=== PATIENT | female | born 1940 | race Caucasian/White ===

== ENCOUNTER → 2017-11-22 08:24 | Outpatient (CLI) | payer MEDICARE, OTHER, SELFPAY ==
--- NOTE | 2017-11-22 08:27 | HPBI_ITS ---
MAMMOGRAPHY - BILATERAL SCREENING REASON FOR EXAM: Female, 76 years old. Routine annual screening examination. PERTINENT HISTORY: Non-contributory. TECHNIQUE: Digital bilateral breast silvia (3D mammographic acquisition) in the CC and MLO projections. 2-D mediolateral oblique (MLO) and craniocaudad (CC) views of both breasts were obtained. CAD: Full Field Digital Mammography with Computer Added Detection was performed. COMPARISON: Comparison is made with prior study dated November 19, 2014 and November 13, 2013. FINDINGS: Breast Composition: There are scattered areas of fibroglandular density. There are no dominant masses or suspicious calcifications. Stable secretory calcifications. No other significant abnormalities are identified. There has been no significant change since the prior study. HPBI/SCREENING MAMM (CAD), BILAT IMPRESSION: Stable bilateral screening mammogram. Yearly follow-up mammogram recommended. (A) ASSESSMENT CATEGORY: BIRADS Category 2: Benign. A letter regarding these results will be sent to the patient by the facility within 30 days. Approximately 10% of breast cancers are not detected by mammography. A normal mammogram should not delay biopsy of a clinically suspicious abnormality. [id number] Electronically Signed: Meño Peter MD at 11:27 EST Tel [phone], Service support ,
== END ==
PROVIDERS: Family Provider Family Medicine; PCP Family Medicine; Visit Provider Family Medicine
DX: Z12.31 Encounter for screening mammogram for malignant neoplasm of breast (principal)
CPT/HCPCS: 77063; 77067

== ENCOUNTER → 2017-12-11 09:13 | Outpatient (CLI) | payer MEDICARE, OTHER, SELFPAY ==
[2017-12-11 10:15] LABS: Absolute Lymphocyte Count 1.46 X10^3/ul (0.83-4.51); Absolute Neutrophil Count 3.6 X10^3/uL (2.0-7.7); Basophil# 0.06 X10^3/uL; Eosinophil# 0.28 X10^3/uL; Eosinophils% 4.7 % (0-5); Hematocrit 43.4 % (37-47); Hemoglobin 13.7 g/dl (12.0-15.0); Lymphocyte # 1.46 X10^3/ul (4.0); Lymphocyte % 24.3 % (19-41); Mean Corp Hgb Conc 31.6 g/gl (32-36); Mean Corpuscular Hgb 28.8 pg (27.0-32.0); Mean Corpuscular Volume 91.4 fL (81-99); Mean Platelet Vol. 12.9 fl (6.2-12.0); Monocyte# 0.63 X10^3/uL; Monocyte% 10.5 % (0-10); Neutrophil # 3.57 X10^3/uL (2.7-7.7); Neutrophil % 59.2 % (47-70); Platelet Count 156 K/mm3 (150-450); RBC Distribution Width CV 14.3 % (11.6-14.6); RBC Distribution Width SD 46.4 fl (35.1-43.9); Red Blood Count 4.75 M/mm3 (4.2-5.4)
[2017-12-11 10:51] LABS: POSITIVE COUNT NO; POSITIVE DIFFERENTIAL NO; POSITIVE MORPHOLOGY NO
== END ==
PROVIDERS: Family Provider Family Medicine; PCP Family Medicine; Visit Provider Family Medicine
DX: Z00.00 Encounter for general adult medical examination without abnormal findings (principal)
CPT/HCPCS: 36415; 85025

== ENCOUNTER → 2018-11-09 08:39 | Outpatient (CLI) | payer MEDICARE, OTHER, SELFPAY ==
[2018-11-09 11:12] LABS: Thyroid Stim Hormone (TSH) 0.32 uIU/mL (0.358-3.74)
--- OUTSIDE RECORDS SUMMARY | 2019-01-13 15:45 | XMS RPT_ITS ---
:1940 Author Organization OHIP Care Team Providers Name Role Phone MAREK MAHMOOD Admitting Unavailable MAREK MAHMOOD Attending Unavailable Seals, Otf Attending Unavailable Seals, Otf Primary Care Unavailable Seals, Otf Attending Unavailable Seals, Otf Primary Care Unavailable Otf Seals Referring Unavailable MoodispawOtf Attending Unavailable Seals, Otf Referring Unavailable Seals, Otf Attending Unavailable Seals, Otf Primary Care Unavailable Nakul Elder Attending Unavailable Seals, Otf Referring Unavailable Seals, Otf Primary Care Unavailable PROBLEMS PROBLEMS DATE TYPE CONDITION / CODE ATTENDING STATUS SOURCE 12/22/2017 Active Unspecified ptosis LOCASTRO, Active [facility] of bilateral MAREK BALLARD Other [place] eyelids / Repository H02.403(ICD-10) PROCEDURES PROCEDURES No Procedure Records FoundRESULTS RESULTS THYROID STIM HORMONE Collected: 11/09/2018 Status: F Source: KIM (TSH) 8:47 AM [facility] REPOSITORY TYPE CODE TESTS RESULT OUT OF RANGE REFERENCE UNITS LAB L501.9520 0.358-3.74 uIU/mL Low TSH 0.32 Performed By: #### L501.9520 #### [facility] [address] [place], [address] CARDIOLOGY VISIT Observed: 01/09/2018 Status: F Source: KIM REPORT 12:04 PM [facility] REPOSITORY [facility] [address] [place] [address] OFFICE VISIT Date of Service: 01/08/18 MR#: [id number] Acct: [id number] Name: QIANA NUNEZ Rep #: [id number] : 1940 Provider: SURY Elder Age/Sex: 77/F Location: [facility] Status: Signed HPI HPI Details: QIANA NUNEZ, is a 77 F who presents to the office today for a cardiovascular followup. She has a history of palpitations, PACs, SVT with ectopic atrial tachycardia, PVCs. She also has a history of hypertension and hyperlipidemia. Pt denies chest, arm, jaw, or neck discomfort. Her exercise tolerance is stable. Pt denies symptoms of CHF, palpitations, lightheadedness, dizziness, near syncopal or syncopal episodes. Pt denies worsening edema or claudication issues. Pt. denies orthopnea, PND, fever, chills, blood in urine, blood in stool, myalgia, or unexplainable fatigue. Intake Vital Signs01/08/18 Height 5 ft 4 in 01/08/18 Weight: 201 lb 01/08/18 Body Mass Index (BMI) 34.4 01/08/18 Blood Pressure 112/60 Intake Visit Reasons: 6 M FU Allergies Sulfa (Sulfonamide Antibiotics) Adverse Reaction (Intermediate, Verified 01/04/18 10:01) Rash Medications diltiazem CD 120 mg capsule,extended release 24 hr 120 mg PO QAM #90 cap 10/18/17 [Rx Confirmed 01/04/18] pravastatin 20 mg tablet 20 mg PO QHS #90 tab 11/20/17 [Rx Confirmed 01/04/18] calcium carbonate 600 mg calcium (1,500 mg) tablet 600 mg PO BID tab 01/04/18 [History Confirmed 01/04/18] levothyroxine 112 mcg tablet 112 mcg PO QDAY tab 01/04/18 [History Confirmed 01/04/18] losartan 50 mg tablet 50 mg PO QDAY 01/04/18 [History Confirmed 01/04/18] nabumetone 750 mg tablet 750 mg PO BID 01/04/18 [History Confirmed 01/04/18] sertraline 50 mg tablet 50 mg PO QDAY 01/04/18 [History Confirmed 01/04/18] PFSH Medical History Palpitations (Chronic) Hypertension (Chronic) Hyperlipidemia (Chronic) Atrial premature complexes (Chronic) History of PSVT (paroxysmal supraventricular tachycardia) (Chronic) Premature ventricular contractions (Chronic) Nonrheumatic aortic (valve) stenosis (Chronic) Cardiac murmur (Chronic) Surgical History History of partial hysterectomy (Acute 1964) Family History Father Cancer Brother CAD (coronary artery disease) Social History Smoking Status: Never smoker ROS Const Const: Negative for fatigue, weakness, body ache, fever(s) or chills ENT ENT: Negative for dizziness Cardio Chest Pain: No Palpitations: No Edema: None Muscle aches with walking: None Resp Respiratory: Negative for SOB with activity, SOB at rest, SOB orthopnea\SOB lying down or paroxysmal nocturnal dyspnea GI GI: Negative nausea, black,tarry stools, bright, red blood in stools or vomiting blood/hematemesis : Negative for hematuria or frequent nighttime urination/ nocturia Musc Musc: Negative for muscle aches/ myalgia Neuro Neuro: Negative for weakness, dizziness, lightheadedness, near syncope, syncope or orthostatic symptoms Endo Endo: Negative for fatigue Cardiology Exam Const Appearance: cooperative, healthy appearing, comfortable and no acute distress Orientation: alert, awake and oriented x3 Head Head: normal to inspection Mouth: oral mucosae normal Neck Neck: no JVD and normal visual inspection Carotids: normal carotid upstroke Chest Chest inspection: normal inspection of the chest and normal respiratory effort Auscultation: Bilateral: Clear to Auscultation Cardio Rate: regular rate Rhythm: regular rhythm Heart sounds: S2 normal and murmur; negative rub or gallop Murmur: Grade 2/6, LLSB and RLSB GI GI: normal to inspection Neuro General: alert, awake, oriented x3 and CN's II-XI intact bilaterally Skin Skin: no rashes or lesions noted Extremities Pulses: Normal: Right Posterior Tibial Pulse, Left Posterior Tibial Pulse, Right Radial Pulse, Left Radial Pulse Lower Extremity Edema: None: Bilateral Psych Psychological: normal affect Supplemental Info Echocardiogram in 2017 demonstrates left ventricular systolic function is normal. The estimated ejection fraction is 65 %. The left atrium is mildly enlarged. Mild (1+) mitral valve insufficiency. Mild tricuspid valve insufficiency. Mild aortic stenosis. Trivial aortic valve insufficiency. Trivial pulmonic valve insufficiency. Right ventricular systolic pressure estimated to be 36 mmHg. Assessment AND Plan 1. Palpitations R00.2 Plan - FATUMA Perera Patient denies any symptomatic recurrence of this. Patient will continue current medications which includes calcium channel lilly. We will continue to monitor this. 2. Essential hypertension I10 Plan - FATUMA Perera Patient's blood pressure is well-controlled today in the office. We will continue to monitor this. We will not make any medication regimen changes. 3. Mixed hyperlipidemia E78.2 Francoise - FATUMA Perera Patient states is managed by primary care physician. We will continue to monitor this. She will continue current cholesterol-lowering medication. 4. Non-rheumatic aortic stenosis I35.0 Plan - FATUMA Perera Patient's most recent echocardiogram from November 2016 showed an estimated ejection fraction of 65% and mild aortic valve stenosis and trivial aortic valve insufficiency. We will not make a medication regimen changes. We will continue to monitor this through history, exam, and repeat echocardiogram as needed. Plan Detail Additional Comments - FATUMA Perera Discussed the above patient with Dr. Robertson in Dr. Buenrostro's absence, he agrees with the plan of care. Thank you for allowing us to participate in the patients plan of care, if you have any questions please do not hesitate to call. This note was generated using a voice recognition system and there may be incorrect words, spelling or punctuation that were not noted when reviewing the office note prior to saving. Follow Up 11 Months (PFM) Coding Level of Care Code Off vis,est,level 3 Diagnoses Palpitations R00.2 Essential hypertension I10 Hypertension type: essential hypertension Mixed hyperlipidemia E78.2 Hyperlipidemia type: mixed hyperlipidemia Non-rheumatic aortic stenosis I35.0 Coding Level of Care Code Off vis,est,level 3 Diagnoses Palpitations R00.2 Essential hypertension I10 Hypertension type: essential hypertension Mixed hyperlipidemia E78.2 Hyperlipidemia type: mixed hyperlipidemia Non-rheumatic aortic stenosis I35.0 01/08/18 1640 <Electronically signed by Nakul BURRIS> Date Nakul Elder [employer] PROGRAM COORDINATOR-C 01/09/18 1204<Electronically signed by Sonido Robertson MD> Cosigner Signature: Date (if applicable) Sonido Robertson MD CC: Otf Seals MD ANES POST Observed: 12/22/2017 Status: COMPLETED Source: [place] 12:40 PM [facility] OTHER CAMPUS REPOSITORY O ID: [id number] Author: Ricky Gray MD Service: Anesthesiology Author Type: Anesthesiologist Type: Anesthesia PostOp Filed: 12/22/2017 12:40 PM Note Text: POST ANESTHESIA EVALUATION NOTE SERVICE DATE: 12/22/2017 SERVICE TIME: 1240 : 1940 Vitals: 12/22/17 1109 12/22/17 1213 Temp: 36.6 ?C (97.9 ?F) 36.3 ?C (97.3 ?F) 12/22/17 1109 12/22/17 1213 12/22/17 1223 BP: 160/66 147/65 146/75 12/22/17 1109 12/22/17 1213 12/22/17 1223 Pulse: 63 71 69 12/22/17 1109 12/22/17 1213 12/22/17 1223 Resp: 20 18 16 12/22/17 1109 12/22/17 1213 12/22/17 1223 SpO2: 96% 97% 96% Validated Vital Signs: Yes POST ANES STATUS: No apparent anesthetic complications. The patient is appropriately hydrated with stable respiratory and cardiovascular status. Patient has safe and adequate airway control. The patient has appropriate pain relief and no significant post operative nausea or vomiting. The patient has achieved baseline mental status. Further assessment by Anesthesia Service: None Other Remarks: SIGNATURE: Ricky Gray MD PATIENT NAME: Qiana Nunez DATE: December 22, 2017 TIME: 12:40 PM PAGER/CONTACT #: OPERATIVE NO Observed: 12/22/2017 Status: COMPLETED Source: [place] 12:10 PM [facility] OTHER CAMPUS REPOSITORY HNO ID: [id number] Author: Marek Mahmood Service: Ophthalmology Author Type: Physician Type: Operative Report Filed: 12/22/2017 12:10 PM Note Text: OPERATIVE/PROCEDURE REPORT OPHTHAMOLOGY LOG ID: [id number] Surgery/Procedure Date: 12/22/2017 Incision/Procedure Start Time: 12:00 PM Incision Close/Procedure End Time: 12:08 PM Surgeon(s)/Proceduralist(s) and Core Java Engineer(s): Surgeon(s) and Role: * Marek Mahmood - Primary Procedure(s): Procedure(s) (LRB): REPAIR BLEPHAROPTOSIS CONJUNCTIVO-TARSO LEVATOR RESECTION (Bilateral) 3.5 mm. 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 The patient has a history of blurred vision, making it difficult to read and drive. The ptosis is worse on down gaze, resulting in their symptoms. The patient has a scotoma greater than 20- 30 degrees which improves on eyelid taping. Anesthesia: Monitored Anesthesia Care Procedure Details: The patient was brought into the operating room, and placed under adequate local anesthesia. The face was prepped and draped in the usual sterile fashion for upper lid surgery. The caliper was set at a pre operatively determined amount and thus used to measure the amount of Julien muscle and conjunctiva to be resected. This tissue was grasped temporally and nasally using locking forceps and the tissue was then brought inferiorly. A Putterman clamp was then placed imbricating the tissue within the jaws of the clamp. A single-arm 6-0 Prolene suture was then passed full thickness from the lid, from a nasal approach, running it through the tissue posterior to the clamp engaging tarsus with each bite. Once the suture was run through the length of the clamp, the other arm was then brought full thickness through the lid temporally. The intervening tissue was resected with Amaya scissors and discarded. The suture was then tied on the lid surface making a knot in the center of the eyelid. Antibiotic ointment and ice compresses were placed over the eye postoperatively. The patient was returned to the recovery room in satisfactory condition. Estimated Blood Loss: Minimal unless noted here. Specimens: * No specimens in log * Implantable Devices: * No implants in log * Drains: None unless noted here. Complications: None I performed the entire procedure. SIGNATURE: Marek Mahmood MD PATIENT NAME: Qiana Nunez DATE: December 22, 2017 TIME: 12:10 PM PAGER/CONTACT #: HISTORY PHYSICAL Observed: 12/22/2017 Status: COMPLETED Source: [place] 11:32 AM [facility] REPOSITORY HNO ID: [id number] Author: Marek Mahmood Service: Ophthalmology Author Type: Physician Type: HANDP Filed: 12/22/2017 11:32 AM Note Text: UPDATED HISTORY AND PHYSICAL EXAMINATION SERVICE DATE: 12/22/2017 SERVICE TIME: 11:32 AM PHYSICAL EXAM MUST BE COMPLETED ON ADMISSION The History and Physical (completed in the past 30 days) has been reviewed and the patient has been examined. The contents accurately reflect the patient's condition with the following additions or revisions since the HANDP was completed. Examination indicates no changes. This HANDP can be found in the scanned documents dated 12/11/17. SIGNATURE: Marek Mahmood MD PATIENT NAME: Qiana Nunez DATE: December 22, 2017 TIME: 11:32 AM PAGER: ANES PREOP Observed: 12/22/2017 Status: COMPLETED Source: [place] 11:18 AM [facility] REPOSITORY HNO ID: [id number] Author: Ricky Gray MD Service: Anesthesiology Author Type: Anesthesiologist Type: Anesthesia PreOp Filed: 12/22/2017 11:19 AM Note Text: ANESTHESIOLOGY DAY OF SURGERY NOTE SERVICE DATE: 12/22/2017 SERVICE TIME: 1115 : 1940 Procedure(s) (LRB): REPAIR BLEPHAROPTOSIS CONJUNCTIVO-TARSO LEVATOR RESECTION (Bilateral) Surgeon(s): Marek Mahmood Estimated body mass index is 34.14 kg/(m2) as calculated from the following: Height as of this encounter: 163.8 cm (5' 4.5). Weight as of this encounter: 91.6 kg (202 lb). Most recent hematocrit and potassium results: No results found for this basename: HCT,HEMATOCRIT,K,POTASSIUM ANES DOS/PREOP NOTE: Vitals: 12/22/17 1109 BP: 160/66 Pulse: 63 Resp: 20 Temp: 36.6 ?C (97.9 ?F) TempSrc: Oral SpO2: 96% Weight: 91.6 kg (202 lb) Height: 163.8 cm (5' 4.5) Active Problem List: Not available in Epic; refer to paper chart Past Medical/Surgical History: Not availble in Epic; refer to paper chart Family History: Not availble in Epic; refer to paper chart Social History: Not availble in Epic; refer to paper chart H AND P/Review of Systems: Not available in Epic; refer to paper chart No current facility-administered medications on file prior to encounter. No current outpatient prescriptions on file prior to encounter. Current Facility-Administered Medications: lactated ringers infusion 30 mL/hr INTRAVENOUS CONTINUOUS Marek Mahmood Allergies: ALLERGIES Allergen Reactions - Sulfa (Sulfonamide * Rash DOS EXAM: Adequate NPO status: Yes Anesthetic risks, benefits, alternatives, personnel and consent discussed: Yes Patient agrees to proceed: Yes Previous Anesthesia: No history of adverse event. Airway Assessment: MP 2; Neck ROM: Full ROM without neurologic symptoms; Airway Evaluation: No significant abnormalities Symptoms of Sleep Apnea: Snoring, Hypertension and Age over 50 (77 year old) Dentition: Teeth intact Additional Physical Exam: Lungs: Patient health status unchanged since recent history and physical. See history and physical for exam findings. Cardiac: Patient health status unchanged since recent history and physical. See history and physical for exam findings. Blood Products: Not anticipated for this procedure. Anesthetic Plan: MAC with Sedation and Standard ASA Monitors Pain Management Plan: Parenteral or Oral ASA Class: 3 Chronic Beta Lilly medication administered within 24 hours: N/A I have interviewed and examined the patient. I have reviewed the medical record and/or the pre-anesthesia evaluation, pertinent labs, and test results. Significant changes in the patient's condition since the History and Physical, not otherwise documented in primary service progress notes: No This contains updated information obtained within 48 hours of Surgery/Procedure. SIGNATURE: Ricky Gray MD PATIENT NAME: Qiana Nunez DATE: December 22, 2017 TIME: 11:18 AM CSN: [id number] CBC W/DIFF, AUTOMATED Collected: 12/11/2017 Status: F Source: KIM 9:16 AM [facility] REPOSITORY TYPE CODE TESTS RESULT OUT OF RANGE REFERENCE UNITS LAB L100.1000 4.4-11.0 K/mm3 Normal WBC 6.0 LAB L100.1200 4.2-5.4 M/mm3 Normal RBC 4.75 LAB L100.1300 12.0-15.0 g/dl Normal HGB 13.7 LAB L100.1400 37-47 % Normal HCT 43.4 LAB L100.1500 81-99 fL Normal MCV 91.4 LAB L100.1600 27.0-32.0 pg Normal MCH 28.8 LAB L100.1700 32-36 g/gl Low MCHC 31.6 LAB L100.1810 11.6-14.6 % Normal RDW CV 14.3 LAB L100.1820 35.1-43.9 fl High RDW SD 46.4 LAB L100.1900 150-450 K/mm3 Normal PLT 156 LAB L100.2000 6.2-12.0 fl High MPV 12.9 LAB L100.2100 47-70 % Normal NEUT% 59.2 LAB L100.2200 19-41 % Normal LY% 24.3 LAB L100.2300 0-10 % High MONO% 10.5 LAB L100.2400 0-5 % Normal EO% 4.7 LAB L100.2500 0-1 % Normal BASO% 1.0 LAB L100.2550 0.0-0.9 % Normal IM GRAN % 0.300 Result Comment: IG% - Immature Granulocytes (promyelocytes, myelocytes and metamyelocytes) > 1% indicates that a LEFT SHIFT is Present. LAB L100.2620 2.0-7.7 X10 3/uL Normal Absolute Neut 3.6 LAB L100.2720 0.83-4.51 X10 3/ul Normal Absolute Lymph 1.46 Performed By: #### L100.0100 #### [facility] [address] [place], [address] HOSP Observed: 11/23/2017 Status: COMPLETED Source: [facility] 12:00 AM [facility] OTHER CAMPUS REPOSITORY Patient:Qiana Nunez MRN: <[id number]> Height:5' 4.5(1.638 m) Weight:202 lb (91.627 kg) Outpatient Medications as of 12/22/17: sertraline (ZOLOFT) 50 mg tablet nabumetone (RELAFEN) 750 mg tablet losartan (COZAAR) 50 mg tablet diltiazem (CARDIZEM) 120 mg tablet pravastatin (PRAVACHOL) 20 mg tablet CALCIUM CARBONATE (CALCIUM 600 ORAL) levothyroxine (SYNTHROID) 112 mcg tablet triamcinolone acetonide (KENALOG) 0.1 % ointment multivitamin tablet Admission/Clinic Administered Medications as of 12/22/17: lactated ringers infusion Problem List: 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] Allergies: Sulfa (Sulfonamide Antibiotics) Date Verified: 12/22/17 Lab Values No results within the last 30 days for the following basenames: K,HCT No progress notes entered within the past 30 days SCREENING MAMM (CAD), Observed: 11/22/2017 Status: F Source: [facility] 8:27 AM [facility] REPOSITORY [facility] Imaging Services [address] [place] [id number] SCREENING MAMM (CAD), BILAT MR#: [id number] Acct: [id number] Name: QIANA NUNEZ Rep #: [id number] : 1940 F 76 From: Meño Peter MD PCP: Otf Seals MD Status: REG CL Study: SCREENING MAMM (CAD), BILAT Date of Exam: 11/22/17 Exam# [id number] Ordering Dr: Otf Seals MD MAMMOGRAPHY - BILATERAL SCREENING REASON FOR EXAM: Female, 76 years old. Routine annual screening examination. PERTINENT HISTORY: Non-contributory. TECHNIQUE: Digital bilateral breast silvia (3D mammographic acquisition) in the CC and MLO projections. 2-D mediolateral oblique (MLO) and craniocaudad (CC) views of both breasts were obtained. CAD: Full Field Digital Mammography with Computer Added Detection was performed. COMPARISON: Comparison is made with prior study dated November 19, 2014 and November 13, 2013. FINDINGS: Breast Composition: There are scattered areas of fibroglandular density. There are no dominant masses or suspicious calcifications. Stable secretory calcifications. No other significant abnormalities are identified. There has been no significant change since the prior study. HPBI/SCREENING MAMM (CAD), BILAT IMPRESSION: Stable bilateral screening mammogram. Yearly follow-up mammogram recommended. (A) ASSESSMENT CATEGORY: BIRADS Category 2: Benign. A letter regarding these results will be sent to the patient by the facility within 30 days. Approximately 10% of breast cancers are not detected by mammography. A normal mammogram should not delay biopsy of a clinically suspicious abnormality. [id number] Electronically Signed: Meño Peter MD at 11:27 EST Tel [phone], Service support , CC: Otf Seals MD Legal Assistant: Signed ALLERGIES ALLERGIES DATE TYPE / CODE NAME / CODE REACTION SEVERITY SOURCE 01/04/2018 Drug Sulfa Rash [facility] Allergy/4160 (Sulfonamide Hospital 17917(SNOMED Antibiotics)/ Repository CT) [id number](RX NORM) 12/12/2017 Drug SULFA RASH [facility] Class/027876 (SULFONAMIDE Other [place] 003(SNOMED ANTIBIOTICS) Repository CT) ENCOUNTERS ENCOUNTERS ADMIT/DISCHARGE ACCOUNT ADMITTING ENCOUNTER LOCATION SOURCE NUMBER CLASS 11/09/2018 [id number] [facility] ing:MFPLAB Repository 01/08/2018 [id number] Ambulatory BMSBuilding:[place] Repository 01/08/2018/01/09/20 [id number] Ambulatory BMSBuilding:[place] [address] [facility] Repository 12/22/2017/12/23/19 [id number] LOCASTRO, Ambulatory [address] Repository 12/11/2017 [id number] Ambulatory [facility] ing:MFPLAB Repository 11/22/2017 [id number] Ambulatory [place] [facility] ing:BI Repository PAYERS PAYERS ENCOUNTER GUARANTOR PAYER SUBSCRIBER SOURCE 11/09/2018 BERNARDO Simon Primary QIANA [place] [id number] [place] Insurance:MEDICARE SWEENEYDOB: [facility] [place], [place] [facility] [id number] Hospital [place] [address]Ydz: Number: Repository [id number] (HP) Date:2018-11-09 11/09/2018 Secondary QIANA Nick [place] Insurance:MUTUAL OF SWEENEYDOB: Critical access hospital Number: [id number] [id number] Repository Date:9475-45-96KYOXVI [place] [address]VE: 11/09/2018 Tertiary NOT GIVENUNK [place] Insurance:SELF PAY [facility] Number: Effective Repository Date:2018-11-09 01/08/2018 Bernardo Simon Primary QIANA Nick [place] [id number] [place] Insurance:MEDICARE SWEENEYDOB: [facility], PART A [facility] [id number] [facility] [place] [address]Fld: Number: Repository [id number] (HP) Date:2017-10-04 01/08/2018 Secondary QIANA H [place] Insurance:MUTUAL OF SWEENEYDOB: Critical access hospital Number: [id number] [id number] Repository Date:5174-69-35FWGRCO [place], [place] [address]VB: 01/08/2018 Tertiary NOT GIVENUNK [place] Insurance:SELF PAY [facility] Number: Effective Repository Date:2017-10-04 01/08/2018 BERNARDO Simon Primary QIANA Nick [place] [id number] [place] Insurance:MEDICARE SWEENEYDOB: [facility] [place], PART A [facility] [id number] Hospital [place] [address]Cxh: Number: Repository [id number] (HP) Date:2017-11-25 01/08/2018 Secondary QIANA H [place] Insurance:MUTUAL OF SWEENEYDOB: Critical access hospital Number: [id number] [id number] Repository Date:4540-83-85[place] [address]HP: 01/08/2018 Tertiary NOT GIVENUNK [place] Insurance:SELF PAY [facility] Number: Effective Repository Date:2017-11-25 12/11/2017 Bernardo Simon Primary QIANA H [place] [id number] [place] Insurance:MEDICARE SWEENEYDOB: [facility], PART A [facility] [id number] [address]Vpl: Number: Repository [id number] (HP) Date:2017-12-11 12/11/2017 Secondary QIANA H [place] Insurance:MUTUAL OF SWEENEYDOB: Critical access hospital Number: [id number] Hospital [id number] Repository Date:7936-49-07XMMTAJ [place], [place] [address]VN: 12/11/2017 Tertiary NOT GIVENUNK [place] Insurance:SELF PAY [facility] Number: Effective Repository Date:2017-12-11 11/22/2017 Bernardo Simon Primary QIANA H [place] [id number] [place] Insurance:MEDICARE SWEENEYDOB: [facility], PART A [facility] [id number] [address]Lsi: Number: Repository [id number] (HP) Date:2017-10-24 11/22/2017 Secondary QIANA H [place] Insurance:MUTUAL OF SWEENEYDOB: Critical access hospital Number: [id number] Hospital [id number] Repository Date:3257-96-20AQKIYV OF [facility], [place] [address]IX: 11/22/2017 Tertiary NOT GIVENUNK [place] Insurance:SELF PAY [facility] Number: Effective Repository Date:2017-10-24
== END ==
PROVIDERS: Family Provider Family Medicine; PCP Family Medicine; Visit Provider Family Medicine
DX: E03.9 Hypothyroidism, unspecified (principal)
CPT/HCPCS: 36415; 84443

== ENCOUNTER → 2019-01-18 09:39 | Outpatient (CLI) | payer MEDICARE, OTHER, SELFPAY ==
[2018-12-17 10:21] VITALS: BMI 34.1
--- NOTE | 2019-01-18 09:41 | ECHOD_ITS ---
Reason For Study: Murmur Procedure This was a 2D Doppler, Color Flow transthoracic echocardiogram. The exam was of adequate technical quality. Exam performed in department. Left Ventricle Normal LV size. Moderate concentric left ventricular hypertrophy. Mid cavitary false tendon noted. Left ventricular systolic function is normal. The estimated ejection fraction is 65 %. There is evidence of diastolic dysfunction. No regional wall motion abnormalities noted. Right Ventricle Normal RV size. Normal systolic function. Atria The left atrium is mildly enlarged. The right atrium is mildly enlarged. No doppler evidence for ASD. Mitral Valve There is no mitral annular calcification. Normal mitral valve. Mild (1+) mitral valve insufficiency. Tricuspid Valve Normal tricuspid valve. Mild tricuspid valve insufficiency. Right ventricular systolic pressure estimated to be 24 mmHg. Aortic Valve Trisinus/trileaflet aortic valve. Mild focal aortic valve calcification. Mild aortic stenosis. Trivial aortic valve insufficiency. Pulmonic Valve The pulmonic valve is not well visualized. Trivial pulmonic valve insufficiency. Great Vessels Normal sized aortic root. Pericardium/Pleural No pericardial effusion. MMode/2D Measurements & Calculations LVIDd: 3.7 cm IVSd: 1.6 cm LVOT diam: 2.1 cm LVIDs: 2.0 cm LVPWd: 1.5 cm LVOT area: 3.6 cm2 RVDd: 3.8 cm FS: 46.2 % Ao root diam: 3.6 cm LAV(MOD-sp4): 47.9 ml LA A4 area: 18.9 cm2 ACS: 1.3 cm RA A4 area: 18.1 cm2 Time Measurements MV dec time: 0.32 sec Doppler Measurements & Calculations MV E max jeffery: 93.3 cm/sec Lat Peak E' Jeffery: 5.0 cm/sec Med Peak E' Jeffery: 4.1 cm/sec MV A max jeffery: 118.1 cm/sec E/E' lat: 18.5 E/E' med: 22.6 MV E/A: 0.79 MV V2 max: 140.6 cm/sec MV P1/2t max jeffery: 98.2 cm/sec Ao V2 max: 252.0 cm/sec MV max P.9 mmHg MV P1/2t: 79.1 msec Ao max P.4 mmHg MV V2 mean: 74.7 cm/sec Ao V2 mean: 154.2 cm/sec MV mean P.7 mmHg MV dec slope: 363.8 cm/sec2 Ao mean P.5 mmHg MV V2 VTI: 38.9 cm MVA(P1/2t): 2.8 cm2 Ao V2 VTI: 54.8 cm MVA(VTI): 1.9 cm2 RADHAMES(I,D): 1.3 cm2 RADHAMES(V,D): 1.3 cm2 LV V1 max: 93.8 cm/sec SV(LVOT): 72.1 ml PA V2 max: 103.0 cm/sec LV V1 max P.5 mmHg LV V1 mean P.0 mmHg LV V1 mean: 65.9 cm/sec LV V1 VTI: 20.1 cm TR max jeffery: 227.7 cm/sec TR max P.7 mmHg Interpretation Summary Left ventricular systolic function is normal. The estimated ejection fraction is 65 %. Moderate concentric left ventricular hypertrophy. Mid cavitary false tendon noted. The left atrium is mildly enlarged. The right atrium is mildly enlarged. Mild (1+) mitral valve insufficiency. Mild tricuspid valve insufficiency. Mild aortic stenosis. Trivial aortic valve insufficiency. Trivial pulmonic valve insufficiency. Right ventricular systolic pressure estimated to be 24 mmHg. There is evidence of diastolic dysfunction. Ordering Physician: Otf Buenrostro Referring Physician: Otf Buenrostro Performed By: Rex Dinh RCS
== END ==
PROVIDERS: Family Provider Family Medicine; PCP Family Medicine; Referring Provider Internal Medicine Cardiovascular Disease; Visit Provider Internal Medicine Cardiovascular Disease
DX: I35.0 Nonrheumatic aortic (valve) stenosis (principal); R00.2 Palpitations
CPT/HCPCS: 93306

== ENCOUNTER → 2019-05-09 | Outpatient (CLI) | payer MEDICARE, OTHER, SELFPAY ==
[2018-12-17 10:21] VITALS: BMI 34.1
[2019-05-09 10:37] LABS: Thyroid Stim Hormone (TSH) 0.65 uIU/mL (0.358-3.74)
== END | disposition home or self-care (01) ==
LOC: MFPLAB 08:41
PROVIDERS: Family Provider Family Medicine; PCP Family Medicine; Referring Provider Family Medicine; Visit Provider Family Medicine
DX: E03.9 Hypothyroidism, unspecified (principal)
CPT/HCPCS: 36415; 84443

== ENCOUNTER → 2019-11-07 10:26 | Outpatient (CLI) | payer MEDICARE, OTHER, SELFPAY ==
[2018-12-17 10:21] VITALS: BMI 34.1
[2019-11-07 12:39] LABS: Anion Gap 4 (5-15); BUN 12 mg/dL (7-18); BUN/Creat Ratio 14.7 RATIO (10-20); Calcium,Total 9.2 mg/dL (8.5-10.1); Chloride 108 mmol/L (98-107); Cholesterol 207 mg/dL (200); Creatinine, Serum 0.81 mg/dL (0.55-1.02); EST Glomerular Filtration Rate 72 mL/min (>60); Est Glom Filt Rate - Afr Amer 87 mL/min (>60); Glucose 100 mg/dL (74-106); High Density Lipoprotein 62 mg/dL; Potassium 4.1 mmol/L (3.5-5.1); Sodium Level 142 mmol/L (136-145); Thyroid Stim Hormone (TSH) 0.94 uIU/mL (0.358-3.74); Triglycerides 206 mg/dL; Very Low Density Lipoprotein 41 mg/dL (5-40)
== END ==
PROVIDERS: PCP Family Medicine; Referring Provider Family Medicine; Visit Provider Family Medicine
DX: E03.9 Hypothyroidism, unspecified (principal); E78.2 Mixed hyperlipidemia
CPT/HCPCS: 36415; 80048; 80061; 84436; 84443; 84481

== ENCOUNTER → 2020-05-06 09:29 | Outpatient (CLI) | payer MEDICARE, OTHER, SELFPAY ==
[2019-12-23 09:30] VITALS: BMI 33.6
[2020-05-06 11:28] LABS: Cholesterol 200 mg/dL (200); High Density Lipoprotein 61 mg/dL; T4 Total, Thyroxin 11.6 ug/dL (4.8-13.9); Thyroid Stim Hormone (TSH) 0.36 uIU/mL (0.358-3.74); Triglycerides 164 mg/dL; Very Low Density Lipoprotein 33 mg/dL (5-40)
== END ==
PROVIDERS: PCP Family Medicine; Visit Provider Family Medicine
DX: E03.9 Hypothyroidism, unspecified (principal); E78.2 Mixed hyperlipidemia
CPT/HCPCS: 36415; 80061; 84436; 84443; 84481

== ENCOUNTER → 2020-12-15 13:36 | Outpatient (CLI) | payer MEDICARE, OTHER, SELFPAY ==
[2020-12-04 09:03] VITALS: BMI 32.8
--- NOTE | 2020-12-15 13:41 | ECHOD_ITS ---
Reason For Study: Murmur Procedure This was a 2D Doppler, Color Flow transthoracic echocardiogram. The exam was of adequate technical quality. Exam performed in department. Left Ventricle Normal LV size. Severe concentric left ventricular hypertrophy. Left ventricular systolic function is normal. The estimated ejection fraction is 70 %. Diastolic function is indeterminate. No regional wall motion abnormalities noted. Right Ventricle Normal RV size. Normal systolic function. Atria The left atrium is mildly enlarged. The right atrium is mildly enlarged. No doppler evidence for ASD. Mitral Valve There is mild mitral annular calcification. Extension the mitral annular calcification on the base of the posterior mitral valve leaflet. Mild (1+) mitral valve insufficiency. Tricuspid Valve Normal tricuspid valve. Mild tricuspid valve insufficiency. Right ventricular systolic pressure estimated to be 32 mmHg. Aortic Valve Trisinus/trileaflet aortic valve. Mild focal aortic valve calcification. Mild to moderate aortic stenosis. Trivial aortic valve insufficiency. Pulmonic Valve The pulmonic valve is not well visualized. Trivial pulmonic valve insufficiency. Great Vessels Normal sized aortic root. Pericardium/Pleural No pericardial effusion. MMode/2D Measurements & Calculations LVIDd: 4.2 cm IVSd: 1.7 cm LVOT diam: 2.0 cm LVIDs: 2.1 cm LVPWd: 1.6 cm LVOT area: 3.2 cm2 RVDd: 3.6 cm FS: 49.3 % Ao root diam: 3.6 cm LAV(MOD-bp): 43.1 ml LA A4 area: 16.6 cm2 LA dimension: 3.3 cm LAV(MOD-bp) Indexed: 22.5 ml/m2 LAV(MOD-sp2): 46.2 ml LAV(MOD-sp4): 36.1 ml RA A4 area: 14.9 cm2 Time Measurements MV dec time: 0.28 sec Doppler Measurements & Calculations MV E max jeffery: 100.8 cm/sec Lat Peak E' Jeffery: 5.6 cm/sec Med Peak E' Jeffery: 5.9 cm/sec MV A max jeffery: 132.1 cm/sec E/E' lat: 18.0 E/E' med: 17.0 MV E/A: 0.76 MV V2 max: 167.6 cm/sec MV P1/2t max jeffery: 133.9 cm/sec Ao V2 max: 312.6 cm/sec MV max P.2 mmHg MV P1/2t: 89.5 msec Ao max P.2 mmHg MV V2 mean: 90.5 cm/sec MV dec slope: 438.1 cm/sec2 Ao V2 mean: 211.7 cm/sec MV mean P.0 mmHg Ao mean P.6 mmHg MV V2 VTI: 41.8 cm MVA(P1/2t): 2.5 cm2 Ao V2 VTI: 67.6 cm MVA(VTI): 2.3 cm2 RADHAMES(I,D): 1.4 cm2 RADHAMES(V,D): 1.3 cm2 AI max jeffery: 408.5 cm/sec LV V1 max: 132.3 cm/sec SV(LVOT): 94.7 ml AI max P.1 mmHg LV V1 max P.0 mmHg LV V1 mean P.3 mmHg AI dec slope: 241.0 cm/sec2 LV V1 mean: 96.4 cm/sec AI P1/2t: 496.5 msec LV V1 VTI: 29.8 cm PA V2 max: 104.0 cm/sec TR max jeffery: 269.2 cm/sec TR max P.0 mmHg Interpretation Summary Left ventricular systolic function is normal. The estimated ejection fraction is 70 %. Severe concentric left ventricular hypertrophy. The left atrium is mildly enlarged. The right atrium is mildly enlarged. There is mild mitral annular calcification. Extension the mitral annular calcification on the base of the posterior mitral valve leaflet. Mild (1+) mitral valve insufficiency. Mild tricuspid valve insufficiency. Mild to moderate aortic stenosis. Trivial pulmonic valve insufficiency. Right ventricular systolic pressure estimated to be 32 mmHg. Diastolic function is indeterminate. Ordering Physician: Otf Buenrostro Referring Physician: Otf Seals Performed By: Rex Dinh RCS
== END ==
PROVIDERS: PCP Family Medicine; Referring Provider Internal Medicine Cardiovascular Disease; Visit Provider Internal Medicine Cardiovascular Disease
DX: I35.0 Nonrheumatic aortic (valve) stenosis (principal); R00.2 Palpitations
CPT/HCPCS: 93306

== ENCOUNTER → 2020-12-23 07:45 | Outpatient (CLI) | payer MEDICARE, OTHER, SELFPAY ==
[2020-12-04 09:03] VITALS: BMI 32.8
[2020-12-23 08:46] LABS: AST(SGOT) 14 U/L (15-37); Alanine Aminotransfer ALT/SGPT 20 U/L (13-56); Albumin, Serum 3.8 g/dL (3.2-5.0); Alkaline Phosphatase 79 U/L (45-117); Bilirubin, Direct 0.22 mg/dL (0.00-0.30); Cholesterol 205 mg/dL (200); High Density Lipoprotein 62 mg/dL; Protein, Total 6.8 g/dL (6.4-8.2); Triglycerides 208 mg/dL; Very Low Density Lipoprotein 42 mg/dL (5-40)
== END ==
PROVIDERS: PCP Family Medicine; Referring Provider Internal Medicine Cardiovascular Disease; Visit Provider Internal Medicine Cardiovascular Disease
DX: I35.0 Nonrheumatic aortic (valve) stenosis (principal); E78.00 Pure hypercholesterolemia, unspecified
CPT/HCPCS: 36415; 80061; 80076

== ENCOUNTER → 2021-01-22 11:24 | Outpatient (CLI) | payer MEDICARE, OTHER, SELFPAY ==
[2020-12-04 09:03] VITALS: BMI 32.8
[2021-01-22 16:28] LABS: Anion Gap 6 (5-15); BUN 8 mg/dL (7-18); BUN/Creat Ratio 11.2 RATIO (10-20); Calcium,Total 9.2 mg/dL (8.5-10.1); Chloride 106 mmol/L (98-107); Creatinine, Serum 0.72 mg/dL (0.55-1.02); EST Glomerular Filtration Rate 83 mL/min (>60); Est Glom Filt Rate - Afr Amer 101 mL/min (>60); Free T3 1.7 pg/mL (2.18-3.98); Glucose 96 mg/dL (74-106); Potassium 4.1 mmol/L (3.5-5.1); Sodium Level 140 mmol/L (136-145); T4 Free Direct 1.26 ng/dL (0.76-1.46); Thyroid Stim Hormone (TSH) 0.82 uIU/mL (0.358-3.74)
== END ==
PROVIDERS: PCP Family Medicine; Referring Provider Family Medicine; Visit Provider Family Medicine
DX: E78.2 Mixed hyperlipidemia (principal); E03.9 Hypothyroidism, unspecified
CPT/HCPCS: 36415; 80048; 84439; 84443; 84481

== ENCOUNTER → 2021-07-26 10:09 | Outpatient (CLI) | payer MEDICARE, OTHER, SELFPAY ==
[2021-07-26 12:43] LABS: ALB/GLOB Ratio 1.1 RATIO (0.9-2.4); AST(SGOT) 13 U/L (15-37); Alanine Aminotransfer ALT/SGPT 17 U/L (13-56); Albumin, Serum 3.5 g/dL (3.2-5.0); Alkaline Phosphatase 79 U/L (45-117); Anion Gap 5 (5-15); BUN 10 mg/dL (7-18); BUN/Creat Ratio 12.5 RATIO (10-20); Calcium,Total 9.1 mg/dL (8.5-10.1); Chloride 108 mmol/L (98-107); Cholesterol 190 mg/dL (200); EST Glomerular Filtration Rate 73 mL/min (>60); Est Glom Filt Rate - Afr Amer 89 mL/min (>60); Free T3 1.9 pg/mL (2.18-3.98); Globulin 3.3 g/dL (2.2-4.2); Glucose 113 mg/dL (74-106); High Density Lipoprotein 65 mg/dL; Potassium 4.3 mmol/L (3.5-5.1); Protein, Total 6.8 g/dL (6.4-8.2); Sodium Level 143 mmol/L (136-145); T4 Free Direct 1.23 ng/dL (0.76-1.46); Thyroid Stim Hormone (TSH) 0.83 uIU/mL (0.358-3.74); Triglycerides 140 mg/dL; Very Low Density Lipoprotein 28 mg/dL (5-40)
== END ==
PROVIDERS: PCP Family Medicine; Referring Provider Family Medicine; Visit Provider Family Medicine
DX: E03.9 Hypothyroidism, unspecified (principal); E78.2 Mixed hyperlipidemia
CPT/HCPCS: 36415; 80053; 80061; 84439; 84443; 84481

== ENCOUNTER 2022-01-05 08:36 | Outpatient (CLI) | payer MEDICARE, OTHER, SELFPAY ==
--- NOTE | 2022-01-05 08:41 | ECHOD_ITS ---
Reason For Study: MURMUR Procedure This was a 2D Doppler, Color Flow transthoracic echocardiogram. The study was technically difficult. Exam performed in department. Left Ventricle Normal LV size. Mid cavitary false tendon noted. Left ventricular systolic function is normal. The estimated ejection fraction is 65 %. Diastolic function is indeterminate. No regional wall motion abnormalities noted. Right Ventricle Normal RV size. Normal systolic function. Atria The left atrium is mildly enlarged. The right atrium is mildly enlarged. No doppler evidence for ASD. Mitral Valve There is mild mitral annular calcification. Extension of the mitral annular calcification onto the base of the posterior mitral valve leaflet. Mild (1+) mitral valve insufficiency. Tricuspid Valve Normal tricuspid valve. Trivial tricuspid valve insufficiency. Right ventricular systolic pressure estimated to be 26 mmHg. Aortic Valve Trisinus/trileaflet aortic valve. Mild diffuse aortic valve calcification. Moderate aortic stenosis. Mild (1+) aortic valve insufficiency. Pulmonic Valve The pulmonic valve is not well visualized. Great Vessels Normal sized aortic root. Calcified aortic root. Pericardium/Pleural No pericardial effusion. MMode/2D Measurements & Calculations LVIDd: 4.5 cm IVSd: 1.3 cm LVOT diam: 2.0 cm LVIDs: 2.9 cm LVPWd: 1.2 cm LVOT area: 3.1 cm2 RVDd: 3.6 cm FS: 35.7 % Ao root diam: 3.8 cm LAV(MOD-bp): 37.5 ml LA A4 area: 15.1 cm2 LAV(MOD-bp) Indexed: 19.6 ml/m2 LAV(MOD-sp2): 43.3 ml LAV(MOD-sp4): 35.0 ml LA dimension(2D): 4.1 cm RA A4 area: 19.0 cm2 Time Measurements MV dec time: 0.19 sec Doppler Measurements & Calculations MV E max jeffery: 105.1 cm/sec Lat Peak E' Jeffery: 6.6 cm/sec Med Peak E' Jeffery: 6.4 cm/sec MV A max jeffery: 154.1 cm/sec E/E' lat: 16.0 E/E' med: 16.4 MV E/A: 0.68 Ao V2 max: 338.2 cm/sec AI max jeffery: 469.5 cm/sec LV V1 max: 111.5 cm/sec Ao max P.8 mmHg AI max P.3 mmHg LV V1 max P.0 mmHg Ao V2 mean: 254.6 cm/sec AI dec slope: 266.3 cm/sec2 LV V1 mean P.1 mmHg Ao mean P.1 mmHg AI P1/2t: 516.4 msec LV V1 mean: 85.8 cm/sec Ao V2 VTI: 81.2 cm LV V1 VTI: 26.5 cm RADHAMES(I,D): 1.00 cm2 RADHAMES(V,D): 1.0 cm2 SV(LVOT): 80.9 ml PA V2 max: 137.9 cm/sec TR max jeffery: 240.8 cm/sec TR max P.3 mmHg ECHO/Echo Complete Interpretation Summary The study was technically difficult. Left ventricular systolic function is normal. The estimated ejection fraction is 65 %. Mid cavitary false tendon noted. The left atrium is mildly enlarged. The right atrium is mildly enlarged. There is mild mitral annular calcification. Extension of the mitral annular calcification onto the base of the posterior mi tral valve leaflet. Mild (1+) mitral valve insufficiency. Trivial tricuspid valve insufficiency. Mild diffuse aortic valve calcification. Moderate aortic stenosis. Mild (1+) aortic valve insufficiency. Calcified aortic root. Right ventricular systolic pressure estimated to be 26 mmHg. Diastolic function is indeterminate. Ordering Physician: Otf Buenrostro Referring Physician: Otf Seals Performed By: Mignon Austin, NITHYACS, RVT
== END 2022-01-05 23:59 | disposition home or self-care (01) ==
LOC: CVS 08:40
PROVIDERS: PCP Family Medicine; Referring Provider Internal Medicine Cardiovascular Disease; Visit Provider Internal Medicine Cardiovascular Disease
DX: I35.0 Nonrheumatic aortic (valve) stenosis (principal); R01.1 Cardiac murmur, unspecified
CPT/HCPCS: 93306

== ENCOUNTER 2022-01-24 09:47 | Outpatient (CLI) | payer MEDICARE, OTHER, SELFPAY ==
[2022-01-24 12:23] LABS: ALB/GLOB Ratio 1.1 RATIO (0.9-2.4); AST(SGOT) 11 U/L (15-37); Alanine Aminotransfer ALT/SGPT 18 U/L (13-56); Albumin, Serum 3.7 g/dL (3.2-5.0); Alkaline Phosphatase 71 U/L (45-117); Anion Gap 6 (5-15); BUN 9 mg/dL (7-18); BUN/Creat Ratio 11.3 RATIO (10-20); Chloride 106 mmol/L (98-107); Cholesterol 186 mg/dL (200); Creatinine, Serum 0.79 mg/dL (0.55-1.02); EST Glomerular Filtration Rate 73 mL/min (>60); Est Glom Filt Rate - Afr Amer 89 mL/min (>60); Globulin 3.3 g/dL (2.2-4.2); Glucose 109 mg/dL (74-106); High Density Lipoprotein 59 mg/dL; Sodium Level 142 mmol/L (136-145); T4 Free Direct 1.52 ng/dL (0.76-1.46); Triglycerides 179 mg/dL; Very Low Density Lipoprotein 36 mg/dL (5-40)
== END 2022-01-24 23:59 | disposition home or self-care (01) ==
LOC: MTLAB 09:49
PROVIDERS: PCP Family Medicine; Referring Provider Family Medicine; Visit Provider Family Medicine
DX: E03.9 Hypothyroidism, unspecified (principal); E78.2 Mixed hyperlipidemia
CPT/HCPCS: 36415; 80053; 80061; 84439; 84443; 84481

== ENCOUNTER → 2022-07-25 | Outpatient (CLI) | payer MEDICARE, OTHER, SELFPAY ==
[2022-07-25 13:07] LABS: Anion Gap 9 (5-15); BUN 10 mg/dL (7-18); BUN/Creat Ratio 14.4 RATIO (10-20); Chloride 107 mmol/L (98-107); Cholesterol 170 mg/dL (200); EST Glomerular Filtration Rate 85 mL/min (>60); Est Glom Filt Rate - Afr Amer 103 mL/min (>60); Free T3 2.1 pg/mL (2.18-3.98); Glucose 112 mg/dL (74-106); High Density Lipoprotein 61 mg/dL; Potassium 3.9 mmol/L (3.5-5.1); Sodium Level 142 mmol/L (136-145); Thyroid Stim Hormone (TSH) 0.66 uIU/mL (0.358-3.74); Triglycerides 182 mg/dL; Very Low Density Lipoprotein 36 mg/dL (5-40)
== END | disposition home or self-care (01) ==
LOC: MFPLAB 10:31
PROVIDERS: PCP Family Medicine; Visit Provider Family Medicine
DX: I10 Essential (primary) hypertension (principal); E03.9 Hypothyroidism, unspecified
CPT/HCPCS: 36415; 80048; 80061; 84439; 84443; 84481

== ENCOUNTER 2022-08-30 09:14 | Emergency (ER) | payer MEDICARE, OTHER, SELFPAY ==
[2022-08-30 09:16] VITALS: BP 132/68; PULSE 87; RESP 16; TEMP 37.1; O2SAT 96; BMI 30.9
--- NOTE | 2022-08-30 09:57 | EDS_ITS ---
HPI History of Present Illness Chief Complaint: Lower Extremity Injury Detail of Chief Complaint: Pain from her right buttock down her right leg. Informant: patient Onset/Context/Timing Onset: Days Context: Gradual Onset Timing: Continuous Quality: Aching Location: Buttock and Right Leg Current Severity: Mild Maximum Severity: Moderate Worsened by: improves with Movement Relieved by: Remaining Still Associated Symptoms Associated Symptoms: Radiation to Right Leg; Negative for Numbness, Tingling, Radiation to Left Leg, Fever, Abdominal Pain, Dysuria, Unable to Ambulate, Unable to Transfer, Urinary Retention, Urinary Incontinence, Constipation or Fecal Incontinence Narrative Narrative: 81-year-old female history of hypertension. Last several days has had pain going from her right buttock down the back of her right leg. Denies any fall injury or trauma. No significant back pain. No fever or chills. No prior back surgery. She is never had sciatica before. Its worse with movement. She has been taking Tylenol with some relief. Denies any weakness or numbness. No bowel or bladder incontinence or retention. Prior similar symptoms: No Recent Illness/Hospitalization: No [facility] Medical History (Updated 08/30/22 @ 10:[address] Cash Salgado MD) Atrial premature complexes Cardiac murmur Essential hypertension History of PSVT (paroxysmal supraventricular tachycardia) Mixed hyperlipidemia Nonrheumatic aortic (valve) stenosis Palpitations Premature ventricular contractions Medical History no medical history no medical history Home Medications levothyroxine 112 mcg tablet 112 mcg PO QDAY 01/04/18 [History Last Taken Unknown] losartan 50 mg tablet 50 mg PO QDAY 01/04/18 [History Last Taken Unknown] sertraline 50 mg tablet 50 mg PO QDAY 01/04/18 [History Last Taken Unknown] multivitamin 1 tab PO DAILY 12/17/18 [History Last Taken Unknown] nabumetone 750 mg tablet 750 mg PO DAILY 12/17/18 [History Last Taken Unknown] turmeric 400 mg capsule 400 mg PO DAILY 12/04/20 [History Last Taken Unknown] calcium carbonate 500 mg-vitamin D3 10 mcg (400 unit) tablet 1 tab PO DAILY 12/03/21 [History Last Taken Unknown] diltiazem HCl 120 mg capsule,extended release 24 hr (Cartia XT) 120 mg PO QAM #90 caps 12/27/21 [Rx Last Taken Unknown] pravastatin 40 mg tablet 40 mg PO QHS #90 tabs 01/10/22 [Rx Last Taken Unknown] prednisone 20 mg tablet 40 mg PO DAILY 7 days #14 tabs 08/30/22 [Rx Last Taken Unknown] Allergy/AdvReac Type Severity Reaction Status Date / Time Sulfa (Sulfonamide AdvReac Intermediate Rash Verified 08/30/22 09:15 Antibiotics) Family History Father Cancer Brother CAD (coronary artery disease) Surgical History History of partial hysterectomy (~1965) Social History Smoking Status: Never smoker ROS ROS ED ROS Narrative No recent illness. Review of Systems ROS Unobtainable: Denies due to encephalopathy Constitutional Constitutional ED: Denies fever(s) Eyes Eyes: Denies blurry vision ENT ENT ED: Denies ear pain Cardiovascular Cardiovascular: Denies chest pain Respiratory/Chest Respiratory/Chest: Denies dyspnea Gastrointestinal Gastrointestinal: Denies abdominal pain Genitourinary Genitourinary ED: Denies dysuria Musculoskeletal Musculoskeletal: Reports back pain; Denies arthralgias, myalgias or neck pain Integumentary Denies abscess Neurologic Neurologic: Denies headache(s) Psychiatric Psychiatric: Denies anxiety Endocrine Endocrinology: Denies cold intolerance Hematologic/Lymphatic Hematologic/Lymphatic: Denies easy bleeding Allergic/Immunologic Allergic/Immunologic ED: Denies mouth swelling or tongue swelling EXAM Physical Exam Narrative Exam Narrative: 81-year-old female no acute distress. Vital signs stable afebrile. H EENT exam unremarkable. Neck nontender no lymphadenopathy. Lungs clear to auscultation bilaterally. Heart regular rhythm no murmur. Abdomen soft nontender. Moving all 4 extremities. Calves are nontender without edema or cords. Back spine nontender. Tenderness right SI joint. Positive straight leg raise test on the right. No cauda equina. No saddle anesthesia. Exam and history are consistent with acute right sciatica. Const Vital Signs: 08/30/22 09:16 Temperature 98.7 F Temperature Source Temporal Pulse Rate 87 Respiratory Rate 16 Blood Pressure 132/68 H Blood Pressure Mean 89 Pulse Ox 96 Oxygen Delivery Method Room Air Positive well nourished and well developed; Negative for obese, cachectic, contractures or unkempt General Appearance ED: well developed and NAD; Negative for unkempt, cachectic, contractures or pallor Nutritional Appearance: Negative for cachectic or obese HEENT Reports moist mucous membranes; Denies dry mucous membranes Negative for trauma or tenderness Mouth ED: No dry mucous membranes Mouth: No dry mucous membranes Eyes PERRL and EOMs intact bilaterally General Eye ED: Negative for pale conjunctiva Neck no lymphadenopathy, supple and no JVD General: Negative for tenderness Thyroid: Negative for other Chest Wall Chest: Negative for other Resp normal respiratory effort and clear to auscultation bilaterally Effort and Inspection: Negative for pain with movement Auscultation: Negative for rales, rhonchi or wheezes Cardio regular rate, regular rhythm, S1 normal heart sound, S2 normal heart sound and no murmurs Palpation: Negative for palpable S3 Rate: Negative for bradycardia Rhythm: Negative for abnormal rhythm GI normal to inspection, nondistended, normoactive bowel sounds and no masses Inspection: Negative for abdominal distention Auscultation: Negative for hyperactive bowel sounds Palpation: Negative for tender, guarding, mass or pulsatile mass Back/Spine normal to inspection and no thoracic nor lumbar tenderness Back/Spine Narrative: Right sciatic tenderness. Cervical Spine: Negative for cervical spine tenderness Thoracic Spine / Upper Back: Negative for paraspinal muscle tenderness Lumbar Spine / Lower Back: straight leg raise positive right; Negative for ROM limited or straight leg raise negative bilaterally Extremity normal to inspection and no clubbing, cyanosis or edema General Extremety ED: Negative for edema or tenderness General Extremity: Negative for edema Neuro oriented x3 Sensorium / Orientation: alert; Negative for confused, lethargic or stuporous Motor Exam: strength 5/5 throughout; Negative for strength abnormal Psych mental status grossly normal Appearance: Negative for unkempt Attitude: No agitated Mood & Affect: Negative for depressed, sad or tearful Skin no rashes or lesions noted and no wounds General Skin Exam: Negative for jaundice or pallor Lesions: No lesion noted Rashes: No rashes noted Trauma: Negative for abrasion Wounds: Negative for wounds noted MDM MDM MDM Narrative Medical decision making narrative: 81-year-old that has pain, history and exam consistent with acute right sciatica. She will be placed on prednisone 40 mg a day for 7 days. Given first dose here in emergency department. Limited Motrin to twice a day for pain. May also use Tylenol. Follow-up with your doctor if not improving. Discharge Plan Triage Chief Complaint: Lower Extremity Injury ED Provider: Cash Salgado Dx/Rx/DC Orders Clinical Impression: Acute sciatica Instructions: ED Sciatica Prescriptions: New prednisone 20 mg tablet 40 mg PO DAILY 7 Days Qty: 14 0RF No Action levothyroxine 112 mcg tablet 112 mcg PO QDAY sertraline 50 mg tablet 50 mg PO QDAY losartan 50 mg tablet 50 mg PO QDAY nabumetone 750 mg tablet 750 mg PO DAILY multivitamin tablet 1 tab PO DAILY turmeric 400 mg capsule 400 mg PO DAILY calcium carbonate-vitamin D3 500 mg-10 mcg (400 unit) tablet 1 tab PO DAILY diltiazem HCl [Cartia XT] 120 mg capsule,extended release 24hr 120 mg PO QAM Qty: 90 3RF pravastatin 40 mg tablet 40 mg PO QHS Qty: 90 4RF Primary Care Provider: Otf Seals Referrals: Otf Seals MD [Primary Care Provider] - 1 Week if not improving Activity Restrictions/Additional Instructions: Ice to your right lower back over the sciatic notch. Prednisone 40 mg a day for the next 7 days start tomorrow. Motrin 2 pills twice a day after breakfast and dinner to help with pain and inflammation. You have right-sided sciatica this should progressively improve if not follow-up with your doctor. Disposition Disposition: Home, Self Care
[2022-08-30] MEDS: predniSONE 20 MG Tablet 40 MG PO (10:00)
== END 2022-08-30 10:11 | disposition home or self-care (01) ==
LOC: ED 10:09
PROVIDERS: Emergency Provider Emergency Medicine; PCP Family Medicine; Visit Provider Emergency Medicine
DX: M54.30 Sciatica, unspecified side (principal); I10 Essential (primary) hypertension; E78.2 Mixed hyperlipidemia; Z79.899 Other long term (current) drug therapy
CPT/HCPCS: 99283

== ENCOUNTER → 2023-01-23 | Outpatient (CLI) | payer MEDICARE, OTHER, SELFPAY ==
[2023-01-23 12:31] LABS: Anion Gap 7 (5-15); BUN 9 mg/dL (7-18); BUN/Creat Ratio 12.6 RATIO (10-20); Calcium,Total 9.2 mg/dL (8.5-10.1); Chloride 107 mmol/L (98-107); Cholesterol 188 mg/dL (200); Creatinine, Serum 0.71 mg/dL (0.55-1.02); EST Glomerular Filtration Rate 83 mL/min (>60); Est Glom Filt Rate - Afr Amer 100 mL/min (>60); Free T3 1.7 pg/mL (2.18-3.98); Glucose 103 mg/dL (74-106); High Density Lipoprotein 63 mg/dL; Potassium 4.2 mmol/L (3.5-5.1); Sodium Level 141 mmol/L (136-145); T4 Free Direct 1.16 ng/dL (0.76-1.46); Thyroid Stim Hormone (TSH) 2.61 uIU/mL (0.358-3.74); Triglycerides 153 mg/dL; Very Low Density Lipoprotein 31 mg/dL (5-40)
== END | disposition home or self-care (01) ==
LOC: MFPLAB 10:11
PROVIDERS: PCP Family Medicine; Visit Provider Family Medicine
DX: E03.9 Hypothyroidism, unspecified (principal); I10 Essential (primary) hypertension
CPT/HCPCS: 36415; 80048; 80061; 84439; 84443; 84481

== ENCOUNTER → 2023-03-03 | Outpatient (CLI) | payer MEDICARE, OTHER, SELFPAY ==
[2023-03-03 11:32] LABS: Absolute Lymphocyte Count 1.64 X10^3/uL (0.83-4.51); Absolute Neutrophil Count 6.4 X10^3/uL (2.0-7.7); Basophil% 1.1 % (0-1); Eosinophil# 0.29 X10^3/uL; Eosinophils% 3.1 % (0-5); Hemoglobin 14.7 g/dL (12.0-15.0); Lymphocyte # 1.64 X10^3/ul (0.83-4.51); Lymphocyte % 17.4 % (19-41); Mean Corp Hgb Conc 31.3 g/dL (32-36); Mean Corpuscular Hgb 29.2 pg (27.0-32.0); Mean Corpuscular Volume 93.4 fL (81-99); Monocyte# 0.95 X10^3/uL; Monocyte% 10.1 % (0-10); NRBC Flagged by Analyzer 0 % (0-5); Neutrophil # 6.38 X10^3/uL (2.7-7.7); Neutrophil % 67.8 % (47-70); Platelet Count 176 K/mm3 (150-450); RBC Distribution Width SD 47.8 fl (35.1-43.9); Red Blood Count 5.03 M/mm3 (4.2-5.4); White Blood Count 9.4 K/mm3 (4.4-11.0)
== END | disposition home or self-care (01) ==
LOC: LAB 11:06
PROVIDERS: PCP Family Medicine; Referring Provider Physician Assistant Medical; Visit Provider Physician Assistant Medical
DX: R01.1 Cardiac murmur, unspecified (principal)
CPT/HCPCS: 36415; 85025

== ENCOUNTER → 2023-03-30 | Outpatient (CLI) | payer MEDICARE, OTHER, SELFPAY ==
[2023-03-30 13:43] LABS: Anion Gap 5 (5-15); BUN 9 mg/dL (7-18); BUN/Creat Ratio 12.1 RATIO (10-20); Calcium,Total 9.4 mg/dL (8.5-10.1); Chloride 110 mmol/L (98-107); Cholesterol 175 mg/dL (200); Creatinine, Serum 0.74 mg/dL (0.55-1.02); EST Glomerular Filtration Rate 79 mL/min (>60); Est Glom Filt Rate - Afr Amer 96 mL/min (>60); Free T3 1.4 pg/mL (2.18-3.98); Glucose 81 mg/dL (74-106); High Density Lipoprotein 67 mg/dL; Sodium Level 143 mmol/L (136-145); T4 Free Direct 1.18 ng/dL (0.76-1.46); Thyroid Stim Hormone (TSH) 5.16 uIU/mL (0.358-3.74); Triglycerides 158 mg/dL; Very Low Density Lipoprotein 32 mg/dL (5-40)
== END | disposition home or self-care (01) ==
LOC: MFPLAB 10:24
PROVIDERS: PCP Family Medicine; Visit Provider Family Medicine
DX: E03.9 Hypothyroidism, unspecified (principal); I10 Essential (primary) hypertension
CPT/HCPCS: 36415; 80048; 80061; 84439; 84443; 84481

== ENCOUNTER → 2023-04-05 | Outpatient (CLI) | payer MEDICARE, OTHER, SELFPAY ==
--- NOTE | 2023-04-05 08:53 | ECHOD_ITS ---
Reason For Study: MURMUR Procedure This was a 2D Doppler, Color Flow transthoracic echocardiogram. Exam performed in department. Left Ventricle Normal LV size. Left ventricular systolic function is normal. The estimated ejection fraction is 60 %. Stage 1 diastolic dysfunction. No regional wall motion abnormalities noted. Right Ventricle Normal RV size. Normal systolic function. Atria The left atrium is moderately enlarged. Normal right atrium. Mitral Valve There is Mild focal posterior mitral annular calcification. Tricuspid Valve Normal tricuspid valve. Aortic Valve Trisinus/trileaflet aortic valve. Mild focal aortic valve calcification. Peak aortic valve gradient 37 mmHg. Mean aortic valve gradient 23 mmHg. Mild aortic stenosis. Mild (1+) aortic valve insufficiency. Pulmonic Valve Normal pulmonic valve. Great Vessels Normal aortic root. The pulmonary artery is normal size. Normal inferior vena cava. Pericardium/Pleural No pericardial effusion. MMode/2D Measurements & Calculations LVIDd: 4.2 cm IVSd: 1.3 cm LVOT diam: 2.0 cm LVIDs: 2.7 cm LVPWd: 1.1 cm LVOT area: 3.1 cm2 RVDd: 3.3 cm FS: 36.1 % Ao root diam: 3.7 cm LAV(MOD-bp): 69.1 ml LVAd ap4: 24.8 cm2 LAV(MOD-bp) Indexed: 36.9 ml/m2 LVLd ap4: 7.7 cm LAV(MOD-sp2): 42.7 ml EDV(MOD-sp4): 69.8 ml LAV(MOD-sp4): 90.2 ml EDV(sp4-el): 67.8 ml LVAs ap4: 14.0 cm2 LVLs ap4: 6.2 cm ESV(MOD-sp4): 27.6 ml ESV(sp4-el): 26.9 ml EF(MOD-sp4): 60.5 % EF(sp4-el): 60.3 % SV(MOD-sp4): 42.2 ml SV(sp4-el): 40.9 ml LA A4 area: 27.9 cm2 RA A4 area: 15.1 cm2 Time Measurements MV dec time: 0.32 sec Doppler Measurements & Calculations MV E max jeffery: 91.7 cm/sec Lat Peak E' Jeffery: 13.1 cm/sec Med Peak E' Jeffery: 9.6 cm/sec MV A max jeffery: 140.7 cm/sec E/E' lat: 7.0 E/E' med: 9.5 MV E/A: 0.65 MV V2 max: 150.7 cm/sec Ao V2 max: 302.2 cm/sec MV max P.1 mmHg MV dec slope: 289.3 cm/sec2 Ao max P.8 mmHg MV V2 mean: 84.6 cm/sec Ao V2 mean: 225.1 cm/sec MV mean P.3 mmHg Ao mean P.8 mmHg MV V2 VTI: 42.0 cm Ao V2 VTI: 69.5 cm AV (velocity ratio): 0.41 MVA(VTI): 2.1 cm2 RADHAMES(I,D): 1.3 cm2 RADHAMES(V,D): 1.3 cm2 AI max jeffery: 410.0 cm/sec LV V1 max: 125.0 cm/sec SV(LVOT): 88.9 ml AI max P.3 mmHg LV V1 max P.2 mmHg LV V1 mean P.7 mmHg AI dec slope: 169.1 cm/sec2 LV V1 mean: 90.0 cm/sec AI P1/2t: 710.2 msec LV V1 VTI: 28.8 cm PA V2 max: 95.4 cm/sec ECHO/Echo Complete Interpretation Summary Normal LV size. Left ventricular systolic function is normal. The estimated ejection fraction is 60 %. Stage 1 diastolic dysfunction. Mean aortic valve gradient 23 mmHg. Mild aortic stenosis. Ordering Physician: Haylee Vaz Referring Physician: Haylee Vaz Performed By: Jeannine Mas RCS
== END | disposition home or self-care (01) ==
LOC: CVS 08:49
PROVIDERS: PCP Family Medicine; Referring Provider Physician Assistant Medical; Visit Provider Physician Assistant Medical
DX: R01.1 Cardiac murmur, unspecified (principal); I51.7 Cardiomegaly; I35.0 Nonrheumatic aortic (valve) stenosis
CPT/HCPCS: 93306

== ENCOUNTER → 2023-06-28 | Outpatient (CLI) | payer MEDICARE, OTHER, SELFPAY ==
[2023-06-28 16:45] LABS: Anion Gap 5 (5-15); BUN 9 mg/dL (7-18); BUN/Creat Ratio 13.1 RATIO (10-20); Chloride 109 mmol/L (98-107); Cholesterol 165 mg/dL (200); Creatinine, Serum 0.69 mg/dL (0.55-1.02); EST Glomerular Filtration Rate 86 mL/min (>60); Est Glom Filt Rate - Afr Amer 104 mL/min (>60); Glucose 82 mg/dL (74-106); High Density Lipoprotein 64 mg/dL; Potassium 3.9 mmol/L (3.5-5.1); Sodium Level 141 mmol/L (136-145); T4 Free Direct 1.43 ng/dL (0.76-1.46); Thyroid Stim Hormone (TSH) 0.21 uIU/mL (0.358-3.74); Triglycerides 152 mg/dL; Very Low Density Lipoprotein 30 mg/dL (5-40)
== END | disposition home or self-care (01) ==
LOC: MFPLAB 11:51
PROVIDERS: PCP Family Medicine; Visit Provider Family Medicine
DX: E03.9 Hypothyroidism, unspecified (principal); I10 Essential (primary) hypertension
CPT/HCPCS: 36415; 80048; 80061; 84439; 84443; 84481

== ENCOUNTER → 2023-07-26 | Outpatient (CLI) | payer MEDICARE, OTHER, SELFPAY ==
[2023-07-26 13:17] LABS: Free T3 1.8 pg/mL (2.18-3.98); T4 Free Direct 1.62 ng/dL (0.76-1.46); Thyroid Stim Hormone (TSH) 0.21 uIU/mL (0.358-3.74)
== END | disposition home or self-care (01) ==
LOC: MFPLAB 09:58
PROVIDERS: PCP Family Medicine; Visit Provider Family Medicine
DX: E03.9 Hypothyroidism, unspecified (principal)
CPT/HCPCS: 36415; 84439; 84443; 84481

== ENCOUNTER → 2023-09-28 | Outpatient (CLI) | payer MEDICARE, OTHER, SELFPAY ==
[2023-09-28 16:49] LABS: Anion Gap 6 (5-15); BUN 8 mg/dL (7-18); BUN/Creat Ratio 13.3 RATIO (10-20); Chloride 109 mmol/L (98-107); EST Glomerular Filtration Rate 101 mL/min (>60); Est Glom Filt Rate - Afr Amer 122 mL/min (>60); Free T3 1.6 pg/mL (2.18-3.98); Glucose 87 mg/dL (74-106); Potassium 3.8 mmol/L (3.5-5.1); Sodium Level 143 mmol/L (136-145); T4 Free Direct 1.77 ng/dL (0.76-1.46); Thyroid Stim Hormone (TSH) 0.15 uIU/mL (0.358-3.74)
== END | disposition home or self-care (01) ==
LOC: MTLAB 12:43
PROVIDERS: PCP Family Medicine; Referring Provider Family Medicine; Visit Provider Family Medicine
DX: E03.9 Hypothyroidism, unspecified (principal)
CPT/HCPCS: 80048; 84439; 84443; 84481

== ENCOUNTER → 2023-11-30 | Outpatient (CLI) | payer MEDICARE, OTHER, SELFPAY ==
--- OUTSIDE RECORDS SUMMARY | 2023-11-30 09:38 | XMS RPT_ITS | CCD ---
Author Name Unknown Address [address] [place] [address] Organization [facility] Care Team Providers Care Broadband Installer Name Role Phone LazcanoIsaaci Unavailable Unavailable MAREK MAHMOOD Unavailable Unavail able MAREK MAMHOOD Unavailable Unavail able Terry Eaton Unavailable Unavailable Allergies Allergy Classification Reported Allergen(s) Allergy Type Date of Onset Reaction(s) Facility (4 sources) Sulfonamides (Antibiotic) drug allergy 5 [facility] Work Phone: (1 source) Sulfonamides (Antibiotic); Translations: [SULFA (SULFONAMIDE ANTIBIOTICS)] Propensity to adverse reactions to drug (disorder) 8 [facility] Other [place] [facility] Medications Completed/Discontinued Medications Medication Drug Class(es) Dates Sig (Normalized) Sig (Original) alendronic acid 70 mg oral tablet (4 sources) Bisphosphonate End: 02-11-2013 take 1 tablet by mouth every week FOSAMAX 70 MG TABS one tab by mouth weekly ALENDRONATE SODIUM [id number] Neida Kalbfell MONORAIL OPERATOR B COMPLEX VITAMINS (2 sources) take 1 tablet by mouth once daily VITAMIN-B COMPLEX TABS One tablet by mouth daily B COMPLEX VITAMINS [id number] Neida Kalbfell MONORAIL OPERATOR Problems Active Problems Problem Classification Problem Date Documented Date Episodic/Chronic Cardiac dysrhythmias (6 sources) Paroxysmal supraventricular tachycardia; Translations: [Premature atrial contraction] Onset: 03-07-2013 03-07-2013 Chronic Disorders of lipid metabolism (2 sources) Hyperlipidemia; Translations: [Hyperlipidemia, unspecified] Onset: 02-28-2013 02-28-2013 Chronic Essential hypertension (2 sources) Hypertensive disorder; Translations: [Essential (primary) hypertension] Onset: 02-28-2013 02-28-2013 Chronic Heart valve disorders (4 sources) Aortic valve stenosis; Translations: [Nonrheumatic aortic (valve) stenosis] Onset: 06-10-2013 06-10-2013 Chronic Other nutritional; endocrine; and metabolic disorders (7 sources) Body mass index (BMI) 34.0-34.9, adult; Translations: [Body mass index (BMI) 36.0-36.9, adult] Onset: 06-30-2014 Resolved: 07-31-2015 05-31-2017 Chronic Other nutritional; endocrine; and metabolic disorders (2 sources) Body mass index (BMI) 35.0-35.9, adult; Translations: [Body mass index (BMI) 35.0-35.9, adult] Onset: 12-29-2014 11-28-2016 Chronic Other nutritional; endocrine; and metabolic disorders (2 sources) Body mass index (BMI) 36.0-36.9, adult; Translations: [Body mass index (BMI) 36.0-36.9, adult] Onset: 06-30-2014 Resolved: 07-31-2015 07-31-2015 Chronic Past or Other Problems Problem Classification Problem Date Documented Da te Episodic/Chronic Cardiac dysrhythmias (2 sources) Palpitations; Translations: [Palpitations] Onset: 02-28-2013 02-28-2013 Episodic Gastritis and duodenitis (2 sources) Gastritis; Translations: [Gastritis, unspecified, without bleeding] Onset: 02-11-2013 02-12-2013 Episodic Heart valve disorders (2 sources) Heart murmur; Translations: [Cardiac murmur, unspecified] Onset: 06-10-2013 06-10-2013 Episodic Other eye disorders (1 source) Unspecified ptosis of bilateral eyelids; Translations: [Unspecified ptosis of bilateral eyelids] Onset: 12-22-2017 Episodic Results Test Name Value Interpretation Reference Range Facil ity Vital Signs Date Time Vital Sign Value Performing Clinician Krystle bazan 05-31-2017 10:14-0400 BMI (Body Mass Index) 34.98 kg/m2 Vij[facility] Work Phone: 05-31-2017 10:14-0400 BP Diastolic 84 mm[Hg] Vijaya Lazcano [facility] Work Phone: 05-31-2017 10:14-0400 BP Systolic 130 mm[Hg] Vijaya Lazcano [facility] Work Phone: 05-31-2017 10:140400 Height 162.56 cm [facility] Work Phone: 05-31-2017 10:14-0400 Pulse (Heart Rate) 68 /min Vijaya Lazcano [facility] Work Phone: 05-31-2017 10:14-0400 Respiratory Rate 20 /min Vijaya Lazcano [facility] Work Phone: 05-31-2017 10:14-0400 Weight 92.44 kg Vijaya Lazcano [facility] Work Phone: 11-28-2016 10:27-0500 BMI (Body Mass Index) 35.13 kg/m2 Terry DeFinis [facility] Work Phone: 11-28-2016 10:27-0500 BP Diastolic 68 mm[Hg] Harumi DeFinis [facility] Work Phone: 11-28-2016 10:27-0500 BP Systolic 122 mm[Hg] Jose Fumi DeFinis [facility] Work Phone: 11-28-2016 10:27-0500 BSA (Body Surface Area) 1.98 m2 Harumi DeFinis [facility] Work Phone: 11-28-2016 10:27-0500 Pulse (Heart Rate) 72 /min Harumi DeFinis [facility] Work Phone: 11-28-2016 10:27-0500 Respiratory Rate 16 /min Harumi DeFinis [facility] Work Phone: 11-28-2016 10:27-0500 Weight 92.85 kg Harumi DeFinis [facility] Work Phone: 12-29-2014 09:12-0400 Heart rate 68 /min Harumi DeFinis [facility] Work Phone: 03-07-2013 12:06-0400 Heart rate 414 ms Harumi DeFinis [facility] Work Phone: 02-11-2013 13:56-0400 Body Temperature 98.6 [degF] [facility] Work Phone: 02-11-2013 13:56-0400 Height 162.56 cm [facility] Work Phone: 01-13-2010 10:30-0400 Height 167.64 cm [facility] Work Phone: 01-13-2010 10:30-0400 Weight 95.45 kg [facility] Work Phone: Encounters Encounter Date Encounter Type Care Provider Facility Start: 12-22-2017 End: 12-22-2017 Ambulatory [facility] Procedures Date Procedure Procedure Detail Performing Clinician Start: 05-31-2017 End: 05-31-2017 Follow Up Appt 6 months Haylee delatorre PA-C Work Phone: Start: 05-31-2017 End: 05-31-2017 PFM Haylee Vaz PA-C Work Phone: Start: 11-28-2016 End: 11-28-2016 Dietary management education, guidance, and counseling Terry Eaton Start: 11-28-2016 End: 05-23-2017 Echocardiography Otf Buenrostro MD Start: 11-28-2016 End: 11-28-2016 Follow Up Appt 6 months Otf Buenrostro MD Start: 11-28-2016 End: 11-28-2016 MMM Otf Buenrostro MD Start: 04-01-2016 End: 04-01-2016 Follow Up Appt 6 months Haylee delatorre PA-C Work Phone: Start: 04-01-2016 End: 04-01-2016 PFKalyan Vaz PA-C Work Phone: Start: 07-31-2015 End: 08-03-2015 Documentation of current medications Otf Buenrostro MD Start: 07-31-2015 End: 01-06-2016 Follow Up Appt 6 months Otf Buenrostro MD Start: 07-31-2015 End: 01-06-2016 MMKalyan Buenrostro MD Start: 12-29-2014 End: 12-30-2014 Documentation of current medications Haylee Vaz PA-C Work Phone: Start: 12-29-2014 End: 12-29-2014 Electrocardiogram, complete Haylee Elias PA-C Work Phone: Start: 12-29-2014 End: 12-29-2014 Follow Up Appt 6 months Haylee delatorre PA-C Work Phone: Start: 12-29-2014 End: 12-29-2014 PFM Haylee Vaz PA-C Work Phone: Start: 06-30-2014 End: 12-29-2014 [facility] Otf Buenrostro MD Start: 06-30-2014 End: 06-30-2014 Follow Up Appt 6 months Otf Buenrostro MD Start: 06-30-2014 End: 06-30-2014 Follow Up Appt Other Otf Buenrostro MD Start: 06-30-2014 End: 06-30-2014 MM Otf Buenrostro MD Start: 12-11-2013 End: 12-11-2013 Follow Up Appt 6 months Haylee delatorre PA-C Work Phone: Start: 12-11-2013 End: 12-11-2013 PFM Haylee Vaz PA-C Work Phone: Start: 06-10-2013 End: 06-10-2013 Follow Up Appt 6 months Otf Buenrostro MD Start: 06-10-2013 End: 06-10-2013 MMM Otf Buenrostro MD Start: 04-18-2013 End: 04-18-2013 Follow Up Appt Other Haylee maguire PA-C Work Phone: Start: 03-07-2013 End: 04-02-2013 Echocardiography Otf Buenrostro MD Start: 03-07-2013 End: 03-07-2013 Electrocardiogram, complete Otf nunez MD Start: 03-07-2013 End: 03-07-2013 Follow Up Appt 3 months Otf Buenrostro MD Start: 03-07-2013 End: 03-07-2013 Follow Up Appt 6 weeks Otf Buenrostro MD Start: 03-07-2013 End: 03-07-2013 MMM Otf Buenrostro MD Start: 03-07-2013 End: 04-02-2013 Nuclear stress test -adenosine Otf Buenrostro MD Start: 03-07-2013 End: 03-07-2013 PFM Otf Buenrostro MD Plan of Treatment Date Care Activity Detail Author Start: 01-08-2018 End: 01-08-2018 Appointment Appointment [facility] Work Phone: Start: 05-31-2017 End: 05-31-2017 Appointment Appointment [facility] Work Phone: Start: 05-31-2017 End: 05-31-2017 Follow Up Appt 6 months Follow Up Appt 6 months [facility] Work Phone: Start: 05-31-2017 End: 05-31-2017 PFM PFKalyan [facility] Work Phone: Start: 11-28-2016 End: 11-28-2016 Echocardiography Echocardiogram (complete) [facility] Work Phone: Start: 11-28-2016 End: 11-28-2016 Follow Up Appt 6 months Follow Up Appt 6 months [facility] Work Phone: Start: 11-28-2016 End: 11-28-2016 MMM MMM [facility] Work Phone: Start: 04-01-2016 End: 04-01-2016 Follow Up Appt 6 months Follow Up Appt 6 months [facility] Work Phone: Start: 04-01-2016 End: 04-01-2016 PFM PFM [facility] Work Phone: Start: 07-31-2015 End: 01-06-2016 Follow Up Appt 6 months Follow Up Appt 6 months [facility] Work Phone: Start: 07-31-2015 End: 01-06-2016 MMM MMM [facility] Work Phone: Start: 12-29-2014 End: 12-29-2014 Electrocardiogram, complete EKG (In office) [facility] Work Phone: Start: 12-29-2014 End: 12-29-2014 Follow Up Appt 6 months Follow Up Appt 6 months [facility] Work Phone: Start: 12-29-2014 End: 12-29-2014 PFM PFM [facility] Work Phone: Start: 06-30-2014 End: 06-30-2014 Echocardiography Echocardiogram (complete) [facility] Work Phone: Start: 06-30-2014 End: 06-30-2014 Follow Up Appt 6 months Follow Up Appt 6 months [facility] Work Phone: Start: 06-30-2014 End: 06-30-2014 Follow Up Appt Other Follow Up Appt Other [facility] Work Phone: Start: 06-30-2014 End: 06-30-2014 MMM MMM [facility] Work Phone: Start: 12-11-2013 End: 12-11-2013 Follow Up Appt 6 months Follow Up Appt 6 months [facility] Work Phone: Start: 12-11-2013 End: 12-11-2013 PFM PFM [facility] Work Phone: Start: 06-10-2013 End: 06-10-2013 Follow Up Appt 6 months Follow Up Appt 6 months [facility] Work Phone: Start: 06-10-2013 End: 06-10-2013 MMM MMM [facility] Work Phone: Start: 04-18-2013 End: 04-18-2013 Follow Up Appt Other Follow Up Appt Other [facility] Work Phone: Start: 03-07-2013 End: 03-07-2013 Echocardiography Echocardiogram (complete) [facility] Work Phone: Start: 03-07-2013 End: 03-07-2013 Electrocardiogram, complete EKG (In office) [facility] Work Phone: Start: 03-07-2013 End: 03-07-2013 Follow Up Appt 3 months Follow Up Appt 3 months [facility] Work Phone: Start: 03-07-2013 End: 03-07-2013 Follow Up Appt 6 weeks Follow Up Appt 6 weeks [facility] Work Phone: Start: 03-07-2013 End: 03-07-2013 MMM MMM [facility] Work Phone: Start: 03-07-2013 End: 03-07-2013 Nuclear stress test -adenosine Nuclear stress test -adenosine [facility] Work Phone: Start: 03-07-2013 End: 03-07-2013 PFM PFM [facility] Work Phone: Summary Purpose Family History No Family History Records Found Advance Directives No Advanced Directives Records Found Additional Source Comments INFORMATION SOURCE (unrecogn ized section and content) FOR RECORDS PERTAINING TO PATIENTS WHO ARE OR HAVE BEEN ENROLLED IN A CHEMICAL DEPENDENCY/SUBSTANCEABUSE PROGRAM, SOME INFORMATION MAY BE OMITTED. This clinical summary was aggregated from multiple sources. Caution should be exercised in using it in the provision of clinical care. This summary normalizes information from multiple sources, and as a consequence, information in this document may materially change the coding, format and clinical context of patient data. In addition, data may be omitted in some cases. CLINICAL DECISIONS SHOULD BE BASED ON THE PRIMARY CLINICAL RECORDS. [facility] [employer] [facility]. provides no warranty or guarantee of the accuracy or completeness of information in this document.
[2023-11-30 11:06] LABS: Anion Gap 6 (5-15); BUN 9 mg/dL (7-18); BUN/Creat Ratio 13.4 RATIO (10-20); Calcium,Total 9.1 mg/dL (8.5-10.1); Chloride 106 mmol/L (98-107); Cholesterol 196 mg/dL (200); Creatinine, Serum 0.67 mg/dL (0.55-1.02); EST Glomerular Filtration Rate 88 mL/min (>60); Est Glom Filt Rate - Afr Amer 107 mL/min (>60); Free T3 1.7 pg/mL (2.18-3.98); Glucose 115 mg/dL (74-106); High Density Lipoprotein 68 mg/dL; Potassium 3.9 mmol/L (3.5-5.1); Sodium Level 140 mmol/L (136-145); T4 Free Direct 1.47 ng/dL (0.76-1.46); Thyroid Stim Hormone (TSH) 0.37 uIU/mL (0.358-3.74); Triglycerides 148 mg/dL; Very Low Density Lipoprotein 30 mg/dL (5-40)
== END | disposition home or self-care (01) ==
LOC: MFPLAB 09:08
PROVIDERS: PCP Family Medicine; Visit Provider Family Medicine
DX: Z00.00 Encounter for general adult medical examination without abnormal findings (principal); E03.9 Hypothyroidism, unspecified
CPT/HCPCS: 36415; 80048; 80061; 84439; 84443; 84481

== ENCOUNTER → 2024-03-05 | Outpatient (CLI) | payer MEDICARE, OTHER, SELFPAY ==
--- NOTE | 2024-03-05 14:45 | RAD_ITS ---
STUDY: X-RAY - RIGHT KNEE REASON FOR EXAM: Female, 83 years old. Pain following a fall. TECHNIQUE: 4 view(s) of the knee. COMPARISON: None. FINDINGS: Normal visualized distal femur. Normal visualized proximal tibia and fibula. Normal proximal tibiofibular articulation. There is mild degenerative arthrosis of the medial femorotibial compartment. There is mild degenerative arthrosis of the lateral femorotibial compartment. There is mild degenerative arthrosis of the patellofemoral articulation. Tiny joint effusion. Soft tissue swelling. RAD/Knee 4 or More Views IMPRESSION: Degenerative arthrosis. Tiny joint effusion and soft tissue swelling. Electronically Signed: Meño Peter MD at 15:29 EDT ,
== END | disposition home or self-care (01) ==
PROVIDERS: PCP Family Medicine; Referring Provider Physician Assistant; Visit Provider Physician Assistant
DX: R52 Pain, unspecified (principal); W19.XXXA Unspecified fall, initial encounter
CPT/HCPCS: 73564

== ENCOUNTER → 2024-03-07 | Outpatient (CLI) | payer MEDICARE, OTHER, SELFPAY ==
[2024-03-07 11:51] LABS: Absolute Lymphocyte Count 1.41 X10^3/uL (0.83-4.51); Absolute Neutrophil Count 4.2 X10^3/uL (2.0-7.7); Basophil# 0.06 X10^3/uL; Basophil% 0.9 % (0-1); Eosinophil# 0.13 X10^3/uL; Eosinophils% 1.9 % (0-5); Hematocrit 44.1 % (37-47); Hemoglobin 13.9 g/dL (12.0-15.0); Lymphocyte # 1.41 X10^3/ul (0.83-4.51); Lymphocyte % 20.5 % (19-41); Mean Corp Hgb Conc 31.5 g/dL (32-36); Mean Corpuscular Hgb 29.4 pg (27.0-32.0); Mean Corpuscular Volume 93.4 fL (81-99); Mean Platelet Vol. 12.1 fl (6.2-12.0); NRBC Flagged by Analyzer 0 % (0-5); Neutrophil # 4.17 X10^3/uL (2.7-7.7); Neutrophil % 60.4 % (47-70); Platelet Count 143 K/mm3 (150-450); RBC Distribution Width CV 13.8 % (11.6-14.6); RBC Distribution Width SD 46.5 fl (35.1-43.9); Red Blood Count 4.72 M/mm3 (4.2-5.4); White Blood Count 6.9 K/mm3 (4.4-11.0)
[2024-03-07 12:19] LABS: ALB/GLOB Ratio 1.3 RATIO (0.9-2.4); AST(SGOT) 16 U/L (15-37); Alanine Aminotransfer ALT/SGPT 18 U/L (13-56); Albumin, Serum 3.8 g/dL (3.2-5.0); Alkaline Phosphatase 66 U/L (45-117); Anion Gap 4 (5-15); BUN 11 mg/dL (7-18); BUN/Creat Ratio 14.1 RATIO (10-20); Calcium,Total 9.3 mg/dL (8.5-10.1); Chloride 108 mmol/L (98-107); Creatinine, Serum 0.78 mg/dL (0.55-1.02); EST Glomerular Filtration Rate 75 mL/min (>60); Est Glom Filt Rate - Afr Amer 91 mL/min (>60); Glucose 75 mg/dL (74-106); Potassium 3.3 mmol/L (3.5-5.1); Protein, Total 6.8 g/dL (6.4-8.2); Sodium Level 143 mmol/L (136-145)
== END | disposition home or self-care (01) ==
PROVIDERS: PCP Family Medicine; Referring Provider Nurse Practitioner Family; Visit Provider Nurse Practitioner Family
DX: R55 Syncope and collapse (principal); Z86.79 Personal history of other diseases of the circulatory system; I35.0 Nonrheumatic aortic (valve) stenosis
CPT/HCPCS: 36415; 80053; 83735; 85025

== ENCOUNTER → 2024-03-28 | Outpatient (CLI) | payer MEDICARE, OTHER, SELFPAY | END | disposition home or self-care (01) | LOC: PSN 11:40 | PROVIDERS: PCP Internal Medicine; Referring Provider Nurse Practitioner Family; Visit Provider Nurse Practitioner Family | DX: R55 Syncope and collapse (principal) | CPT/HCPCS: 93225; 93226 ==

== ENCOUNTER → 2024-04-16 | Outpatient (CLI) | payer MEDICARE, OTHER, SELFPAY ==
[2024-04-16 12:31] LABS: Absolute Lymphocyte Count 1.27 X10^3/uL (0.83-4.51); Absolute Neutrophil Count 3.5 X10^3/uL (2.0-7.7); Basophil# 0.04 X10^3/uL; Basophil% 0.7 % (0-1); Eosinophil# 0.09 X10^3/uL; Eosinophils% 1.5 % (0-5); Hematocrit 41.6 % (37-47); Hemoglobin 13.1 g/dL (12.0-15.0); Lymphocyte # 1.27 X10^3/ul (0.83-4.51); Lymphocyte % 21.6 % (19-41); Mean Corp Hgb Conc 31.5 g/dL (32-36); Mean Corpuscular Hgb 29.8 pg (27.0-32.0); Mean Corpuscular Volume 94.8 fL (81-99); Mean Platelet Vol. 12.3 fl (6.2-12.0); Monocyte# 0.92 X10^3/uL; Monocyte% 15.7 % (0-10); NRBC Flagged by Analyzer 0 % (0-5); Neutrophil # 3.53 X10^3/uL (2.7-7.7); Neutrophil % 60.2 % (47-70); Platelet Count 139 K/mm3 (150-450); RBC Distribution Width CV 14.6 % (11.6-14.6); RBC Distribution Width SD 50.9 fl (35.1-43.9); Red Blood Count 4.39 M/mm3 (4.2-5.4); White Blood Count 5.9 K/mm3 (4.4-11.0)
[2024-04-16 12:35] LABS: D-Dimer Quantitative (DVT/PE) 0.44 FEU/ug/m (0.27-0.49)
[2024-04-16 12:53] LABS: Anion Gap 6 (5-15); BUN 10 mg/dL (7-18); Calcium,Total 9.5 mg/dL (8.5-10.1); Chloride 108 mmol/L (98-107); Creatinine, Serum 0.67 mg/dL (0.55-1.02); EST Glomerular Filtration Rate 90 mL/min (>60); Est Glom Filt Rate - Afr Amer 108 mL/min (>60); Glucose 85 mg/dL (74-106); Potassium 3.9 mmol/L (3.5-5.1); Sodium Level 143 mmol/L (136-145); T4 Free Direct 1.65 ng/dL (0.76-1.46); Thyroid Stim Hormone (TSH) 0.73 uIU/mL (0.358-3.74); Troponin-I HS 11 pg/mL (3.0-54.0)
[2024-04-16 13:02] LABS: T3 Total - Triiodothyronine 0.79 ng/mL (0.6-1.81); Vitamin D,25 Hydroxy 41.5 ng/mL
== END | disposition home or self-care (01) ==
LOC: BIMLAB 10:07
PROVIDERS: PCP Internal Medicine; Referring Provider Internal Medicine; Visit Provider Internal Medicine
DX: R55 Syncope and collapse (principal); E03.9 Hypothyroidism, unspecified; E55.9 Vitamin D deficiency, unspecified
CPT/HCPCS: 36415; 80048; 82306; 84439; 84443; 84480; 84484; 85025; 85379

== ENCOUNTER → 2024-04-24 | Outpatient (CLI) | payer MEDICARE, OTHER, SELFPAY ==
--- NOTE | 2024-04-24 13:39 | ECHOD_ITS ---
Version 2 Reason For Study: SYNCOPE Procedure This was a 2D Doppler, Color Flow transthoracic echocardiogram. Exam performed in department. Left Ventricle Normal LV size. Moderate concentric left ventricular hypertrophy. Left ventricular systolic function is normal. The left ventricular ejection fraction is 60 %. No regional wall motion abnormalities noted. Right Ventricle Normal RV size. Normal systolic function. Mitral Valve There is mild mitral annular calcification. Mild-Moderate (1-2+) eccentric mitral valve insufficiency. Tricuspid Valve Normal tricuspid valve. Mild (1+) tricuspid valve insufficiency. Pulmonary artery systolic pressure is 28 mmHg. Aortic Valve Trisinus/trileaflet aortic valve. Mild focal aortic valve calcification. Peak aortic valve gradient 50 mmHg. Mean aortic valve gradient 32 mmHg. Moderate aortic stenosis. Mild (1+) aortic valve insufficiency. Pulmonic Valve Normal pulmonic valve. Great Vessels Calcified aortic root. Normal arch. The pulmonary is not well visualized. Inferior vena cava collapse with respiration. Pericardium/Pleural Trivial pericardial effusion. MMode/2D Measurements & Calculations LVIDd: 4.6 cm IVSd: 1.6 cm LVOT diam: 2.0 cm LVIDs: 2.7 cm LVPWd: 1.3 cm LVOT area: 3.2 cm2 RVDd: 3.1 cm FS: 40.4 % Ao root diam: 3.5 cm LAV(MOD-bp): 36.7 ml LVAd ap4: 21.9 cm2 LAV(MOD-bp) Indexed: 20.4 ml/m2 LVLd ap4: 7.2 cm LAV(MOD-sp2): 26.9 ml EDV(MOD-sp4): 53.1 ml LAV(MOD-sp4): 41.8 ml EDV(sp4-el): 56.0 ml LVAs ap4: 13.1 cm2 LVLs ap4: 6.5 cm ESV(MOD-sp4): 22.5 ml ESV(sp4-el): 22.5 ml EF(MOD-sp4): 57.5 % EF(sp4-el): 59.8 % SV(MOD-sp4): 30.5 ml SV(MOD-sp2): 28.8 ml LVAd ap2: 20.4 cm2 LVLd ap2: 7.6 cm EDV(MOD-sp2): 45.3 ml EDV(sp2-el): 46.5 ml LVAs ap2: 11.3 cm2 LVLs ap2: 6.6 cm ESV(MOD-sp2): 16.5 ml ESV(sp2-el): 16.6 ml EF(MOD-sp2): 63.6 % SV(sp4-el): 33.5 ml LA A4 area: 18.0 cm2 LA dimension(2D): 3.4 cm TAPSE: 1.8 cm RA A4 area: 12.2 cm2 Time Measurements MV dec time: 0.30 sec Doppler Measurements & Calculations MV E max jeffery: 90.2 cm/sec Lat Peak E' Jeffery: 7.1 cm/sec Med Peak E' Jfefery: 6.4 cm/sec E/E' lat: 12.8 E/E' med: 14.1 MV V2 max: 162.6 cm/sec Ao V2 max: 354.6 cm/sec AI max jeffery: 459.9 cm/sec MV max P.6 mmHg Ao max P.4 mmHg AI max P.6 mmHg MV V2 mean: 88.6 cm/sec Ao V2 mean: 272.9 cm/sec AI dec slope: 291.7 cm/sec2 MV mean P.7 mmHg Ao mean P.4 mmHg AI P1/2t: 461.7 msec MV V2 VTI: 53.9 cm Ao V2 VTI: 77.9 cm MVA(VTI): 1.2 cm2 AV (velocity ratio): 0.27 RADHAMES(I,D): 0.86 cm2 RADHAMES(V,D): 0.89 cm2 LV V1 max: 98.8 cm/sec SV(LVOT): 67.0 ml PA V2 max: 96.2 cm/sec LV V1 max P.9 mmHg PA max PG (full): 1.4 mmHg LV V1 mean P.3 mmHg LV V1 mean: 73.2 cm/sec LV V1 VTI: 21.0 cm TR max jeffery: 246.1 cm/sec TR max P.2 mmHg ECHO/Echo Complete Interpretation Summary Normal LV size. Moderate concentric left ventricular hypertrophy. Left ventricular systolic function is normal. The left ventricular ejection fraction is 60 %. Mean aortic valve gradient 32 mmHg. Moderate aortic stenosis. Ordering Physician: Nakul Elder Referring Physician: Nakul Elder Performed By: Malorie Valdez RDCS
== END | disposition home or self-care (01) ==
LOC: CVS 13:37
PROVIDERS: PCP Internal Medicine; Referring Provider Nurse Practitioner Family; Visit Provider Nurse Practitioner Family
DX: R55 Syncope and collapse (principal); I35.0 Nonrheumatic aortic (valve) stenosis; I10 Essential (primary) hypertension; E78.2 Mixed hyperlipidemia; R00.2 Palpitations; I49.1 Atrial premature depolarization; Z86.79 Personal history of other diseases of the circulatory system; I49.3 Ventricular premature depolarization
CPT/HCPCS: 93306

== ENCOUNTER → 2024-04-29 | Outpatient (CLI) | payer MEDICARE, OTHER, SELFPAY ==
--- NOTE | 2024-04-29 08:51 | CDU_ITS ---
Reason For Study: Bilateral Carotid Bruit Rt. Velocities/BP Lt. Velocities/BP Prox CCA 52.6/9.8 cm/sec. Prox CCA 60.3/13.1 cm/sec. Mid CCA 43.4/14.1 cm/sec. Mid CCA 39.1/8.5 cm/sec. Dist CCA 40.5/11.2 cm/sec. Dist CCA 34.1/5.6 cm/sec. Prox ICA 53.9/14.6 cm/sec. Prox ICA 74.8/19.5 cm/sec. Mid ICA 73.2/20.8 cm/sec. Mid ICA 67.4/24.4 cm/sec. Dist ICA 76.8/26.0 cm/sec. Dist ICA 109.4/25.4 cm/sec. Rt. ICA/CCA = 1.8. Lt. ICA/CCA = 2.8. Prox ECA 87.5/3.5 cm/sec. Prox ECA 150.1/7.5 cm/sec. Rt. Vert. 62.5/15.3 cm/sec. Lt. Vert. 50.0/13.1 cm/sec. Right Extracranial There is intimal thickening but no significant atherosclerotic plaque noted in the right common carotid artery. There is heterogeneous, irregular atherosclerotic plaque noted in the right internal carotid artery. There is heterogeneous, irregular atherosclerotic plaque noted in the right external carotid artery. Antegrade flow is noted in the right vertebral artery. Left Extracranial There is intimal thickening but no significant atherosclerotic plaque noted in the left common carotid artery. There is heterogeneous, irregular atherosclerotic plaque noted in the left internal carotid artery. There is heterogeneous, irregular atherosclerotic plaque noted in the left external carotid artery. Antegrade flow is noted in the left vertebral artery. Procedure Carotid Duplex [id number]. This is a Carotid Duplex examination using B-mode, color flow and specral Doppler. The exam was diagnostic. Exam performed in department. VL/Carotid Duplex Ultrasound Interpretation Summary Mild (<50%) stenosis right extracranial internal carotid. Mild (<50%) stenosis left extracranial internal carotid. Patent and antegrade vertebrals bilaterally. Ordering Physician: Nara Orta Referring Physician: Nara Orta Performed By: Moises Vilchis RVT and Student
--- NOTE | 2024-04-29 11:05 | MRI_ITS ---
STUDY: MRI RIGHT KNEE REASON FOR EXAM: Female, 83 years old. Pain. Evaluate for avascular necrosis. TECHNIQUE: Standardized fat and water weighted pulse sequences were obtained in all 3 orthogonal planes. COMPARISON: X-rays of the right knee dated March 05, 2024 FINDINGS: Horizontal cleavage tear of the posterior horn of the medial meniscus (sagittal series 5 image 11, series 7 image 21 with moderate extrusion of the body and anterior horn of the meniscus. Moderate to marked thinning of the articular cartilage of the medial femorotibial compartment (coronal series 7 images 13-24). Normal medial collateral ligamentous complex (MCL). Normal distal semimembranosus, gracilis and semitendinosus tendons. Normal lateral meniscus. Moderate thinning of the articular cartilage of the lateral femorotibial compartment with reactive subchondral bone marrow edema and osteophyte formation (coronal series 7 images 14-22). Normal proximal tibiofibular articulation. Normal lateral collateral (fibular) ligament. Normal popliteus tendon. Normal biceps femoris tendon. Normal anterior cruciate ligament (ACL). Normal posterior cruciate ligament (PCL). Moderate thinning of the articular cartilage of the patellofemoral compartment with reactive subchondral bone marrow edema and small osteophytes (axial series 3 images 14-20). Normal medial and lateral patellar retinaculum. Normal quadriceps tendon. Normal patellar tendon. Normal Hoffa''s fat pad. Deep infrapatellar bursitis (sagittal series 5 images 24-27). Small joint effusion (axial series 3 images 14-18). Marked prepatellar subcutaneous soft tissue edema with focal cystic area anterior to the distal patellar tendon which may be secondary to repetitive stress or remote injury measuring 1.6 cm x 9 mm (sagittal series 518-32). Other osseous structures are normal. MRI/Lower Ext Joint Only (Routine) IMPRESSION: Horizontal cleavage tear of the posterior horn of the viscus with moderate extrusion of the body and anterior horn. Moderate to marked arthrosis of the medial femorotibial compartment. Moderate arthrosis of the lateral femoral tibial compartment. Moderate arthrosis of the patellofemoral compartment. Deep infrapatellar bursitis. Marked prepatellar subcutaneous soft tissue edema. Focal superficial cystic lesion anterior to the distal patella, likely secondary to chronic repetitive stress or remote injury. Small joint effusion. Electronically Signed: Wild Ovalle MD at 12:39 EDT ,
== END | disposition home or self-care (01) ==
LOC: MRI 08:37
PROVIDERS: PCP Internal Medicine; Referring Provider Internal Medicine; Visit Provider Internal Medicine
DX: R09.89 Other specified symptoms and signs involving the circulatory and respiratory systems (principal)
CPT/HCPCS: 73721; 93880

== ENCOUNTER → 2024-07-29 | Outpatient (CLI) | payer MEDICARE, OTHER, SELFPAY ==
--- NOTE | 2024-07-29 10:41 | RAD_ITS ---
STUDY: X-RAY - LEFT KNEE REASON FOR EXAM: Female, 83 years old. Knee injury TECHNIQUE: 4 view(s) of the knee. COMPARISON: None. FINDINGS: Normal visualized distal femur. Normal visualized proximal tibia and fibula. Normal proximal tibiofibular articulation. There is moderate degenerative arthrosis of the medial femorotibial compartment with moderate joint space narrowing. There is moderate degenerative arthrosis of the lateral femorotibial compartment with moderate joint space narrowing. There is moderate degenerative arthrosis of the patellofemoral articulation. Moderate-sized joint effusion. Soft tissue swelling. Chondrocalcinosis. RAD/Knee 3 Views IMPRESSION: Degenerative arthrosis. Moderate size joint effusion. Electronically Signed: Meño Peter MD at 11:24 EDT ,
== END | disposition home or self-care (01) ==
PROVIDERS: PCP Internal Medicine; Referring Provider Physician Assistant Surgical; Visit Provider Physician Assistant Surgical
DX: S89.90XA Unspecified injury of unspecified lower leg, initial encounter (principal)
CPT/HCPCS: 73562

== ENCOUNTER 2024-10-25 10:09 | Emergency (ER) | payer MEDICARE, OTHER, SELFPAY ==
[2024-10-25 10:10] VITALS: BP 145/71; PULSE 82; RESP 18; TEMP 36.8; O2SAT 98; BMI 28.8
[2024-10-25] MEDS: Morphine 4 MG/ML Syringe IM (10:44)
--- NOTE | 2024-10-25 10:44 | ED.VIS.LOWEX ---
HPI History of Present Illness HPI Narrative: Patient presents with bilateral knee pain, worse on the left, that began after a fall today. Patient states her knees gave out. Patient states she has a history of arthritis in her knees. Patient states the left knee pain is worse than the right. Patient states her pain is worse with certain movements. Patient states it is worse on the medial aspect of her left knee. Patient denies any head injury or loss of consciousness. Patient denies any paresthesias or weakness. Chief Complaint: Lower Extremity Injury Informant: patient and family Occured/Mechanism Mechanism/Context: Yes fall Onset/Context/Timing Onset: Today Context: Sudden Onset Timing: Continuous Quality of Pain: Aching Current Severity: Severe Maximum Severity: Severe Worsened by: Nothing Relieved by: Nothing Associated Symptoms Associated Symptoms: Negative for Parasthesia, Weakness or Loss of Funtion [facility] Medical History Frequent falls Syncope Strain of right knee Contusion of right knee LVH (left ventricular hypertrophy) Mixed hyperlipidemia Essential hypertension Palpitations Atrial premature complexes History of PSVT (paroxysmal supraventricular tachycardia) Premature ventricular contractions Nonrheumatic aortic (valve) stenosis Cardiac murmur Home Medications ?Medication ?Instructions ?Recorded ?Last Taken ?Type multivitamin 1 tab PO DAILY 12/17/18 Unknown History calcium 500 mg (as 1 tab PO DAILY 12/03/21 Unknown History carbonate)-vitamin D3 10 mcg (400 unit) tablet Kenalog 40 mg/mL suspension for 50 mg (1.25 mL) intra-articular 03/20/24 Unknown Clinic injection (triamcinolone acetonide) ONCE right knee pain #1.25 mL diltiazem HCl 120 mg 120 mg PO QAM #90 caps 03/25/24 Unknown Rx capsule,extended release 24 hr (Cartia XT) julien.stocking,knee,reg,smal #24 ea 04/16/24 Unknown Rx losartan 50 mg tablet 25 mg (1/2 x 50 mg) PO QDAY #45 04/26/24 Unknown Rx tabs pravastatin 40 mg tablet 40 mg PO QHS 05/08/24 Unknown History levothyroxine 125 mcg tablet 125 mcg PO QDAY #90 tabs 08/29/24 Unknown Rx sertraline 50 mg tablet 50 mg PO QDAY #90 tabs 08/29/24 Unknown Rx hydrocodone-acetaminophen 5-325mg 1 tab PO Q6H PRN PRN Pain 3 days 10/25/24 Unknown Rx 5mg-325mg #10 TABLETS Allergy/AdvReac Type Severity Reaction Status Date / Time Sulfa (Sulfonamide AdvReac Intermediate Rash Verified 10/25/24 10:13 Antibiotics) Family History Father Cancer LUNG Brother CAD (coronary artery disease) Mother COPD (chronic obstructive pulmonary disease) Uncle Psoriatic arthritis Brain tumor (benign) Surgical History History of partial hysterectomy (~1965) Social History household members: none current occupational status: retired current occupation: worked for ophthalmology Smoking Status: Never smoker Electronic Cigarette Use: not used alcohol intake: never substance use type: does not use caffeine: Yes Type: coffee Number of servings: 1 do you feel safe at home: Yes ROS ROS ED Constitutional Constitutional ED: Denies chills or fever(s) Eyes Eyes: Denies blurry vision or change in vision ENT ENT ED: Denies rhinorrhea or sore throat Cardiovascular Cardiovascular: Denies chest pain or palpitations Respiratory/Chest Respiratory/Chest: Denies cough or dyspnea Gastrointestinal Gastrointestinal: Denies nausea or vomiting Genitourinary Genitourinary ED: Denies dysuria or hematuria Musculoskeletal Musculoskeletal: Reports back pain; Denies neck pain Integumentary Denies abscess or rash Neurologic Neurologic: Denies headache(s) or weakness Allergic/Immunologic Allergic/Immunologic ED: Denies mouth swelling or urticaria EXAM Physical Exam Const Vital Signs: 10/25/24 10:10 Temperature 98.2 F Temperature Source Oral Pulse Rate 82 Respiratory Rate 18 Blood Pressure 145/71 H Blood Pressure Mean 95 Pulse Ox 98 Oxygen Delivery Method Room Air Positive well nourished and well developed General Appearance ED: well developed and NAD HEENT Reports moist mucous membranes Neck full ROM and supple Extremity Extremity Narrative: There is tenderness over the anterior medial aspect of the left knee. There is no deformity noted. There is no effusion. Range of motion was limited in all motions of the left knee secondary to pain. There is mild tenderness over the right knee. Range of motion is somewhat limited in flexion of the right knee secondary to pain. There is pain with valgus testing on the left. There is pain with Carmen testing on the left. There is more guarding with exam on the left knee than the right. Pedal pulses are equal bilaterally. Sensation is intact to light touch bilaterally in the lower extremities. Strength is 5/5 bilaterally in the lower extremities. Extensor mechanism is intact. Neuro oriented x3, CN's II-XII intact bilaterally, moves all extremities and no sensory deficits noted Sensorium / Orientation: alert Motor Exam: strength 5/5 throughout Psych mental status grossly normal MDM MDM MDM Narrative Medical decision making narrative: Differential diagnosis includes fracture, sprain, and contusion. X-rays of the bilateral knees will be obtained to assess for fracture. Radiography Diagnostic Testing: X-rays of the right knee were obtained. There are 4 views. On my independent interpretation, there is no acute fracture or dislocation. There is no joint effusion. There are some degenerative changes. Radiologist also interpreted the x-rays and agrees. X-rays of the left knee were obtained. There are 3 views. On my independent interpretation, there is no acute fracture or dislocation. There are some degenerative changes. There is no joint effusion. Radiologist also interpreted the x-rays and agrees. Treatment and Re-Evaluation Narrative: Patient was given injection of morphine here. Patient was given a knee immobilizer. Patient was instructed to ice and elevate the left knee. Patient was instructed to use her walker at home. Patient was also instructed to use her kitchen counter to help with balance and weightbearing. Patient was given a prescription for a short course of Rewey. Patient was instructed to follow-up with her primary care physician and orthopedic surgeon in 5 to 7 days. Patient was instructed to return if worse in any way. Patient understood and was agreeable with the plan. All questions were answered. Discharge Plan Triage Chief Complaint: Lower Extremity Injury ED Provider: Quan Anton Dx/Rx/DC Orders Clinical Impression: Left knee sprain, Fall Instructions: ED Knee Sprain Prescriptions: New hydrocodone-acetaminophen 5-325 mg tablet 1 tab PO Q6H PRN PRN (Reason: Pain) 3 Days Qty: 10 0RF No Action multivitamin tablet 1 tab PO DAILY calcium carbonate-vitamin D3 500 mg-10 mcg (400 unit) tablet 1 tab PO DAILY triamcinolone acetonide [Kenalog] 40 mg/mL suspension 50 mg intra-articular ONCE Qty: 1.25 0RF pravastatin 40 mg tablet 40 mg PO QHS sertraline 50 mg tablet 50 mg PO QDAY Qty: 90 0RF diltiazem HCl [Cartia XT] 120 mg capsule,extended release 24hr 120 mg PO QAM Qty: 90 4RF (DME) julien.stocking,knee,reg,smal Misc See Rx Instructions .Route Qty: 24 0RF Rx Instructions: As directed losartan 50 mg tablet 25 mg PO QDAY Qty: 45 3RF levothyroxine 125 mcg tablet 125 mcg PO QDAY Qty: 90 0RF Primary Care Provider: Nara Orta Referrals: Nara Orta MD [Primary Care Provider] - 5-7 Days Print Language: Kyrgyz Disposition Disposition: Home, Self Care
--- NOTE | 2024-10-25 11:05 | RAD_ITS ---
STUDY: X-RAY - RIGHT KNEE REASON FOR EXAM: Female, 83 years old. INJURY/PAIN TECHNIQUE: 4 views of the right knee. COMPARISON: None. FINDINGS: Normal visualized distal femur. Normal visualized proximal tibia and fibula. Normal proximal tibiofibular articulation. There is no demonstrated fracture. There is mild degenerative arthrosis of the medial femorotibial compartment. There is mild degenerative arthrosis of the lateral femorotibial compartment. There is mild degenerative arthrosis of the patellofemoral articulation. There is no demonstrated joint effusion. The soft tissue structures are unremarkable. RAD/Knee 4 or More Views IMPRESSION: Mild tricompartment degenerative arthrosis. No demonstrated fracture. Electronically Signed: Alberto Fish MD at 11:41 EST ,
--- NOTE | 2024-10-25 11:05 | RAD_ITS ---
STUDY: X-RAY - LEFT KNEE REASON FOR EXAM: Female, 83 years old. Injury/Pain. TECHNIQUE: 4 views of the left knee. COMPARISON: None. FINDINGS: Normal visualized distal femur. Normal visualized proximal tibia and fibula. Normal proximal tibiofibular articulation. There is no demonstrated fracture. There is mild degenerative arthrosis of the medial femorotibial compartment. There is mild degenerative arthrosis of the lateral femorotibial compartment. There is mild degenerative arthrosis of the patellofemoral articulation. There is a small left knee joint effusion. The soft tissue structures are unremarkable. RAD/Knee 3 Views IMPRESSION: Mild tricompartment degenerative arthrosis. Small left knee joint effusion. No demonstrated fracture. Electronically Signed: Alberto Fish MD at 11:45 EST ,
[2024-10-25 12:45] VITALS: BP 134/69; PULSE 72; RESP 15; TEMP 36.2; O2SAT 98
== END 2024-10-25 12:47 | disposition home or self-care (01) ==
PROVIDERS: Emergency Provider Emergency Medicine; PCP Internal Medicine; Referring Provider Emergency Medicine; Visit Provider Emergency Medicine
DX: S83.92XA Sprain of unspecified site of left knee, initial encounter (principal); Z90.710 Acquired absence of both cervix and uterus; E78.2 Mixed hyperlipidemia; I10 Essential (primary) hypertension; W18.39XA Other fall on same level, initial encounter; Z79.899 Other long term (current) drug therapy
CPT/HCPCS: 99284; 73562; 73564; 96372

== ENCOUNTER 2024-10-25 13:45 | Inpatient (IN) | payer MEDICARE, OTHER, SELFPAY ==
[2024-10-25 13:46] VITALS: PULSE 73; RESP 18; TEMP 36.4; O2SAT 97
--- NOTE | 2024-10-25 13:50 | EKG12_ITS ---
Test Reason : LEFT KNEE PAIN Blood Pressure : */* mmHG Vent. 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
[2024-10-25 13:51] VITALS: BMI 28.5
[2024-10-25 15:45] VITALS: BP 143/57; PULSE 78; RESP 18
[2024-10-25 15:45] LABS: Absolute Lymphocyte Count 1.68 X10^3/uL (0.83-4.51); Absolute Neutrophil Count 6.1 X10^3/uL (2.0-7.7); Basophil# 0.05 X10^3/uL; Basophil% 0.5 % (0-1); Eosinophil# 0.09 X10^3/uL; Eosinophils% 0.9 % (0-5); Hematocrit 40.4 % (37-47); Hemoglobin 12.9 g/dL (12.0-15.0); Lymphocyte # 1.68 X10^3/ul (0.83-4.51); Mean Corp Hgb Conc 31.9 g/dL (32-36); Mean Corpuscular Hgb 30.1 pg (27.0-32.0); Mean Corpuscular Volume 94.4 fL (81-99); Mean Platelet Vol. 11.7 fl (6.2-12.0); Monocyte% 19.3 % (0-10); NRBC Flagged by Analyzer 0 % (0-5); Neutrophil # 6.09 X10^3/uL (2.7-7.7); Neutrophil % 61.8 % (47-70); POSITIVE DIFFERENTIAL YES; Platelet Count 115 K/mm3 (150-450); RBC Distribution Width CV 14.3 % (11.6-14.6); RBC Distribution Width SD 49.8 fl (35.1-43.9); Red Blood Count 4.28 M/mm3 (4.2-5.4); White Blood Count 9.9 K/mm3 (4.4-11.0)
[2024-10-25 15:58] LABS: Anion Gap 5 (5-15); BUN 10 mg/dL (7-18); BUN/Creat Ratio 18.2 RATIO (10-20); Calcium,Total 9.2 mg/dL (8.5-10.1); Chloride 109 mmol/L (98-107); Creatinine, Serum 0.55 mg/dL (0.55-1.02); EST Glomerular Filtration Rate 112 mL/min (>60); Est Glom Filt Rate - Afr Amer 135 mL/min (>60); Estimated Creatinine Clearance 51.12 ml/min; Glucose 96 mg/dL (74-106); Potassium 3.3 mmol/L (3.5-5.1); Sodium Level 143 mmol/L (136-145); Troponin-I HS 19 pg/mL (3.0-54.0)
[2024-10-25 16:02] LABS: Mucous, Urine 0 SEEN /hpf (<or=2+); Red Blood Cells-Urine 0 SEEN /hpf (0-5)
[2024-10-25 16:04] LABS: Differential Indicated SCAN CRITERIA MET
[2024-10-25 16:10] LABS: Color, Urine Yellow (Yellow); Glucose, Dipstick Normal (Normal); Ketone-Dipstick 15 mg/dl (Negative); Leukocyte Esterase-Dipstick Negative /ul (Negative); Nitrite-Dipstick Negative (Negative); Occult Blood-Urine Negative /ul (Negative); Protein-Dipstick 30 mg/dl (Negative); Specific Gravity, Urine 1.015 (1.002-1.030); Urine Bilirubin Dipstick Negative (Negative); Urine Clarity Cloudy (Clear); Urine Urobilinogen Normal (Normal)
[2024-10-25 16:24] LABS: Bacteria 4+ /hpf (None Seen); Squamous Epithelial Cells - UA 0-5 SEEN /hpf (5-10); Transitional Epithelial - Ur 0-5 SEEN /hpf (0-5); White Blood Cells 0-5 SEEN /hpf (0-5)
[2024-10-25 16:25] LABS: Amorphous Sediment 2+
[2024-10-25 16:38] LABS: Atypical Lymphocyte 2+ %; Platelet Morphology GIANT; Polychromasia 1+; Reactive Lymphocyte 1+
[2024-10-25 16:39] LABS: Anisocytosis 1+
[2024-10-25 16:58] VITALS: BP 156/78; PULSE 78; RESP 18
[2024-10-25 18:47] VITALS: BP 171/53; PULSE 72; RESP 18
--- NOTE | 2024-10-25 19:07 | EDS_ITS ---
HPI History of Present Illness Chief Complaint: Weakness Informant: patient Onset/Context/Timing Onset: Today Context: Gradual Onset Timing: Continuous Quality: Weakness Location: Bilateral lower extremities Worsened by: Nothing Relieved by: Nothing Narrative Narrative: Patient presents with weakness that became worse today. Patient was seen here earlier today because her knees gave out and she fell. Patient was complaining of pain in her knees at that time. Patient had x-rays done which were negative for any fracture. Patient was given a knee immobilizer. Patient has a walker at home. Patient was unable to stand out of a wheelchair and get into her car. Patient then came back to the emergency department. Patient denies any fevers or chills. Patient denies any chest pain or shortness of breath. Patient denies any nausea or vomiting. Patient states she just has difficulty standing from a seated position. [facility] Medical History Frequent falls Syncope Strain of right knee Contusion of right knee LVH (left ventricular hypertrophy) Mixed hyperlipidemia Essential hypertension Palpitations Atrial premature complexes History of PSVT (paroxysmal supraventricular tachycardia) Premature ventricular contractions Nonrheumatic aortic (valve) stenosis Cardiac murmur Home Medications ?Medication ?Instructions ?Recorded ?Last Taken ?Type multivitamin 1 tab PO DAILY 12/17/18 Unknown History calcium 500 mg (as 1 tab PO DAILY 12/03/21 Unknown History carbonate)-vitamin D3 10 mcg (400 unit) tablet Kenalog 40 mg/mL suspension for 50 mg (1.25 mL) intra-articular 03/20/24 Unknown Clinic injection (triamcinolone acetonide) ONCE right knee pain #1.25 mL diltiazem HCl 120 mg 120 mg PO QAM #90 caps 03/25/24 Unknown Rx capsule,extended release 24 hr (Cartia XT) julien.stocking,knee,reg,smal #24 ea 04/16/24 Unknown Rx losartan 50 mg tablet 25 mg (1/2 x 50 mg) PO QDAY #45 04/26/24 Unknown Rx tabs pravastatin 40 mg tablet 40 mg PO QHS 05/08/24 Unknown History levothyroxine 125 mcg tablet 125 mcg PO QDAY #90 tabs 08/29/24 Unknown Rx sertraline 50 mg tablet 50 mg PO QDAY #90 tabs 08/29/24 Unknown Rx Allergy/AdvReac Type Severity Reaction Status Date / Time Sulfa (Sulfonamide AdvReac Intermediate Rash Verified 10/25/24 13:46 Antibiotics) Family History Father Cancer LUNG Brother CAD (coronary artery disease) Mother COPD (chronic obstructive pulmonary disease) Uncle Psoriatic arthritis Brain tumor (benign) Surgical History History of partial hysterectomy (~1965) Social History household members: none current occupational status: retired current occupation: worked for ophthalmology Smoking Status: Never smoker Electronic Cigarette Use: not used alcohol intake: never substance use type: does not use caffeine: Yes Type: coffee Number of servings: 1 do you feel safe at home: Yes ROS ROS ED Constitutional Constitutional ED: Denies chills or fever(s) Eyes Eyes: Denies blurry vision or change in vision ENT ENT ED: Denies rhinorrhea or sore throat Cardiovascular Cardiovascular: Denies chest pain or palpitations Respiratory/Chest Respiratory/Chest: Denies cough or dyspnea Gastrointestinal Gastrointestinal: Denies nausea or vomiting Genitourinary Genitourinary ED: Denies dysuria or hematuria Musculoskeletal Musculoskeletal: Denies back pain or neck pain Integumentary Denies abscess or rash Neurologic Neurologic: Denies headache(s) or weakness Allergic/Immunologic Allergic/Immunologic ED: Denies mouth swelling or urticaria EXAM Physical Exam Const Vital Signs: 10/25/24 13:46 10/25/24 15:45 10/25/24 16:58 Temperature 97.5 F L Temperature Source Temporal Pulse Rate 73 78 78 Respiratory Rate 18 18 18 Blood Pressure 143/57 H 156/78 H Blood Pressure Mean 85 104 Pulse Ox 97 Oxygen Delivery Method Room Air 10/25/24 18:47 10/25/24 21:00 Temperature Temperature Source Pulse Rate 72 78 Respiratory Rate 18 Blood Pressure 171/53 H 156/59 H Blood Pressure Mean 92 91 Pulse Ox Oxygen Delivery Method Positive well nourished and well developed General Appearance ED: well developed and NAD HEENT Reports moist mucous membranes Neck supple and no JVD Resp normal respiratory effort and clear to auscultation bilaterally Cardio regular rate and regular rhythm GI non-tender and non-distended Palpation: soft Extremity General Extremety ED: Negative for edema General Extremity: Negative for edema Neuro oriented x3, CN's II-XII intact bilaterally and no sensory deficits noted Neuro Narrative: Patient is able to move her lower extremities. Patient just has difficulty standing and bearing weight. Patient states her legs feel like they are going to give out. Sensorium / Orientation: alert Psych mental status grossly normal MDM MDM MDM Narrative Medical decision making narrative: Differential diagnosis includes urinary tract oxygen, pneumonia, bronchitis, anemia, cardiac dysrhythmia, cardiac ischemia, and electrolyte abnormality. EKG will be obtained to assess for cardiac dysrhythmia and cardiac ischemia. CBC will be obtained to assess for leukocytosis and anemia. Basic metabolic profile will be obtained to assess for electrolyte abnormality and renal function. High-sensitivity troponin will be obtained to assess for cardiac ischemia. Urinalysis will be obtained to assess for urinary tract infection and hematuria. Lab Data Lab results narrative: CBC was reviewed. Platelets were slightly low at 115. The remainder is within normal limits. Basic metabolic profile was reviewed. Potassium was slightly low at 3.3. The remainder is within normal limits. High-sensitivity troponin was reviewed and was normal at 19. Urinalysis was reviewed. There is no evidence of urinary tract infection or hematuria. Labs: Laboratory Results - last 24 hr 10/25/24 10/25/24 15:32 15:56 WBC 9.9 RBC 4.28 Hgb 12.9 Hct 40.4 MCV 94.4 MCH 30.1 MCHC 31.9 L RDW Std Deviation 49.8 H RDW Coeff of Chris 14.3 Plt Count 115 L MPV 11.7 Immature Gran % (Auto) 0.500 Neut % (Auto) 61.8 Lymph % (Auto) 17.0 L Talbot % (Auto) 19.3 H Eos % (Auto) 0.9 Baso % (Auto) 0.5 Absolute Neuts (auto) 6.1 Absolute Lymphs (auto) 1.68 Nucleated RBC % 0 Atypical Lymphocytes 2+ Reactive Lymphocytes 1+ Plt Morphology Comment GIANT Polychromasia 1+ Anisocytosis 1+ Sodium 143 Potassium 3.3 L Chloride 109 H Carbon Dioxide 29.0 Anion Gap 5 BUN 10 Creatinine 0.55 Estim Creat Clear Calc 51.12 Est GFR (MDRD) Af Amer 135 Est GFR (MDRD) Non-Af 112 BUN/Creatinine Ratio 18.2 Glucose 96 Calcium 9.2 Troponin I High Sens 19 Urine Color Yellow Urine Clarity Cloudy Urine pH 7.0 Ur Specific [place] 1.015 Urine Protein 30 H Urine Glucose (UA) Normal Urine Ketones 15 H Urine Occult Blood Negative Urine Nitrite Negative Urine Bilirubin Negative Urine Urobilinogen Normal Ur Leukocyte Esterase Negative Urine RBC 0 SEEN Urine WBC 0-5 SEEN Ur Squamous Epith Cells 0-5 SEEN Ur Transition Epith Cell 0-5 SEEN Amorphous Sediment 2+ Urine Bacteria 4+ Urine Mucus 0 SEEN EKG Initial EKG: Interpretation: Sinus Rhythm (With first-degree AV block with a rate of 69) and Non-Specific ST Changes Comments: EKG was obtained. On my independent interpretation, shows normal sinus rhythm with first-degree AV block with a rate of 69. WI interval was prolonged at 258 ms. QRS interval is normal at 82 ms. QTc interval was normal at 4 and 43 ms. There is left axis deviation at -44. There there is left ventricular hypertrophy noted. There are no acute ST or T wave changes noted. Prior EKG tracings: available for review Prior: Unchanged (03/07/2024) Management Discussion w/another healthcare provider: Hospitalist Treatment and Re-Evaluation :: Patient was still unable to ambulate here in the emergency department. Because of this, I recommended admission to the hospital for physical therapy. Patient and son are agreeable with this. Case was discussed with the hospitalist. She is agreeable to admit the patient to her service. However, she will obtain a COVID PCR and a viral respiratory panel. If the COVID-19 PCR or viral respiratory panel is positive, the patient will qualify for full admission. However if they are negative, patient will only qualify for observation. Discharge Plan Dx/Rx/DC Orders Clinical Impression: General weakness, Osteoarthritis of left knee, Osteoarthritis of right knee Disposition Disposition: Acute Care [facility]
[2024-10-25 21:00] VITALS: BP 156/59; PULSE 78
--- NOTE | 2024-10-25 22:46 | PCM.HP.STD ---
HPI - General General Date of Admission: 10/25/24 Date of Service: 10/25/24 Chief Complaint: Fall secondary to lower extremity weakness HPI Narrative ERICKA SOLIZ, is a 83 F who presented to the emergency department at [facility] on 10/25/2024 twice. She initially presented on the morning of the because her knees gave out and she fell. She was complaining of knee pain at that time and has been undergoing injections in her knee for about the last [address] Hernandez. She stated she has had some pain improvement in her right knee but her left knee has not improved at all with any injections. She states she is been told she is too old for knee replacements. X-rays were done at her initial visit and they were negative for any fractures and it shows tricompartmental mild osteoarthritis. She was given a knee immobilizer and a walker to go home with. She was unable to stand out of the wheelchair to get to her car so she came back in the emergency department. She states she is been feeling fine otherwise. She denies ever performing any physical therapy but states that her legs were so weak and they give out on her and this is really affected her mobility at this time. Vital signs on presentation showed temperature 97.5, heart rate 73, respiratory 18, blood pressure 143/57, and pulse ox was 97% room air. CBC was overtly unremarkable. Coags were normal. Chemistry panel showed mild hypokalemia with a potassium of 3.3. Troponin was 19. UA was unremarkable. Imaging as above. COVID/flu/RSV were negative. Respiratory viral panel was unremarkable. Given the pack patient was not able to go home due to pain and weakness she required observation admission. [facility] Medical History Frequent falls Syncope Strain of right knee Contusion of right knee LVH (left ventricular hypertrophy) Mixed hyperlipidemia Essential hypertension Palpitations Atrial premature complexes History of PSVT (paroxysmal supraventricular tachycardia) Premature ventricular contractions Nonrheumatic aortic (valve) stenosis Cardiac murmur Home Medications ?Medication ?Instructions ?Recorded ?Last Taken ?Type multivitamin 1 tab PO DAILY 12/17/18 Unknown History calcium 500 mg (as 1 tab PO DAILY 12/03/21 Unknown History carbonate)-vitamin D3 10 mcg (400 unit) tablet Kenalog 40 mg/mL suspension for 50 mg (1.25 mL) intra-articular 03/20/24 Unknown Clinic injection (triamcinolone acetonide) ONCE right knee pain #1.25 mL julien.stocking,knee,reg,smal #24 ea 04/16/24 Unknown Rx losartan 50 mg tablet 25 mg (1/2 x 50 mg) PO QDAY #45 04/26/24 Unknown Rx tabs pravastatin 40 mg tablet 40 mg PO QHS 05/08/24 Unknown History levothyroxine 125 mcg tablet 125 mcg PO QDAY #90 tabs 08/29/24 Unknown Rx sertraline 50 mg tablet 50 mg PO QDAY #90 tabs 08/29/24 Unknown Rx diltiazem HCl 120 mg capsule,24 120 mg PO DAILY 10/26/24 Unknown History hr,extended release Allergy/AdvReac Type Severity Reaction Status Date / Time Sulfa (Sulfonamide AdvReac Intermediate Rash Verified 10/25/24 13:46 Antibiotics) Family History Father Cancer LUNG Brother CAD (coronary artery disease) Mother COPD (chronic obstructive pulmonary disease) Uncle Psoriatic arthritis Brain tumor (benign) Surgical History History of partial hysterectomy (~1965) Social History household members: none current occupational status: retired current occupation: worked for ophthalmology Smoking Status: Never smoker Electronic Cigarette Use: not used alcohol intake: never substance use type: does not use caffeine: Yes Type: coffee Number of servings: 1 do you feel safe at home: Yes ROS Constitutional Constitutional: Reports other Details: Falls ; Denies anorexia, change in weight, chills, fatigue, fever(s), malaise, night sweats or weakness Eyes Eyes: Denies blurry vision, change in eye color, change in vision, discharge from eye(s), double vision, erythema, eye pain, loss of vision or other ENT HEENT: Denies abnormal hearing, dysphagia, ear pain, epistaxis, headache(s), hearing loss, nasal congestion, nasal discharge, post nasal drip, sinus pressure, sore throat or other Cardiovascular Cardiovascular: Denies chest pain, claudication, dyspnea on exertion, edema, lightheadedness, orthopnea, palpitations, paroxysmal nocturnal dyspnea, rapid heart rate, syncope or other Respiratory/Chest Respiratory/Chest: Denies cough, dyspnea, excessive phlegm production, hemoptysis, productive cough, shortness of breath at rest, shortness of breath with exertion, wheezing or other Gastrointestinal Gastrointestinal: Denies abdominal pain, coffee ground emesis, constipation, diarrhea, dyspepsia, hematemesis, hematochezia, loose stools, melena, nausea, vomiting or other Genitourinary Genitourinary: Denies burning urination, difficulty urinating, dysuria, hematuria, nocturia, urinary frequency, urinary hesitancy, urinary incontinence, urinary urgency or other Musculoskeletal Musculoskeletal: Reports joint pain, joint stiffness and joint swelling; Denies arthralgias, back pain, myalgias, neck pain or other Neurologic Neurologic: Reports abnormal gait; Denies abnormal speech, confusion, disequilibrium, dizziness, focal weakness, headache(s), numbness, paresthesias, seizure-like activity, seizures, syncope, tingling, tremor(s) or other Psychiatric Psychiatric: Denies anxiety, depression, homicidal ideation, suicidal ideation or other Endocrine Endocrinology: Denies change in body appearance, cold intolerance, excessive sweating, heat intolerance, polydipsia, polyuria or other Hematologic/Lymphatic Hematologic/Lymphatic: Denies anemia, easy bleeding, easy bruising, lymphadenopathy or other Allergic/Immunologic Allergic/Immunologic: Denies rhinitis, hives, eczemia, asthma or other Vital Signs Vital Signs Vital Signs: 10/25/24 13:46 10/25/24 15:45 10/25/24 16:58 Temperature 97.5 F L Temperature Source Temporal Pulse Rate 73 78 78 Respiratory Rate 18 18 18 Blood Pressure 143/57 H 156/78 H Blood Pressure Mean 85 104 Pulse Ox 97 Oxygen Delivery Method Room Air 10/25/24 18:47 10/25/24 21:00 Temperature Temperature Source Pulse Rate 72 78 Respiratory Rate 18 Blood Pressure 171/53 H 156/59 H Blood Pressure Mean 92 91 Pulse Ox Oxygen Delivery Method Weight Weight: 75.4 kg Body Mass Index (BMI) 28.5 Physical Exam Const alert, oriented x3, no apparent distress, average body habitus, healthy appearing and well nourished Constitutional Narrative: Elderly, very pleasant, white female, sitting up in bed, appears comfortable, nontoxic General Appearance: cooperative HEENT normocephalic, head/scalp atraumatic, hearing grossly normal bilaterally and moist oral mucous membranes HEENT Narrative: Mallampati 2, no thrush Eyes conjunctivae normal Neck supple Neck Narrative: Trachea midline Resp normal respiratory effort, no retractions, no use of accessory muscles and clear to auscultation bilaterally Auscultation: Negative for rales, rhonchi or wheezes Cardio regular rate, regular rhythm, S1 normal heart sound, S2 normal heart sound, no rub, no gallops and no clicks Cardio Narrative: 3 out of 6 systolic murmur loudest at right upper sternal border GI normal to inspection, nondistended, normoactive bowel sounds, soft to palpation and non-tender Extremity no clubbing, cyanosis or edema Extremity Narrative: Bilateral knees consistent with osteoarthritis, no effusion noted, decreased lean muscle mass in lower extremities, limited flexion range of motion bilateral knee joints Neuro oriented x3 and moves all extremities Speech: speech normal Psych affect normal Psych Narrative: Very pleasant, interacts appropriately Results Lab / Micro Data 10/25/24 15:32 10/25/24 15:32 Labs: Laboratory Results - last 24 hr 10/25/24 15:32: WBC 9.9, RBC 4.28, Hgb 12.9, Hct 40.4, MCV 94.4, MCH 30.1, MCHC 31.9 L, RDW Std Deviation 49.8 H, RDW Coeff of Chris 14.3, Plt Count 115 L, MPV 11.7, Immature Gran % (Auto) 0.500, Neut % (Auto) 61.8, Lymph % (Auto) 17.0 L, [place] % (Auto) 19.3 H, Eos % (Auto) 0.9, Baso % (Auto) 0.5, Absolute Neuts (auto) 6.1, Absolute Lymphs (auto) 1.68, Nucleated RBC % 0, Atypical Lymphocytes 2+, Reactive Lymphocytes 1+, Plt Morphology Comment GIANT, Polychromasia 1+, Anisocytosis 1+, Sodium 143, Potassium 3.3 L, Chloride 109 H, Carbon Dioxide 29.0, Anion Gap 5, BUN 10, Creatinine 0.55, Estim Creat Clear Calc 51.12, Est GFR (MDRD) Af Amer 135, Est GFR (MDRD) Non-Af 112, BUN/Creatinine Ratio 18.2, Glucose 96, Calcium 9.2, Troponin I High Sens 19 10/25/24 15:56: Urine Color Yellow, Urine Clarity Cloudy, Urine pH 7.0, Ur Specific [place] 1.015, Urine Protein 30 H, Urine Glucose (UA) Normal, Urine Ketones 15 H, Urine Occult Blood Negative, Urine Nitrite Negative, Urine Bilirubin Negative, Urine Urobilinogen Normal, Ur Leukocyte Esterase Negative, Urine RBC 0 SEEN, Urine WBC 0-5 SEEN, Ur Squamous Epith Cells 0-5 SEEN, Ur Transition Epith Cell 0-5 SEEN, Amorphous Sediment 2+, Urine Bacteria 4+, Urine Mucus 0 SEEN Micro: Microbiology 10/25/24 20:06 Mucosa - Nasopharyngeal Respiratory Panel (PCR) - Final 10/25/24 20:59 Mucosa - Nose Coronavirus COVID-19 PCR - Final Assessment & Plan Assessment/Plan (1) General weakness: (2) Fall: (3) Osteoarthritis of right knee: QUALIFIERS: Osteoarthritis type: primary Qualified Code(s): M17.11 - Unilateral primary osteoarthritis, right knee (4) Osteoarthritis of left knee: QUALIFIERS: Osteoarthritis type: primary Qualified Code(s): M17.12 - Unilateral primary osteoarthritis, left knee (5) Hypokalemia: (6) Frequent falls: PLAN: Plan Falls/acute on chronic knee pain -Patient with ongoing outpatient treatment for her knee pain/issues -Has had intra-articular injections with positive results on the right knee but no significant treatment on the left knee -she has been told by Dr. Rodriguez that she is not a surgical candidate -Scheduled Tylenol 1 g every 8 -As needed low-dose Ultram 50 every 8 -Bowel regimen as ordered -PT/OT consultation -Patient may benefit from outpatient physical therapy for quadricep and hamstring strengthening if her knee joints can tolerate it -Case management/social work consultation for assistance with discharge planning -Patient states she does typically ambulate with a walker however it is difficult around her kitchen Mild hypokalemia -Potassium 3.3 -Replace -Repeat in a.m. Hypothyroidism -Continue levothyroxine Essential HTN/HPL -Continue pravastatin -Continue home losartan Nonrheumatic aortic stenosis -Moderate on most recent echo from 04/24/2024--> EF was 60% with moderate concentric LVH and a mean aortic valve gradient of 32 mmHg Depression -Continue home sertraline DVT prophylaxis -Enoxaparin daily CODE STATUS -Full code verified Charges/Coding Visit Charges Inpatient E&M: 02520 Init Hosp L2
[2024-10-25 23:04] VITALS: BP 155/64; PULSE 62; RESP 18; TEMP 36.7; O2SAT 98
[2024-10-25 23:41] LABS: Prothrombin Time (Protime)PT. 13.7 SECONDS (11.7-14.9)
[2024-10-25 23:42] LABS: Partial Thromboplast Time 26.5 Seconds (24.1-36.2)
[2024-10-25 23:57] VITALS: BMI 27.1
[2024-10-26 00:24] VITALS: BP 160/79; PULSE 64; RESP 16; TEMP 36.4; O2SAT 97
[2024-10-26] MEDS: 0.9% Saline Lock 10 ML Syringe IV (00:39)
[2024-10-26] MEDS: Potassium Chloride Oral Tablet 20 MEQ 40 MEQ PO (00:39)
[2024-10-26] MEDS: traMADol 50 MG Tablet PO ×2 (00:40→20:05)
[2024-10-26 05:06] LABS: Absolute Lymphocyte Count 1.65 X10^3/uL (0.83-4.51); Absolute Neutrophil Count 3.9 X10^3/uL (2.0-7.7); Basophil# 0.05 X10^3/uL; Basophil% 0.6 % (0-1); Eosinophil# 0.17 X10^3/uL; Eosinophils% 2.1 % (0-5); Hematocrit 37.4 % (37-47); Lymphocyte # 1.65 X10^3/ul (0.83-4.51); Lymphocyte % 20.8 % (19-41); Mean Corp Hgb Conc 32.1 g/dL (32-36); Mean Corpuscular Volume 93.5 fL (81-99); Mean Platelet Vol. 12.1 fl (6.2-12.0); Monocyte# 2.12 X10^3/uL; Monocyte% 26.7 % (0-10); NRBC Flagged by Analyzer 0 % (0-5); Neutrophil # 3.92 X10^3/uL (2.7-7.7); Neutrophil % 49.3 % (47-70); POSITIVE DIFFERENTIAL YES; Platelet Count 101 K/mm3 (150-450); RBC Distribution Width CV 14.1 % (11.6-14.6); RBC Distribution Width SD 48.6 fl (35.1-43.9)
[2024-10-26 05:29] VITALS: BP 145/67; PULSE 85; RESP 18; TEMP 36.5; O2SAT 95
[2024-10-26] MEDS: Acetaminophen 500 MG Tablet 1000 MG PO ×3 (05:33→20:05)
[2024-10-26] MEDS: Levothyroxine 125 MCG Tablet PO (05:34)
[2024-10-26 05:40] LABS: Anion Gap 3 (5-15); BUN 7 mg/dL (7-18); Calcium,Total 8.9 mg/dL (8.5-10.1); Chloride 109 mmol/L (98-107); Creatinine, Serum 0.44 mg/dL (0.55-1.02); EST Glomerular Filtration Rate 145 mL/min (>60); Est Glom Filt Rate - Afr Amer 175 mL/min (>60); Glucose 102 mg/dL (74-106); Magnesium 1.8 mg/dL (1.6-2.6); Phosphorus 3.1 mg/dL (2.5-4.9); Potassium 3.9 mmol/L (3.5-5.1); Sodium Level 141 mmol/L (136-145); Thyroid Stim Hormone (TSH) 0.122 uIU/mL (0.358-3.740)
[2024-10-26 05:42] LABS: Differential Indicated SCAN CRITERIA MET
[2024-10-26 06:00] VITALS: BMI 26.9
[2024-10-26 06:51] LABS: T4 Free Direct 1.25 ng/dL (0.76-1.46)
[2024-10-26 07:00] VITALS: O2SAT 93
[2024-10-26 07:10] LABS: Reactive Lymphocyte 2+
--- NOTE | 2024-10-26 07:52 | PCM.PN.HOSP ---
Reason for Visit Reason for Visit: Diagnoses Hypokalemia (10/25/24) Unilateral primary osteoarthritis, right knee (10/25/24) Unilateral primary osteoarthritis, left knee (10/25/24) Repeated falls (10/25/24) Weakness (10/25/24) Unspecified fall, initial encounter (10/25/24) Subjective Subjective Patient is an 83-year-old lady admitted with progressive generalized weakness and multiple falls Objective Data Objective Data Vital Signs: Vital Signs Temp Pulse Resp BP Pulse Ox O2 Del Method 97.7 F L 85 18 145/67 H 95 Room Air 10/26/24 05:29 10/26/24 05:29 10/26/24 05:29 10/26/24 05:29 10/26/24 05:29 10/26/24 05:29 Oxygen Delivery Method Room Air Weight: 71.668 kg Body Mass Index (BMI) 26.9 Intake & Output: Intake and Output for Last 24 Hours 10/24/24 10/25/24 10/26/24 23:59 23:59 23:59 Intake Total 150 / 150 Output Total 300 / 300 Balance -150 / -150 Lab / Micro Data 10/26/24 04:14 10/26/24 04:14 Labs: Laboratory Results - last 24 hr 10/25/24 15:32: WBC 9.9, RBC 4.28, Hgb 12.9, Hct 40.4, MCV 94.4, MCH 30.1, MCHC 31.9 L, RDW Std Deviation 49.8 H, RDW Coeff of Chris 14.3, Plt Count 115 L, MPV 11.7, Immature Gran % (Auto) 0.500, Neut % (Auto) 61.8, Lymph % (Auto) 17.0 L, [place] % (Auto) 19.3 H, Eos % (Auto) 0.9, Baso % (Auto) 0.5, Absolute Neuts (auto) 6.1, Absolute Lymphs (auto) 1.68, Nucleated RBC % 0, Atypical Lymphocytes 2+, Reactive Lymphocytes 1+, Plt Morphology Comment GIANT, Polychromasia 1+, Anisocytosis 1+, Sodium 143, Potassium 3.3 L, Chloride 109 H, Carbon Dioxide 29.0, Anion Gap 5, BUN 10, Creatinine 0.55, Estim Creat Clear Calc 51.12, Est GFR (MDRD) Af Amer 135, Est GFR (MDRD) Non-Af 112, BUN/Creatinine Ratio 18.2, Glucose 96, Calcium 9.2, Troponin I High Sens 19 10/25/24 15:56: Urine Color Yellow, Urine Clarity Cloudy, Urine pH 7.0, Ur Specific [place] 1.015, Urine Protein 30 H, Urine Glucose (UA) Normal, Urine Ketones 15 H, Urine Occult Blood Negative, Urine Nitrite Negative, Urine Bilirubin Negative, Urine Urobilinogen Normal, Ur Leukocyte Esterase Negative, Urine RBC 0 SEEN, Urine WBC 0-5 SEEN, Ur Squamous Epith Cells 0-5 SEEN, Ur Transition Epith Cell 0-5 SEEN, Amorphous Sediment 2+, Urine Bacteria 4+, Urine Mucus 0 SEEN 10/25/24 23:22: PT 13.7, INR 1.0, APTT 26.5 10/26/24 04:14: WBC 8.0, RBC 4.00 L, Hgb 12.0, Hct 37.4, MCV 93.5, MCH 30.0, MCHC 32.1, RDW Std Deviation 48.6 H, RDW Coeff of Chris 14.1, Plt Count 101 L, MPV 12.1 H, Immature Gran % (Auto) 0.500, Neut % (Auto) 49.3, Lymph % (Auto) 20.8, [place] % (Auto) 26.7 H, Eos % (Auto) 2.1, Baso % (Auto) 0.6, Absolute Neuts (auto) 3.9, Absolute Lymphs (auto) 1.65, Nucleated RBC % 0, Reactive Lymphocytes 2+, Sodium 141, Potassium 3.9, Chloride 109 H, Carbon Dioxide 29.0, Anion Gap 3 L, BUN 7, Creatinine 0.44 L, Estim Creat Clear Calc 49.90, Est GFR (MDRD) Af Amer 175, Est GFR (MDRD) Non-Af 145, BUN/Creatinine Ratio 16.0, Glucose 102, Calcium 8.9, Phosphorus 3.1, Magnesium 1.8, TSH 0.122 L, Free T4 1.25 Micro: Microbiology 10/25/24 20:06 Mucosa - Nasopharyngeal Respiratory Panel (PCR) - Final 10/25/24 20:59 Mucosa - Nose Coronavirus COVID-19 PCR - Final Physical Exam Narrative GENERAL: cooperative HEENT: Atraumatic; normocephalic EYES; Anicteric, Normal Conjunctiva NECK; supple, normal thyroid, RESPIRATORY: Diminished to auscultation CARDIOVASCULAR: Regular S1 S2, GI: soft, normoactive bowel sounds, : No Renal angle tenderness; EXTREMITIES: No edema, no clubbing, MUSCULOSKELETAL: no muscle wasting NEURO: Awake; no lateralizing signs. SKIN: No Rash PSYCH; Flat affect Assessment & Plan Assessment/Plan (1) General weakness: (2) Fall: (3) Osteoarthritis of right knee: QUALIFIERS: Osteoarthritis type: primary Qualified Code(s): M17.11 - Unilateral primary osteoarthritis, right knee (4) Osteoarthritis of left knee: QUALIFIERS: Osteoarthritis type: primary Qualified Code(s): M17.12 - Unilateral primary osteoarthritis, left knee (5) Hypokalemia: (6) Frequent falls: PLAN: Plan Patient is an 83-year-old lady admitted with progressive generalized weakness and multiple falls 1. Physical deconditioning with progressive generalized weakness and multiple ? Requested for PT OT eval and long term care social worker to assist with discharge planning 2. Acute on chronic bilateral knee pain ? Secondary to severe osteoarthritis. Patient has received intra-articular steroid injections as outpatient. Patient was apparently informed by orthopedic surgery that she is not a candidate for surgical intervention 3. Hypokalemia ? Corrected per protocol 4. Hypothyroidism ? Patient is on levothyroxine home dose continued 5. Hypertension ? Blood pressure controlled, home medications continued with dose adjustment as needed 6. Dyslipidemia ?Patient is on statin therapy, continued at home dose 7. Depression with anxiety ? Patient is on sertraline continue 8. DVT prophylaxis ? On enoxaparin Time spent in the patient's overall evaluation,decision-making process, review of diagnostic data, adjustment of management, discussion with other providers, nursing nursing and ancillary staff involved in patient's care documentation, 36 minutes Charges/Coding Visit Charges Inpatient E&M: 67292 Subs Hosp L2
--- NOTE | 2024-10-26 07:59 | NURSING ---
pt A&Ox3. RA, no distress noted. denies N/T. neurovasc. check negative. mild edema noted b/l knees without redness or warmth. pt states pain tolerable at this time. states left worse than right. pt states she sees Dr. Hernandez has had injections and suppose to be using ice on knees at home. discussed getting order for Kpad. Denies all further needs. Call light within reach. CORE WINDER documentation reviewed.
[2024-10-26 08:10] VITALS: BP 140/54; PULSE 79; RESP 18; TEMP 36.4; O2SAT 97
[2024-10-26] MEDS: Losartan Potassium 25 MG Tablet PO (08:52)
[2024-10-26] MEDS: Multivitamins,Therapeutic Tablet 1 TABLET PO (08:52)
[2024-10-26] MEDS: dilTIAZem CD 120 MG Capsule PO (08:52)
[2024-10-26] MEDS: Sertraline 50 MG Tablet PO (08:52)
[2024-10-26] MEDS: Enoxaparin 40 MG/0.4 ML Syringe SC (08:53)
[2024-10-26] MEDS: Calcium Carb/Vitamin D 1 TABLET Tablet PO (08:53)
[2024-10-26 14:10] VITALS: BP 115/46; PULSE 82; RESP 18; TEMP 36.6; O2SAT 97
--- NOTE | 2024-10-26 14:42 | NURSING ---
college coach documentation reviewed.
--- NOTE | 2024-10-26 15:32 | CASEMGMT ---
MOSES COOPER into Pt room, discussed HHC with Pt, she is agreeable. Offered list of HHC agencies, Pt denies wanting list and selected [facility] as first choice. MOSES COOPER made referral to [facility] for SN, PT and OT.
--- NOTE | 2024-10-26 15:55 | CASEMGMT ---
MOSES CM in to discuss ARSHAD form with patient. RN CM explained ARSHAD form, patient voiced understanding. Pt signed form and filed in chart. Pt provided with a copy of signed ARSHAD form. Patient had no further questions or concerns at this time.
[2024-10-26] MEDS: Pravastatin 40 MG Tablet PO (20:05)
[2024-10-26 20:07] VITALS: BP 152/79; PULSE 82; RESP 17; TEMP 36.6; O2SAT 94
[2024-10-27 03:00] VITALS: BP 144/70; PULSE 68; RESP 17; TEMP 36.6; O2SAT 95
[2024-10-27 06:00] VITALS: BMI 27.0
[2024-10-27] MEDS: Acetaminophen 500 MG Tablet 1000 MG PO ×3 (06:00→21:58)
[2024-10-27] MEDS: Levothyroxine 125 MCG Tablet PO (06:01)
[2024-10-27 06:34] LABS: Absolute Lymphocyte Count 1.48 X10^3/uL (0.83-4.51); Absolute Neutrophil Count 3.2 X10^3/uL (2.0-7.7); Basophil# 0.05 X10^3/uL; Basophil% 0.8 % (0-1); Eosinophils% 3.1 % (0-5); Hematocrit 41.5 % (37-47); Hemoglobin 13.2 g/dL (12.0-15.0); Lymphocyte # 1.48 X10^3/ul (0.83-4.51); Lymphocyte % 22.6 % (19-41); Mean Corp Hgb Conc 31.8 g/dL (32-36); Mean Corpuscular Hgb 29.8 pg (27.0-32.0); Mean Corpuscular Volume 93.7 fL (81-99); Mean Platelet Vol. 12.5 fl (6.2-12.0); Monocyte# 1.54 X10^3/uL; Monocyte% 23.5 % (0-10); NRBC Flagged by Analyzer 0 % (0-5); Neutrophil # 3.23 X10^3/uL (2.7-7.7); Neutrophil % 49.2 % (47-70); POSITIVE DIFFERENTIAL YES; Platelet Count 111 K/mm3 (150-450); RBC Distribution Width SD 48.3 fl (35.1-43.9); Red Blood Count 4.43 M/mm3 (4.2-5.4); White Blood Count 6.6 K/mm3 (4.4-11.0)
[2024-10-27 07:07] LABS: Differential Indicated SCAN CRITERIA MET
[2024-10-27 07:11] LABS: Anion Gap 3 (5-15); BUN 7 mg/dL (7-18); BUN/Creat Ratio 15.3 RATIO (10-20); Calcium,Total 8.9 mg/dL (8.5-10.1); Chloride 108 mmol/L (98-107); Creatinine, Serum 0.46 mg/dL (0.55-1.02); EST Glomerular Filtration Rate 138 mL/min (>60); Est Glom Filt Rate - Afr Amer 167 mL/min (>60); Estimated Creatinine Clearance 49.94 ml/min; Glucose 99 mg/dL (74-106); Magnesium 1.8 mg/dL (1.6-2.6); Phosphorus 3.5 mg/dL (2.5-4.9); Potassium 3.7 mmol/L (3.5-5.1); Sodium Level 140 mmol/L (136-145)
--- NOTE | 2024-10-27 07:35 | DS.PCM_ITS ---
Providers Date of Admission: 10/26/24 Date of Discharge: 10/27/24 Primary Care Physician: Dr. Nara Orta MD Reason For Visit: FALLS, WEAKNESS, GAIT DYSFUNCTION Diagnosis Discharge Diagnosis (1) General weakness: Status: Acute Code(s): R53.1 - Weakness (2) Fall: Status: Acute Code(s): W19.XXXA - Unspecified fall, initial encounter (3) Osteoarthritis of right knee: Status: Acute Code(s): M17.11 - Unilateral primary osteoarthritis, right knee Qualifiers: Osteoarthritis type: primary Qualified Code(s): M17.11 - Unilateral primary osteoarthritis, right knee (4) Osteoarthritis of left knee: Status: Acute Code(s): M17.12 - Unilateral primary osteoarthritis, left knee Qualifiers: Osteoarthritis type: primary Qualified Code(s): M17.12 - Unilateral primary osteoarthritis, left knee (5) Hypokalemia: Status: Acute Code(s): E87.6 - Hypokalemia (6) Frequent falls: Status: Acute Code(s): R29.6 - Repeated falls Plan Patient is an 83-year-old lady admitted with progressive generalized weakness and multiple falls 1. Physical deconditioning with progressive generalized weakness and multiple ? Requested for PT OT eval and high school social studies tutor to assist with discharge planning ? 10/27/2024 patient was discharged home with home health 2. Acute on chronic bilateral knee pain ? Secondary to severe osteoarthritis. Patient has received intra-articular steroid injections as outpatient. Patient was apparently informed by orthopedic surgery that she is not a candidate for surgical intervention 3. Hypokalemia ? Corrected per protocol 4. Hypothyroidism ? Patient is on levothyroxine home dose continued 5. Hypertension ? Blood pressure controlled, home medications continued with dose adjustment as needed 6. Dyslipidemia ?Patient is on statin therapy, continued at home dose 7. Depression with anxiety ? Patient is on sertraline continue 8. DVT prophylaxis ? On enoxaparin Time spent in the patient's overall evaluation,decision-making process, review of diagnostic data, adjustment of management, discussion with other providers, nursing nursing and ancillary staff involved in patient's care documentation, 36 minutes Medications at Discharge Home Medications multivitamin 1 tab PO DAILY 12/17/18 calcium 500 mg (as carbonate)-vitamin D3 10 mcg (400 unit) tablet 1 tab PO DAILY 12/03/21 Kenalog 40 mg/mL suspension for injection (triamcinolone acetonide) 50 mg (1.25 mL) intra-articular ONCE right knee pain #1.25 mL 03/20/24 julien.stocking,knee,reg,smal #24 ea 04/16/24 losartan 50 mg tablet 25 mg (1/2 x 50 mg) PO QDAY #45 tabs 04/26/24 pravastatin 40 mg tablet 40 mg PO QHS 05/08/24 levothyroxine 125 mcg tablet 125 mcg PO QDAY #90 tabs 08/29/24 sertraline 50 mg tablet 50 mg PO QDAY #90 tabs 08/29/24 diltiazem HCl 120 mg capsule,24 hr,extended release 120 mg PO DAILY 10/26/24 acetaminophen 500 mg tablet 1,000 mg (2 x 500 mg) PO Q6H PRN PRN #0 tabs 10/27/24 Physical Exam Narrative GENERAL: cooperative HEENT: Atraumatic; normocephalic EYES; Anicteric, Normal Conjunctiva NECK; supple, normal thyroid, RESPIRATORY: Diminished to auscultation CARDIOVASCULAR: Regular S1 S2, GI: soft, normoactive bowel sounds, : No Renal angle tenderness; EXTREMITIES: No edema, no clubbing, MUSCULOSKELETAL: no muscle wasting NEURO: Awake; no lateralizing signs. SKIN: No Rash PSYCH; Flat affect Weight / BMI Weight Weight: 71.788 kg Body Mass Index (BMI) 27.0 ABG / Lab / Microbiology Data 10/27/24 05:59 10/27/24 05:59 Laboratory: Laboratory Results - last 24 hr 10/27/24 05:59: WBC 6.6, RBC 4.43, Hgb 13.2, Hct 41.5, MCV 93.7, MCH 29.8, MCHC 31.8 L, RDW Std Deviation 48.3 H, RDW Coeff of Chris 14.0, Plt Count 111 L, MPV 12.5 H, Immature Gran % (Auto) 0.800, Neut % (Auto) 49.2, Lymph % (Auto) 22.6, M funmilayo % (Auto) 23.5 H, Eos % (Auto) 3.1, Baso % (Auto) 0.8, Absolute Neuts (auto) 3.2, Absolute Lymphs (auto) 1.48, Nucleated RBC % 0, Diff Path Review May foll, Reactive Lymphocytes 2+, Sodium 140, Potassium 3.7, Chloride 108 H, Carbon Dioxide 29.0, Anion Gap 3 L, BUN 7, Creatinine 0.46 L, Estim Creat Clear Calc 49.94, Est GFR (MDRD) Af Amer 167, Est GFR (MDRD) Non-Af 138, BUN/Creatinine Ratio 15.3, Glucose 99, Calcium 8.9, Phosphorus 3.5, Magnesium 1.8 Microbiology: Microbiology 10/25/24 20:06 Mucosa - Nasopharyngeal Respiratory Panel (PCR) - Final 10/25/24 20:59 Mucosa - Nose Coronavirus COVID-19 PCR - Final D/C Instructions Discharge Diet: No restrictions Discharge Activity: Return to Normal Activity Call your doctor if you observe: Fever of 101 or Higher, Shortness of breath, Fainting spells and Chest pain DC O2, CPAP, BIPAP Needs Home O2 Discharge instructions: No Meaningful Use Info Meaningful Use Meaningful Use Diagnoses (Choose all that apply): None applicable Ischemic Stroke Statin Dosing Therapy Reference: STATIN DOSE THERAPY REFERENCE: * Patients > 75 years receive moderate or high dose statin therapy. * Patients 75 years or YOUNGER should receive HIGH intensity statin dose unless contraindicated. You will be required to document reason for non-treatment if statin daily dose does not meet guidelines. HIGH DOSE STATIN THERAPY DAILY Atorvastatin > than or = to 40 mg Rosuvastatin > than or = to 20 mg Amlodipine + Atorvastatin > than or = to 2.5/40 mg Ezetimibe + Simvastatin 10/80 mg Simvastatin 80mg Discharge Plan Admission Admit Date/Time: 10/26/24 14:50 Attending Provider: Justino Vail Primary Care Provider: Nara Orta Consulting Providers: Alia Fish Discharge Orders/Prescriptions Prescriptions: New acetaminophen 500 mg Tablet 1,000 mg PO Q6H PRN PRNQty: 0 0RF Continued multivitamin tablet 1 tab PO DAILY calcium carbonate-vitamin D3 500 mg-10 mcg (400 unit) tablet 1 tab PO DAILY triamcinolone acetonide [Kenalog] 40 mg/mL suspension 50 mg intra-articular ONCE Qty: 1.25 0RF pravastatin 40 mg tablet 40 mg PO QHS sertraline 50 mg tablet 50 mg PO QDAY Qty: 90 0RF diltiazem HCl 120 mg capsule,extended release 24hr 120 mg PO DAILY (DME) julien.stocking,knee,reg,smal Misc See Rx Instructions .Route Qty: 24 0RF Rx Instructions: As directed losartan 50 mg tablet 25 mg PO QDAY Qty: 45 3RF levothyroxine 125 mcg tablet 125 mcg PO QDAY Qty: 90 0RF Referrals / Follow Up: Nara Orta MD [Primary Care Provider] - Within 1 Week Disposition Disposition (needs filled in before D/C Order can be placed): Home Health Service Charges/Coding Visit Charges Inpatient E&M: 68566 Disch Hosp >30min
[2024-10-27 07:44] LABS: Reactive Lymphocyte 2+
--- NOTE | 2024-10-27 07:48 | NURSING ---
pt a&ox3. no distress noted. neurovasc check negative. discussed ambulation with patient. encouraged patient to be out of bed as much as possible today and encouraged her to participate with PT/OT this morning. pt denies need for medication for pain at this time. denies all further needs. call light within reach. FULL SERVICE SUPERVISOR documentation reviewed.
[2024-10-27] MEDS: Enoxaparin 40 MG/0.4 ML Syringe SC (08:07)
[2024-10-27] MEDS: Multivitamins,Therapeutic Tablet 1 TABLET PO (08:07)
[2024-10-27] MEDS: Losartan Potassium 25 MG Tablet PO (08:07)
[2024-10-27] MEDS: dilTIAZem CD 120 MG Capsule PO (08:08)
[2024-10-27] MEDS: Calcium Carb/Vitamin D 1 TABLET Tablet PO (08:08)
[2024-10-27] MEDS: Sertraline 50 MG Tablet PO (08:08)
[2024-10-27 08:51] VITALS: BP 146/71; PULSE 70; RESP 16; TEMP 36.4; O2SAT 97
[2024-10-27] MEDS: traMADol 50 MG Tablet PO (09:33)
--- NOTE | 2024-10-27 09:35 | NURSING ---
into room as noted breakfast tray beside bed and patient remains in bed. had conversation with patient regarding order for discharge, however, pt has refused to get oob. discussed pain in knees and ordered pain medication, ice and kpad. discussed discharge plan as pt verbalized she's not being discharged until she knows what is wrong with her knees, discussed dr. sullivan notes including xrays. discussed that pt does not want to be discharged to [facility] or facility for additional rehab. encouraged patient to try oob. x1 assist/walker pt up to recliner. ice pack provided as pt verbalized feels ice is better than kpad.
[2024-10-27] MEDS: 0.9% Saline Lock 10 ML Syringe IV (10:42)
--- NOTE | 2024-10-27 13:20 | PN.HOSP_ITS ---
Reason for Visit Reason for Visit: Diagnoses Hypokalemia (10/26/24) Unilateral primary osteoarthritis, right knee (10/26/24) Unilateral primary osteoarthritis, left knee (10/26/24) Repeated falls (10/26/24) Weakness (10/26/24) Unspecified fall, initial encounter (10/26/24) Subjective Subjective Plan was for patient to be discharged home with home health however after ambulation by PT patient was found to be profoundly weak on able to stand. Had a discussion with patient's family and the patient decision to discharge patient home canceled. Case management consulted to assist with disposition possibly to a fpc facility Objective Data Objective Data Vital Signs: Vital Signs Temp Pulse Resp BP Pulse Ox O2 Del Method 97.5 F L 70 16 146/71 H 97 Room Air 10/27/24 08:51 10/27/24 08:51 10/27/24 08:51 10/27/24 08:51 10/27/24 08:51 10/27/24 08:51 Oxygen Delivery Method Room Air Weight: 71.788 kg Body Mass Index (BMI) 27.0 Intake & Output: Intake and Output for Last 24 Hours 10/25/24 10/26/24 10/27/24 23:59 23:59 23:59 Intake Total 150 / 150 60 / 60 Output Total 500 / 500 700 / 700 Balance -350 / -350 -640 / -640 Lab / Micro Data 10/27/24 05:59 10/27/24 05:59 Labs: Laboratory Results - last 24 hr 10/27/24 05:59: WBC 6.6, RBC 4.43, Hgb 13.2, Hct 41.5, MCV 93.7, MCH 29.8, MCHC 31.8 L, RDW Std Deviation 48.3 H, RDW Coeff of Chris 14.0, Plt Count 111 L, MPV 12.5 H, Immature Gran % (Auto) 0.800, Neut % (Auto) 49.2, Lymph % (Auto) 22.6, M funmilayo % (Auto) 23.5 H, Eos % (Auto) 3.1, Baso % (Auto) 0.8, Absolute Neuts (auto) 3.2, Absolute Lymphs (auto) 1.48, Nucleated RBC % 0, Diff Path Review May foll, Reactive Lymphocytes 2+, Sodium 140, Potassium 3.7, Chloride 108 H, Carbon Dioxide 29.0, Anion Gap 3 L, BUN 7, Creatinine 0.46 L, Estim Creat Clear Calc 49.94, Est GFR (MDRD) Af Amer 167, Est GFR (MDRD) Non-Af 138, BUN/Creatinine Ratio 15.3, Glucose 99, Calcium 8.9, Phosphorus 3.5, Magnesium 1.8 Micro: Microbiology 10/25/24 20:06 Mucosa - Nasopharyngeal Respiratory Panel (PCR) - Final 10/25/24 20:59 Mucosa - Nose Coronavirus COVID-19 PCR - Final Physical Exam Narrative GENERAL: cooperative HEENT: Atraumatic; normocephalic EYES; Anicteric, Normal Conjunctiva NECK; supple, normal thyroid, RESPIRATORY: Diminished to auscultation CARDIOVASCULAR: Regular S1 S2, GI: soft, normoactive bowel sounds, : No Renal angle tenderness; EXTREMITIES: No edema, no clubbing, MUSCULOSKELETAL: no muscle wasting NEURO: Awake; no lateralizing signs. SKIN: No Rash PSYCH; Flat affect Assessment & Plan Assessment/Plan (1) General weakness: (2) Fall: (3) Osteoarthritis of right knee: QUALIFIERS: Osteoarthritis type: primary Qualified Code(s): M 17.11 - Unilateral primary osteoarthritis, right knee (4) Osteoarthritis of left knee: QUALIFIERS: Osteoarthritis type: primary Qualified Code(s): M 17.12 - Unilateral primary osteoarthritis, left knee (5) Hypokalemia: (6) Frequent falls: PLAN: Plan Patient is an 83-year-old lady admitted with progressive generalized weakness and multiple falls 1. Physical deconditioning with progressive generalized weakness and multiple ? Requested for PT OT eval and social media sr strategy manager to assist with discharge planning ? 10/27/2024Plan was for patient to be discharged home with home health however after ambulation by PT patient was found to be profoundly weak on able to stand. Had a discussion with patient's family and the patient decision to discharge patient home canceled. Case management consulted to assist with disposition possibly to a fpc facility 2. Acute on chronic bilateral knee pain ? Secondary to severe osteoarthritis. Patient has received intra-articular steroid injections as outpatient. Patient was apparently informed by orthopedic surgery that she is not a candidate for surgical intervention 3. Hypokalemia ? Corrected per protocol 4. Hypothyroidism ? Patient is on levothyroxine home dose continued 5. Hypertension ? Blood pressure controlled, home medications continued with dose adjustment as needed 6. Dyslipidemia ?Patient is on statin therapy, continued at home dose 7. Depression with anxiety ? Patient is on sertraline continue 8. DVT prophylaxis ? On enoxaparin Time spent in the patient's overall evaluation,decision-making process, review of diagnostic data, adjustment of management, discussion with other providers, nursing nursing and ancillary staff involved in patient's care documentation, 36 minutes Charges/Coding Visit Charges Inpatient E&M: 71608 Subs Hosp L2
[2024-10-27 14:51] VITALS: BP 108/58; PULSE 84; RESP 18; TEMP 36.7; O2SAT 98
[2024-10-27 20:02] VITALS: BP 127/55; PULSE 87; RESP 16; TEMP 36.6; O2SAT 93
[2024-10-27] MEDS: Pravastatin 40 MG Tablet PO (21:57)
[2024-10-28 02:00] VITALS: BP 115/56; PULSE 88; RESP 16; TEMP 36.7; O2SAT 93
[2024-10-28 03:36] VITALS: BMI 26.7
[2024-10-28 06:09] VITALS: BP 144/64; PULSE 76; RESP 16; TEMP 36.7; O2SAT 96
[2024-10-28] MEDS: Levothyroxine 125 MCG Tablet PO (06:11)
[2024-10-28] MEDS: Acetaminophen 500 MG Tablet 1000 MG PO ×3 (06:12→22:28)
[2024-10-28 06:49] LABS: Absolute Lymphocyte Count 1.47 X10^3/uL (0.83-4.51); Absolute Neutrophil Count 2.3 X10^3/uL (2.0-7.7); Basophil# 0.04 X10^3/uL; Basophil% 0.7 % (0-1); Eosinophil# 0.17 X10^3/uL; Eosinophils% 3.1 % (0-5); Hematocrit 39.1 % (37-47); Hemoglobin 12.4 g/dL (12.0-15.0); Lymphocyte # 1.47 X10^3/ul (0.83-4.51); Lymphocyte % 26.8 % (19-41); Mean Corp Hgb Conc 31.7 g/dL (32-36); Mean Corpuscular Hgb 29.7 pg (27.0-32.0); Mean Corpuscular Volume 93.8 fL (81-99); Mean Platelet Vol. 11.7 fl (6.2-12.0); Monocyte# 1.49 X10^3/uL; Monocyte% 27.2 % (0-10); NRBC Flagged by Analyzer 0 % (0-5); Neutrophil # 2.28 X10^3/uL (2.7-7.7); Neutrophil % 41.7 % (47-70); Platelet Count 114 K/mm3 (150-450); RBC Distribution Width CV 14.2 % (11.6-14.6); RBC Distribution Width SD 48.2 fl (35.1-43.9); Red Blood Count 4.17 M/mm3 (4.2-5.4); White Blood Count 5.5 K/mm3 (4.4-11.0)
[2024-10-28 07:09] LABS: Anion Gap 3 (5-15); BUN 10 mg/dL (7-18); BUN/Creat Ratio 16.9 RATIO (10-20); Chloride 109 mmol/L (98-107); Creatinine, Serum 0.59 mg/dL (0.55-1.02); EST Glomerular Filtration Rate 102 mL/min (>60); Est Glom Filt Rate - Afr Amer 124 mL/min (>60); Estimated Creatinine Clearance 49.69 ml/min; Glucose 103 mg/dL (74-106); Potassium 4.7 mmol/L (3.5-5.1); Sodium Level 141 mmol/L (136-145)
--- NOTE | 2024-10-28 07:24 | PCM.PN.HOSP ---
Reason for Visit Reason for Visit: Diagnoses Hypokalemia (10/26/24) Unilateral primary osteoarthritis, right knee (10/26/24) Unilateral primary osteoarthritis, left knee (10/26/24) Repeated falls (10/26/24) Weakness (10/26/24) Unspecified fall, initial encounter (10/26/24) Subjective Subjective Patient seen did finally agree to be discharged to correction facility awaiting insurance approval Objective Data Objective Data Vital Signs: Vital Signs Temp Pulse Resp BP Pulse Ox O2 Del Method 98.1 F 76 16 144/64 H 96 Room Air 10/28/24 06:09 10/28/24 06:09 10/28/24 06:09 10/28/24 06:09 10/28/24 06:09 10/28/24 06:09 Oxygen Delivery Method Room Air Weight: 71 kg Body Mass Index (BMI) 26.7 Intake & Output: Intake and Output for Last 24 Hours 10/26/24 10/27/24 10/28/24 23:59 23:59 23:59 Intake Total 150 / 150 860 / 860 100 / 100 Output Total 500 / 500 1500 / 1500 Balance -350 / -350 -640 / -640 100 / 100 Lab / Micro Data 10/28/24 06:28 10/28/24 06:28 Labs: Laboratory Results - last 24 hr 10/27/24 05:59: Diff Path Review February, Reactive Lymphocytes 2+ 10/28/24 06:28: WBC 5.5, RBC 4.17 L, Hgb 12.4, Hct 39.1, MCV 93.8, MCH 29.7, MCHC 31.7 L, RDW Std Deviation 48.2 H, RDW Coeff of Chris 14.2, Plt Count 114 L, MPV 11.7, Immature Gran % (Auto) 0.500, Neut % (Auto) 41.7 L, Lymph % (Auto) 26.8, [place] % (Auto) 27.2 H, Eos % (Auto) 3.1, Baso % (Auto) 0.7, Absolute Neuts (auto) 2.3, Absolute Lymphs (auto) 1.47, Nucleated RBC % 0, Sodium 141, Potassium 4.7, Chloride 109 H, Carbon Dioxide 29.0, Anion Gap 3 L, BUN 10, Creatinine 0.59, Estim Creat Clear Calc 49.69, Est GFR (MDRD) Af Amer 124, Est GFR (MDRD) Non-Af 102, BUN/Creatinine Ratio 16.9, Glucose 103, Calcium 9.0 Micro: Microbiology 10/25/24 20:06 Mucosa - Nasopharyngeal Respiratory Panel (PCR) - Final 10/25/24 20:59 Mucosa - Nose Coronavirus COVID-19 PCR - Final Physical Exam Narrative GENERAL: cooperative HEENT: Atraumatic; normocephalic EYES; Anicteric, Normal Conjunctiva NECK; supple, normal thyroid, RESPIRATORY: Diminished to auscultation CARDIOVASCULAR: Regular S1 S2, GI: soft, normoactive bowel sounds, : No Renal angle tenderness; EXTREMITIES: No edema, no clubbing, MUSCULOSKELETAL: no muscle wasting NEURO: Awake; no lateralizing signs. SKIN: No Rash PSYCH; Flat affect Assessment & Plan Assessment/Plan (1) General weakness: (2) Fall: (3) Osteoarthritis of right knee: QUALIFIERS: Osteoarthritis type: primary Qualified Code(s): M17.11 - Unilateral primary osteoarthritis, right knee (4) Osteoarthritis of left knee: QUALIFIERS: Osteoarthritis type: primary Qualified Code(s): M17.12 - Unilateral primary osteoarthritis, left knee (5) Hypokalemia: (6) Frequent falls: PLAN: Plan Patient is an 83-year-old lady admitted with progressive generalized weakness and multiple falls 1. Physical deconditioning with progressive generalized weakness and multiple ? Requested for PT OT eval and psychotherapist social worker to assist with discharge planning ? 10/27/2024Plan was for patient to be discharged home with home health however after ambulation by PT patient was found to be profoundly weak on able to stand. Had a discussion with patient's family and the patient decision to discharge patient home canceled. Case management consulted to assist with disposition possibly to a correction facility ? 10/28/2024; awaiting insurance approval plan to be transferred to correction facility 2. Acute on chronic bilateral knee pain ? Secondary to severe osteoarthritis. Patient has received intra-articular steroid injections as outpatient. Patient was apparently informed by orthopedic surgery that she is not a candidate for surgical intervention 3. Hypokalemia ? Corrected per protocol 4. Hypothyroidism ? Patient is on levothyroxine home dose continued 5. Hypertension ? Blood pressure controlled, home medications continued with dose adjustment as needed 6. Dyslipidemia ?Patient is on statin therapy, continued at home dose 7. Depression with anxiety ? Patient is on sertraline continue 8. DVT prophylaxis ? On enoxaparin Time spent in the patient's overall evaluation,decision-making process, review of diagnostic data, adjustment of management, discussion with other providers, nursing nursing and ancillary staff involved in patient's care documentation, 36 minutes Charges/Coding Visit Charges Inpatient E&M: 97757 Subs Hosp L2
[2024-10-28 07:58] VITALS: O2SAT 94
--- NOTE | 2024-10-28 10:16 | CASEMGMT ---
Discharge Planning A list of?SNF providers including quality and resource use data and consistent with the patient's preferred geographic region, medical needs, and insurance network was created in [employer]Port Guide.? This list was provided to the SW. Mary Kwon Discharge Planning Asst.
[2024-10-28 10:44] VITALS: BP 118/73; PULSE 81; RESP 16; TEMP 36.6; O2SAT 95
[2024-10-28] MEDS: Calcium Carb/Vitamin D 1 TABLET Tablet PO (10:54)
[2024-10-28] MEDS: dilTIAZem CD 120 MG Capsule PO (10:54)
[2024-10-28] MEDS: Losartan Potassium 25 MG Tablet PO (10:54)
--- NOTE | 2024-10-28 10:56 | CASEMGMT ---
TC to [facility], spoke with Nichole, she is aware that pt dc plan has changed and to cancel the HH referral.
[2024-10-28] MEDS: Enoxaparin 40 MG/0.4 ML Syringe SC (10:58)
[2024-10-28] MEDS: Multivitamins,Therapeutic Tablet 1 TABLET PO (10:58)
[2024-10-28] MEDS: Sertraline 50 MG Tablet PO (11:01)
--- NOTE | 2024-10-28 11:14 | NURSING ---
called son joanne modesta and gave update on his mom
[2024-10-28 13:21] LABS: Pathologist Review Reviewed
--- NOTE | 2024-10-28 13:45 | CHAPLAIN ---
Type of Pastoral Visit _x__ Initial Visit ___ Follow-up Visit ___ On-call Visit ___ General Patient Visit ___ Spiritual Assessment ___ Family Conference ___ Bereavement ___ Rapid Response ___ Code Blue ___ Other (describe below) Pastoral Care Referral From _x__ Patient ___ Family ___ Nurse ___ Physician ___ Jammer Hooker ___ Chief Media Officer ___ Other (describe below) Sacrament/Intervention _x__ Active listening ___ Anointing ___ Anabaptist ___ Bereavement ___ Communion _x__ Palak exploration ___ _x__ Life review _x__ Prayer ___ Reconciliation ___ Sacrament of Sick _x__ Supportive presence ___ Wedding ___ Other (describe below) Pastoral Comments patient and daughter are in the room; pt is welcoming and quite talkative about her falls, her need for a better solution, palak exploration, and family; pt wants to continue living at home but recognizes some limitations and has had advice given to her by her children about changes that could be made; pt states that she is old and has lived long enough but as this is explored it is the understanding that it is God's decision and that we can look to him for answers; pt is not connected to a uatsdin at this time but considers herself still a seeker of truth; pt welcomes prayer and someone to talk with; daughter does not engage int he conversation
--- NOTE | 2024-10-28 13:52 | CASEMGMT ---
Social Work- SW spoke with pt son, Wm, who called in to collaborate on preferences at discharge. Pt family prefers [facility] with [facility] as alternate. SW met with pt; SW introduced self and role. A list of SNF providers including quality and resource use data and consistent with the patient?s preferred geographic region, medical needs, and insurance network were provided from the CarePort Guide. Pt agreeable to [facility] as FOC and [facility] as alternate. Referral completed to TCU. Plan: TCU; pending acceptance [facility]
[2024-10-28 15:48] VITALS: BP 127/66; PULSE 82; RESP 16; TEMP 36.6; O2SAT 98
[2024-10-28] MEDS: Senna/Docusate Sodium 1 Tablet 2 TABLET PO (15:52)
[2024-10-28 20:37] VITALS: BP 131/66; PULSE 72; RESP 16; TEMP 36.6; O2SAT 93
[2024-10-28] MEDS: Pravastatin 40 MG Tablet PO (22:29)
[2024-10-29 02:35] VITALS: BP 120/59; PULSE 76; RESP 16; TEMP 36.6; O2SAT 95
[2024-10-29] MEDS: 0.9% Saline Lock 10 ML Syringe IV (02:42)
[2024-10-29] MEDS: Acetaminophen 500 MG Tablet 1000 MG PO (05:08)
[2024-10-29] MEDS: Levothyroxine 125 MCG Tablet PO (05:09)
[2024-10-29 06:51] LABS: Absolute Lymphocyte Count 1.58 X10^3/uL (0.83-4.51); Absolute Neutrophil Count 2.1 X10^3/uL (2.0-7.7); Basophil# 0.05 X10^3/uL; Basophil% 0.9 % (0-1); Eosinophil# 0.21 X10^3/uL; Eosinophils% 3.9 % (0-5); Hematocrit 38.6 % (37-47); Hemoglobin 12.4 g/dL (12.0-15.0); Lymphocyte # 1.58 X10^3/ul (0.83-4.51); Lymphocyte % 29.4 % (19-41); Mean Corp Hgb Conc 32.1 g/dL (32-36); Mean Corpuscular Hgb 29.9 pg (27.0-32.0); Mean Platelet Vol. 12.2 fl (6.2-12.0); Monocyte% 26.1 % (0-10); NRBC Flagged by Analyzer 0 % (0-5); Neutrophil # 2.11 X10^3/uL (2.7-7.7); Neutrophil % 39.3 % (47-70); Platelet Count 106 K/mm3 (150-450); RBC Distribution Width SD 47.9 fl (35.1-43.9); Red Blood Count 4.15 M/mm3 (4.2-5.4); White Blood Count 5.4 K/mm3 (4.4-11.0)
[2024-10-29 07:32] VITALS: BMI 26.5
[2024-10-29 07:38] LABS: Anion Gap 5 (5-15); BUN 11 mg/dL (7-18); BUN/Creat Ratio 23.6 RATIO (10-20); Calcium,Total 9.4 mg/dL (8.5-10.1); Chloride 108 mmol/L (98-107); Creatinine, Serum 0.47 mg/dL (0.55-1.02); EST Glomerular Filtration Rate 135 mL/min (>60); Est Glom Filt Rate - Afr Amer 163 mL/min (>60); Estimated Creatinine Clearance 49.53 ml/min; Glucose 101 mg/dL (74-106); Sodium Level 140 mmol/L (136-145)
--- NOTE | 2024-10-29 08:21 | PN.HOSP_ITS ---
Reason for Visit Reason for Visit: Diagnoses Hypokalemia (10/26/24) Unilateral primary osteoarthritis, right knee (10/26/24) Unilateral primary osteoarthritis, left knee (10/26/24) Repeated falls (10/26/24) Weakness (10/26/24) Unspecified fall, initial encounter (10/26/24) Subjective Subjective Patient seen had a relatively uneventful night. Awaiting insurance precertification prior to transfer to the transitional care unit Objective Data Objective Data Vital Signs: Vital Signs Temp Pulse Resp BP Pulse Ox O2 Del Method 98 F 76 16 120/59 L 95 Room Air 10/29/24 02:35 10/29/24 02:35 10/29/24 02:35 10/29/24 02:35 10/29/24 02:35 10/29/24 07:52 Oxygen Delivery Method Room Air Weight: 70.5 kg Body Mass Index (BMI) 26.5 Intake & Output: Intake and Output for Last 24 Hours 10/27/24 10/28/24 10/29/24 23:59 23:59 23:59 Intake Total 860 / 860 900 / 900 200 / 200 Output Total 1500 / 1500 750 / 750 Balance -640 / -640 150 / 150 200 / 200 Lab / Micro Data 10/29/24 06:04 10/29/24 06:04 Labs: Laboratory Results - last 24 hr 10/27/24 05:59: Diff Path Review Reviewed 10/29/24 06:04: WBC 5.4, RBC 4.15 L, Hgb 12.4, Hct 38.6, MCV 93.0, MCH 29.9, MCHC 32.1, RDW Std Deviation 47.9 H, RDW Coeff of Chris 14.0, Plt Count 106 L, MPV 12.2 H, Immature Gran % (Auto) 0.400, Neut % (Auto) 39.3 L, Lymph % (Auto) 29.4, [place] % (Auto) 26.1 H, Eos % (Auto) 3.9, Baso % (Auto) 0.9, Absolute Neuts (auto) 2.1, Absolute Lymphs (auto) 1.58, Nucleated RBC % 0, Sodium 140, Potassium 4.0, Chloride 108 H, Carbon Dioxide 27.0, Anion Gap 5, BUN 11, Creatinine 0.47 L, Estim Creat Clear Calc 49.53, Est GFR (MDRD) Af Amer 163, Est GFR (MDRD) Non-Af 135, BUN/Creatinine Ratio 23.6 H, Glucose 101, Calcium 9.4 Micro: Microbiology 10/25/24 20:06 Mucosa - Nasopharyngeal Respiratory Panel (PCR) - Final 10/25/24 20:59 Mucosa - Nose Coronavirus COVID-19 PCR - Final Physical Exam Narrative GENERAL: cooperative HEENT: Atraumatic; normocephalic EYES; Anicteric, Normal Conjunctiva NECK; supple, normal thyroid, RESPIRATORY: Diminished to auscultation CARDIOVASCULAR: Regular S1 S2, GI: soft, normoactive bowel sounds, : No Renal angle tenderness; EXTREMITIES: No edema, no clubbing, MUSCULOSKELETAL: no muscle wasting NEURO: Awake; no lateralizing signs. SKIN: No Rash PSYCH; Flat affect Assessment & Plan Assessment/Plan (1) General weakness: (2) Fall: (3) Osteoarthritis of right knee: QUALIFIERS: Osteoarthritis type: primary Qualified Code(s): M 17.11 - Unilateral primary osteoarthritis, right knee (4) Osteoarthritis of left knee: QUALIFIERS: Osteoarthritis type: primary Qualified Code(s): M 17.12 - Unilateral primary osteoarthritis, left knee (5) Hypokalemia: (6) Frequent falls: PLAN: Plan Patient is an 83-year-old lady admitted with progressive generalized weakness and multiple falls 1. Physical deconditioning with progressive generalized weakness and multiple ? Requested for PT OT eval and social worker aide to assist with discharge planning ? 10/27/2024Plan was for patient to be discharged home with home health however after ambulation by PT patient was found to be profoundly weak on able to stand. Had a discussion with patient's family and the patient decision to discharge patient home canceled. Case management consulted to assist with disposition possibly to a detention facility ? 10/28/2024; awaiting insurance approval plan to be transferred to detention facility ? 10/29/2024;Patient seen had a relatively uneventful night. Awaiting insurance precertification prior to transfer to the transitional care unit 2. Acute on chronic bilateral knee pain ? Secondary to severe osteoarthritis. Patient has received intra-articular steroid injections as outpatient. Patient was apparently informed by orthopedic surgery that she is not a candidate for surgical intervention 3. Hypokalemia ? Corrected per protocol 4. Hypothyroidism ? Patient is on levothyroxine home dose continued 5. Hypertension ? Blood pressure controlled, home medications continued with dose adjustment as needed 6. Dyslipidemia ?Patient is on statin therapy, continued at home dose 7. Depression with anxiety ? Patient is on sertraline continue 8. DVT prophylaxis ? On enoxaparin Time spent in the patient's overall evaluation,decision-making process, review of diagnostic data, adjustment of management, discussion with other providers, nursing nursing and ancillary staff involved in patient's care documentation, 36 minutes Charges/Coding Visit Charges Inpatient E&M: 91455 [facility] Hosp L2
[2024-10-29 08:47] VITALS: BP 116/59; PULSE 92; RESP 16; TEMP 36.6; O2SAT 97
[2024-10-29] MEDS: Enoxaparin 40 MG/0.4 ML Syringe SC (08:49)
[2024-10-29] MEDS: dilTIAZem CD 120 MG Capsule PO (08:50)
[2024-10-29] MEDS: Multivitamins,Therapeutic Tablet 1 TABLET PO (08:50)
[2024-10-29] MEDS: Losartan Potassium 25 MG Tablet PO (08:50)
[2024-10-29] MEDS: Sertraline 50 MG Tablet PO (08:50)
[2024-10-29] MEDS: Calcium Carb/Vitamin D 1 TABLET Tablet PO (08:50)
--- NOTE | 2024-10-29 10:47 | TREXTCAR_ITS ---
Diet Diet Order/Speech Therapy: 10/26/24 00:14 Diet: Regular - General Food consistency:: Regular Liquid Consistency:: Regular/Thin Routine Orders/Code Status Code Status: Full Code DC O2, CPAP, BIPAP needs Home O2 Discharge instructions: No Therapies Physical Therapy: Eval and Treat Occupational Therapy: Eval and Treat Problem/Diagnosis (1) General weakness: Status: Acute Code(s): R53.1 - Weakness (2) Fall: Status: Acute Code(s): W19.XXXA - Unspecified fall, initial encounter (3) Osteoarthritis of right knee: Status: Acute Code(s): M17.11 - Unilateral primary osteoarthritis, right knee (4) Osteoarthritis of left knee: Status: Acute Code(s): M17.12 - Unilateral primary osteoarthritis, left knee (5) Hypokalemia: Status: Acute Code(s): E87.6 - Hypokalemia (6) Frequent falls: Status: Acute Code(s): R29.6 - Repeated falls Plan Patient is an 83-year-old lady admitted with progressive generalized weakness and multiple falls 1. Physical deconditioning with progressive generalized weakness and multiple ? Requested for PT OT eval and rn social services to assist with discharge planning ? 10/27/2024Plan was for patient to be discharged home with home health however after ambulation by PT patient was found to be profoundly weak on able to stand. Had a discussion with patient's family and the patient decision to discharge patient home canceled. Case management consulted to assist with disposition possibly to a [facility] facility ? 10/28/2024; awaiting insurance approval plan to be transferred to [facility] facility ? 10/29/2024;Patient seen had a relatively uneventful night. Awaiting insurance precertification prior to transfer to the transitional care unit 2. Acute on chronic bilateral knee pain ? Secondary to severe osteoarthritis. Patient has received intra-articular steroid injections as outpatient. Patient was apparently informed by orthopedic surgery that she is not a candidate for surgical intervention 3. Hypokalemia ? Corrected per protocol 4. Hypothyroidism ? Patient is on levothyroxine home dose continued 5. Hypertension ? Blood pressure controlled, home medications continued with dose adjustment as needed 6. Dyslipidemia ?Patient is on statin therapy, continued at home dose 7. Depression with anxiety ? Patient is on sertraline continue 8. DVT prophylaxis ? On enoxaparin Time spent in the patient's overall evaluation,decision-making process, review of diagnostic data, adjustment of management, discussion with other providers, nursing nursing and ancillary staff involved in patient's care documentation, 36 minutes Allergies/Procedures Done in Hospital Allergies Sulfa (Sulfonamide Antibiotics) Adverse Reaction (Intermediate, Verified 10/25/24 13:46) Rash Type of Care/Length of Stay Estimated LOS: Convalescent Care Less Than 30 days Type of Care Needed: Skilled Rehab Potential: Good Prognosis: Good Additional Orders/Day of Discharge Day of Discharge: 10/29/24 Discharge Plan Admission Admit Date/Time: 10/26/24 14:50 Attending Provider: Justino Vail Primary Care Provider: Nara Orta Consulting Providers: Alia Fish Discharge Orders/Prescriptions Prescriptions: New acetaminophen 500 mg Tablet 1,000 mg PO Q6H PRN PRNQty: 0 0RF Continued multivitamin tablet 1 tab PO DAILY calcium carbonate-vitamin D3 500 mg-10 mcg (400 unit) tablet 1 tab PO DAILY triamcinolone acetonide [Kenalog] 40 mg/mL suspension 50 mg intra-articular ONCE Qty: 1.25 0RF pravastatin 40 mg tablet 40 mg PO QHS sertraline 50 mg tablet 50 mg PO QDAY Qty: 90 0RF diltiazem HCl 120 mg capsule,extended release 24hr 120 mg PO DAILY (DME) julien.stocking,knee,reg,smal Misc See Rx Instructions .Route Qty: 24 0RF Rx Instructions: As directed losartan 50 mg tablet 25 mg PO QDAY Qty: 45 3RF levothyroxine 125 mcg tablet 125 mcg PO QDAY Qty: 90 0RF Referrals / Follow Up: Nara Orta MD [Primary Care Provider] - Within 1 Week Disposition Disposition (needs filled in before D/C Order can be placed): [facility] Facility (3) Osteoarthritis of right knee Qualifiers: Osteoarthritis type: primary Qualified Code(s): M17.11 - Unilateral primary osteoarthritis, right knee (4) Osteoarthritis of left knee Qualifiers: Osteoarthritis type: primary Qualified Code(s): M17.12 - Unilateral primary osteoarthritis, left knee
--- NOTE | 2024-10-29 10:50 | DS.PCM_ITS ---
Providers Date of Admission: 10/26/24 Date of Discharge: 10/29/24 Primary Care Physician: Dr. Nara Orta MD Reason For Visit: FALLS, WEAKNESS, GAIT DYSFUNCTION Diagnosis Discharge Diagnosis (1) General weakness: Status: Acute Code(s): R53.1 - Weakness (2) Fall: Status: Acute Code(s): W19.XXXA - Unspecified fall, initial encounter (3) Osteoarthritis of right knee: Status: Acute Code(s): M17.11 - Unilateral primary osteoarthritis, right knee Qualifiers: Osteoarthritis type: primary Qualified Code(s): M17.11 - Unilateral primary osteoarthritis, right knee (4) Osteoarthritis of left knee: Status: Acute Code(s): M17.12 - Unilateral primary osteoarthritis, left knee Qualifiers: Osteoarthritis type: primary Qualified Code(s): M17.12 - Unilateral primary osteoarthritis, left knee (5) Hypokalemia: Status: Acute Code(s): E87.6 - Hypokalemia (6) Frequent falls: Status: Acute Code(s): R29.6 - Repeated falls Plan Patient is an 83-year-old lady admitted with progressive generalized weakness and multiple falls 1. Physical deconditioning with progressive generalized weakness and multiple ? Requested for PT OT eval and social and political studies professor to assist with discharge planning ? 10/27/2024Plan was for patient to be discharged home with home health however after ambulation by PT patient was found to be profoundly weak on able to stand. Had a discussion with patient's family and the patient decision to discharge patient home canceled. Case management consulted to assist with disposition possibly to a longterm facility ? 10/28/2024; awaiting insurance approval plan to be transferred to longterm facility ? 10/29/2024;Patient seen had a relatively uneventful night. Awaiting insurance precertification prior to transfer to the transitional care unit 2. Acute on chronic bilateral knee pain ? Secondary to severe osteoarthritis. Patient has received intra-articular steroid injections as outpatient. Patient was apparently informed by orthopedic surgery that she is not a candidate for surgical intervention 3. Hypokalemia ? Corrected per protocol 4. Hypothyroidism ? Patient is on levothyroxine home dose continued 5. Hypertension ? Blood pressure controlled, home medications continued with dose adjustment as needed 6. Dyslipidemia ?Patient is on statin therapy, continued at home dose 7. Depression with anxiety ? Patient is on sertraline continue 8. DVT prophylaxis ? On enoxaparin Time spent in the patient's overall evaluation,decision-making process, review of diagnostic data, adjustment of management, discussion with other providers, nursing nursing and ancillary staff involved in patient's care documentation, 36 minutes Medications at Discharge Home Medications multivitamin 1 tab PO DAILY 12/17/18 calcium 500 mg (as carbonate)-vitamin D3 10 mcg (400 unit) tablet 1 tab PO DAILY 12/03/21 Kenalog 40 mg/mL suspension for injection (triamcinolone acetonide) 50 mg (1.25 mL) intra-articular ONCE right knee pain #1.25 mL 03/20/24 julien.stocking,knee,reg,smal #24 ea 04/16/24 losartan 50 mg tablet 25 mg (1/2 x 50 mg) PO QDAY #45 tabs 04/26/24 pravastatin 40 mg tablet 40 mg PO QHS 05/08/24 levothyroxine 125 mcg tablet 125 mcg PO QDAY #90 tabs 08/29/24 sertraline 50 mg tablet 50 mg PO QDAY #90 tabs 08/29/24 diltiazem HCl 120 mg capsule,24 hr,extended release 120 mg PO DAILY 10/26/24 acetaminophen 500 mg tablet 1,000 mg (2 x 500 mg) PO Q6H PRN PRN #0 tabs 10/27/24 Physical Exam Narrative GENERAL: cooperative HEENT: Atraumatic; normocephalic EYES; Anicteric, Normal Conjunctiva NECK; supple, normal thyroid, RESPIRATORY: Diminished to auscultation CARDIOVASCULAR: Regular S1 S2, GI: soft, normoactive bowel sounds, : No Renal angle tenderness; EXTREMITIES: No edema, no clubbing, MUSCULOSKELETAL: no muscle wasting NEURO: Awake; no lateralizing signs. SKIN: No Rash PSYCH; Flat affect Weight / BMI Weight Weight: 70.5 kg Body Mass Index (BMI) 26.5 ABG / Lab / Microbiology Data 10/29/24 06:04 10/29/24 06:04 Laboratory: Laboratory Results - last 24 hr 10/27/24 05:59: Diff Path Review Reviewed 10/29/24 06:04: WBC 5.4, RBC 4.15 L, Hgb 12.4, Hct 38.6, MCV 93.0, MCH 29.9, MCHC 32.1, RDW Std Deviation 47.9 H, RDW Coeff of Chris 14.0, Plt Count 106 L, MPV 12.2 H, Immature Gran % (Auto) 0.400, Neut % (Auto) 39.3 L, Lymph % (Auto) 29.4, Hyde % (Auto) 26.1 H, Eos % (Auto) 3.9, Baso % (Auto) 0.9, Absolute Neuts (auto) 2.1, Absolute Lymphs (auto) 1.58, Nucleated RBC % 0, Sodium 140, Potassium 4.0, Chloride 108 H, Carbon Dioxide 27.0, Anion Gap 5, BUN 11, Creatinine 0.47 L, Estim Creat Clear Calc 49.53, Est GFR (MDRD) Af Amer 163, Est GFR (MDRD) Non-Af 135, BUN/Creatinine Ratio 23.6 H, Glucose 101, Calcium 9.4 Microbiology: Microbiology 10/25/24 20:06 Mucosa - Nasopharyngeal Respiratory Panel (PCR) - Final 10/25/24 20:59 Mucosa - Nose Coronavirus COVID-19 PCR - Final D/C Instructions Discharge Diet: No restrictions Call your doctor if you observe: Fever of 101 or Higher, Shortness of breath, Fainting spells and Chest pain DC O2, CPAP, BIPAP Needs Home O2 Discharge instructions: No Meaningful Use Info Meaningful Use Meaningful Use Diagnoses (Choose all that apply): None applicable Ischemic Stroke Statin Dosing Therapy Reference: STATIN DOSE THERAPY REFERENCE: * Patients > 75 years receive moderate or high dose statin therapy. * Patients 75 years or YOUNGER should receive HIGH intensity statin dose unless contraindicated. You will be required to document reason for non-treatment if statin daily dose does not meet guidelines. HIGH DOSE STATIN THERAPY DAILY Atorvastatin > than or = to 40 mg Rosuvastatin > than or = to 20 mg Amlodipine + Atorvastatin > than or = to 2.5/40 mg Ezetimibe + Simvastatin 10/80 mg Simvastatin 80mg Discharge Plan Admission Admit Date/Time: 10/26/24 14:50 Attending Provider: Justino Vail Primary Care Provider: Nara Orta Consulting Providers: Alia Fish Discharge Orders/Prescriptions Prescriptions: New acetaminophen 500 mg Tablet 1,000 mg PO Q6H PRN PRNQty: 0 0RF Continued multivitamin tablet 1 tab PO DAILY calcium carbonate-vitamin D3 500 mg-10 mcg (400 unit) tablet 1 tab PO DAILY triamcinolone acetonide [Kenalog] 40 mg/mL suspension 50 mg intra-articular ONCE Qty: 1.25 0RF pravastatin 40 mg tablet 40 mg PO QHS sertraline 50 mg tablet 50 mg PO QDAY Qty: 90 0RF diltiazem HCl 120 mg capsule,extended release 24hr 120 mg PO DAILY (DME) julien.stocking,knee,reg,smal Misc See Rx Instructions .Route Qty: 24 0RF Rx Instructions: As directed losartan 50 mg tablet 25 mg PO QDAY Qty: 45 3RF levothyroxine 125 mcg tablet 125 mcg PO QDAY Qty: 90 0RF Referrals / Follow Up: Nara Orta MD [Primary Care Provider] - Within 1 Week Disposition Disposition (needs filled in before D/C Order can be placed): Long Term Facility Charges/Coding Visit Charges Inpatient E&M: 95870 Disch Hosp >30min
--- NOTE | 2024-10-29 11:37 | PHA.DC.MR.R ---
Pharmacy [place] Med Reconciliation Pharmacy Service has performed discharge medication reconciliation for this patient. The patient's discharge medication list was reviewed for discrepancies and discrepancies were resolved. Medications at Discharge Home Medications multivitamin 1 tab PO DAILY 12/17/18 calcium 500 mg (as carbonate)-vitamin D3 10 mcg (400 unit) tablet 1 tab PO DAILY 12/03/21 Kenalog 40 mg/mL suspension for injection (triamcinolone acetonide) 50 mg (1.25 mL) intra-articular ONCE right knee pain #1.25 mL 03/20/24 julien.stocking,knee,reg,smal #24 ea 04/16/24 losartan 50 mg tablet 25 mg (1/2 x 50 mg) PO QDAY #45 tabs 04/26/24 pravastatin 40 mg tablet 40 mg PO QHS 05/08/24 levothyroxine 125 mcg tablet 125 mcg PO QDAY #90 tabs 08/29/24 sertraline 50 mg tablet 50 mg PO QDAY #90 tabs 08/29/24 diltiazem HCl 120 mg capsule,24 hr,extended release 120 mg PO DAILY 10/26/24 acetaminophen 500 mg tablet 1,000 mg (2 x 500 mg) PO Q6H PRN PRN #0 tabs 10/27/24
--- NOTE | 2024-10-29 11:45 | CASEMGMT ---
Social Work- SW received notice that pt is medically ready and can d/c to TCU. TCU updated on pt discharge status. SW met with pt and pt dtr, who was in the room. Pt dtr has pt belongings packed and ready to transfer. SW called pt son to provide update on discharge as well. SW faxed transfer to TCU. Plan: TCU; Skilled level of care ANAYELI Kyle
--- NOTE | 2024-10-29 12:17 | NURSING ---
report called to tcu
== END 2024-10-29 12:25 | disposition skilled nursing facility (03) | DRG 884 ==
LOC: ED 22:00 → MS3 23:00
PROVIDERS: Admitting Provider Internal Medicine; Emergency Provider Emergency Medicine; PCP Internal Medicine; Visit Provider Internal Medicine
DX: R54 Age-related physical debility (principal); E03.9 Hypothyroidism, unspecified; I35.0 Nonrheumatic aortic (valve) stenosis; I10 Essential (primary) hypertension; E78.2 Mixed hyperlipidemia; M17.0 Bilateral primary osteoarthritis of knee; E87.6 Hypokalemia; F41.8 Other specified anxiety disorders; S83.92XA Sprain of unspecified site of left knee, initial encounter; W18.39XA Other fall on same level, initial encounter; M25.561 Pain in right knee; M25.562 Pain in left knee; Z90.710 Acquired absence of both cervix and uterus; Z79.899 Other long term (current) drug therapy; R29.6 Repeated falls; G89.29 Other chronic pain
CPT/HCPCS: 36415; 73562; 73564; 80048; 81001; 83735; 84100; 84439; 84443; 84484; 85025; 85610; 85730; 87633; 87635; 93005; 96372; 97110; 97116; 97162; 97165; 97530; 97535; 99283; 99284; A4216

== ENCOUNTER 2024-10-29 12:34 | Inpatient (IN) | payer MEDICARE, OTHER, SELFPAY ==
[2024-10-29 12:51] VITALS: BP 130/67; PULSE 81; RESP 18; TEMP 36.3; O2SAT 97
[2024-10-29 12:53] VITALS: BMI 26.4
--- NOTE | 2024-10-29 13:13 | NURSING ---
CODE STATUS DISCUSSED WITH R' AND DAUGHTER ON ADMIT. WISHES TO BE FULL CODE.
[2024-10-29] MEDS: Acetaminophen 500 MG Tablet 1000 MG PO (13:50)
[2024-10-29 14:56] VITALS: BP 130/66; PULSE 72; RESP 19; TEMP 36.4; O2SAT 95
--- NOTE | 2024-10-29 15:11 | CASEMGMT ---
Social Work, TCU admit note SW met w/pt in room to complete initial assessment, introduced self and role of SW in the TCU. SW verified contacts. Patient confirms she is a full code. Pt confirms son Wm is DIONISIO, SW asked her to have family bring in the documents. SW educated pt around care plan meeting, and that staff will let her know when the meeting will take place. Pt's goal is to return home alone, may be open to home health if needed. SW will continue to follow for d/c planning. MIKE Ascencio
--- NOTE | 2024-10-29 18:03 | NURSING ---
family brought in a Family medical leave form for physician. left with certified social workers in health care. family updated.
[2024-10-29] MEDS: Ensure Plus High Protein 120 ML LIQUID PO (18:33)
--- NOTE | 2024-10-29 18:50 | NURSING ---
pt refused mag citrate, SECURITY CONTROL CENTER OPERATOR reported pt had good BM this evening on BSC.
[2024-10-29] MEDS: Pravastatin 40 MG Tablet PO (19:48)
--- NOTE | 2024-10-29 19:58 | NURSING ---
Patient started on Sennokot today, refused HS dose, stating she went without issue today. Stated she will take it in the morning.
--- NOTE | 2024-10-29 20:58 | HP.PCM_ITS ---
HPI - General General Date of Admission: 10/29/24 Date of Service: 10/29/24 Chief Complaint: Here for rehabilitation. HPI Narrative ERICKA SOLIZ, is a 83 Female who presents with followin10/25/2024 [facility] ED with weakness. Weakness, worse today, knees gave out, fell. Pain in knees, X-ray knees negative, knee immobilizer recommended. Use walker at home. Unable to stand. K 3.3, Troponin okay, Urinalysis negative. Unable to walk. Check covid-19, check respiratory panel, both negative. 10/25/2024 Admit [facility]. Bilateral knee injections with Dr. Hernandez helpful. Dr. Hernandez states patient not surgical candidate for OA bilateral knees. Tylenol, Tramadol, PT/OT for bilateral knee pain. Replace potassium. 10/26/2024 PT/OT for weakness, falls. Pain control for bilateral knee pain. 10/27/2024, Too weak to discharge home with [facility]. PT/OT for SNF. Not surgical candiate for bilater severe OA of knees. 10/28/2024 Patient agreeable to discharge to SNF. Await Pre-CERT for SNF. 10/29/2024 No acute events overnight. Await Pre-CERT for TCU. 10/29/2024 Admit to TCU with debility, here for rehabilitation, strengthening, prior to discharge home alone. [facility] Medical History Frequent falls Syncope Strain of right knee Contusion of right knee LVH (left ventricular hypertrophy) Mixed hyperlipidemia Essential hypertension Palpitations Atrial premature complexes History of PSVT (paroxysmal supraventricular tachycardia) Premature ventricular contractions Nonrheumatic aortic (valve) stenosis Cardiac murmur Home Medications ?Medication ?Instructions ?Recorded ?Last Taken ?Type multivitamin 1 tab PO DAILY supplement 12/17/18 Unknown History calcium 500 mg (as 1 tab PO DAILY supplement 12/03/21 Unknown History carbonate)-vitamin D3 10 mcg (400 unit) tablet Kenalog 40 mg/mL suspension for 50 mg (1.25 mL) intra-articular 03/20/24 Unknown Clinic injection (triamcinolone acetonide) ONCE right knee pain #1.25 mL julien.stocking,knee,reg,smal #24 ea 04/16/24 Unknown Rx losartan 50 mg tablet 25 mg (1/2 x 50 mg) PO QDAY BP #45 04/26/24 Unknown Rx tabs pravastatin 40 mg tablet 40 mg PO QHS cholesterol 05/08/24 Unknown History levothyroxine 125 mcg tablet 125 mcg PO QDAY thyroid #90 tabs 08/29/24 Unknown Rx sertraline 50 mg tablet 50 mg PO QDAY mood #90 tabs 08/29/24 Unknown Rx diltiazem HCl 120 mg capsule,24 120 mg PO DAILY heart 10/26/24 Unknown History hr,extended release acetaminophen 500 mg tablet 1,000 mg (2 x 500 mg) PO Q6H PRN 10/27/24 Unknown Rx PRN pain #0 tabs Allergy/AdvReac Type Severity Reaction Status Date / Time Sulfa (Sulfonamide AdvReac Intermediate Rash Verified 10/25/24 13:46 Antibiotics) Family History Father Cancer LUNG Brother CAD (coronary artery disease) Mother COPD (chronic obstructive pulmonary disease) Uncle Psoriatic arthritis Brain tumor (benign) Surgical History History of partial hysterectomy (~1965) Social History household members: none current occupational status: retired current occupation: worked for ophthalmology Smoking Status: Never smoker Electronic Cigarette Use: not used alcohol intake: never substance use type: does not use caffeine: Yes Type: coffee Number of servings: 1 do you feel safe at home: Yes ROS Constitutional Constitutional: Denies chills, fever(s) or weight gain ENT HEENT: Denies headache(s), nasal congestion or nasal discharge Cardiovascular Cardiovascular: Denies chest pain or palpitations Respiratory/Chest Respiratory/Chest: Denies cough, excessive phlegm production or shortness of breath with exertion Gastrointestinal Gastrointestinal: Denies abdominal pain, nausea or vomiting Genitourinary Genitourinary: Denies dysuria Musculoskeletal Musculoskeletal: Reports other Details: Bilateral knee pain left > right. ; Denies joint pain or joint swelling Integumentary Integumentary: Denies rash or wounds Neurologic Neurologic: Denies focal weakness, numbness or tingling Psychiatric Psychiatric: Denies anxiety, auditory hallucinations, depression, homicidal ideation or suicidal ideation Vital Signs Vital Signs Vital Signs: 10/29/24 12:51 10/29/24 13:34 10/29/24 14:56 Temperature 97.3 F L 97.5 F L Temperature Source Temporal Temporal Pulse Rate 81 72 Pulse Rhythm Regular Pulse Strength Normal (2+) Respiratory Rate 18 19 H Respiratory Effort Normal Non-Labored Respiratory Depth Normal Respiratory Pattern Normal Blood Pressure 130/67 H 130/66 H Blood Pressure Mean 88 87 Blood Pressure Source Monitor Blood Pressure Position Sitting Blood Pressure Location Right Arm Pulse Ox 97 95 Oxygen Delivery Method Room Air Room Air Room Air Weight Weight: 69.853 kg Body Mass Index (BMI) 26.4 Physical Exam Const alert General Appearance: cooperative HEENT normocephalic Eyes PERRL and EOMs intact bilaterally Neck supple, no JVD and no carotid bruits Resp normal respiratory effort, normal air movement and clear to auscultation bilaterally Cardio regular rate and regular rhythm GI normal to inspection, nondistended, normoactive bowel sounds, non-tender and non-distended Extremity normal capillary refill General Extremity: Negative for edema Skin no rashes or lesions noted General Skin Exam: no breakdown Psych affect normal Appearance: appropriate Assessment & Plan Assessment/Plan (1) Debility: (2) General weakness: (3) Fall: (4) Bilateral knee pain: (5) Osteoarthritis of knees, bilateral: (6) Essential (primary) hypertension: (7) Hyperlipidemia, unspecified: (8) Hypothyroidism: (9) Depression: PLAN: Plan 83 year old female with below past medical history hospitalized for inability to walk, weakness, 2/2 severe osteoarthritis bilateral knees, admitted to TCU with debility, here for rehabilitation, strengthening, prior to discharge home alone. * Debility - PT/OT. * Pain - Tylenol 1000mg q8, Tramadol 50mg q6 prn pain (1-5), Oxycodone 5mg q4 prn pain (6-10), Arthritis compound cream 3 clicks bid. * Bowel - Senna/colace 2 tablets bid, Magnesium citrate 300mL po daily prn. * Adult immunization - Administer pneumonia vaccine, covid vaccine, flu vaccine as appropriate. * DVT prophylaxis - Lovenox 40mg sc daily. * Calcium deficiency - Calcium D 1 tablet daily. * Hypertension - Losartan 25mg daily, Diltiazem CD 120mg daily. * Nutrition - Ensure Plus 120mL po tidcm, MVI 1 tablet daily. * Hypothyroidism - Levothyroxine 125mcg daily. * Hyperlipidemia - Pravastatin 40mg qhs. * Depression - Sertraline 50mg daily, stable chronic group home use, GDR not recommended.
[2024-10-30] MEDS: Acetaminophen 500 MG Tablet 1000 MG PO ×3 (05:41→21:27)
[2024-10-30] MEDS: Levothyroxine 125 MCG Tablet PO (05:42)
[2024-10-30] MEDS: Enoxaparin 40 MG/0.4 ML Syringe SC (05:42)
[2024-10-30 05:49] LABS: Absolute Neutrophil Count 3.7 X10^3/uL (2.0-7.7); Basophil# 0.04 X10^3/uL; Basophil% 0.5 % (0-1); Eosinophil# 0.18 X10^3/uL; Eosinophils% 2.4 % (0-5); Hematocrit 38.9 % (37-47); Hemoglobin 12.6 g/dL (12.0-15.0); Lymphocyte % 20.4 % (19-41); Mean Corp Hgb Conc 32.4 g/dL (32-36); Mean Corpuscular Volume 92.6 fL (81-99); Monocyte# 1.89 X10^3/uL; Monocyte% 25.7 % (0-10); NRBC Flagged by Analyzer 0 % (0-5); Neutrophil # 3.71 X10^3/uL (2.7-7.7); Neutrophil % 50.5 % (47-70); POSITIVE DIFFERENTIAL YES; Platelet Count 110 K/mm3 (150-450); RBC Distribution Width CV 14.1 % (11.6-14.6); RBC Distribution Width SD 47.6 fl (35.1-43.9); White Blood Count 7.4 K/mm3 (4.4-11.0)
[2024-10-30 06:04] LABS: Differential Indicated SCAN CRITERIA MET
[2024-10-30 06:11] LABS: Anion Gap 2 (5-15); BUN 14 mg/dL (7-18); BUN/Creat Ratio 27.9 RATIO (10-20); Calcium,Total 9.2 mg/dL (8.5-10.1); Chloride 109 mmol/L (98-107); EST Glomerular Filtration Rate 124 mL/min (>60); Est Glom Filt Rate - Afr Amer 150 mL/min (>60); Estimated Creatinine Clearance 49.32 ml/min; Glucose 110 mg/dL (74-106); Potassium 4.2 mmol/L (3.5-5.1); Sodium Level 140 mmol/L (136-145)
[2024-10-30 07:59] LABS: Ovalocyte 1+; Platelet Estimate SLT DEC (ADEQ); Platelet Morphology LARG; Polychromasia 1+
[2024-10-30 09:14] VITALS: BP 115/66; PULSE 99; RESP 16; TEMP 36.3; O2SAT 96
[2024-10-30] MEDS: Arthritis Pain Compound 60 CLICK TUBE TOPICAL ×2 (09:16→21:26)
[2024-10-30] MEDS: Multivitamins,Therapeutic Tablet 1 TABLET PO (09:16)
[2024-10-30] MEDS: Ensure Plus High Protein 120 ML LIQUID PO ×3 (09:16→17:43)
[2024-10-30] MEDS: Senna/Docusate Sodium 1 Tablet 2 TABLET PO ×2 (09:17→21:27)
[2024-10-30] MEDS: Calcium Carb/Vitamin D 1 TABLET Tablet PO (09:17)
[2024-10-30] MEDS: Losartan Potassium 25 MG Tablet PO (09:17)
[2024-10-30] MEDS: dilTIAZem CD 120 MG Capsule PO (09:17)
[2024-10-30] MEDS: Sertraline 50 MG Tablet PO (09:18)
[2024-10-30] MEDS: Tuberculin,Purif.prot.deriv. 50 TU/ML Vial 0.1 ML ID (09:26)
--- NOTE | 2024-10-30 10:44 | NURSING ---
CHIEF TECHNOLOGIST reported pt up without calling for assistance to BR, this happened overnight as well, even with much encouragement to call for assist from staff for transfers and toileting. pt states I know but I am use to doing this by myself at home. educated pt that staff are here to help keep pt safe from falls and to get her stronger to get home. pt verbalized understanding. message left for dr vega.
--- NOTE | 2024-10-30 11:51 | NURSING ---
Scoop Operator Note; Activity Asset: Yulia Kiran is independent in her choice of daily activities. Her family will visit and bring her items she needs or wants. She will read, watch tv welcomes visits from the hull builder and therapy dog. Staff will encourage social visits, remind her of weekly activities and respect her right to say no.
--- NOTE | 2024-10-30 16:47 | PCM.PN.DRR ---
Documented by User: Rhonda Angulo 10/30/24 17:02 TCU RX Drug Regimen Review Subjective/Objective Subjective/Objective Subjective: TCU Admission. 83 YOF presented to the ER with weakness. Hospitalized for inability to walk, weakness, 2/2 severe osteoarthritis bilateral knees. Admitted to TCU with debility for strengthening and rehabilitation. Objective: Allergies Sulfa (Sulfonamide Antibiotics) Adverse Reaction (Intermediate, Verified 10/25/24 13:46) Rash Current Medications Generic Name Dose Route Start Last Admin Trade Name Freq PRN Reason Stop Dose Admin Acetaminophen 1,000 mg 10/29/24 22:00 10/30/24 13:35 Acetaminophen 500 Mg Tablet PO 1,000 mg Q8 BRANDON Administration Calcium/Vitamin D 1 tablet 10/30/24 10:00 10/30/24 09:17 Calcium Carb/Vitamin D 1 Tablet Tablet PO 1 tablet DAILY BRANDON Administration Compound Med 3 click 10/29/24 22:00 10/30/24 09:16 Arthritis Pain Compound 60 Click Tube TOPICAL 3 click BID BRANDON Administration Protocol Diltiazem HCl 120 mg 10/30/24 10:00 10/30/24 09:17 Diltiazem Cd 120 Mg Capsule PO 120 mg DAILY BRANDON Administration Enoxaparin Sodium 40 mg 10/30/24 06:00 10/30/24 05:42 Enoxaparin 40 Mg/0.4 Ml Syringe SC 40 mg DAILY@0600 BRANDON Administration Levothyroxine Sodium 125 mcg 10/30/24 06:00 10/30/24 05:42 Levothyroxine 125 Mcg Tablet PO 125 mcg DAILY@0600 BRANDON Administration Losartan Potassium 25 mg 10/30/24 10:00 10/30/24 09:17 Losartan Potassium 25 Mg Tablet PO 25 mg DAILY BRANDON Administration Protocol Magnesium Citrate 300 ml 10/29/24 21:09 Magnesium Citrate 300 Ml PO DAILY PRN Constipation Multivitamins 1 tablet 10/30/24 08:00 10/30/24 09:16 Multivitamins,Therapeutic Tablet PO 1 tablet DAILYCM BRANDON Administration Nutritional Formula (Lactose Free) 120 ml 10/29/24 17:45 10/30/24 13:35 Ensure Plus High Protein 120 Ml Liquid PO 120 ml TIDCM BRANDON Administration Oxycodone HCl 5 mg 10/29/24 21:08 Oxycodone 5 Mg Tablet PO Q4H PRN PRN Pain Score 6-10 or Pre PT/OT Pravastatin Sodium 40 mg 10/29/24 22:00 10/29/24 19:48 Pravastatin 40 Mg Tablet PO 40 mg QHS BRANDON Administration Senna/Docusate Sodium 2 tablet 10/29/24 22:00 10/30/24 09:17 Senna/Docusate Sodium 1 Tablet PO 2 tablet BID BRANDON Administration Sertraline HCl 50 mg 10/30/24 10:00 10/30/24 09:18 Sertraline 50 Mg Tablet PO 50 mg DAILY BRANDON Administration Sodium Chloride 10 - 40 ml 10/29/24 12:54 0.9% Saline Lock 10 Ml Syringe IV UD PRN SALINE FLUSH Tramadol HCl 50 mg 10/29/24 21:08 Tramadol 50 Mg Tablet PO Q6H PRN PRN Pain Score 1-5 or Pre PT/OT Tuberculin PPD 0.1 ml 11/06/24 10:00 Tuberculin,Purif.Prot.Deriv. 50 Tu/Ml Vial ID 11/06/24 10:01 X1 ONE Problem List Depression (Acute) Hypothyroidism (Acute) Hyperlipidemia, unspecified (Acute) Essential (primary) hypertension (Acute) Osteoarthritis of knees, bilateral (Acute) Bilateral knee pain (Acute) Debility (Acute) General weakness (Acute) Fall (Acute) Vital Signs Temp Pulse Resp BP Pulse Ox O2 Del Method 97.4 F L 99 16 115/66 96 Room Air 10/30/24 09:14 10/30/24 09:14 10/30/24 09:14 10/30/24 09:14 10/30/24 09:14 10/30/24 09:14 Oxygen Delivery Method Room Air Weight: 69.853 kg Body Mass Index (BMI) 26.4 Sodium 140 mmol/L (136-145) 10/30/24 05:12 Potassium 4.2 mmol/L (3.5-5.1) 10/30/24 05:12 Chloride 109 mmol/L (98-107) H 10/30/24 05:12 Carbon Dioxide 29.0 mmol/L (21.0-32.0) 10/30/24 05:12 Anion Gap 2 (5-15) L 10/30/24 05:12 BUN 14 mg/dL (7-18) 10/30/24 05:12 Creatinine 0.50 mg/dL (0.55-1.02) L 10/30/24 05:12 Est GFR (MDRD) Af Amer 150 mL/min (>60) 10/30/24 05:12 Est GFR (MDRD) Non-Af 124 mL/min (>60) 10/30/24 05:12 BUN/Creatinine Ratio 27.9 RATIO (10-20) H 10/30/24 05:12 Glucose 110 mg/dL (74-106) H 10/30/24 05:12 Assessment/Plan: 1. Pain: acetaminophen 1000mg PO Q8, arthritis compound cream 3 clicks topical BID, tramadol 50mg PO Q6H PRN pain 1-5 and oxycodone 5mg PO Q4H PRN pain 6-10. No PRN doses given. Please continue to monitor for increased pain, PRN usage. 2. Bowel: senna/docusate 2T PO BID and magnesium citrate 300mL PO daily PRN constipation. No PRN doses given. Please continue to monitor for constipation and PRN usage. Last documented bowel movement was 10/29. 3. DVT prophylaxis: enoxaparin 40mg SC daily. Please continue to monitor for S/S of bleeding/DVT, hemoglobin (last 12.6g/dL), platelets (last 110,000) and renal function. 4. Hypertension: losartan 25mg PO daily and diltiazem CD 120mg PO daily. Please continue to monitor BP (last 115/66), HR (last 99), renal function, potassium (last 4.2mmol/L). 5. Hypothyroidism: levothyroxine 125mcg PO daily. Please continue to monitor TSH (last 10/26/24) and S/S of hypothyroidism. 6. Hyperlipidemia: pravastatin 40mg PO QHS. Please continue to monitor lipid panel (last 11/30/23), LFTs (last 03/07/24) and muscle pain. 7. Calcium deficiency/nutrition: calcium/vitamin D 1T PO daily and multivitamin 1T PO daily. Please continue to monitor calcium (last 9.2mg/dL) and vitamin D (last 04/16/24). Assessment/Plan for indications treated with psychotropic medications: 1. Depression: sertraline 50mg PO daily. Please see physician note regarding GDR. Please continue to monitor for suicidal ideation (black box warning), sodium (last 140mmol/L), and falls/fractures (BEERs). Medical chart and medication regimen reviewed. The following medication irregularities or issues were identified: None Date Date of Note: 10/30/24 Documented by User: Dr. Good Olmstead MD 10/30/24 17:22 TCU RX Drug Regimen Review Provider Comments Provider responsibility Provider Comments to Recommendations by Pharmacy Agree
[2024-10-30] MEDS: Pravastatin 40 MG Tablet PO (21:27)
[2024-10-31] MEDS: Acetaminophen 500 MG Tablet 1000 MG PO ×3 (06:11→22:09)
[2024-10-31] MEDS: Enoxaparin 40 MG/0.4 ML Syringe SC (06:11)
[2024-10-31] MEDS: Levothyroxine 125 MCG Tablet PO (06:11)
[2024-10-31 06:30] VITALS: PULSE 86; RESP 16; O2SAT 99
[2024-10-31] MEDS: Ensure Plus High Protein 120 ML LIQUID PO ×3 (09:07→18:01)
[2024-10-31] MEDS: Losartan Potassium 25 MG Tablet PO (09:07)
[2024-10-31] MEDS: dilTIAZem CD 120 MG Capsule PO (09:07)
[2024-10-31] MEDS: Calcium Carb/Vitamin D 1 TABLET Tablet PO (09:07)
[2024-10-31] MEDS: Arthritis Pain Compound 60 CLICK TUBE TOPICAL ×2 (09:07→22:09)
[2024-10-31] MEDS: Senna/Docusate Sodium 1 Tablet 2 TABLET PO ×2 (09:07→22:09)
[2024-10-31] MEDS: Sertraline 50 MG Tablet PO (09:07)
[2024-10-31] MEDS: Multivitamins,Therapeutic Tablet 1 TABLET PO (09:07)
[2024-10-31 09:20] VITALS: BP 115/70; PULSE 118
[2024-10-31 13:59] VITALS: BP 92/69; PULSE 104; RESP 18; TEMP 35.8; O2SAT 94
--- NOTE | 2024-10-31 15:57 | CHAPLAIN ---
Type of Pastoral Visit ___ Initial Visit _x__ Follow-up Visit ___ On-call Visit ___ General Patient Visit ___ Spiritual Assessment ___ Family Conference ___ Bereavement ___ Rapid Response ___ Code Blue ___ Other (describe below) Pastoral Care Referral From _x__ Patient ___ Family ___ Nurse ___ Physician ___ Property Utilization Manager ___ Citizenship Teacher ___ Other (describe below) Sacrament/Intervention _x__ Active listening ___ Anointing ___ Scientologist ___ Bereavement ___ Communion ___ [place] exploration ___ _x__ Life review ___ Prayer ___ Reconciliation ___ Sacrament of Sick ___ Supportive presence ___ Wedding ___ Other (describe below) Pastoral Comments this is a follow up visit to the patient that was seen earlier this week in [facility]; pt speaks about all the mail she has received and about some grandchildren's activities and life; pt is wondering about how long she needs to stay in TCU; pt is talkative and directs the conversation; a visitor came into the room and this ended the visit
[2024-10-31] MEDS: Pravastatin 40 MG Tablet PO (22:09)
[2024-11-01] MEDS: Acetaminophen 500 MG Tablet 1000 MG PO ×3 (05:51→21:56)
[2024-11-01] MEDS: Levothyroxine 125 MCG Tablet PO (05:51)
[2024-11-01] MEDS: Enoxaparin 40 MG/0.4 ML Syringe SC (05:52)
[2024-11-01] MEDS: Multivitamins,Therapeutic Tablet 1 TABLET PO (09:49)
[2024-11-01] MEDS: Calcium Carb/Vitamin D 1 TABLET Tablet PO (09:50)
[2024-11-01] MEDS: Senna/Docusate Sodium 1 Tablet 2 TABLET PO ×2 (09:50→21:57)
[2024-11-01] MEDS: Arthritis Pain Compound 60 CLICK TUBE TOPICAL ×2 (09:50→21:57)
[2024-11-01] MEDS: Losartan Potassium 25 MG Tablet PO (09:50)
[2024-11-01] MEDS: dilTIAZem CD 120 MG Capsule PO (09:50)
[2024-11-01] MEDS: Ensure Plus High Protein 120 ML LIQUID PO ×3 (09:50→17:00)
[2024-11-01] MEDS: Sertraline 50 MG Tablet PO (09:50)
[2024-11-01 16:00] VITALS: BP 132/69; PULSE 87; RESP 18; TEMP 36.6; O2SAT 96
[2024-11-01 20:00] VITALS: PULSE 100; RESP 18; O2SAT 97
[2024-11-01] MEDS: Pravastatin 40 MG Tablet PO (21:56)
[2024-11-02] MEDS: Levothyroxine 125 MCG Tablet PO (05:41)
[2024-11-02] MEDS: Enoxaparin 40 MG/0.4 ML Syringe SC (05:41)
[2024-11-02] MEDS: Acetaminophen 500 MG Tablet 1000 MG PO ×3 (05:41→21:45)
[2024-11-02 05:49] VITALS: RESP 16
--- NOTE | 2024-11-02 07:22 | NURSING ---
Crackles auscultated bilat lower posterior lobes, Written communication left for Dr. Olmstead
[2024-11-02 08:24] VITALS: BP 120/77; PULSE 73; RESP 16; TEMP 36.3; O2SAT 97
[2024-11-02] MEDS: Ensure Plus High Protein 120 ML LIQUID PO ×3 (08:25→17:48)
[2024-11-02] MEDS: Arthritis Pain Compound 60 CLICK TUBE TOPICAL ×2 (08:26→21:45)
[2024-11-02] MEDS: Multivitamins,Therapeutic Tablet 1 TABLET PO (08:26)
[2024-11-02] MEDS: dilTIAZem CD 120 MG Capsule PO (08:26)
[2024-11-02] MEDS: Losartan Potassium 25 MG Tablet PO (08:26)
[2024-11-02] MEDS: Sertraline 50 MG Tablet PO (08:27)
[2024-11-02] MEDS: Senna/Docusate Sodium 1 Tablet 2 TABLET PO ×2 (08:27→21:48)
[2024-11-02] MEDS: Calcium Carb/Vitamin D 1 TABLET Tablet PO (08:27)
[2024-11-02] MEDS: Pravastatin 40 MG Tablet PO (21:45)
[2024-11-03] MEDS: Enoxaparin 40 MG/0.4 ML Syringe SC (06:10)
[2024-11-03] MEDS: Acetaminophen 500 MG Tablet 1000 MG PO ×3 (06:10→20:57)
[2024-11-03] MEDS: Levothyroxine 125 MCG Tablet PO (06:10)
[2024-11-03 09:07] VITALS: BP 116/74; PULSE 78; RESP 16; TEMP 36.1; O2SAT 97
[2024-11-03] MEDS: dilTIAZem CD 120 MG Capsule PO (09:09)
[2024-11-03] MEDS: Losartan Potassium 25 MG Tablet PO (09:09)
[2024-11-03] MEDS: Arthritis Pain Compound 60 CLICK TUBE TOPICAL ×2 (09:09→20:55)
[2024-11-03] MEDS: Ensure Plus High Protein 120 ML LIQUID PO ×3 (09:09→18:27)
[2024-11-03] MEDS: Multivitamins,Therapeutic Tablet 1 TABLET PO (09:09)
[2024-11-03] MEDS: Calcium Carb/Vitamin D 1 TABLET Tablet PO (09:09)
[2024-11-03] MEDS: Senna/Docusate Sodium 1 Tablet 2 TABLET PO (09:10)
[2024-11-03] MEDS: Sertraline 50 MG Tablet PO (09:10)
[2024-11-03 15:55] VITALS: PULSE 100; RESP 18
[2024-11-03] MEDS: Pravastatin 40 MG Tablet PO (20:58)
[2024-11-04 01:30] VITALS: BP 120/88; PULSE 79; RESP 18; TEMP 36.2; O2SAT 97
--- NOTE | 2024-11-04 03:17 | NURSING ---
Pt noted to have large diarrhea. Pt also c/o of a bit of nausea. Pt temp 97.1 Pt c/o of chills. Pt placed in special contact isolation and note left for Dr Olmstead.
[2024-11-04] MEDS: Levothyroxine 125 MCG Tablet PO (06:17)
[2024-11-04] MEDS: Acetaminophen 500 MG Tablet 1000 MG PO ×3 (06:17→21:44)
[2024-11-04] MEDS: Enoxaparin 40 MG/0.4 ML Syringe SC (06:17)
[2024-11-04 06:23] VITALS: PULSE 88; RESP 16
--- NOTE | 2024-11-04 08:25 | RAD_ITS ---
STUDY: X-RAY - ABDOMEN/PELVIS REASON FOR EXAM: Female, 83 years old. Nausea/vomiting/diarrhea. TECHNIQUE: Single AP view of the abdomen / pelvis. COMPARISON: None. FINDINGS: Normal visualized lung bases. There is a moderate amount of colonic fecal material. The visualized liver, spleen and kidneys are grossly normal in size and morphology. Normal soft tissue structures. Normal visualized osseous structures. RAD/Abdomen Single View IMPRESSION: Moderate amount of fecal material is seen in the colon. Electronically Signed: Meño Peter MD at 14:24 EST ,
[2024-11-04 10:54] VITALS: BP 102/51; PULSE 116; TEMP 37.1
[2024-11-04] MEDS: dilTIAZem CD 120 MG Capsule PO (10:58)
[2024-11-04] MEDS: Multivitamins,Therapeutic Tablet 1 TABLET PO (10:58)
[2024-11-04] MEDS: Arthritis Pain Compound 60 CLICK TUBE TOPICAL ×2 (10:58→21:41)
[2024-11-04] MEDS: Sertraline 50 MG Tablet PO (10:58)
[2024-11-04] MEDS: Losartan Potassium 25 MG Tablet PO (10:58)
[2024-11-04] MEDS: Calcium Carb/Vitamin D 1 TABLET Tablet PO (10:58)
--- NOTE | 2024-11-04 11:33 | NURSING ---
Offered covid vaccine, VIS provided. Resident refuses at this time.
[2024-11-04] MEDS: Ensure Plus High Protein 120 ML LIQUID PO ×2 (15:18→17:45)
[2024-11-04] MEDS: oxyCODONE 5 MG Tablet PO (21:40)
[2024-11-04] MEDS: Pravastatin 40 MG Tablet PO (21:45)
[2024-11-05] MEDS: Enoxaparin 40 MG/0.4 ML Syringe SC (06:08)
[2024-11-05] MEDS: Acetaminophen 500 MG Tablet 1000 MG PO ×3 (06:08→20:05)
[2024-11-05] MEDS: Levothyroxine 125 MCG Tablet PO (06:08)
[2024-11-05] MEDS: Losartan Potassium 25 MG Tablet PO (09:49)
[2024-11-05] MEDS: dilTIAZem CD 120 MG Capsule PO (09:49)
[2024-11-05] MEDS: Sertraline 50 MG Tablet PO (09:49)
[2024-11-05] MEDS: Multivitamins,Therapeutic Tablet 1 TABLET PO (09:49)
[2024-11-05] MEDS: Senna/Docusate Sodium 1 Tablet 2 TABLET PO ×2 (09:50→20:04)
[2024-11-05] MEDS: Calcium Carb/Vitamin D 1 TABLET Tablet PO (09:50)
[2024-11-05] MEDS: Arthritis Pain Compound 60 CLICK TUBE TOPICAL ×2 (09:50→20:05)
[2024-11-05] MEDS: Ensure Plus High Protein 120 ML LIQUID PO (09:51)
[2024-11-05] MEDS: Magnesium Citrate 300 ML PO (09:59)
[2024-11-05 10:18] VITALS: BMI 26.3
[2024-11-05 11:36] VITALS: BP 112/50; PULSE 108; RESP 16; TEMP 36.9; O2SAT 97
--- NOTE | 2024-11-05 17:45 | CASEMGMT ---
Social Work SW completed BIMS (09/06) and PHQ-9 (08/18) for MDS assessment. SW explored positive responses. Pt shared her dtr and son do not have a good relationship and feels like that is her fault somehow. Pt shared additional family dynamics and her perspective of family support. SW provided supportive listening. Validated feelings. Discussed counseling after DC. Pt stated her dtr has to drive her everywhere and she feels like her dtr is starting to resent her for that. SW offered to provide transportation resources. Pt agreeable to both resources. SW offered ongoing supportive visits as needed. Pt appreciative. Aleyda Morse ACCOUNT SUPPORT ANALYST TELECOMMUNICATION EQUIPMENT REPAIRER
[2024-11-05] MEDS: Pravastatin 40 MG Tablet PO (20:04)
[2024-11-06 05:44] LABS: Absolute Lymphocyte Count 1.78 X10^3/uL (0.83-4.51); Absolute Neutrophil Count 2.8 X10^3/uL (2.0-7.7); Basophil# 0.05 X10^3/uL; Basophil% 0.8 % (0-1); Eosinophil# 0.19 X10^3/uL; Hematocrit 38.7 % (37-47); Hemoglobin 12.5 g/dL (12.0-15.0); Lymphocyte # 1.78 X10^3/ul (0.83-4.51); Lymphocyte % 27.9 % (19-41); Mean Corp Hgb Conc 32.3 g/dL (32-36); Mean Corpuscular Hgb 30.6 pg (27.0-32.0); Mean Corpuscular Volume 94.6 fL (81-99); Mean Platelet Vol. 12.2 fl (6.2-12.0); Monocyte# 1.48 X10^3/uL; Monocyte% 23.2 % (0-10); NRBC Flagged by Analyzer 0 % (0-5); Neutrophil # 2.82 X10^3/uL (2.7-7.7); Neutrophil % 44.2 % (47-70); POSITIVE MORPHOLOGY YES; Platelet Count 136 K/mm3 (150-450); RBC Distribution Width CV 14.3 % (11.6-14.6); RBC Distribution Width SD 49.1 fl (35.1-43.9); Red Blood Count 4.09 M/mm3 (4.2-5.4); White Blood Count 6.4 K/mm3 (4.4-11.0)
[2024-11-06] MEDS: Acetaminophen 500 MG Tablet 1000 MG PO ×3 (05:58→22:54)
[2024-11-06] MEDS: Enoxaparin 40 MG/0.4 ML Syringe SC (05:59)
[2024-11-06 06:00] LABS: Differential Indicated SCAN CRITERIA MET
[2024-11-06] MEDS: Levothyroxine 125 MCG Tablet PO (06:00)
[2024-11-06 06:27] LABS: Anion Gap 3 (5-15); BUN 18 mg/dL (7-18); BUN/Creat Ratio 32.1 RATIO (10-20); Calcium,Total 9.2 mg/dL (8.5-10.1); Chloride 108 mmol/L (98-107); Creatinine, Serum 0.56 mg/dL (0.55-1.02); EST Glomerular Filtration Rate 109 mL/min (>60); Est Glom Filt Rate - Afr Amer 132 mL/min (>60); Estimated Creatinine Clearance 49.23 ml/min; Glucose 104 mg/dL (74-106); Potassium 4.3 mmol/L (3.5-5.1); Sodium Level 139 mmol/L (136-145)
[2024-11-06 08:19] LABS: Differential Comment SCANNED
--- NOTE | 2024-11-06 08:47 | NURSING ---
Records Supervisor Note; MDS for 11/05/2024 Complete
[2024-11-06] MEDS: Calcium Carb/Vitamin D 1 TABLET Tablet PO (09:02)
[2024-11-06] MEDS: Arthritis Pain Compound 60 CLICK TUBE TOPICAL ×2 (09:02→22:56)
[2024-11-06] MEDS: Losartan Potassium 25 MG Tablet PO (09:02)
[2024-11-06] MEDS: Multivitamins,Therapeutic Tablet 1 TABLET PO (09:02)
[2024-11-06] MEDS: Sertraline 50 MG Tablet PO (09:02)
[2024-11-06] MEDS: dilTIAZem CD 120 MG Capsule PO (09:02)
[2024-11-06] MEDS: Ensure Plus High Protein 120 ML LIQUID PO ×3 (09:02→17:16)
[2024-11-06 09:50] VITALS: BP 112/53; PULSE 89
--- NOTE | 2024-11-06 10:09 | CASEMGMT ---
Plan of care meeting held with pt and pt's son Bill present. Therapy/stripper and printer/activities updated on pt progress. Pt is progressing with therapy. MARIFER updated pt and son to Medicare benefit and provided pt with written communication on insurance process and copay coverage during stay. No dc date set at this time. Pt lives home alone and plans to return home at time of discharge. Therapy did express concern with safety for pt to return home alone as knee gives out randomly causing falls. Pt acknowledges this, but states she still plans to return home alone. MARIFER to follow for dc planning. Will continue with plan of care at this time. ANAYELI Isbell
[2024-11-06] MEDS: Tuberculin,Purif.prot.deriv. 50 TU/ML Vial 0.1 ML ID (11:10)
[2024-11-06 16:00] VITALS: BP 102/65; PULSE 90; RESP 16; TEMP 36.5; O2SAT 97
--- NOTE | 2024-11-06 17:30 | RAD_ITS ---
EXAM: XR ABDOMEN, 1 VIEW CLINICAL INDICATION: Constipation vs diarrhea. TECHNIQUE: Frontal supine view of the abdomen/pelvis. COMPARISON: November 04, 2024. FINDINGS: LOWER THORAX: Clearance of previously seen presumed atelectasis at the lung bases. GASTROINTESTINAL TRACT: Moderate gas in the hepatic and splenic flexures and rectum. Minimal scattered small bowel gas. No formed stool. Non-obstructive. No bowel or stomach distention. ORGANS: Unremarkable as visualized. No organomegaly. No abnormal calcifications. BONES/JOINTS: No acute pathology. SOFT TISSUES: No acute pathology. RAD/Abdomen Single View IMPRESSION: Improved appearance of the lung bases. Gas in the bowel, no evidence of constipation. Electronically Signed: Rowena Quinones MD at 19:01 EST ,
[2024-11-06] MEDS: Pravastatin 40 MG Tablet PO (22:56)
[2024-11-06] MEDS: SimETHICONE 80 MG Chewable Tablet PO (23:02)
[2024-11-07] MEDS: Enoxaparin 40 MG/0.4 ML Syringe SC (05:10)
[2024-11-07] MEDS: Acetaminophen 500 MG Tablet 1000 MG PO ×3 (05:11→20:58)
[2024-11-07] MEDS: Levothyroxine 125 MCG Tablet PO (05:11)
[2024-11-07 08:14] VITALS: BP 98/58; PULSE 106; RESP 18; TEMP 37.3; O2SAT 97
[2024-11-07] MEDS: Ensure Plus High Protein 120 ML LIQUID PO ×3 (08:18→17:25)
[2024-11-07] MEDS: Calcium Carb/Vitamin D 1 TABLET Tablet PO (08:20)
[2024-11-07] MEDS: Sertraline 50 MG Tablet PO (08:20)
[2024-11-07] MEDS: dilTIAZem CD 120 MG Capsule PO (08:20)
[2024-11-07] MEDS: Multivitamins,Therapeutic Tablet 1 TABLET PO (08:21)
[2024-11-07] MEDS: Arthritis Pain Compound 60 CLICK TUBE TOPICAL ×2 (08:21→20:50)
[2024-11-07] MEDS: Losartan Potassium 25 MG Tablet PO (10:09)
[2024-11-07] MEDS: SimETHICONE 80 MG Chewable Tablet PO ×2 (12:05→20:57)
--- NOTE | 2024-11-07 12:29 | MDS.RN ---
Information for the MDS was obtained from review of the clinical record, interview of resident, staff, and direct observation of resident?s care.
[2024-11-07] MEDS: Pravastatin 40 MG Tablet PO (20:51)
[2024-11-07] MEDS: Senna/Docusate Sodium 1 Tablet 2 TABLET PO (20:51)
[2024-11-08] MEDS: Levothyroxine 125 MCG Tablet PO (05:51)
[2024-11-08] MEDS: Acetaminophen 500 MG Tablet 1000 MG PO ×3 (05:51→21:39)
[2024-11-08] MEDS: Enoxaparin 40 MG/0.4 ML Syringe SC (05:52)
[2024-11-08] MEDS: Multivitamins,Therapeutic Tablet 1 TABLET PO (09:22)
[2024-11-08] MEDS: Ensure Plus High Protein 120 ML LIQUID PO ×3 (09:22→16:56)
[2024-11-08] MEDS: Senna/Docusate Sodium 1 Tablet 2 TABLET PO ×2 (09:23→21:39)
[2024-11-08] MEDS: Arthritis Pain Compound 60 CLICK TUBE TOPICAL ×2 (09:23→21:38)
[2024-11-08] MEDS: Losartan Potassium 25 MG Tablet PO (09:23)
[2024-11-08] MEDS: Calcium Carb/Vitamin D 1 TABLET Tablet PO (09:23)
[2024-11-08] MEDS: dilTIAZem CD 120 MG Capsule PO (09:23)
[2024-11-08] MEDS: Sertraline 50 MG Tablet PO (09:24)
[2024-11-08 13:43] VITALS: BP 119/78; PULSE 86; RESP 18; TEMP 36.7
--- NOTE | 2024-11-08 16:31 | CASEMGMT ---
Social Work PLASTICS PLATER notified this worker of pt's request for transportation resources. - SW provided pt with resources at bedside. UMANG RosaW
[2024-11-08] MEDS: Pravastatin 40 MG Tablet PO (21:38)
[2024-11-09] MEDS: Enoxaparin 40 MG/0.4 ML Syringe SC (05:28)
[2024-11-09] MEDS: Acetaminophen 500 MG Tablet 1000 MG PO ×3 (05:28→22:05)
[2024-11-09] MEDS: Levothyroxine 125 MCG Tablet PO (05:29)
[2024-11-09] MEDS: dilTIAZem CD 120 MG Capsule PO (09:39)
[2024-11-09] MEDS: Losartan Potassium 25 MG Tablet PO (09:39)
[2024-11-09] MEDS: Multivitamins,Therapeutic Tablet 1 TABLET PO (09:39)
[2024-11-09] MEDS: Senna/Docusate Sodium 1 Tablet 2 TABLET PO (09:40)
[2024-11-09] MEDS: Sertraline 50 MG Tablet PO (09:40)
[2024-11-09] MEDS: Arthritis Pain Compound 60 CLICK TUBE TOPICAL (09:40)
[2024-11-09] MEDS: Calcium Carb/Vitamin D 1 TABLET Tablet PO (09:40)
[2024-11-09] MEDS: Ensure Plus High Protein 120 ML LIQUID PO ×2 (09:41→13:40)
[2024-11-09 13:21] VITALS: BP 103/62; PULSE 89; RESP 20; O2SAT 96
[2024-11-09 15:18] VITALS: BP 91/59; PULSE 98; RESP 16; TEMP 36.4; O2SAT 96
[2024-11-09] MEDS: Pravastatin 40 MG Tablet PO (22:05)
[2024-11-10] MEDS: Enoxaparin 40 MG/0.4 ML Syringe SC (05:42)
[2024-11-10] MEDS: Levothyroxine 125 MCG Tablet PO (05:43)
[2024-11-10] MEDS: Acetaminophen 500 MG Tablet 1000 MG PO ×3 (05:43→20:59)
[2024-11-10] MEDS: Sertraline 50 MG Tablet PO (09:18)
[2024-11-10] MEDS: dilTIAZem CD 120 MG Capsule PO (09:18)
[2024-11-10] MEDS: Losartan Potassium 25 MG Tablet PO (09:18)
[2024-11-10] MEDS: Multivitamins,Therapeutic Tablet 1 TABLET PO (09:18)
[2024-11-10] MEDS: Ensure Plus High Protein 120 ML LIQUID PO ×2 (09:18→13:19)
[2024-11-10] MEDS: Calcium Carb/Vitamin D 1 TABLET Tablet PO (09:18)
[2024-11-10] MEDS: Arthritis Pain Compound 60 CLICK TUBE TOPICAL ×2 (09:19→20:58)
[2024-11-10 09:47] VITALS: BP 107/64; PULSE 78
[2024-11-10 14:39] VITALS: BP 103/68; PULSE 106; RESP 16; TEMP 36.4; O2SAT 98
[2024-11-10] MEDS: Pravastatin 40 MG Tablet PO (20:59)
--- NOTE | 2024-11-10 21:02 | NURSING ---
Pt. refusing simethicome, requesting it be discontinued. Dr. Olmstead notified via telephone. New order received to D/c marlenye
[2024-11-11] MEDS: Levothyroxine 125 MCG Tablet PO (06:02)
[2024-11-11] MEDS: Acetaminophen 500 MG Tablet 1000 MG PO ×3 (06:02→20:51)
[2024-11-11] MEDS: Enoxaparin 40 MG/0.4 ML Syringe SC (06:02)
[2024-11-11 09:42] VITALS: BP 124/67; PULSE 87
[2024-11-11] MEDS: Multivitamins,Therapeutic Tablet 1 TABLET PO (09:44)
[2024-11-11] MEDS: Losartan Potassium 25 MG Tablet PO (09:44)
[2024-11-11] MEDS: dilTIAZem CD 120 MG Capsule PO (09:44)
[2024-11-11] MEDS: Calcium Carb/Vitamin D 1 TABLET Tablet PO (09:45)
[2024-11-11] MEDS: Sertraline 50 MG Tablet PO (09:45)
[2024-11-11] MEDS: Arthritis Pain Compound 60 CLICK TUBE TOPICAL ×2 (09:46→20:51)
[2024-11-11] MEDS: Ensure Plus High Protein 120 ML LIQUID PO ×2 (09:49→18:10)
[2024-11-11 12:35] VITALS: BP 127/64; PULSE 84; RESP 16; TEMP 36.9; O2SAT 97
[2024-11-11] MEDS: Senna/Docusate Sodium 1 Tablet 2 TABLET PO (20:50)
[2024-11-11] MEDS: Pravastatin 40 MG Tablet PO (20:51)
[2024-11-12] MEDS: Enoxaparin 40 MG/0.4 ML Syringe SC (05:34)
[2024-11-12] MEDS: Acetaminophen 500 MG Tablet 1000 MG PO ×3 (05:34→20:16)
[2024-11-12] MEDS: Levothyroxine 125 MCG Tablet PO (05:34)
[2024-11-12] MEDS: Ensure Plus High Protein 120 ML LIQUID PO ×3 (08:47→17:26)
[2024-11-12] MEDS: dilTIAZem CD 120 MG Capsule PO (08:48)
[2024-11-12] MEDS: Senna/Docusate Sodium 1 Tablet 2 TABLET PO ×2 (08:48→20:16)
[2024-11-12] MEDS: Multivitamins,Therapeutic Tablet 1 TABLET PO (08:48)
[2024-11-12] MEDS: Arthritis Pain Compound 60 CLICK TUBE TOPICAL ×2 (08:48→20:15)
[2024-11-12] MEDS: Losartan Potassium 25 MG Tablet PO (08:48)
[2024-11-12] MEDS: Calcium Carb/Vitamin D 1 TABLET Tablet PO (08:49)
[2024-11-12] MEDS: Sertraline 50 MG Tablet PO (08:49)
[2024-11-12 12:00] VITALS: BMI 26.6
[2024-11-12 15:15] VITALS: BP 93/50; PULSE 78; RESP 18; TEMP 36.9; O2SAT 96
[2024-11-12 15:38] VITALS: BP 105/55; PULSE 75
--- NOTE | 2024-11-12 16:45 | CASEMGMT ---
Social Work SW received call from sonWm, requesting update on pt's progress and DC planning. SW educated to discussions during IDT Huddle this date. Explained IDT is agreeable to pt returning home, if she wears the soft knee brace and uses walker AAT to promote steadiness. Pt has not had loss of balance thus far using those aides, and is CGA. Pt is not requiring physical assistance with any tasks. IDT does recommend AL, if pt is agreeable, as it allows for both independence for the pt but safety from the 15/05 staff. Though, IDT agrees pt is not appropriate for SNF; she is too high functioning. Recommending pt has oversight with meds and finances. Son asked clarifying questions. Agreed to pt not being appropriate for SNF, and he can oversee finances, while pt's dtr can check in daily for med management. Son was not clear if he agreed with home or AL. Though, SW explained pt has the capacity to make this decision. Explained AUTO DISMANTLER will be contacting pt's dtr to schedule therapy training and son is included, if he wishes. Anticipated DC timeframe is week of 11/18. Son expressed understanding and appreciative of the update. SW will continue to follow. Aleyda Morse, SENIOR STORAGE ADMINISTRATOR LENDING MANAGER
[2024-11-12] MEDS: Pravastatin 40 MG Tablet PO (20:15)
[2024-11-13] MEDS: Enoxaparin 40 MG/0.4 ML Syringe SC (05:31)
[2024-11-13] MEDS: Levothyroxine 125 MCG Tablet PO (05:31)
[2024-11-13] MEDS: Acetaminophen 500 MG Tablet 1000 MG PO ×3 (05:32→21:07)
[2024-11-13 05:54] LABS: Absolute Lymphocyte Count 1.66 X10^3/uL (0.83-4.51); Absolute Neutrophil Count 2.9 X10^3/uL (2.0-7.7); Basophil# 0.05 X10^3/uL; Basophil% 0.8 % (0-1); Eosinophil# 0.25 X10^3/uL; Hematocrit 36.9 % (37-47); Hemoglobin 11.6 g/dL (12.0-15.0); Lymphocyte # 1.66 X10^3/ul (0.83-4.51); Lymphocyte % 26.3 % (19-41); Mean Corp Hgb Conc 31.4 g/dL (32-36); Mean Corpuscular Hgb 29.8 pg (27.0-32.0); Mean Corpuscular Volume 94.9 fL (81-99); Mean Platelet Vol. 12.1 fl (6.2-12.0); Monocyte# 1.43 X10^3/uL; Monocyte% 22.7 % (0-10); NRBC Flagged by Analyzer 0 % (0-5); Neutrophil % 45.9 % (47-70); Platelet Count 144 K/mm3 (150-450); RBC Distribution Width CV 14.5 % (11.6-14.6); RBC Distribution Width SD 49.9 fl (35.1-43.9); Red Blood Count 3.89 M/mm3 (4.2-5.4); White Blood Count 6.3 K/mm3 (4.4-11.0)
[2024-11-13 06:56] LABS: Anion Gap 6 (5-15); BUN 17 mg/dL (7-18); Calcium,Total 8.8 mg/dL (8.5-10.1); Chloride 108 mmol/L (98-107); Creatinine, Serum 0.68 mg/dL (0.55-1.02); EST Glomerular Filtration Rate 87 mL/min (>60); Est Glom Filt Rate - Afr Amer 106 mL/min (>60); Estimated Creatinine Clearance 49.46 ml/min; Glucose 102 mg/dL (74-106); Potassium 4.2 mmol/L (3.5-5.1); Sodium Level 140 mmol/L (136-145)
[2024-11-13] MEDS: Sertraline 50 MG Tablet PO (09:13)
[2024-11-13] MEDS: Ensure Plus High Protein 120 ML LIQUID PO ×2 (09:13→17:36)
[2024-11-13] MEDS: Arthritis Pain Compound 60 CLICK TUBE TOPICAL ×2 (09:13→21:07)
[2024-11-13] MEDS: Senna/Docusate Sodium 1 Tablet 2 TABLET PO ×2 (09:13→21:07)
[2024-11-13] MEDS: Calcium Carb/Vitamin D 1 TABLET Tablet PO (09:13)
[2024-11-13] MEDS: Multivitamins,Therapeutic Tablet 1 TABLET PO (09:13)
[2024-11-13] MEDS: Losartan Potassium 25 MG Tablet PO (10:52)
[2024-11-13] MEDS: dilTIAZem CD 120 MG Capsule PO (10:52)
[2024-11-13 15:34] VITALS: BP 88/46; PULSE 77; RESP 20; TEMP 36.3; O2SAT 97
[2024-11-13 16:17] VITALS: BP 104/64; PULSE 80
[2024-11-13] MEDS: Pravastatin 40 MG Tablet PO (21:08)
--- NOTE | 2024-11-14 02:15 | NURSING ---
LBM 11/09/24, patient offered mag citrate at and patient declines states I'm always like this, I will try again in the morning. Written communication left for Dr. Olmstead review in AM regarding patient LBM and refusal of mag citrate.
[2024-11-14] MEDS: Acetaminophen 500 MG Tablet 1000 MG PO ×3 (05:05→21:30)
[2024-11-14] MEDS: Enoxaparin 40 MG/0.4 ML Syringe SC (05:06)
[2024-11-14] MEDS: Levothyroxine 125 MCG Tablet PO (05:06)
[2024-11-14] MEDS: Calcium Carb/Vitamin D 1 TABLET Tablet PO (07:57)
[2024-11-14] MEDS: Multivitamins,Therapeutic Tablet 1 TABLET PO (07:57)
[2024-11-14] MEDS: Senna/Docusate Sodium 1 Tablet 2 TABLET PO ×2 (07:57→21:30)
[2024-11-14] MEDS: dilTIAZem 60 MG Tablet PO (07:58)
[2024-11-14] MEDS: Sertraline 50 MG Tablet PO (07:58)
--- NOTE | 2024-11-14 08:20 | RAD_ITS ---
STUDY: X-RAY - ABDOMEN/PELVIS REASON FOR EXAM: Female, 83 years old. Abdominal pain and distention TECHNIQUE: Two AP supine views of the abdomen and pelvis. COMPARISON: 11/06/2024 FINDINGS: Normal visualized lung bases. There is an unremarkable bowel gas pattern. There is no demonstrated free abdominal air. The visualized liver, spleen and kidneys are grossly normal in size and morphology. Normal soft tissue structures. Normal visualized osseous structures. RAD/Abdomen Single View IMPRESSION: No acute abdominal or pelvic process Electronically Signed: Olegario Bergeron MD at 10:21 EST ,
[2024-11-14] MEDS: Arthritis Pain Compound 60 CLICK TUBE TOPICAL ×2 (11:26→21:30)
[2024-11-14 14:38] VITALS: BP 114/57; PULSE 82; RESP 16; TEMP 36.7; O2SAT 99
[2024-11-14] MEDS: Ensure Plus High Protein 120 ML LIQUID PO (17:14)
[2024-11-14] MEDS: Pravastatin 40 MG Tablet PO (21:30)
[2024-11-15] MEDS: Enoxaparin 40 MG/0.4 ML Syringe SC (06:45)
[2024-11-15] MEDS: Levothyroxine 125 MCG Tablet PO (06:45)
[2024-11-15] MEDS: Acetaminophen 500 MG Tablet 1000 MG PO ×3 (06:45→21:13)
[2024-11-15] MEDS: Multivitamins,Therapeutic Tablet 1 TABLET PO (09:48)
[2024-11-15] MEDS: Ensure Plus High Protein 120 ML LIQUID PO (09:48)
[2024-11-15] MEDS: dilTIAZem 60 MG Tablet PO (09:48)
[2024-11-15] MEDS: Arthritis Pain Compound 60 CLICK TUBE TOPICAL ×2 (09:48→21:13)
[2024-11-15] MEDS: Calcium Carb/Vitamin D 1 TABLET Tablet PO (09:49)
[2024-11-15] MEDS: Sertraline 50 MG Tablet PO (09:49)
[2024-11-15] MEDS: Senna/Docusate Sodium 1 Tablet 2 TABLET PO ×2 (09:49→21:14)
[2024-11-15 10:55] VITALS: BP 124/68; PULSE 105; RESP 18; TEMP 36.6; O2SAT 98
--- NOTE | 2024-11-15 11:07 | NURSING ---
PT. refused soap suds enema today, pt. states he has been passing stool fine. Large BM charted yesterday 10/14.
[2024-11-15] MEDS: Pravastatin 40 MG Tablet PO (21:14)
[2024-11-16] MEDS: Acetaminophen 500 MG Tablet 1000 MG PO ×3 (05:50→22:24)
[2024-11-16] MEDS: Enoxaparin 40 MG/0.4 ML Syringe SC (05:51)
[2024-11-16] MEDS: Levothyroxine 125 MCG Tablet PO (05:51)
[2024-11-16] MEDS: Ensure Plus High Protein 120 ML LIQUID PO ×2 (08:07→12:07)
[2024-11-16] MEDS: Arthritis Pain Compound 60 CLICK TUBE TOPICAL ×2 (08:08→22:23)
[2024-11-16] MEDS: Multivitamins,Therapeutic Tablet 1 TABLET PO (08:08)
[2024-11-16] MEDS: Sertraline 50 MG Tablet PO (08:09)
[2024-11-16] MEDS: dilTIAZem 60 MG Tablet PO (08:09)
[2024-11-16] MEDS: Senna/Docusate Sodium 1 Tablet 2 TABLET PO (08:09)
[2024-11-16] MEDS: Calcium Carb/Vitamin D 1 TABLET Tablet PO (08:10)
[2024-11-16 16:00] VITALS: BP 128/56; PULSE 77; RESP 18; TEMP 36.7; O2SAT 98
[2024-11-16] MEDS: Pravastatin 40 MG Tablet PO (22:24)
[2024-11-17] MEDS: Levothyroxine 125 MCG Tablet PO (05:23)
[2024-11-17] MEDS: Acetaminophen 500 MG Tablet 1000 MG PO ×3 (05:23→22:27)
[2024-11-17] MEDS: Enoxaparin 40 MG/0.4 ML Syringe SC (05:23)
[2024-11-17] MEDS: Multivitamins,Therapeutic Tablet 1 TABLET PO (10:08)
[2024-11-17] MEDS: Arthritis Pain Compound 60 CLICK TUBE TOPICAL ×2 (10:08→22:29)
[2024-11-17] MEDS: Ensure Plus High Protein 120 ML LIQUID PO ×3 (10:08→17:49)
[2024-11-17] MEDS: Calcium Carb/Vitamin D 1 TABLET Tablet PO (10:08)
[2024-11-17] MEDS: Senna/Docusate Sodium 1 Tablet 2 TABLET PO (10:08)
[2024-11-17] MEDS: dilTIAZem 60 MG Tablet PO (10:08)
[2024-11-17] MEDS: Sertraline 50 MG Tablet PO (10:08)
[2024-11-17 11:55] VITALS: BP 112/63; PULSE 103; RESP 16; TEMP 36.6; O2SAT 99
[2024-11-17] MEDS: Pravastatin 40 MG Tablet PO (22:27)
[2024-11-18] MEDS: Acetaminophen 500 MG Tablet 1000 MG PO ×3 (05:40→20:51)
[2024-11-18] MEDS: Enoxaparin 40 MG/0.4 ML Syringe SC (05:42)
[2024-11-18] MEDS: Levothyroxine 125 MCG Tablet PO (05:42)
[2024-11-18] MEDS: Calcium Carb/Vitamin D 1 TABLET Tablet PO (08:09)
[2024-11-18] MEDS: Multivitamins,Therapeutic Tablet 1 TABLET PO (08:09)
[2024-11-18] MEDS: dilTIAZem 60 MG Tablet PO (08:09)
[2024-11-18] MEDS: Senna/Docusate Sodium 1 Tablet 2 TABLET PO (08:10)
[2024-11-18] MEDS: Sertraline 50 MG Tablet PO (08:10)
[2024-11-18] MEDS: Ensure Plus High Protein 120 ML LIQUID PO ×2 (08:11→17:43)
[2024-11-18] MEDS: Arthritis Pain Compound 60 CLICK TUBE TOPICAL ×2 (13:11→21:09)
[2024-11-18 14:14] VITALS: BP 125/77; PULSE 105; RESP 18; TEMP 36.4; O2SAT 94
--- NOTE | 2024-11-18 16:19 | CASEMGMT ---
Addendum entered by Aleyda Morse 11/19/24 08:45: ST added to HHC order Original Note: Social Work SW received call from son requesting to finalize DC plans. SW received outcome from [facility] that family training went well and DC date can be set while dtr is in town. Son inquired about 11/21. IDT agreeable. Dtr will remain in town for the following week with pt. SW confirmed [facility] and 19 in. transport w/c. Son confirmed and request w/c be delivered to pt's home. Son can transport at DC. SW answered all questions. No other issues noted. - SW phoned referral to [facility] for PT/OT/SN. SW sent referral to [facility] for transport w/c via [facility]. Plan: DC home 11/21, [facility] PT/OT/SN, 19 in. transport w/c Aleyda Morse, UMANG SHODDY MILL WORKER
--- NOTE | 2024-11-18 17:19 | PCM.DC.SUM ---
Providers Date of Admission: 10/29/24 Primary Care Physician: Dr. Nara Orta MD Reason For Visit: FALLS WEAKNESS Diagnosis Discharge Diagnosis (1) Debility: Status: Acute Code(s): R53.81 - Other malaise (2) General weakness: Status: Acute Code(s): R53.1 - Weakness (3) Fall: Status: Inactive Code(s): W19.XXXA - Unspecified fall, initial encounter (4) Bilateral knee pain: Status: Acute Code(s): M25.561 - Pain in right knee; M25.562 - Pain in left knee (5) Osteoarthritis of knees, bilateral: Status: Acute Code(s): M17.0 - Bilateral primary osteoarthritis of knee (6) Essential (primary) hypertension: Status: Acute Code(s): I10 - Essential (primary) hypertension (7) Hyperlipidemia, unspecified: Status: Acute Code(s): E78.5 - Hyperlipidemia, unspecified (8) Hypothyroidism: Status: Acute Code(s): E03.9 - Hypothyroidism, unspecified (9) Depression: Status: Acute Code(s): F32.A - Depression, unspecified Plan 83 year old female with below past medical history hospitalized for inability to walk, weakness, 2/2 severe osteoarthritis bilateral knees, admitted to TCU with debility, here for rehabilitation, strengthening, prior to discharge home alone. Debility - PT/OT. Pain - Tylenol 1000mg q8, Tramadol 50mg q6 prn pain (1-5), Oxycodone 5mg q4 prn pain (6-10), Arthritis compound cream 3 clicks bid. Bowel - Senna/colace 2 tablets bid, Magnesium citrate 300mL po daily prn. Adult immunization - Administer pneumonia vaccine, covid vaccine, flu vaccine as appropriate. DVT prophylaxis - Lovenox 40mg sc daily. Calcium deficiency - Calcium D 1 tablet daily. Hypertension - Losartan 25mg daily, Diltiazem CD 120mg daily. Nutrition - Ensure Plus 120mL po tidcm, MVI 1 tablet daily. Hypothyroidism - Levothyroxine 125mcg daily. Hyperlipidemia - Pravastatin 40mg qhs. Depression - Sertraline 50mg daily, stable chronic adjunct faculty for medical terminology use, GDR not recommended. Medications at Discharge Home Medications multivitamin 1 tab PO DAILY supplement 12/17/18 calcium 500 mg (as carbonate)-vitamin D3 10 mcg (400 unit) tablet 1 tab PO DAILY supplement 12/03/21 julien.stocking,knee,reg,smal #24 ea 04/16/24 pravastatin 40 mg tablet 40 mg PO QHS cholesterol 05/08/24 levothyroxine 125 mcg tablet 125 mcg PO QDAY thyroid #90 tabs 08/29/24 sertraline 50 mg tablet 50 mg PO QDAY mood #90 tabs 08/29/24 acetaminophen 500 mg tablet 1,000 mg (2 x 500 mg) PO Q8 #0 tabs 11/18/24 diltiazem HCl 60 mg tablet 60 mg PO DAILY 30 days #30 tabs 11/18/24 Hospital Course Operations None Procedures None Summary of Care Provided Minutes Spent on Discharge: 35 Hospital Course: 83 year old female with below past medical history hospitalized for inability to walk, weakness, 2/2 severe osteoarthritis bilateral knees, admitted to TCU with debility, here for rehabilitation, strengthening, prior to discharge home alone. Discharge home alone 11/21/2024, [facility] PT/OT/SN, 19 inch transport wheelchair. 19 inch transport wheelchair: Patient has a mobility limitation that cannot be sufficiently resolved by using a cane or walker. Use of a w/c will improve the participating of ADLs on a regular basis in the home. A caregiver can propel patient safely. Physical Exam Const alert General Appearance: cooperative HEENT normocephalic Eyes PERRL and EOMs intact bilaterally Neck supple, no JVD and no carotid bruits Resp normal respiratory effort, normal air movement and clear to auscultation bilaterally Cardio regular rate and regular rhythm GI normal to inspection, nondistended, normoactive bowel sounds, non-tender and non-distended Extremity normal capillary refill General Extremity: Negative for edema Skin no rashes or lesions noted General Skin Exam: no breakdown Psych affect normal Appearance: appropriate Weight / BMI Weight Weight: 70.307 kg Body Mass Index (BMI) 26.6 ABG / Lab / Microbiology Data 11/13/24 05:10 11/13/24 05:10 D/C Instructions Discharge Diet: No restrictions Discharge Activity: Return to Normal Activity, May Shower and Use Walker Weight Bearing Status: Weight bearing as tolerated Call your doctor if you observe: Fever of 101 or Higher, Inability to urinate, Inability to have a bowel movement, Shortness of breath, Dizziness, Fainting spells, Swelling in the ankles, Chest pain and Uncontrolled pain DC O2, CPAP, BIPAP Needs Home O2 Discharge instructions: No Additional Instructions: Discharge home alone 11/21/2024, [facility] PT/OT/SN, 19 inch transport wheelchair. 19 inch transport wheelchair: Patient has a mobility limitation that cannot be sufficiently resolved by using a cane or walker. Use of a w/c will improve the participating of ADLs on a regular basis in the home. A caregiver can propel patient safely Meaningful Use Info Meaningful Use Meaningful Use Diagnoses (Choose all that apply): None applicable Ischemic Stroke Statin Dosing Therapy Reference: STATIN DOSE THERAPY REFERENCE: * Patients > 75 years receive moderate or high dose statin therapy. * Patients 75 years or YOUNGER should receive HIGH intensity statin dose unless contraindicated. You will be required to document reason for non-treatment if statin daily dose does not meet guidelines. HIGH DOSE STATIN THERAPY DAILY Atorvastatin > than or = to 40 mg Rosuvastatin > than or = to 20 mg Amlodipine + Atorvastatin > than or = to 2.5/40 mg Ezetimibe + Simvastatin 10/80 mg Simvastatin 80mg Discharge Plan Admission Admit Date/Time: 10/29/24 12:34 Primary Reason for Your Visit: Debility. Attending Provider: Good Olmstead Chi Primary Care Provider: Nara Orta Instructions Additional Instructions / Restrictions: Discharge home alone 11/21/2024, [facility] PT/OT/SN, 19 inch transport wheelchair. 19 inch transport wheelchair: Patient has a mobility limitation that cannot be sufficiently resolved by using a cane or walker. Use of a w/c will improve the participating of ADLs on a regular basis in the home. A caregiver can propel patient safely Discharge Orders/Prescriptions Prescriptions: New acetaminophen 500 mg Tablet 1,000 mg PO Q8 Qty: 0 0RF diltiazem HCl 60 mg Tablet 60 mg PO DAILY 30 Days Qty: 30 0RF Continued multivitamin tablet 1 tab PO DAILY calcium carbonate-vitamin D3 500 mg-10 mcg (400 unit) tablet 1 tab PO DAILY pravastatin 40 mg tablet 40 mg PO QHS sertraline 50 mg tablet 50 mg PO QDAY Qty: 90 0RF levothyroxine 125 mcg tablet 125 mcg PO QDAY Qty: 90 0RF Discontinued triamcinolone acetonide [Kenalog] 40 mg/mL suspension 50 mg intra-articular ONCE Qty: 1.25 0RF diltiazem HCl 120 mg capsule,extended release 24hr 120 mg PO DAILY acetaminophen 500 mg Tablet 1,000 mg PO Q6H PRN PRN (Reason: pain) Qty: 0 0RF losartan 50 mg tablet 25 mg PO QDAY Qty: 45 3RF No Action (DME) julien.stocking,knee,reg,smal Misc See Rx Instructions .Route Qty: 24 0RF Rx Instructions: As directed Referrals / Follow Up: Nara Orta MD [Primary Care Provider] - Disposition Disposition (needs filled in before D/C Order can be placed): Home Health Service
[2024-11-18] MEDS: Pravastatin 40 MG Tablet PO (20:51)
[2024-11-19] MEDS: Acetaminophen 500 MG Tablet 1000 MG PO ×3 (06:02→19:57)
[2024-11-19] MEDS: Levothyroxine 125 MCG Tablet PO (06:02)
[2024-11-19] MEDS: Enoxaparin 40 MG/0.4 ML Syringe SC (06:03)
[2024-11-19] MEDS: Ensure Plus High Protein 120 ML LIQUID PO ×3 (08:54→16:50)
[2024-11-19] MEDS: dilTIAZem 60 MG Tablet PO (08:54)
[2024-11-19] MEDS: Arthritis Pain Compound 60 CLICK TUBE TOPICAL ×2 (08:54→19:57)
[2024-11-19] MEDS: Multivitamins,Therapeutic Tablet 1 TABLET PO (08:54)
[2024-11-19] MEDS: Calcium Carb/Vitamin D 1 TABLET Tablet PO (08:55)
[2024-11-19] MEDS: Senna/Docusate Sodium 1 Tablet 2 TABLET PO (08:55)
[2024-11-19] MEDS: Sertraline 50 MG Tablet PO (08:55)
[2024-11-19 10:50] VITALS: BMI 27.3
--- NOTE | 2024-11-19 13:18 | CASEMGMT ---
Social Work SW sent referral to [facility] for services after [facility]HC has been completed. Aleyda Morse, DRAW END HAND CAREER RESOURCE TECHNICIAN
[2024-11-19 16:00] VITALS: BP 124/64; PULSE 75; RESP 14; TEMP 36.6; O2SAT 97
[2024-11-19] MEDS: Pravastatin 40 MG Tablet PO (19:57)
[2024-11-20] MEDS: Levothyroxine 125 MCG Tablet PO (04:43)
[2024-11-20] MEDS: Enoxaparin 40 MG/0.4 ML Syringe SC (04:44)
[2024-11-20] MEDS: Acetaminophen 500 MG Tablet 1000 MG PO ×3 (04:44→21:30)
[2024-11-20 05:49] LABS: Absolute Lymphocyte Count 1.33 X10^3/uL (0.83-4.51); Basophil# 0.04 X10^3/uL; Basophil% 0.9 % (0-1); Eosinophils% 2.1 % (0-5); Hematocrit 35.5 % (37-47); Hemoglobin 11.5 g/dL (12.0-15.0); Lymphocyte # 1.33 X10^3/ul (0.83-4.51); Lymphocyte % 28.4 % (19-41); Mean Corp Hgb Conc 32.4 g/dL (32-36); Mean Corpuscular Hgb 30.6 pg (27.0-32.0); Mean Corpuscular Volume 94.4 fL (81-99); Mean Platelet Vol. 11.8 fl (6.2-12.0); Monocyte% 25.6 % (0-10); NRBC Flagged by Analyzer 0 % (0-5); Neutrophil % 42.6 % (47-70); Platelet Count 106 K/mm3 (150-450); RBC Distribution Width CV 14.2 % (11.6-14.6); RBC Distribution Width SD 49.2 fl (35.1-43.9); Red Blood Count 3.76 M/mm3 (4.2-5.4); White Blood Count 4.7 K/mm3 (4.4-11.0)
[2024-11-20 06:13] LABS: Anion Gap 6 (5-15); BUN 14 mg/dL (7-18); BUN/Creat Ratio 23.4 RATIO (10-20); Calcium,Total 8.7 mg/dL (8.5-10.1); Chloride 108 mmol/L (98-107); EST Glomerular Filtration Rate 101 mL/min (>60); Est Glom Filt Rate - Afr Amer 122 mL/min (>60); Estimated Creatinine Clearance 50.08 ml/min; Glucose 98 mg/dL (74-106); Potassium 3.8 mmol/L (3.5-5.1); Sodium Level 143 mmol/L (136-145)
[2024-11-20] MEDS: Ensure Plus High Protein 120 ML LIQUID PO ×3 (09:53→17:44)
[2024-11-20] MEDS: Arthritis Pain Compound 60 CLICK TUBE TOPICAL ×2 (09:53→21:29)
[2024-11-20] MEDS: Multivitamins,Therapeutic Tablet 1 TABLET PO (09:53)
[2024-11-20] MEDS: Sertraline 50 MG Tablet PO (09:53)
[2024-11-20] MEDS: dilTIAZem 60 MG Tablet PO (09:54)
[2024-11-20] MEDS: Senna/Docusate Sodium 1 Tablet 2 TABLET PO ×2 (09:54→21:29)
[2024-11-20] MEDS: Calcium Carb/Vitamin D 1 TABLET Tablet PO (09:54)
[2024-11-20 13:56] VITALS: BP 116/56; PULSE 80; RESP 14; TEMP 36.9; O2SAT 97
--- NOTE | 2024-11-20 14:46 | CASEMGMT ---
BIMS () and PHQ9 (7) completed on this date for MDS assessment. SW spoke with pt regarding feelings of depression. Pt states that he has had thoughts that she would be better off , be denies any suicidal ideation. Pt stating more so wondering more why she is still here. SW encouraged expression of feelings and provided active listening and support. Pt is looking forward to returning home tomorrow and feels this will help improve mood. Pt states that she does not feel her anti depressant is helpful. SW offered to speak with physician about adjusting/changing med. Pt declined stating she would follow up with PCP regarding changing to a new anti depressant. Counseling resources have been provided to pt. ANAYELI Isbell
[2024-11-20 20:00] VITALS: PULSE 74; O2SAT 94
[2024-11-20] MEDS: Pravastatin 40 MG Tablet PO (21:29)
[2024-11-21 03:18] VITALS: PULSE 78; O2SAT 93
[2024-11-21] MEDS: Enoxaparin 40 MG/0.4 ML Syringe SC (06:18)
[2024-11-21] MEDS: Acetaminophen 500 MG Tablet 1000 MG PO (06:18)
[2024-11-21] MEDS: Levothyroxine 125 MCG Tablet PO (06:18)
[2024-11-21 08:26] VITALS: BP 109/62; PULSE 86; RESP 16; TEMP 36.6; O2SAT 95
[2024-11-21] MEDS: dilTIAZem 60 MG Tablet PO (08:31)
[2024-11-21] MEDS: Calcium Carb/Vitamin D 1 TABLET Tablet PO (08:31)
[2024-11-21] MEDS: Multivitamins,Therapeutic Tablet 1 TABLET PO (08:31)
[2024-11-21] MEDS: Sertraline 50 MG Tablet PO (08:31)
[2024-11-21] MEDS: Senna/Docusate Sodium 1 Tablet 2 TABLET PO (08:31)
[2024-11-21] MEDS: Arthritis Pain Compound 60 CLICK TUBE TOPICAL (08:32)
== END 2024-11-21 12:10 | disposition home health service (06) | DRG 554 ==
PROVIDERS: Admitting Provider Family Medicine Geriatric Medicine; PCP Internal Medicine; Referring Provider Family Medicine Geriatric Medicine; Visit Provider Family Medicine Geriatric Medicine
DX: M17.0 Bilateral primary osteoarthritis of knee (principal); E03.9 Hypothyroidism, unspecified; I10 Essential (primary) hypertension; F32.A Depression, unspecified; E78.2 Mixed hyperlipidemia; Z79.890 Hormone replacement therapy; Z79.899 Other long term (current) drug therapy
CPT/HCPCS: 36415; 74018; 80048; 85025; 92507; 92523; 97110; 97112; 97116; 97129; 97130; 97162; 97166; 97530; 97535; 97802

== ENCOUNTER → 2024-11-28 | Outpatient (CLI) | payer MEDICARE, OTHER, SELFPAY ==
[2024-11-28 12:55] LABS: Thyroid Stim Hormone (TSH) 0.114 uIU/mL (0.358-3.740)
[2024-11-28 15:44] LABS: Color, Urine Yellow (Yellow); Glucose, Dipstick Normal (Normal); Ketone-Dipstick Negative (Negative); Leukocyte Esterase-Dipstick 500 /ul (Negative); Nitrite-Dipstick Negative (Negative); Occult Blood-Urine 250 /ul (Negative); Protein-Dipstick 500 mg/dl (Negative); Urine Bilirubin Dipstick Negative (Negative); Urine Clarity Cloudy (Clear); Urine Urobilinogen Normal (Normal)
[2024-11-28 15:54] LABS: Bacteria RARE /hpf (None Seen); Mucous, Urine 2+ /hpf (<or=2+); Red Blood Cells-Urine 5-10 SEEN /hpf (0-5); Squamous Epithelial Cells - UA 0-5 SEEN /hpf (5-10); White Blood Cells >100 SEEN /hpf (0-5); White Cell Cast 0-5 SEEN /lpf (None Seen)
== END | disposition home or self-care (01) ==
LOC: BIMLAB 09:42
PROVIDERS: PCP Internal Medicine; Referring Provider Internal Medicine; Visit Provider Internal Medicine
DX: R30.0 Dysuria (principal); E03.9 Hypothyroidism, unspecified
CPT/HCPCS: 36415; 81001; 84443; 87086; 87088

== ENCOUNTER → 2024-12-10 | Outpatient (CLI) | payer MEDICARE, OTHER, SELFPAY ==
[2024-12-10 10:55] LABS: Color, Urine Yellow (Yellow); Glucose, Dipstick Normal (Normal); Ketone-Dipstick Negative (Negative); Leukocyte Esterase-Dipstick 500 /ul (Negative); Nitrite-Dipstick Negative (Negative); Occult Blood-Urine 150 /ul (Negative); Protein-Dipstick 500 mg/dl (Negative); Urine Bilirubin Dipstick Negative (Negative); Urine Clarity Cloudy (Clear); Urine Urobilinogen 1 mg/dl (Normal)
[2024-12-10 11:06] LABS: Bacteria 2+ /hpf (None Seen); Mucous, Urine 1+ /hpf (<or=2+); Red Blood Cells-Urine 5-10 SEEN /hpf (0-5); Squamous Epithelial Cells - UA 0-5 SEEN /hpf (5-10); White Blood Cells 50-100 SEEN /hpf (0-5)
== END | disposition home or self-care (01) ==
LOC: LABSPEC 09:37 → HHLAB 12-12 07:51
PROVIDERS: PCP Internal Medicine; Visit Provider Internal Medicine
DX: I10 Essential (primary) hypertension (principal); I35.0 Nonrheumatic aortic (valve) stenosis; M17.0 Bilateral primary osteoarthritis of knee; W19.XXXD Unspecified fall, subsequent encounter; R30.0 Dysuria
CPT/HCPCS: 81001; 87086; 87088

== ENCOUNTER → 2024-12-19 | Outpatient (CLI) | payer MEDICARE, OTHER, SELFPAY ==
[2024-12-19 12:34] LABS: Color, Urine Yellow (Yellow); Glucose, Dipstick Normal (Normal); Ketone-Dipstick Negative (Negative); Leukocyte Esterase-Dipstick 500 /ul (Negative); Nitrite-Dipstick Negative (Negative); Occult Blood-Urine 25 /ul (Negative); Protein-Dipstick 500 mg/dl (Negative); Urine Bilirubin Dipstick Negative (Negative); Urine Clarity Sl. Cloudy (Clear); Urine Urobilinogen Normal (Normal)
== END | disposition home or self-care (01) ==
LOC: MTLAB 10:01
PROVIDERS: PCP Internal Medicine; Visit Provider Internal Medicine
DX: M17.0 Bilateral primary osteoarthritis of knee (principal)
CPT/HCPCS: 81002; 87086; 87088

== ENCOUNTER → 2025-01-09 | Outpatient (CLI) | payer MEDICARE, OTHER, SELFPAY ==
[2025-01-09 12:38] LABS: Thyroid Stim Hormone (TSH) 0.107 uIU/mL (0.300-4.200)
[2025-01-09 22:34] LABS: T3 Total - Triiodothyronine 1.04 ng/mL (0.80-2.00)
== END | disposition home or self-care (01) ==
LOC: BIMLAB 09:55
PROVIDERS: PCP Internal Medicine; Referring Provider Internal Medicine; Visit Provider Internal Medicine
DX: E03.9 Hypothyroidism, unspecified (principal)
CPT/HCPCS: 36415; 84439; 84443; 84480

== ENCOUNTER 2025-01-28 18:37 | Inpatient (IN) | payer MEDICARE, OTHER, SELFPAY ==
[2025-01-28 18:38] VITALS: BP 119/62; PULSE 100; RESP 16; TEMP 36; O2SAT 98
[2025-01-28 19:03] VITALS: BMI 28.5
--- NOTE | 2025-01-28 19:14 | EDS_ITS ---
HPI History of Present Illness Chief Complaint: Weakness [facility] Medical History Frequent falls Syncope Strain of right knee Contusion of right knee LVH (left ventricular hypertrophy) Mixed hyperlipidemia Essential hypertension Palpitations Atrial premature complexes History of PSVT (paroxysmal supraventricular tachycardia) Premature ventricular contractions Nonrheumatic aortic (valve) stenosis Cardiac murmur Home Medications ?Medication ?Instructions ?Recorded ?Last Taken ?Type multivitamin 1 tab PO DAILY supplement Unknown History calcium 500 mg (as 1 tab PO DAILY supplement Unknown History carbonate)-vitamin D3 10 mcg (400 unit) tablet julien.stocking,knee,reg,smal #24 ea 04/16/24 Unknown Rx acetaminophen 500 mg tablet 1,000 mg (2 x 500 mg) PO Q 8 #0 tabs 11/18/24 Unknown Rx sertraline 100 mg tablet 100 mg PO QDAY mood #90 tabs 11/28/24 Unknown Rx levothyroxine 100 mcg tablet 100 mcg PO QDAY thyroid # 90 tabs 01/10/25 Unknown Rx triamcinolone acetonide 0.1 % 1 applic topical QDAY #1 5 grams 01/12/25 Unknown Rx topical cream Allergy/AdvReac Type Severity Reaction Status Date / Time Sulfa (Sulfonamide AdvReac Intermediate Rash Verified 01/28/25 18:38 Antibiotics) Family History Father Cancer LUNG Brother CAD (coronary artery disease) Mother COPD (chronic obstructive pulmonary disease) Uncle Psoriatic arthritis Brain tumor (benign) Surgical History History of partial hysterectomy (~1965) Social History household members: none current occupational status: retired current occupation: worked for ophthalmology Smoking Status: Never smoker Electronic Cigarette Use: not used alcohol intake: never substance use type: does not use caffeine: Yes Type: coffee Number of servings: 1 do you feel safe at home: Yes EXAM Physical Exam Const Vital Signs: 01/28/25 18:38 01/28/25 19:03 01/28/25 20:00 Temperature 96.8 F L Temperature Source Temporal Pulse Rate 100 82 Respiratory Rate 16 18 Respiratory Effort Normal Non-Labored Respiratory Pattern Normal Blood Pressure 119/62 125/68 H Blood Pressure Mean 81 87 Pulse Ox 98 97 Oxygen Delivery Method Room Air Room Air [facility] Narrative Medical decision making narrative: HISTORY OF PRESENT ILLNESS: Chief complaint: Weakness 84-year-old female history of hyperlipidemia, hypertension, syncope, PVCs presents with diffuse weakness. She notes a fall yesterday. She brought by EMS. Per family patient has been having weakness for several months. She is admitted in October to TCU. States weakness has been progressive. Weakness is worse today. They note falls recently. Patient notes a fall yesterday where she injured her right hand. Denies any head trauma. She notes diffuse weakness. She notes 2 weeks ago she was treated for UTI but symptoms never fully resolved after 5 days of antibiotics. Family notes patient has been eating and drinking less recently. She denies abdominal pain. Denies chest pain. Denies fever. Denies focal weakness or slurred speech or facial drooping. REVIEW OF SYSTEMS: Pertinent positives: Diffuse weakness, falls, right hand pain Pertinent negatives: As per HPI PHYSICAL EXAM: Nursing triage notes reviewed, Vital signs reviewed Constitutional: please see [facility] HENT: Dry oral mucosa Eyes: Pupils equal round and reactive to light, Extraocular muscles intact Neck: No stridor, no JVD, full neck ROM Lungs: Clear to auscultation, No wheezing or rales. No increased work of breathing, no conversational dyspnea, no accessory muscle use, no nasal flaring. No respiratory distress noted Heart: Regular rate and rhythm, No murmurs, No rubs and No gallops, 2+ distal pulses (radial, femoral, posterior tibial) in all extremities Abdomen: Soft, there is no tenderness, rigidity, rebound or guarding, no obvious peritoneal signs, no palpable pulsatile abdominal masses, no auscultated abdominal bruit : No CVAT Extremities: No edema Neuro: alert, oriented to person place and time, no obvious cranial nerve deficits. Moves all 4 extremities, has sensation all 4 extremities, noted weakness in bilateral lower extremities approximately 4-5 strength. Skin: No rash or lesions noted MEDICAL DECISION MAKING: Chief Complaint: please see HPI External records reviewed: Reviewed prior cardiovascular testing. Reviewed echocardiogram from 2023 showed ejection fraction of 60% Factors affecting care: As per HPI Social determinants of health: Elderly History obtained from others: EMS, relative Consults: Internal medicine (Dr. Garcia) MDM Narrative: Patient was initially hemodynamically stable, afebrile and nontoxic-appearing. Exam without focal neurologic deficits. Trauma noted to right upper extremity otherwise unremarkable exam. I considered the following differential diagnosis: ICH, pneumonia, other infectious etiology, UTI, dehydration, anemia, electrolyte disturbance, sepsis, traumatic injury to the right upper extremity. Initially assessed the patient 500 cc bolus and 650 mg of oral Tylenol. ALL IMAGES (IF OBTAINED) HAVE BEEN PERSONALLY REVIEWED AND INTERPRETED BY MYSELF. X-ray of the right hand/forearm were read and reviewed personally myself and showed evidence of a distal radius fracture ulnar styloid process fracture. Radiology views my interpretation EKG with normal sinus rhythm rate 80, left activation, normal intervals, no STEMI I have personally reviewed the patient's chest x-ray. Chest x-ray is unremarkable for pulmonary edema, pneumothorax, pneumonia or focal cardiopulmonary abnormality. CT scan head showed no evidence of ICH CBC without leukocytosis, severe anemia, no thrombocytopenia. CMP without evidence of acute kidney injury, significant electrolyte abnormality, anion gap to suggest end organ hypo-perfusion, no evidence of metabolic acidosis with a normal bicarbonate, no evidence of hepatobiliary obstructive pathology. Initial troponin negative. She has no chest pain or low ACS. No indication for additional troponin evaluations Lipase is wnl indicating no pancreatic inflammation. Urinalysis consistent with UTI I suspect the etiology of the patient's complaint is debility, frequent falls, right wrist fracture, UTI diffuse weakness secondary to dehydration and poor p.o. intake. Will admit the patient given diffuse weakness, UTI fact that she would not do well at home given broken extremity. The patient and/or family, caregivers express understanding. The patient and/or family, caregivers agrees with the plan. Shared decision making: I will have a discussion with the patient and or visitors regarding risk/benefits of further testing or admission. They will be made aware of of the risk/benefits inherent in this decision they will be given the opportunity to voice understanding. Total critical care time today provided was at least 0 minutes. This excludes separately billable procedures. Critical care time (if documented) is secondary to the patient having high probability of clinically significant/life threatening deterioration in the patient's condition which required my urgent intervention. Impression: 1. Fall 2. Diffuse weakness 3. UTI Dispo: Admit This note was generated with [employer] dictation software. It may contain incorrect words, spelling, and punctuation that were not noted in review of the chart prior to signing. Lab Data Labs: Laboratory Results - last 24 hr 01/28/25 01/28/25 20:00 20:40 WBC 9.5 RBC 3.96 L Hgb 12.0 Hct 37.3 MCV 94.2 MCH 30.3 MCHC 32.2 RDW Std Deviation 46.5 H RDW Coeff of Chris 13.4 Plt Count 116 L MPV 11.9 Immature Gran % (Auto) 1.100 H Neut % (Auto) 56.3 Lymph % (Auto) 16.4 L [place] % (Auto) 24.9 H Eos % (Auto) 0.8 Baso % (Auto) 0.5 Absolute Neuts (auto) 5.3 Absolute Lymphs (auto) 1.55 Nucleated RBC % 0 Sodium 140 Potassium 3.8 Chloride 105 Carbon Dioxide 23.8 Anion Gap 11 BUN 10 Creatinine 0.67 L Estim Creat Clear Calc 50.16 Est GFR (MDRD) Non-Af 85 BUN/Creatinine Ratio 15.0 Glucose 93 Lactic Acid < 1.0 Calcium 8.9 Total Bilirubin 1.06 AST 29 ALT 13 Alkaline Phosphatase 58 Troponin T High Sens 30 H Total Protein 5.7 L Albumin 3.5 Globulin 2.2 Albumin/Globulin Ratio 1.6 Lipase 24 Urine Color Yellow Urine Clarity Cloudy Urine pH 6.0 Ur Specific [place] 1.015 Urine Protein 100 H Urine Glucose (UA) Normal Urine Ketones 15 H Urine Occult Blood 25 H Urine Nitrite Positive H Urine Bilirubin Negative Urine Urobilinogen Normal Ur Leukocyte Esterase 500 H Urine RBC 0-5 SEEN Urine WBC >100 SEEN Ur Squamous Epith Cells 10-25 SEEN Calcium Oxalate Crystal 1+ Amorphous Sediment 1+ Urine Bacteria 4+ Urine Mucus 0 SEEN Radiography Diagnostic Testing: Clinical Impression(s) from Imaging Studies Chest X-Ray 01/28/25 19:47 IMPRESSION: No Acute Findings. Reading Location: [facility] Forearm X-Ray 01/28/25 19:47 IMPRESSION: Nondisplaced comminuted fracture distal radius and mildly displaced ulnar styloid fracture, with soft tissue swelling. Reading Location: [facility] Hand X-Ray 01/28/25 19:47 IMPRESSION: Nondisplaced comminuted fracture distal radius and mildly displaced ulnar styloid fracture, with soft tissue swelling. Reading Location: [facility] Brain CT 01/28/25 20:14 IMPRESSION: No acute intracranial abnormality Chronic microvascular ischemia and involutional changes. Reading Location: [facility] Procedures Upper Extremity Splints Upper Extremity Splint: Orthoglass Splint Fabrication: Fabricated Location: Right Discharge Plan Triage Chief Complaint: Weakness ED Provider: Sudarshna Campbell Dx/Rx/DC Orders Prescriptions: No Action multivitamin tablet 1 tab PO DAILY calcium carbonate-vitamin D3 500 mg-10 mcg (400 unit) tablet 1 tab PO DAILY sertraline 100 mg tablet 100 mg PO QDAY Qty: 90 0RF acetaminophen 500 mg Tablet 1,000 mg PO Q8 Qty: 0 0RF (DME) julien.stocking,knee,reg,smal Misc See Rx Instructions .Route Qty: 24 0RF Rx Instructions: As directed levothyroxine 100 mcg tablet 100 mcg PO QDAY Qty: 90 0RF triamcinolone acetonide 0.1 % cream 1 applic topical QDAY Qty: 15 0RF Primary Care Provider: Nara Orta Referrals: Nara Orta MD [Primary Care Provider] - Print Language: Danish
--- NOTE | 2025-01-28 19:47 | EKG12_ITS ---
Test Reason : DYSRHYTHMIA Blood Pressure : */* mmHG Vent. Rate : 80 BPM Atrial Rate : 80 BPM P-R Int : 232 ms QRS Dur : 70 ms QT Int : 398 ms P-R-T Axes : 52 -44 12 degrees QTcB Int : 459 ms Sinus rhythm with marked sinus arrhythmia with 1st degree A-V block Left axis deviation Septal infarct , age undetermined Abnormal ECG Confirmed by EMA DE LA CRUZ, RAYO ([id number]), electronic news gathering editor MAX DON ([id number]) on 01/30/2025 8:33:18 AM Referred By: Confirmed By: RAYO BOO MD
--- NOTE | 2025-01-28 19:47 | RAD_ITS ---
PROCEDURE: CHEST 1 VIEW (PORTABLE) 01/28/2025 REASON FOR EXAM: WEAKNESS TECHNIQUE: Frontal view of the chest. COMPARISON: None FINDINGS: Hardware: None Heart: Cardiac and mediastinal contours are stable. Lungs: No focal consolidation. No pneumothorax. No pleural effusion. Bones: The bones are unremarkable. Other: RAD/Chest 1 View (Portable) IMPRESSION: No Acute Findings. Reading Location: [facility]
--- NOTE | 2025-01-28 19:47 | RAD_ITS ---
PROCEDURE: HAND MIN 3 VIEWS; FOREARM 2 VIEWS 01/28/2025 REASON FOR EXAM: RIGHT HAND PAIN; FOREARM PAIN TECHNIQUE: 3 view(s) of the right hand and two-view of the right forearm COMPARISON: None FINDINGS: Nondisplaced comminuted intra-articular distal radial fracture. Mildly displaced ulnar styloid process fracture. Moderate soft tissue swelling. Diffuse osteopenia. Moderate multifocal osteoarthritis. RAD/Forearm 2 Views IMPRESSION: Nondisplaced comminuted fracture distal radius and mildly displaced ulnar stylo id fracture, with soft tissue swelling. Reading Location: [facility]
--- NOTE | 2025-01-28 19:47 | RAD_ITS ---
PROCEDURE: HAND MIN 3 VIEWS; FOREARM 2 VIEWS 01/28/2025 REASON FOR EXAM: RIGHT HAND PAIN; FOREARM PAIN TECHNIQUE: 3 view(s) of the right hand and two-view of the right forearm COMPARISON: None FINDINGS: Nondisplaced comminuted intra-articular distal radial fracture. Mildly displaced ulnar styloid process fracture. Moderate soft tissue swelling. Diffuse osteopenia. Moderate multifocal osteoarthritis. RAD/Hand Min 3 Views IMPRESSION: Nondisplaced comminuted fracture distal radius and mildly displaced ulnar stylo id fracture, with soft tissue swelling. Reading Location: [facility]
[2025-01-28] MEDS: 0.9% Normal Saline (500mL Bag) 500 ML 1000 ML IV (19:59)
[2025-01-28] MEDS: Acetaminophen 325 MG Tablet 650 MG PO (19:59)
[2025-01-28 20:00] VITALS: BP 125/68; PULSE 82; RESP 18; O2SAT 97
[2025-01-28 20:10] LABS: Absolute Lymphocyte Count 1.55 X10^3/uL (0.83-4.51); Absolute Neutrophil Count 5.3 X10^3/uL (2.0-7.7); Basophil# 0.05 X10^3/uL; Basophil% 0.5 % (0-1); Eosinophil# 0.08 X10^3/uL; Eosinophils% 0.8 % (0-5); Hematocrit 37.3 % (37-47); Lymphocyte # 1.55 X10^3/ul (0.83-4.51); Lymphocyte % 16.4 % (19-41); Mean Corp Hgb Conc 32.2 g/dL (32-36); Mean Corpuscular Hgb 30.3 pg (27.0-32.0); Mean Corpuscular Volume 94.2 fL (81-99); Mean Platelet Vol. 11.9 fl (6.2-12.0); Monocyte# 2.35 X10^3/uL; Monocyte% 24.9 % (0-10); NRBC Flagged by Analyzer 0 % (0-5); Neutrophil # 5.32 X10^3/uL (2.7-7.7); Neutrophil % 56.3 % (47-70); POSITIVE DIFFERENTIAL YES; Platelet Count 116 K/mm3 (150-450); RBC Distribution Width CV 13.4 % (11.6-14.6); RBC Distribution Width SD 46.5 fl (35.1-43.9); Red Blood Count 3.96 M/mm3 (4.2-5.4); White Blood Count 9.5 K/mm3 (4.4-11.0)
--- NOTE | 2025-01-28 20:14 | CT_ITS ---
PROCEDURE: BRAIN/HEAD WITHOUT CONTRAST 01/28/2025 REASON FOR EXAM: FALL TECHNIQUE: Head CT without intravenous contrast. Coronal and Sagittal reconstruction series were provided. One or more dose reduction techniques were used (e.g., Automated exposure control, adjustment of the mA and/or kV according to patient size, use of iterative reconstruction technique. COMPARISON: None FINDINGS: No acute intracranial hemorrhage, mass, mass effect, midline shift or pathologic extra-axial fluid collection. Mild parenchymal atrophy with commensurate increase in CSF containing spaces. Patchy white matter hypodensities, patient demographics favor chronic microvascular ischemic changes. Paranasal sinuses and mastoid air cells are clear. The calvarium is grossly intact. CT/Brain/Head without Contrast IMPRESSION: No acute intracranial abnormality Chronic microvascular ischemia and involutional changes. Reading Location: [facility]
[2025-01-28 20:35] LABS: ALB/GLOB Ratio 1.6 RATIO (0.9-2.4); AST(SGOT) 29 U/L (<=31); Alanine Aminotransfer ALT/SGPT 13 U/L (<=34); Albumin, Serum 3.5 g/dL (3.4-4.8); Alkaline Phosphatase 58 U/L (35-104); Anion Gap 11 (5-15); BUN 10 mg/dL (4-19); Calcium,Total 8.9 mg/dL (7.6-11.0); Carbon Dioxide 23.8 mmol/L (21.0-32.0); Chloride 105 mmol/L (98-108); Creatinine, Serum 0.67 mg/dL (0.70-1.20); EST Glomerular Filtration Rate 85 (>60); Estimated Creatinine Clearance 50.16 ml/min (50-250); Globulin 2.2 g/dL (2.2-4.2); Glucose 93 mg/dL (70-99); Lipase 24 U/L (13-75); Potassium 3.8 mmol/L (3.3-5.1); Protein, Total 5.7 g/dL (5.9-8.4); Sodium Level 140 mmol/L (133-145); Total Bilirubin 1.06 mg/dL (0.00-1.30); Troponin T High Sensitivity 30 ng/L (<=14)
[2025-01-28 20:37] LABS: Lactic Acid < 1.0 mmol/L (0.0-2.0)
[2025-01-28 20:48] LABS: Mucous, Urine 0 SEEN /hpf (<or=2+)
[2025-01-28 21:25] LABS: Color, Urine Yellow (Yellow); Glucose, Dipstick Normal (Normal); Ketone-Dipstick 15 mg/dl (Negative); Leukocyte Esterase-Dipstick 500 /ul (Negative); Nitrite-Dipstick Positive (Negative); Occult Blood-Urine 25 /ul (Negative); Protein-Dipstick 100 mg/dl (Negative); Specific Gravity, Urine 1.015 (1.002-1.030); Urine Bilirubin Dipstick Negative (Negative); Urine Clarity Cloudy (Clear); Urine Urobilinogen Normal (Normal)
[2025-01-28 21:33] LABS: Bacteria 4+ /hpf (None Seen); Red Blood Cells-Urine 0-5 SEEN /hpf (0-5); Squamous Epithelial Cells - UA 10-25 SEEN /hpf (5-10); White Blood Cells >100 SEEN /hpf (0-5)
[2025-01-28 21:34] LABS: Amorphous Sediment 1+; Calcium Oxalate Crystals Ur 1+ /hpf (<or=2+)
[2025-01-28 22:00] VITALS: PULSE 68; O2SAT 96
--- NOTE | 2025-01-28 22:05 | HP.PCM.HOS_ITS ---
[facility] - General General Date of Admission: 01/28/25 Date of Service: 01/28/25 Chief Complaint: Fall at Home Injuring Right Arm and Recent UTI. HPI Narrative ERICKA NUNEZ, is a Right-handed 84 F with a past medical history of essential hypertension; currently not on treatment, hypothyroidism; on levothyroxine, overweight; BMI of 28.5 this admission, history of PSVT, history of nonrheumatic aortic valve stenosis, history of LVH, history of syncope, history of partial hysterectomy (~1965), depression; on sertraline, history of tendinitis of the Left quadriceps tendon and OA; specifically of both knees with chronic debility and increasingly frequent falls; a recent approximately month-long admission to TCU in October 2024 who presents to [facility] ER complaining of fall at home with injury to her Right arm and recent UTI that did not improve with treatment. Ms. Nunez reports her acute symptoms began yesterday after she fell onto her outstretched Right hand with subsequent severe wrist pain. She denies LOC or significant head trauma with her fall. She states she has been getting progressively weaker for several months but it became acutely worse today so she decided to come in for further evaluation and treatment. She also admits to recently diagnosed UTI ~2 weeks ago with patient given 5 days of oral antibiotics without significant or lasting improvement. Her family also reported to the ER physician that she has been eating and drinking less lately. There was no report of fever, chills, nausea, vomiting, abdominal pain, chest pain, headache or shortness of breath. In the ER she was noted to have a UA positive for Acute Cystitis; without hematuria complicated by X-ray evidence of nondisplaced comminuted fracture distal radius and mildly displaced ulnar styloid fracture with soft tissue swelling causing Generalized Weakness with Ambulatory Dysfunction and increasingly Frequent Falls with the patient living at home alone and unable to care for self at this time. She was then admitted to the general medical floor for ongoing care for a stay that is expected to extend beyond 2 midnights. [facility] Medical History Frequent falls Syncope Strain of right knee Contusion of right knee LVH (left ventricular hypertrophy) Mixed hyperlipidemia Essential hypertension Palpitations Atrial premature complexes History of PSVT (paroxysmal supraventricular tachycardia) Premature ventricular contractions Nonrheumatic aortic (valve) stenosis Cardiac murmur Home Medications ?Medication ?Instructions ?Recorded ?Last Taken ?Type multivitamin 1 tab PO DAILY supplement Unknown History calcium 500 mg (as 1 tab PO DAILY supplement Unknown History carbonate)-vitamin D3 10 mcg (400 unit) tablet julien.stocking,knee,reg,smal #24 ea 04/16/24 Unknown Rx acetaminophen 500 mg tablet 1,000 mg (2 x 500 mg) PO Q 8 #0 tabs 11/18/24 Unknown Rx sertraline 100 mg tablet 100 mg PO QDAY mood #90 tabs 11/28/24 Unknown Rx levothyroxine 100 mcg tablet 100 mcg PO QDAY thyroid # 90 tabs 01/10/25 Unknown Rx triamcinolone acetonide 0.1 % 1 applic topical QDAY #1 5 grams 01/12/25 Unknown Rx topical cream Allergy/AdvReac Type Severity Reaction Status Date / Time Sulfa (Sulfonamide AdvReac Intermediate Rash Verified 01/28/25 18:38 Antibiotics) Family History Father Cancer LUNG Brother CAD (coronary artery disease) Mother COPD (chronic obstructive pulmonary disease) Uncle Psoriatic arthritis Brain tumor (benign) Surgical History History of partial hysterectomy (~1965) Social History household members: none current occupational status: retired current occupation: worked for ophthalmology Smoking Status: Never smoker Electronic Cigarette Use: not used alcohol intake: never substance use type: does not use caffeine: Yes Type: coffee Number of servings: 1 do you feel safe at home: Yes ROS ROS Narrative Review of Systems: Constitutional: Patient admits to generalized weakness with frequent falls but she denies fever or chills. Eyes: Patient denies changes in vision or discharge from eyes. ENT: Patient denies runny nose, sore throat or ear pain. Resp: Patient denies shortness of breath or cough. CV: Patient denies chest pain, palpitations, heart racing or lower extremity edema. GI: Patient denies abdominal pain, nausea, vomiting, diarrhea or constipation. : Patient denies dysuria or hematuria. MSK: Patient admits to progressively worsening generalized weakness with increasingly frequent falls as per HPI. Skin: Patient denies rash, abscess or wounds. Psych: Patient denies symptoms of uncontrolled depression or anxiety. Neuro: Patient denies headache, paresthesias or focal neurologic deficits. Allergy: Patient denies lip swelling, tongue swelling or urticaria. Hematology: Patient denies easy bleeding or easy bruisability. Endocrinology: Patient denies polyuria, polydipsia, polyphagia or heat/cold intolerance. 14 point ROS otherwise negative save for positives noted above in HPI Vital Signs Vital Signs Vital Signs: 01/28/25 18:38 01/28/25 19:03 01/28/25 20:00 Temperature 96.8 F L Temperature Source Temporal Pulse Rate 100 82 Respiratory Rate 16 18 Respiratory Effort Normal Non-Labored Respiratory Pattern Normal Blood Pressure 119/62 125/68 H Blood Pressure Mean 81 87 Pulse Ox 98 97 Oxygen Delivery Method Room Air Room Air Weight Weight: 166 lb 0.129 oz Body Mass Index (BMI) 28.5 Physical Exam Const alert, oriented x3, no apparent distress and average body habitus General Appearance: cooperative HEENT normocephalic, head/scalp atraumatic and hearing grossly normal bilaterally HEENT Narrative: Mucous membranes dry. Eyes PERRL and EOMs intact bilaterally Neck no lymphadenopathy, supple and no JVD Resp normal respiratory effort, no retractions, no use of accessory muscles and clear to auscultation bilaterally Cardio regular rate and regular rhythm GI normal to inspection, nondistended, normoactive bowel sounds, soft to palpation, non-tender and non-distended Extremity normal to inspection, full ROM and no clubbing, cyanosis or edema Skin Skin Narrative: Patient has evidence of rash, abscess or wounds. Neuro oriented x3, CN's II-XII intact bilaterally, moves all extremities and no focal motor deficits Sensorium / Orientation: awake, alert, oriented to person, oriented to place and oriented to time Speech: speech normal Psych affect normal Results Medical Records Data Attestation: I reviewed the patient's medical records Lab / Micro Data Attestation: I reviewed the patient's lab results. 01/28/25 20:00 01/28/25 20:00 Labs: Laboratory Results - last 24 hr 01/28/25 20:00: WBC 9.5, RBC 3.96 L, Hgb 12.0, Hct 37.3, MCV 94.2, MCH 30.3, MCHC 32.2, RDW Std Deviation 46.5 H, RDW Coeff of Chris 13.4, Plt Count 116 L, MPV 11.9, Immature Gran % (Auto) 1.100 H, Neut % (Auto) 56.3, Lymph % (Auto) 16.4 L, [place] % (Auto) 24.9 H, Eos % (Auto) 0.8, Baso % (Auto) 0.5, Absolute Neuts (auto) 5.3, Absolute Lymphs (auto) 1.55, Nucleated RBC % 0, Sodium 140, Potassium 3.8, Chloride 105, Carbon Dioxide 23.8, Anion Gap 11, BUN 10, Creatinine 0.67 L, Estim Creat Clear Calc 50.16, Est GFR (MDRD) Non-Af 85, BUN/Creatinine Ratio 15.0, Glucose 93, Lactic Acid < 1.0, Calcium 8.9, Total Bilirubin 1.06, AST 29, ALT 13, Alkaline Phosphatase 58, Troponin T High Sens 30 H, Total Protein 5.7 L, Albumin 3.5, Globulin 2.2, Albumin/Globulin Ratio 1.6, Lipase 24 01/28/25 20:40: Urine Color Yellow, Urine Clarity Cloudy, Urine pH 6.0, Ur Specific [place] 1.015, Urine Protein 100 H, Urine Glucose (UA) Normal, Urine Ketones 15 H, Urine Occult Blood 25 H, Urine Nitrite Positive H, Urine Bilirubin Negative, Urine Urobilinogen Normal, Ur Leukocyte Esterase 500 H, Urine RBC 0-5 SEEN, Urine WBC >100 SEEN, Ur Squamous Epith Cells 10-25 SEEN, Calcium Oxalate Crystal 1+, Amorphous Sediment 1+, Urine Bacteria 4+, Urine Mucus 0 SEEN Imaging Radiology Impression Chest X-Ray 01/28/25 19:47 IMPRESSION: No Acute Findings. Reading Location: [facility] Forearm X-Ray 01/28/25 19:47 IMPRESSION: Nondisplaced comminuted fracture distal radius and mildly displaced ulnar styloid fracture, with soft tissue swelling. Reading Location: [facility] Hand X-Ray 01/28/25 19:47 IMPRESSION: Nondisplaced comminuted fracture distal radius and mildly displaced ulnar styloid fracture, with soft tissue swelling. Reading Location: [facility] Brain CT 01/28/25 20:14 IMPRESSION: No acute intracranial abnormality Chronic microvascular ischemia and involutional changes. Reading Location: [facility] Assessment & Plan Assessment/Plan (1) Acute cystitis without hematuria: (2) Right radial fracture: QUALIFIERS: Encounter type: initial encounter Radius location: d istal Fracture type: closed Fracture morphology: unspecified fracture morphology Qualified Code(s): S52.501A - Unspecified fracture of the lower end of right radius, initial encounter for closed fracture (3) Fall at home: QUALIFIERS: Encounter type: initial encounter Qualified Code(s): W19.XXXA - Unspecified fall, initial encounter; Y92.009 - Unspecified place in unspecified non-institutional (private) residence as the place of occurrence of the external cause (4) Generalized weakness: (5) Ambulatory dysfunction: (6) Frequent falls: (7) Overweight (BMI 25.0-29.9): (8) Osteoarthritis of right knee: QUALIFIERS: Osteoarthritis type: primary Qualified Code(s): M 17.11 - Unilateral primary osteoarthritis, right knee (9) Osteoarthritis of left knee: QUALIFIERS: Osteoarthritis type: primary Qualified Code(s): M 17.12 - Unilateral primary osteoarthritis, left knee PLAN: Plan 1. UA positive for Acute Cystitis; without hematuria in the setting of recent outpatient treatment failure - Admit to general medical floor. Continue empiric IV ceftriaxone begun in the ER and await culture and sensitivity data. Give acetaminophen as needed for sgyg-yd-egmvecrd (level 1-5/10) pain or fever. Give oxycodone as needed for severe (level 6-10/10) pain. 2. X-ray evidence of nondisplaced comminuted fracture of the Right distal radius and mildly displaced ulnar styloid fracture with soft tissue swelling c omplicating #1 - Patient was splinted in ER. Finally, we will consult orthopedist on-call to see this patient on rounds in the a.m. for further recommendations without appreciated in advance. 3. Generalized Weakness with Ambulatory Dysfunction and increasingly Frequent Falls with the patient living at home alone and unable to care for self at this time compounding #1 & #2 - PT/OT and Case Management to consult and treat on rounds in the AM to help with ECF placement with help appreciated in advance. 4. Overweight; BMI of 28.5 this admission adding to the burden of disease outlined from #1 - #3 - Weight loss will be recommended. Check TSH. 5. OA; specifically of both knees with chronic debility and increasingly frequent falls; a recent approximately month-long admission to TCU in October 2024 adding to the medical complexity of #1 - #4 - noted. 6. Essential hypertension; currently not on treatment - Noted. 7. Hypothyroidism; on levothyroxine - Maintain current therapy and check TSH. 8. History of PSVT - Noted. 9. History of nonrheumatic aortic valve stenosis - Noted. 10. History of LVH - Noted. 11. History of syncope - Noted with no report of recurrence. 12. History of partial hysterectomy (~1965) - Noted for the sake of completeness. 13. Depression; on sertraline - Resume current treatment. 14. History of tendinitis of the Left quadriceps tendon - Noted. 15. DVT prophylaxis - Heparin 5,000U sq BID plus SCD's. Total time: Approximately (but not less than) 75 minutes. Charges/Coding Visit Charges Inpatient E&M: 97292 Init Hosp L3
[2025-01-28] MEDS: Ceftriaxone 1 GM/50 ML BAG IV (22:40)
[2025-01-28 22:44] VITALS: BP 118/60; PULSE 73; RESP 14; TEMP 36; O2SAT 95
[2025-01-28 23:02] LABS: Magnesium 1.7 mg/dL (1.5-2.2)
[2025-01-28 23:20] VITALS: RESP 15; O2SAT 95
[2025-01-28 23:37] VITALS: BMI 26.4
[2025-01-28 23:42] VITALS: BP 109/59; PULSE 64; RESP 17; TEMP 36.4; O2SAT 94
[2025-01-28] MEDS: 0.9% Normal Saline (1000mL) 1,000 ML 70 ML IV (23:50)
[2025-01-29] VITALS (8 sets, daily range): BP systolic 113–142; BP diastolic 55–85; PULSE 67–111; RESP 14–18; TEMP 36.6–37; O2SAT 90–96; BMI 26.3
[2025-01-29 01:18] LABS: Thyroid Stim Hormone (TSH) 0.142 uIU/mL (0.300-4.200)
[2025-01-29] MEDS: Levothyroxine 100 MCG Tablet PO (06:30)
--- NOTE | 2025-01-29 07:14 | PCM.PN.HOSP ---
Reason for Visit Reason for Visit: Diagnoses Overweight (01/28/25) Unilateral primary osteoarthritis, right knee (01/28/25) Unilateral primary osteoarthritis, left knee (01/28/25) Acute cystitis without hematuria (01/28/25) Difficulty in walking, not elsewhere classified (01/28/25) Repeated falls (01/28/25) Weakness (01/28/25) Unspecified fracture of the lower end of right radius, initial encounter for closed fracture (01/28/25) Unspecified fall, initial encounter (01/28/25) Unspecified place in unspecified non-institutional (private) residence as the place of occurrence of the external cause (01/28/25) Subjective Subjective No new complaints. Objective Data Objective Data Vital Signs: Vital Signs Temp Pulse Resp BP Pulse Ox O2 Del Method 36.9 C 79 15 113/55 L 92 Room Air 01/29/25 04:28 01/29/25 04:28 01/29/25 04:28 01/29/25 04:28 01/29/25 04:43 01/29/25 04:43 Oxygen Delivery Method Room Air Weight: 69.9 kg Body Mass Index (BMI) 26.3 Intake & Output: Intake and Output for Last 24 Hours 01/27/25 01/28/25 01/29/25 23:59 23:59 23:59 Intake Total 550 / 650 200 / 200 Output Total 100 / 100 Balance 550 / 650 100 / 100 Lab / Micro Data 01/29/25 07:12 01/29/25 07:12 Labs: Laboratory Results - last 24 hr 01/28/25 20:00: WBC 9.5, RBC 3.96 L, Hgb 12.0, Hct 37.3, MCV 94.2, MCH 30.3, MCHC 32.2, RDW Std Deviation 46.5 H, RDW Coeff of Chris 13.4, Plt Count 116 L, MPV 11.9, Immature Gran % (Auto) 1.100 H, Neut % (Auto) 56.3, Lymph % (Auto) 16.4 L, [place] % (Auto) 24.9 H, Eos % (Auto) 0.8, Baso % (Auto) 0.5, Absolute Neuts (auto) 5.3, Absolute Lymphs (auto) 1.55, Nucleated RBC % 0, Sodium 140, Potassium 3.8, Chloride 105, Carbon Dioxide 23.8, Anion Gap 11, BUN 10, Creatinine 0.67 L, Estim Creat Clear Calc 50.16, Est GFR (MDRD) Non-Af 85, BUN/Creatinine Ratio 15.0, Glucose 93, Lactic Acid < 1.0, Calcium 8.9, Magnesium 1.7, Total Bilirubin 1.06, AST 29, ALT 13, Alkaline Phosphatase 58, Troponin T High Sens 30 H, Total Protein 5.7 L, Albumin 3.5, Globulin 2.2, Albumin/Globulin Ratio 1.6, Lipase 24, TSH 0.142 L 01/28/25 20:40: Urine Color Yellow, Urine Clarity Cloudy, Urine pH 6.0, Ur Specific [place] 1.015, Urine Protein 100 H, Urine Glucose (UA) Normal, Urine Ketones 15 H, Urine Occult Blood 25 H, Urine Nitrite Positive H, Urine Bilirubin Negative, Urine Urobilinogen Normal, Ur Leukocyte Esterase 500 H, Urine RBC 0-5 SEEN, Urine WBC >100 SEEN, Ur Squamous Epith Cells 10-25 SEEN, Calcium Oxalate Crystal 1+, Amorphous Sediment 1+, Urine Bacteria 4+, Urine Mucus 0 SEEN Radiography Diagnostic Testing: Radiology Impression Chest X-Ray 01/28/25 19:47 IMPRESSION: No Acute Findings. Reading Location: [facility] Forearm X-Ray 01/28/25 19:47 IMPRESSION: Nondisplaced comminuted fracture distal radius and mildly displaced ulnar styloid fracture, with soft tissue swelling. Reading Location: [facility] Hand X-Ray 01/28/25 19:47 IMPRESSION: Nondisplaced comminuted fracture distal radius and mildly displaced ulnar styloid fracture, with soft tissue swelling. Reading Location: [facility] Brain CT 01/28/25 20:14 IMPRESSION: No acute intracranial abnormality Chronic microvascular ischemia and involutional changes. Reading Location: [facility] Physical Exam Const alert and no apparent distress HEENT head/scalp atraumatic and moist oral mucous membranes Resp normal respiratory effort, no retractions, no use of accessory muscles and clear to auscultation bilaterally Cardio regular rate, regular rhythm, S1 normal heart sound and S2 normal heart sound GI normal to inspection, nondistended, normoactive bowel sounds, soft to palpation, non-tender, non-distended and hepatosplenomegaly Extremity normal to inspection Extremity Narrative: splint on RUE. Assessment & Plan Assessment/Plan (1) UTI (urinary tract infection): PLAN: +UA, UCx not ordered on admission, will order continue CTX (2) Wrist fracture, right: PLAN: s/p fall. Non-displaced. splinted in ED. NWB. check 25-OH d level. (3) Debility: PLAN: Poor baseline performance status made worse by UTI. Now more limited as she will be NWB in RUE. PT OT eval. Anticipate SNF upon discharge. PLAN: Plan Hypothyroidism: levothyroxine. TSH 0.142. Check FT4, if still high, will decrease levothyroxine Depression: continue SSRI. VTE prophylaxis: SQ heparin. Charges/Coding Visit Charges Inpatient E&M: 25497 Subs Hosp L2
[2025-01-29 07:42] LABS: Absolute Lymphocyte Count 1.12 X10^3/uL (0.83-4.51); Absolute Neutrophil Count 2.8 X10^3/uL (2.0-7.7); Basophil# 0.04 X10^3/uL; Basophil% 0.7 % (0-1); Eosinophil# 0.16 X10^3/uL; Eosinophils% 2.9 % (0-5); Hematocrit 35.2 % (37-47); Hemoglobin 11.2 g/dL (12.0-15.0); Lymphocyte # 1.12 X10^3/ul (0.83-4.51); Lymphocyte % 20.2 % (19-41); Mean Corp Hgb Conc 31.8 g/dL (32-36); Mean Corpuscular Hgb 30.2 pg (27.0-32.0); Mean Corpuscular Volume 94.9 fL (81-99); Monocyte# 1.37 X10^3/uL; Monocyte% 24.7 % (0-10); NRBC Flagged by Analyzer 0 % (0-5); Neutrophil # 2.81 X10^3/uL (2.7-7.7); Neutrophil % 50.8 % (47-70); Platelet Count 102 K/mm3 (150-450); RBC Distribution Width CV 13.6 % (11.6-14.6); RBC Distribution Width SD 46.9 fl (35.1-43.9); Red Blood Count 3.71 M/mm3 (4.2-5.4); White Blood Count 5.5 K/mm3 (4.4-11.0)
--- NOTE | 2025-01-29 07:46 | NURSING ---
per Dr. Gamble he is not established with group, therefore need to page NO MD who would be Dr. Devries.
[2025-01-29 08:10] LABS: BUN 6 mg/dL (4-19); Creatinine, Serum 0.46 mg/dL (0.70-1.20); EST Glomerular Filtration Rate 93 (>60); Estimated Creatinine Clearance 48.43 ml/min (50-250); Glucose 76 mg/dL (70-99)
[2025-01-29 08:11] LABS: ALB/GLOB Ratio 1.5 RATIO (0.9-2.4); AST(SGOT) 21 U/L (<=31); Alanine Aminotransfer ALT/SGPT 11 U/L (<=34); Albumin, Serum 3.1 g/dL (3.4-4.8); Alkaline Phosphatase 51 U/L (35-104); Anion Gap 12 (5-15); BUN/Creat Ratio 12.1 RATIO (10-20); Calcium,Total 8.3 mg/dL (7.6-11.0); Carbon Dioxide 20.7 mmol/L (21.0-32.0); Chloride 107 mmol/L (98-108); Globulin 2.1 g/dL (2.2-4.2); Phosphorus 2.6 mg/dL (2.7-4.5); Potassium 3.5 mmol/L (3.3-5.1); Protein, Total 5.2 g/dL (5.9-8.4); Sodium Level 139 mmol/L (133-145); Total Bilirubin 0.92 mg/dL (0.00-1.30)
[2025-01-29] MEDS: Multivitamins,Therapeutic Tablet 1 TABLET PO (10:23)
[2025-01-29] MEDS: Lactobacillis Acidophilus 1 CAP PO ×4 (10:23→22:09)
[2025-01-29] MEDS: Calcium Carb/Vitamin D 1 TABLET Tablet PO (10:23)
[2025-01-29] MEDS: Sertraline 100 MG Tablet PO (10:24)
[2025-01-29] MEDS: Heparin Injection (Vial) 5,000 UNIT/ML VIAL 5000 UNIT SC ×2 (10:24→22:09)
--- NOTE | 2025-01-29 11:15 | CONS.ORTHO ---
Documented by User: LUCHO Calle 01/29/25 11:29 HPI Consult Data Date of Consult: 01/29/25 HPI Narrative HPI Narrative: ERICKA SOLIZ, is a 84 F who presents with a past medical history of essential hypertension; currently not on treatment, hypothyroidism; on levothyroxine, overweight; BMI of 28.5 this admission, history of PSVT, history of nonrheumatic aortic valve stenosis, history of LVH, history of syncope, history of partial hysterectomy (~1965), depression; on sertraline, history of tendinitis of the Left quadriceps tendon and OA; specifically of both knees with chronic debility and increasingly frequent falls; a recent approximately month-long admission to TCU in October 2024 who presents to [facility] ER complaining of fall at home with injury to her Right arm and recent UTI that did not improve with treatment. In the ER she was noted to have a UA positive for Acute Cystitis; without hematuria complicated by X-ray evidence of nondisplaced comminuted fracture distal radius and mildly displaced ulnar styloid fracture with soft tissue swelling causing Generalized Weakness with Ambulatory Dysfunction and increasingly Frequent Falls with the patient living at home alone and unable to care for self at this time. She was then admitted to the general medical floor for ongoing care for a stay that is expected to extend beyond 2 midnights. Patient says that she had a fall in her kitchen while preparing dinner at home. She fell onto an outstretched arm. Patient says that she has had multiple falls over the last several months. Says that when she does have these falls that she does not get lightheaded or dizzy she just will wake up on the ground. After the fall patient's son and [id number] were there to check on her who insisted that she go to the hospital to be seen. Patient says that she does a lot of fine motor activities with needlework and is motivated to get back to that after she heals. [facility] Medical History Frequent falls Syncope Strain of right knee Contusion of right knee LVH (left ventricular hypertrophy) Mixed hyperlipidemia Essential hypertension Palpitations Atrial premature complexes History of PSVT (paroxysmal supraventricular tachycardia) Premature ventricular contractions Nonrheumatic aortic (valve) stenosis Cardiac murmur Home Medications ?Medication ?Instructions ?Recorded ?Last Taken ?Type multivitamin 1 tab PO DAILY supplement 12/17/18 01/27/25 History calcium 500 mg (as 1 tab PO DAILY supplement 12/03/21 01/27/25 History carbonate)-vitamin D3 10 mcg (400 unit) tablet sertraline 100 mg tablet 100 mg PO QDAY mood #90 tabs 11/28/24 01/27/25 Rx levothyroxine 100 mcg tablet 100 mcg PO QDAY thyroid #90 tabs 01/10/25 01/27/25 Rx Allergy/AdvReac Type Severity Reaction Status Date / Time Sulfa (Sulfonamide AdvReac Intermediate Rash Verified 01/28/25 18:38 Antibiotics) Family History Father Cancer LUNG Brother CAD (coronary artery disease) Mother COPD (chronic obstructive pulmonary disease) Uncle Psoriatic arthritis Brain tumor (benign) Surgical History History of partial hysterectomy (~1965) Social History household members: none current occupational status: retired current occupation: worked for ophthalmology Smoking Status: Never smoker Electronic Cigarette Use: not used alcohol intake: never substance use type: does not use caffeine: Yes Type: coffee Number of servings: 1 do you feel safe at home: Yes Vital Signs Vital Signs Vital Signs: 01/28/25 18:38 01/28/25 19:03 01/28/25 20:00 Temperature 96.8 F L Temperature Source Temporal Pulse Rate 100 82 Respiratory Rate 16 18 Respiratory Effort Normal Non-Labored Respiratory Depth Respiratory Pattern Normal Blood Pressure 119/62 125/68 H Blood Pressure Mean 81 87 Blood Pressure Source Blood Pressure Position Blood Pressure Location Pulse Ox 98 97 Oxygen Delivery Method Room Air Room Air 01/28/25 22:00 01/28/25 22:44 01/28/25 23:20 Temperature 96.8 F L Temperature Source Pulse Rate 68 73 Respiratory Rate 14 15 Respiratory Effort Normal Non-Labored Respiratory Depth Normal Respiratory Pattern Normal Blood Pressure 118/60 Blood Pressure Mean 79 Blood Pressure Source Blood Pressure Position Blood Pressure Location Pulse Ox 96 95 95 Oxygen Delivery Method Room Air Room Air 01/28/25 23:42 01/29/25 04:28 01/29/25 04:43 Temperature 97.5 F L 98.4 F Temperature Source Oral Temporal Pulse Rate 64 79 Respiratory Rate 17 15 Respiratory Effort Normal Non-Labored Respiratory Depth Normal Respiratory Pattern Normal Blood Pressure 109/59 L 113/55 L Blood Pressure Mean 75 74 Blood Pressure Source Monitor Monitor Blood Pressure Position Semi-Fowlers Semi-Fowlers Blood Pressure Location Left Arm Left Arm Pulse Ox 94 92 92 Oxygen Delivery Method Room Air Room Air Room Air 01/29/25 07:12 01/29/25 08:59 01/29/25 09:00 Temperature 98 F Temperature Source Oral Pulse Rate 84 80 Respiratory Rate 16 Respiratory Effort Respiratory Depth Respiratory Pattern Blood Pressure 134/56 H Blood Pressure Mean 82 Blood Pressure Source Monitor Blood Pressure Position Sitting Blood Pressure Location Left Forearm Pulse Ox 93 Oxygen Delivery Method Room Air Room Air 01/29/25 09:00 01/29/25 10:00 Temperature Temperature Source Pulse Rate 80 Respiratory Rate 16 Respiratory Effort Normal Non-Labored Normal Non-Labored Respiratory Depth Normal Normal Respiratory Pattern Normal Normal Blood Pressure Blood Pressure Mean Blood Pressure Source Blood Pressure Position Blood Pressure Location Pulse Ox 93 Oxygen Delivery Method Room Air Room Air Weight Weight: 154 lb 1.65 oz Body Mass Index (BMI) 26.3 Physical Exam Const alert, oriented x3 and no apparent distress Extremity normal capillary refill Extremity Narrative: Physical examination shows patient's right wrist in a splint that was placed in the ER. Physical examination shows patient's right fingers swollen and blue. Cap refill was normal. Patient has good range of motion in her finger. Neurovascular examination intact. Patient able to make an okay sign, thumbs up, cross her fingers. Patient denies any pain in her fingers or elbow. Finger abduction and adduction intact. Thumb flexion/extension intact. Lab / Micro Data 01/29/25 07:12 01/29/25 07:12 Labs: Laboratory Results - last 24 hr 01/28/25 20:00: WBC 9.5, RBC 3.96 L, Hgb 12.0, Hct 37.3, MCV 94.2, MCH 30.3, MCHC 32.2, RDW Std Deviation 46.5 H, RDW Coeff of Chris 13.4, Plt Count 116 L, MPV 11.9, Immature Gran % (Auto) 1.100 H, Neut % (Auto) 56.3, Lymph % (Auto) 16.4 L, Clarion % (Auto) 24.9 H, Eos % (Auto) 0.8, Baso % (Auto) 0.5, Absolute Neuts (auto) 5.3, Absolute Lymphs (auto) 1.55, Nucleated RBC % 0, Sodium 140, Potassium 3.8, Chloride 105, Carbon Dioxide 23.8, Anion Gap 11, BUN 10, Creatinine 0.67 L, Estim Creat Clear Calc 50.16, Est GFR (MDRD) Non-Af 85, BUN/Creatinine Ratio 15.0, Glucose 93, Lactic Acid < 1.0, Calcium 8.9, Magnesium 1.7, Total Bilirubin 1.06, AST 29, ALT 13, Alkaline Phosphatase 58, Troponin T High Sens 30 H, Total Protein 5.7 L, Albumin 3.5, Globulin 2.2, Albumin/Globulin Ratio 1.6, Lipase 24, TSH 0.142 L 01/28/25 20:40: Urine Color Yellow, Urine Clarity Cloudy, Urine pH 6.0, Ur Specific Becker 1.015, Urine Protein 100 H, Urine Glucose (UA) Normal, Urine Ketones 15 H, Urine Occult Blood 25 H, Urine Nitrite Positive H, Urine Bilirubin Negative, Urine Urobilinogen Normal, Ur Leukocyte Esterase 500 H, Urine RBC 0-5 SEEN, Urine WBC >100 SEEN, Ur Squamous Epith Cells 10-25 SEEN, Calcium Oxalate Crystal 1+, Amorphous Sediment 1+, Urine Bacteria 4+, Urine Mucus 0 SEEN 01/29/25 07:12: WBC 5.5, RBC 3.71 L, Hgb 11.2 L, Hct 35.2 L, MCV 94.9, MCH 30.2, MCHC 31.8 L, RDW Std Deviation 46.9 H, RDW Coeff of Chris 13.6, Plt Count 102 L, MPV 12.0, Immature Gran % (Auto) 0.700, Neut % (Auto) 50.8, Lymph % (Auto) 20.2, Clarion % (Auto) 24.7 H, Eos % (Auto) 2.9, Baso % (Auto) 0.7, Absolute Neuts (auto) 2.8, Absolute Lymphs (auto) 1.12, Nucleated RBC % 0, Sodium 139, Potassium 3.5, Chloride 107, Carbon Dioxide 20.7 L, Anion Gap 12, BUN 6, Creatinine 0.46 L, Estim Creat Clear Calc 48.43 L, Est GFR (MDRD) Non-Af 93, BUN/Creatinine Ratio 12.1, Glucose 76, Calcium 8.3, Phosphorus 2.6 L, Total Bilirubin 0.92, AST 21, ALT 11, Alkaline Phosphatase 51, Total Protein 5.2 L, Albumin 3.1 L, Globulin 2.1 L, Albumin/Globulin Ratio 1.5 Imaging Radiology Impression Chest X-Ray 01/28/25 19:47 IMPRESSION: No Acute Findings. Reading Location: [facility] Forearm X-Ray 01/28/25 19:47 IMPRESSION: Nondisplaced comminuted fracture distal radius and mildly displaced ulnar styloid fracture, with soft tissue swelling. Reading [facility] Hand X-Ray 01/28/25 19:47 IMPRESSION: Nondisplaced comminuted fracture distal radius and mildly displaced ulnar styloid fracture, with soft tissue swelling. Reading Location: [facility] Brain CT 01/28/25 20:14 IMPRESSION: No acute intracranial abnormality Chronic microvascular ischemia and involutional changes. Reading [facility] Assessment & Plan Assessment/Plan (1) Wrist fracture, right: QUALIFIERS: Encounter type: initial encounter Fracture type: closed Qualified Code(s): S62.101A - Fracture of unspecified carpal bone, right wrist, initial encounter for closed fracture PLAN: Plan Reviewed x-rays done yesterday which show nondisplaced comminuted fracture distal radius and mildly displaced ulnar styloid fracture, with soft tissue swelling. Reviewed with the patient proper wrist elevation to help decrease swelling. Patient understands. Reviewed with the patient finger range of motion to help decrease swelling while keeping her wrist elevated and encouraged the patient to do these movements as frequently as possible to help with the edema. Patient is neurovascularly intact. Due to the nondisplaced fracture we will keep her in the wrist splint and once swelling has gone down she can follow-up in the clinic for x-rays and placement of a short arm cast. Discussed that she would most likely have to wear this cast for between 4 to 6 weeks. Encouraged the patient to walk while admitted. When she is ambulatory reviewed that she would need to wear the sling. Follow-up in clinic after discharge. Patient is in agreement. Documented by User: Dr. Jatin Devries MD 01/29/25 11:46 HPI Consult Data Date of Consult: 01/29/25 [facility] Medical History Frequent falls Syncope Strain of right knee Contusion of right knee LVH (left ventricular hypertrophy) Mixed hyperlipidemia Essential hypertension Palpitations Atrial premature complexes History of PSVT (paroxysmal supraventricular tachycardia) Premature ventricular contractions Nonrheumatic aortic (valve) stenosis Cardiac murmur Home Medications ?Medication ?Instructions ?Recorded ?Last Taken ?Type multivitamin 1 tab PO DAILY supplement 12/17/18 01/27/25 History calcium 500 mg (as 1 tab PO DAILY supplement 12/03/21 01/27/25 History carbonate)-vitamin D3 10 mcg (400 unit) tablet sertraline 100 mg tablet 100 mg PO QDAY mood #90 tabs 11/28/24 01/27/25 Rx levothyroxine 100 mcg tablet 100 mcg PO QDAY thyroid #90 tabs 01/10/25 01/27/25 Rx Allergy/AdvReac Type Severity Reaction Status Date / Time Sulfa (Sulfonamide AdvReac Intermediate Rash Verified 01/28/25 18:38 Antibiotics) Family History Father Cancer LUNG Brother CAD (coronary artery disease) Mother COPD (chronic obstructive pulmonary disease) Uncle Psoriatic arthritis Brain tumor (benign) Surgical History History of partial hysterectomy (~1965) Social History household members: none current occupational status: retired current occupation: worked for ophthalmology Smoking Status: Never smoker Electronic Cigarette Use: not used alcohol intake: never substance use type: does not use caffeine: Yes Type: coffee Number of servings: 1 do you feel safe at home: Yes Physical Exam Narrative Exam to the right upper extremity shows splint in good position. Swelling noticed in all fingers. Passive extension of fingers does not elicit pain. Capillary refill time is normal. Patient able to extend thumb, adduct fingers, okay sign. All other extremities do not show any obvious pain with ROM. Lab / Micro Data 01/29/25 07:12 01/29/25 07:12 Assessment & Plan Assessment/Plan (1) Wrist fracture, right: QUALIFIERS: Encounter type: initial encounter Fracture type: closed Qualified Code(s): S62.101A - Fracture of unspecified carpal bone, right wrist, initial encounter for closed fracture PLAN: Plan Reviewed x-rays done yesterday which show minimally displaced comminuted fracture distal radius and mildly displaced ulnar styloid fracture, with soft tissue swelling. Reviewed with the patient proper wrist elevation to help decrease swelling. Discussed possibility of compartment syndrome if swelling worsens with time. At this time, there is no concern for compartment syndrome. Patient understands. Reviewed with the patient finger range of motion to help decrease swelling while keeping her wrist elevated and encouraged the patient to do these movements as frequently as possible to help with the edema. Patient is neurovascularly intact. Due to the nondisplaced fracture we will keep her in the wrist splint and once swelling has gone down she can follow-up in the clinic for x-rays and placement of a short arm cast. Discussed that she would most likely have to wear this cast for between 4 to 6 weeks. Encouraged the patient to walk while admitted. When she is ambulatory reviewed that she would need to wear the sling. Follow-up in clinic after discharge. Patient is in agreement. Charges/Coding Visit Charges Inpatient E&M: 51245 Init Hosp L3
[2025-01-29] MEDS: Triamcinolone Acetonide 0.1% Cream 15 gm 1 APPLIC TOPICAL (14:10)
--- NOTE | 2025-01-29 15:05 | CASEMGMT ---
MOSES COOPER Assessment Face to Face with patient for initial transition planning/care coordination assessment. MOSES COOPER introduced self and role at [facility], pt voices understanding. Pt is A&Ox4 and is resting comfortably in bed and is calm. Care providers, pharmacy, and demographics verified. Admitting dx: UTI, Fall with right wrist fracture LACE Strata: 2 PCP: Nara Orta Specialists: Marcelo ([facility]), Kia (ENT), Jaycob (Ortho) [facility] Insurance: [facility], [employer] [facility] Prescription Benefit: Yes LNOK: Wm Tanner (Son), Irlanda Diop (Daughter) Living Arrangements: Pt lives alone in a single story home with a ramp ADLs/IADLs: Pt states that she is independent at baseline Transportation: Pt states that she does not drive but that her daughter drives her and denies concerns DME: Medical alert system, Arm Sling, FWW, cane, [place] [facility] [place]: Hx with [facility] HH and [facility] TCU Pt?s goal: Return to PLOF Plan: TBD. Anticipate SNF vs Home with HHC. Current 6-click score is 18. PT eval is pending. CM to follow. At this time, the pt states that it is too early to tell what she will need or want @ the time of DC. Pt states that she would likely be open to either the TCU or HH again. Per Dr. Devries's note, the orthopedic MD would like the pt to eventually return to the clinic once the swelling has decreased for f/u x-rays. Pt states understanding and plans to do so. Pt denies further questions or concerns at this time. Report given to SHANNON LOPES CM. Augustin Dos Santos RN, CM
--- NOTE | 2025-01-29 16:07 | NURSING ---
All documentation by nursing informatics analyst Lindsey Villanueva reviewed by instructor of nursing Irlanda MEJÍAN, RN.
[2025-01-29 16:22] LABS: Vitamin D,25 Hydroxy 27.8 ng/mL (30-100)
[2025-01-29] MEDS: Acetaminophen 325 MG Tablet 650 MG PO (18:43)
[2025-01-29] MEDS: oxyCODONE 5 MG Tablet PO (20:42)
[2025-01-29] MEDS: Ceftriaxone 1 GM/50 ML BAG IV (22:09)
[2025-01-30] VITALS (8 sets, daily range): BP systolic 108–129; BP diastolic 56–68; PULSE 77–96; RESP 15–17; TEMP 36.6–36.7; O2SAT 94–97; BMI 26.6
[2025-01-30] MEDS: Levothyroxine 100 MCG Tablet PO (06:13)
[2025-01-30 07:00] LABS: Phosphorus 3.1 mg/dL (2.7-4.5)
--- NOTE | 2025-01-30 08:15 | PN.HOSP_ITS ---
Reason for Visit Reason for Visit: Diagnoses Overweight (01/28/25) Unilateral primary osteoarthritis, right knee (01/28/25) Unilateral primary osteoarthritis, left knee (01/28/25) Acute cystitis without hematuria (01/28/25) Urinary tract infection, site not specified (01/28/25) Difficulty in walking, not elsewhere classified (01/28/25) Repeated falls (01/28/25) Weakness (01/28/25) Other malaise (01/28/25) Unspecified fracture of the lower end of right radius, initial encounter for closed fracture (01/28/25) Fracture of unspecified carpal bone, right wrist, initial encounter for closed fracture (01/28/25) Unspecified fall, initial encounter (01/28/25) Unspecified place in unspecified non-institutional (private) residence as the place of occurrence of the external cause (01/28/25) Subjective Subjective Had confusion last night with oxycodone. Objective Data Objective Data Vital Signs: Vital Signs Temp Pulse Resp BP Pulse Ox O2 Del Method 36.7 C 82 15 119/67 94 Room Air 01/30/25 02:36 01/30/25 04:30 01/30/25 02:36 01/30/25 02:36 01/30/25 07:26 01/30/25 07:26 Oxygen Delivery Method Room Air Weight: 70.7 kg Body Mass Index (BMI) 26.6 Intake & Output: Intake and Output for Last 24 Hours 01/28/25 01/29/25 01/30/25 23:59 23:59 23:59 Intake Total 550 / 650 1250 / 1250 400 / 400 Output Total 100 / 100 Balance 550 / 650 1150 / 1150 400 / 400 Lab / Micro Data 01/29/25 07:12 01/29/25 07:12 Labs: Laboratory Results - last 24 hr 01/29/25 07:12: Vitamin D 25-Hydroxy 27.8 L, Free T4 1.10 01/30/25 06:01: Phosphorus 3.1 Physical Exam Const alert and no apparent distress HEENT head/scalp atraumatic Extremity Extremity Narrative: right arm casted. Assessment & Plan Assessment/Plan (1) UTI (urinary tract infection): PLAN: +UA, UCx not ordered on admission. Completed after abx initiated. continue CTX (2) Wrist fracture, right: QUALIFIERS: Encounter type: initial encounter Fracture type: c losed Qualified Code(s): S62.101A - Fracture of unspecified carpal bone, right wrist, initial encounter for closed fracture PLAN: s/p fall. Non-displaced. splinted in ED. NWB. 25-OH d level 27.8. Will replace with ergocalciferol Seen by ortho, continue spint for 4-6 weeks. Follow up with ortho as outpt. (3) Debility: PLAN: Poor baseline performance status made worse by UTI. Now more limited as she will be NWB in RUE. PT OT eval. Anticipate SNF upon discharge. PLAN: Plan Hypothyroidism: levothyroxine. TSH 0.142. FT4 WNL. Depression: continue SSRI. VTE prophylaxis: SQ heparin. Referral sent to TCU. Tentatitive plan for discharge to TCU (if accepted) on 01/31. Charges/Coding Visit Charges Inpatient E&M: 02427 Subs Hosp L2
--- NOTE | 2025-01-30 08:38 | NURSING ---
per micro, they will run culture off of urine collected in ER
[2025-01-30] MEDS: Sertraline 100 MG Tablet PO (10:00)
[2025-01-30] MEDS: Multivitamins,Therapeutic Tablet 1 TABLET PO (10:00)
[2025-01-30] MEDS: Lactobacillis Acidophilus 1 CAP PO ×4 (10:00→21:13)
[2025-01-30] MEDS: Heparin Injection (Vial) 5,000 UNIT/ML VIAL 5000 UNIT SC ×2 (10:02→21:13)
--- NOTE | 2025-01-30 10:55 | CASEMGMT ---
MOSES COOPER NOTE: Therapy notes reviewed. Pt needed max assist to change hospital gown and had difficulty w/getting up from chair requiring max assist, fearful. Once she was up, able to ambulate 140 ft. Pt is NWB RUE w/sling in place. RN CM to room. Pt sitting up in chair in room. Introduced self and role. Pt states she does not feel like she did well with therapy today, stating she is not able to discharge home alone. She stated, I've gotta do something because I can't go home alone. Questions answered. Pt states she would like to go to [facility]CU @ discharge before returning home, stating she has been there in the past and would like to go again. She declines wanting list of other SNF options [facility] MOSES COOPER informed that pt's son, Wm, called in earlier and would like to talk w/MOSES COOPER. Pt gave permission for RN ALLISON to call Wm and update him on her preference of [facility] TCU. Call placed to Wm. He also voiced concern w/pt discharging home alone. Made aware pt would like to to go [facility] @ [place] and that a referral will be made. He states is agreeable to this plan. Sam RENEE RN, CM
--- NOTE | 2025-01-30 11:58 | CASEMGMT ---
Social Work Per RNCM, pt is requesting short term placement at TCU. Referral sent to Barbara in TCU. SW will await determination of acceptance. ANAYELI Isbell
[2025-01-30] MEDS: Ergocalciferol 1.25 MG (50, 000 UNIT) Capsule PO (14:02)
--- NOTE | 2025-01-30 15:57 | CASEMGMT ---
Social Work TCU is able to accept pt tomorrow. SW met with pt and pt's dgt Irlanda Diop and informed of acceptance to TCU, both are agreeable to dc plan. Physician notified. ANAYELI Isbell
[2025-01-30] MEDS: Acetaminophen 325 MG Tablet 650 MG PO (20:12)
[2025-01-30] MEDS: Ceftriaxone 1 GM/50 ML BAG IV (21:17)
[2025-01-31 02:10] VITALS: BP 152/81; PULSE 65; RESP 16; TEMP 36.6; O2SAT 97
[2025-01-31 05:27] VITALS: BMI 25.0
[2025-01-31] MEDS: Levothyroxine 100 MCG Tablet PO (05:51)
[2025-01-31 07:12] VITALS: O2SAT 96
--- NOTE | 2025-01-31 07:49 | PCM.PN.HOSP ---
Reason for Visit Reason for Visit: Diagnoses Overweight (01/28/25) Unilateral primary osteoarthritis, right knee (01/28/25) Unilateral primary osteoarthritis, left knee (01/28/25) Acute cystitis without hematuria (01/28/25) Urinary tract infection, site not specified (01/28/25) Difficulty in walking, not elsewhere classified (01/28/25) Repeated falls (01/28/25) Weakness (01/28/25) Other malaise (01/28/25) Unspecified fracture of the lower end of right radius, initial encounter for closed fracture (01/28/25) Fracture of unspecified carpal bone, right wrist, initial encounter for closed fracture (01/28/25) Unspecified fall, initial encounter (01/28/25) Unspecified place in unspecified non-institutional (private) residence as the place of occurrence of the external cause (01/28/25) Subjective Subjective Feeling well. No new complaints. Objective Data Objective Data Vital Signs: Vital Signs Temp Pulse Resp BP Pulse Ox O2 Del Method 36.6 C 65 16 152/81 H 96 Room Air 01/31/25 02:10 01/31/25 02:10 01/31/25 02:10 01/31/25 02:10 01/31/25 07:12 01/31/25 07:12 Oxygen Delivery Method Room Air Weight: 66.6 kg Body Mass Index (BMI) 25.0 Intake & Output: Intake and Output for Last 24 Hours 01/29/25 01/30/25 01/31/25 23:59 23:59 23:59 Intake Total 1250 / 1250 450 / 450 Output Total 100 / 100 Balance 1150 / 1150 450 / 450 Lab / Micro Data 01/29/25 07:12 01/29/25 07:12 Physical Exam Const alert and no apparent distress HEENT head/scalp atraumatic and moist oral mucous membranes Extremity Extremity Narrative: right arm splinted. Assessment & Plan Assessment/Plan (1) UTI (urinary tract infection): PLAN: +UA, UCx not ordered on admission. UCx performed after abx initiated and thus far pending. will discharge with nitrofurantoin. (2) Wrist fracture, right: QUALIFIERS: Encounter type: initial encounter Fracture type: closed Qualified Code(s): S62.101A - Fracture of unspecified carpal bone, right wrist, initial encounter for closed fracture PLAN: s/p fall. Non-displaced. splinted in ED. NWB. 25-OH d level 27.8. Will replace with ergocalciferol Seen by ortho, continue spint for 4-6 weeks. Follow up with ortho as outpt. (3) Debility: PLAN: Poor baseline performance status made worse by UTI. Now more limited as she will be NWB in RUE. PT OT eval. Anticipate SNF upon discharge. PLAN: Plan Hypothyroidism: levothyroxine. TSH 0.142. FT4 WNL. Depression: continue SSRI. VTE prophylaxis: SQ heparin. DC to TCU. DW patient's dtr at bedside.
[2025-01-31] MEDS: Sertraline 100 MG Tablet PO (08:31)
[2025-01-31] MEDS: Multivitamins,Therapeutic Tablet 1 TABLET PO (08:31)
[2025-01-31] MEDS: Lactobacillis Acidophilus 1 CAP PO (08:32)
[2025-01-31] MEDS: Heparin Injection (Vial) 5,000 UNIT/ML VIAL 5000 UNIT SC (08:32)
[2025-01-31] MEDS: Triamcinolone Acetonide 0.1% Cream 15 gm 1 APPLIC TOPICAL (08:40)
[2025-01-31 08:41] VITALS: BP 121/57; PULSE 74; RESP 16; TEMP 37.1; O2SAT 97
[2025-01-31 08:52] VITALS: RESP 18
--- NOTE | 2025-01-31 09:37 | PCM.TXEXTCAR ---
Diet Diet Order/Speech Therapy: 01/28/25 23:21 Diet: Cardiac - Heart Healthy Food consistency:: Regular Liquid Consistency:: Regular/Thin Routine Orders/Code Status Code Status: Full Code DC O2, CPAP, BIPAP needs Home O2 Discharge instructions: No Therapies Weight Bearing: Non weight bearing Extremity Affected:: Right Upper (maintain splint of RUE. Splint must be covered to prevent getting wet when showering/bathing. ) Physical Therapy: Eval and Treat Occupational Therapy: Eval and Treat Problem/Diagnosis (1) UTI (urinary tract infection): Status: Acute Code(s): N39.0 - Urinary tract infection, site not specified Plan: +UA, UCx not ordered on admission. UCx performed after abx initiated and thus far pending. will discharge with nitrofurantoin. (2) Wrist fracture, right: Status: Acute Code(s): S62.101A - Fracture of unspecified carpal bone, right wrist, initial encounter for closed fracture Plan: s/p fall. Non-displaced. splinted in ED. NWB. 25-OH d level 27.8. Will replace with ergocalciferol Seen by ortho, continue spint for 4-6 weeks. Follow up with ortho as outpt. (3) Debility: Status: Acute Code(s): R53.81 - Other malaise Plan: Poor baseline performance status made worse by UTI. Now more limited as she will be NWB in RUE. PT OT eval. Anticipate SNF upon discharge. Plan Hypothyroidism: levothyroxine. TSH 0.142. FT4 WNL. Depression: continue SSRI. VTE prophylaxis: SQ heparin. DC to TCU. DW patient's dtr at bedside. Allergies/Procedures Done in Hospital Allergies Sulfa (Sulfonamide Antibiotics) Adverse Reaction (Intermediate, Verified 01/28/25 18:38) Rash Procedures: None Type of Care/Length of Stay Estimated LOS: Convalescent Care Less Than 30 days Type of Care Needed: Skilled Rehab Potential: Good Prognosis: Good Additional Orders/Day of Discharge Day of Discharge: 01/31/25 Discharge Plan Admission Admit Date/Time: 01/28/25 22:29 Primary Reason for Your Visit: right wrist fracture. Attending Provider: Quan Reeder Primary Care Provider: Nara Orta Consulting Providers: Justino Chatman; Jatin Devries Discharge Orders/Prescriptions Prescriptions: New acetaminophen 325 mg Tablet 650 mg PO Q8H PRN PRN (Reason: Pain 1-5/10 Or Fever) Qty: 0 0RF ergocalciferol (vitamin D2) [Vitamin D2] 1,250 mcg (50,000 unit) Capsule 1,250 mcg PO Q7D 49 Days Qty: 7 0RF heparin (porcine) 5,000 unit/mL Solution 5,000 unit subcut Q12 Qty: 0 0RF nitrofurantoin macrocrystal 100 mg capsule 100 mg PO BID 5 Days Qty: 10 0RF Rx Instructions: must administer with a meal/food Continued multivitamin tablet 1 tab PO DAILY sertraline 100 mg tablet 100 mg PO QDAY Qty: 90 0RF levothyroxine 100 mcg tablet 100 mcg PO QDAY Qty: 90 0RF Held calcium carbonate-vitamin D3 500 mg-10 mcg (400 unit) tablet 1 tab PO DAILY Hold Instructions: Resume on 03/26/25. Referrals / Follow Up: Nara Orta MD [Primary Care Provider] - Within 2 Weeks Jatin Devries MD [Med Staff - Active Staff] - Within 2 Weeks Disposition Disposition (needs filled in before D/C Order can be placed): Long Term Facility (2) Wrist fracture, right Qualifiers: Encounter type: initial encounter Fracture type: closed Qualified Code(s): S62.101A - Fracture of unspecified carpal bone, right wrist, initial encounter for closed fracture
--- NOTE | 2025-01-31 09:44 | DS.PCM_ITS ---
Providers Date of Admission: 01/28/25 Primary Care Physician: Dr. Nara Orta MD Consultations 01/28/25 23:21 Consult: Orthopedics Routine Consulting Provider: Jatin Devries Reason for Consult: Right wrist fracture after fall. EMERGENT Consult: No MD Notified: Yes Date Notified: 01/29/25 Time Notified: 08:35 Method of Notification: Text Reason For Visit: UTI, FALL WITH RIGHT WRIST FRACTURE & Diagnosis Discharge Diagnosis (1) UTI (urinary tract infection): Status: Acute Code(s): N39.0 - Urinary tract infection, site not specified Plan: +UA, UCx not ordered on admission. UCx performed after abx initiated and thus far pending. will discharge with nitrofurantoin. (2) Wrist fracture, right: Status: Acute Code(s): S62.101A - Fracture of unspecified carpal bone, right wrist, initial encounter for closed fracture Qualifiers: Encounter type: initial encounter Fracture type: closed Qualified Code(s): S62.101A - Fracture of unspecified carpal bone, right wrist, initial encounter for closed fracture Plan: s/p fall. Non-displaced. splinted in ED. NWB. 25-OH d level 27.8. Will replace with ergocalciferol Seen by ortho, continue spint for 4-6 weeks. Follow up with ortho as outpt. (3) Debility: Status: Acute Code(s): R53.81 - Other malaise Plan: Poor baseline performance status made worse by UTI. Now more limited as she will be NWB in RUE. PT OT eval. Anticipate SNF upon discharge. Plan Hypothyroidism: levothyroxine. TSH 0.142. FT4 WNL. Depression: continue SSRI. VTE prophylaxis: SQ heparin. DC to TCU. DW patient's dtr at bedside. Medications at Discharge Home Medications multivitamin 1 tab PO DAILY supplement 12/17/18 calcium 500 mg (as carbonate)-vitamin D3 10 mcg (400 unit) tablet 1 tab PO DAILY supplement 12/03/21 Held on 01/31/25. Instructions: Resume on 03/26/25. sertraline 100 mg tablet 100 mg PO QDAY mood #90 tabs 11/28/24 levothyroxine 100 mcg tablet 100 mcg PO QDAY thyroid #90 tabs 01/10/25 acetaminophen 325 mg tablet 650 mg (2 x 325 mg) PO Q8H PRN PRN Pain 1-5/10 Or Fever #0 tabs 01/31/25 ergocalciferol (vitamin D2) 1,250 mcg (50,000 unit) capsule (Vitamin D2) 1,250 mcg PO Q7D 7 weeks #7 caps 01/31/25 heparin (porcine) 5,000 unit/mL injection solution 5,000 unit subcut Q12 #0 mL 01/31/25 nitrofurantoin macrocrystal 100 mg capsule 100 mg PO BID 5 days #10 caps 01/31/25 Hospital Course Operations None Procedures None Summary of Care Provided Minutes Spent on Discharge: 32 Hospital Course: Patient fell and sustained nondisplaced fracture of her right wrist. Splinted in the emergency room. Seen by orthopedics recommend discontinuing splint and follow-up with orthopedics as outpatient. Patient had a urinary tract infection with start on antibiotics but urine culture was not performed initially. It was ordered subsequently but still is still pending at this time. Patient was on Rocephin. Patient will be discharged with nitrofurantoin to complete a 7-day course of antibiotics. Patient otherwise doing well but given her baseline poor performance status and now right wrist fracture, patient will be going to the transitional care unit. Weight / BMI Weight Weight: 66.6 kg Body Mass Index (BMI) 25.0 ABG / Lab / Microbiology Data 01/29/25 07:12 01/29/25 07:12 D/C Instructions Discharge Diet: No restrictions DC O2, CPAP, BIPAP Needs Home O2 Discharge instructions: No Meaningful Use Info Meaningful Use Meaningful Use Diagnoses (Choose all that apply): None applicable Ischemic Stroke Statin Dosing Therapy Reference: STATIN DOSE THERAPY REFERENCE: * Patients > 75 years receive moderate or high dose statin therapy. * Patients 75 years or YOUNGER should receive HIGH intensity statin dose unless contraindicated. You will be required to document reason for non-treatment if statin daily dose does not meet guidelines. HIGH DOSE STATIN THERAPY DAILY Atorvastatin > than or = to 40 mg Rosuvastatin > than or = to 20 mg Amlodipine + Atorvastatin > than or = to 2.5/40 mg Ezetimibe + Simvastatin 10/80 mg Simvastatin 80mg Discharge Plan Admission Admit Date/Time: 01/28/25 22:29 Primary Reason for Your Visit: right wrist fracture. Attending Provider: Quan Reeder Primary Care Provider: Nara Orta Consulting Providers: Justino Chatman; Jatin Devries Discharge Orders/Prescriptions Prescriptions: New acetaminophen 325 mg Tablet 650 mg PO Q8H PRN PRN (Reason: Pain 1-5/10 Or Fever) Qty: 0 0RF ergocalciferol (vitamin D2) [Vitamin D2] 1,250 mcg (50,000 unit) Capsule 1,250 mcg PO Q7D 49 Days Qty: 7 0RF heparin (porcine) 5,000 unit/mL Solution 5,000 unit subcut Q12 Qty: 0 0RF nitrofurantoin macrocrystal 100 mg capsule 100 mg PO BID 5 Days Qty: 10 0RF Rx Instructions: must administer with a meal/food Continued multivitamin tablet 1 tab PO DAILY sertraline 100 mg tablet 100 mg PO QDAY Qty: 90 0RF levothyroxine 100 mcg tablet 100 mcg PO QDAY Qty: 90 0RF Held calcium carbonate-vitamin D3 500 mg-10 mcg (400 unit) tablet 1 tab PO DAILY Hold Instructions: Resume on 03/26/25. Referrals / Follow Up: Nara Orta MD [Primary Care Provider] - Within 2 Weeks Jatin Devries MD [Med Staff - Active Staff] - Within 2 Weeks Disposition Disposition (needs filled in before D/C Order can be placed): Intermediate Facility Charges/Coding Visit Charges Inpatient E&M: 02104 Disch Hosp >30min
--- NOTE | 2025-01-31 10:05 | PHA.DC.MR.R ---
Pharmacy [place] Med Reconciliation Pharmacy Service has performed discharge medication reconciliation for this patient. The patient's discharge medication list was reviewed for discrepancies and discrepancies were resolved. Medications at Discharge Home Medications multivitamin 1 tab PO DAILY supplement 12/17/18 calcium 500 mg (as carbonate)-vitamin D3 10 mcg (400 unit) tablet 1 tab PO DAILY supplement 12/03/21 Held on 01/31/25. Instructions: Resume on 03/26/25. sertraline 100 mg tablet 100 mg PO QDAY mood #90 tabs 11/28/24 levothyroxine 100 mcg tablet 100 mcg PO QDAY thyroid #90 tabs 01/10/25 acetaminophen 325 mg tablet 650 mg (2 x 325 mg) PO Q8H PRN PRN Pain 1-5/10 Or Fever #0 tabs 01/31/25 ergocalciferol (vitamin D2) 1,250 mcg (50,000 unit) capsule (Vitamin D2) 1,250 mcg PO Q7D 7 weeks #7 caps 01/31/25 heparin (porcine) 5,000 unit/mL injection solution 5,000 unit subcut Q12 #0 mL 01/31/25 nitrofurantoin macrocrystal 100 mg capsule 100 mg PO BID 5 days #10 caps 01/31/25
--- NOTE | 2025-01-31 10:16 | CASEMGMT ---
Social Work Per physician, pt is ready for discharge today. Barbara in TCU notified and pt can be discharged. Discharge orders faxed to TCU. SW met with pt and dgt and informed and they are agreeable. RN updated. Disposition: TCU, skilled level of care ANAYELI Isbell
[2025-01-31 10:28] VITALS: BP 121/57; PULSE 74; RESP 18; TEMP 37.1; O2SAT 98
== END 2025-01-31 10:33 | disposition skilled nursing facility (03) | DRG 690 ==
LOC: ED 21:47 → MS3 22:43
PROVIDERS: Admitting Provider Internal Medicine; Emergency Provider Emergency Medicine; PCP Internal Medicine
DX: N30.00 Acute cystitis without hematuria (principal); S52.611A Displaced fracture of right ulna styloid process, initial encounter for closed fracture; S52.354A Nondisplaced comminuted fracture of shaft of radius, right arm, initial encounter for closed fracture; E03.9 Hypothyroidism, unspecified; I10 Essential (primary) hypertension; F32.A Depression, unspecified; M17.0 Bilateral primary osteoarthritis of knee; E78.2 Mixed hyperlipidemia; S62.101A Fracture of unspecified carpal bone, right wrist, initial encounter for closed fracture; W18.30XA Fall on same level, unspecified, initial encounter; R53.1 Weakness; Z90.710 Acquired absence of both cervix and uterus; Z68.28 Body mass index [BMI] 28.0-28.9, adult; R26.89 Other abnormalities of gait and mobility; E66.3 Overweight; R53.81 Other malaise; Z79.899 Other long term (current) drug therapy; Z79.890 Hormone replacement therapy; R29.6 Repeated falls; Y93.G3 Activity, cooking and baking; Y92.000 Kitchen of unspecified non-institutional (private) residence as the place of occurrence of the external cause
CPT/HCPCS: 36415; 70450; 71045; 73090; 73130; 80053; 81001; 82306; 83605; 83690; 83735; 84100; 84439; 84443; 84484; 85025; 93005; 94668; 97110; 97162; 97166; 97530; 99285

== ENCOUNTER 2025-01-31 10:45 | Inpatient (IN) | payer MEDICARE, OTHER, SELFPAY ==
[2025-01-31 11:01] VITALS: BP 127/66; PULSE 76; RESP 16; TEMP 36.8; O2SAT 95
[2025-01-31 11:03] VITALS: BMI 25.7
[2025-01-31 11:44] VITALS: RESP 16
--- NOTE | 2025-01-31 12:04 | NURSING ---
Updated resident and dtr of follow-up appt with Dr. Devries on 02/13/25 @1100. Explained she needs sent to office as she may need new cast placed. They think family will be able to transport.
--- NOTE | 2025-01-31 14:26 | NURSING ---
Interlibrary Loan Specialist Note; Activity Asset: Yulia Kiran has returned to TCU for therapy after a fall. She remains independent in her choice of daily activities. She will read, watch tv, has word puzzles and family will visits. Staff will encourage social activities, remind her of weekly activities and respect her right to say no.
--- NOTE | 2025-01-31 14:40 | HP.PCM_ITS ---
HPI - General General Date of Admission: 01/31/25 Date of Service: 01/31/25 Chief Complaint: Here for rehabilitation. HPI Narrative ERICKA SOLIZ, is a 84 Female who presents with followin01/28/2025 [facility] ED weakness. Weakness for several months, recent UTI treated. Eating less, drinking less. Fell, hurt right hand, X-ray shows right distal ulnar fracture. Urinalysis c/w UTI. 01/28/2025 Admit [facility]. Ceftriaxone IV for UTI. Splint for right distal ulnar fracture. PT/OT debility. 01/29/2025 No acute events overnight. Ceftriaxone IV for UTI, order urine culture. NWB right upper extremity right wrist fracture. PT/OT SNF. 01/29/2025 Dr. Devries recommended splint right wrist fracture, then short arm cast when swelling improved. 01/30/2025 Confusion after oxycodone. Ceftriaxone IV for UTI. 01/31/2025 No acute events overnight, feels well. Urine culture pending, Nitrofurantoin PO on discharge. 01/31/2025 Admit to TCU with debility, here for rehabilitation, strengthening, prior to discharge home alone. [facility] Medical History Frequent falls Syncope Strain of right knee Contusion of right knee LVH (left ventricular hypertrophy) Mixed hyperlipidemia Essential hypertension Palpitations Atrial premature complexes History of PSVT (paroxysmal supraventricular tachycardia) Premature ventricular contractions Nonrheumatic aortic (valve) stenosis Cardiac murmur Home Medications ?Medication ?Instructions ?Recorded ?Last Taken ?Type multivitamin 1 tab PO DAILY supplement 01/27/25 History calcium 500 mg (as 1 tab PO DAILY supplement 01/27/25 History carbonate)-vitamin D3 10 mcg (400 unit) tablet Held on 01/31/25. Instructions: Resume on 03/26/25. sertraline 100 mg tablet 100 mg PO QDAY mood #90 tabs 11/28/24 01/27/25 Rx levothyroxine 100 mcg tablet 100 mcg PO QDAY thyroid # 90 tabs 01/10/25 01/27/25 Rx acetaminophen 325 mg tablet 650 mg (2 x 325 mg) PO Q8H PRN PRN 01/31/25 Unknown Rx Pain 1-5/10 Or Fever #0 tabs ergocalciferol (vitamin D2) 1,250 1,250 mcg PO Q7D sup plement 7 01/31/25 Unknown Rx mcg (50,000 unit) capsule (Vitamin weeks #7 caps D2) heparin (porcine) 5,000 unit/mL 5,000 unit subcut Q12 blood 01/31/25 Unknown Rx injection solution thinner #0 mL nitrofurantoin macrocrystal 100 mg 100 mg PO BID UTI 5 days #10 caps 01/31/25 Unknown Rx capsule Allergy/AdvReac Type Severity Reaction Status Date / Time Sulfa (Sulfonamide AdvReac Intermediate Rash Verified 01/28/25 18:38 Antibiotics) Family History Father Cancer LUNG Brother CAD (coronary artery disease) Mother COPD (chronic obstructive pulmonary disease) Uncle Psoriatic arthritis Brain tumor (benign) Surgical History History of partial hysterectomy (~1965) Social History household members: none current occupational status: retired current occupation: worked for ophthalmology Smoking Status: Never smoker Electronic Cigarette Use: not used alcohol intake: never substance use type: does not use caffeine: Yes Type: coffee Number of servings: 1 do you feel safe at home: Yes Vital Signs Vital Signs Vital Signs: 01/31/25 11:01 01/31/25 11:44 Temperature 98.3 F Temperature Source Temporal Pulse Rate 76 Pulse Rhythm Regular Pulse Strength Normal (2+) Respiratory Rate 16 16 Respiratory Effort Normal Non-Labored Respiratory Depth Normal Respiratory Pattern Normal Blood Pressure 127/66 H Blood Pressure Mean 86 Blood Pressure Source Monitor Blood Pressure Position Sitting Blood Pressure Location Left Arm Pulse Ox 95 Oxygen Delivery Method Room Air Room Air Weight Weight: 67.948 kg Body Mass Index (BMI) 25.7 Assessment & Plan Assessment/Plan (1) Debility: (2) Wrist fracture, right: QUALIFIERS: Encounter type: initial encounter Fracture type: c losed Qualified Code(s): S62.101A - Fracture of unspecified carpal bone, right wrist, initial encounter for closed fracture (3) UTI (urinary tract infection): (4) Fall at home: QUALIFIERS: Encounter type: initial encounter Qualified Code(s): W19.XXXA - Unspecified fall, initial encounter; Y92.009 - Unspecified place in unspecified non-institutional (private) residence as the place of occurrence of the external cause (5) Depression: (6) Hypothyroidism: (7) Essential (primary) hypertension: (8) Hyperlipidemia, unspecified: PLAN: Plan 84 year old female with below past medical history hospitalized for fall, right wrist fracture, urinary tract infection, admitted to TCU with debility, here for rehabilitation, strengthening, prior to discharge home alone. * Debility - PT/OT. * Pain - Tylenol 1000mg q6 prn pain (1-10). * Bowel - Miralax 17gm daily, senna/colace 1 tablet bid. * Adult immunization - Administer pneumonia vaccine, covid vaccine, flu vaccine as appropriate. * DVT prophylaxis - Lovenox 40mg sc daily. * Vitamin D deficiency - D 1.25mg per week. * Hypothyroidism - Levothyroxine 100mcg daily. * Skin irritation - Calmoseptine topical bid. * Nutrition - MVI 1 tablet daily. * UTI - Nitrofurantoin 100mg bid thru 02/05/2025, urine culture pending. * Tinea Corporis - Nystatin powder topical bid. * Dry eyes - Artificial tears 2gtt ou q1h prn. * Depression - Sertraline 100mg daily, stable chronic nursing home use, GDR not recommended.
[2025-01-31] MEDS: Juven (unflavored) Packet 1 PACKET PO (17:50)
[2025-01-31] MEDS: Acetaminophen 500 MG Tablet 1000 MG PO (19:39)
[2025-01-31] MEDS: Nitrofurantoin Macrocrystals 100 MG Capsule PO (21:22)
[2025-01-31] MEDS: Nystatin Powder 15gm Bottle 1 APPLIC TOPICAL (21:22)
[2025-01-31] MEDS: Senna/Docusate Sodium 1 Tablet PO (21:22)
[2025-01-31] MEDS: Menthol/Lanolin/Calamine/Znox 113 GM Tube 1 APPLIC TOPICAL (21:23)
[2025-01-31] MEDS: 0.9% Saline Lock 10 ML Syringe IV (21:26)
[2025-01-31] MEDS: traMADol 50 MG Tablet PO (22:02)
[2025-02-01] MEDS: Levothyroxine 100 MCG Tablet PO (06:00)
[2025-02-01] MEDS: Enoxaparin 40 MG/0.4 ML Syringe SC (06:00)
[2025-02-01] MEDS: Senna/Docusate Sodium 1 Tablet PO ×2 (08:07→20:37)
[2025-02-01] MEDS: Nitrofurantoin Macrocrystals 100 MG Capsule PO ×2 (08:07→20:37)
[2025-02-01] MEDS: Menthol/Lanolin/Calamine/Znox 113 GM Tube 1 APPLIC TOPICAL ×2 (08:07→20:38)
[2025-02-01] MEDS: Polyethylene Glycol 3350 17 GM PACKET PO (08:07)
[2025-02-01] MEDS: Sertraline 100 MG Tablet PO (08:07)
[2025-02-01] MEDS: Juven (unflavored) Packet 1 PACKET PO ×2 (08:07→17:04)
[2025-02-01] MEDS: Nystatin Powder 15gm Bottle 1 APPLIC TOPICAL ×2 (08:08→20:38)
[2025-02-01 09:14] LABS: Absolute Lymphocyte Count 1.02 X10^3/uL (0.83-4.51); Absolute Neutrophil Count 2.2 X10^3/uL (2.0-7.7); Basophil# 0.03 X10^3/uL; Basophil% 0.7 % (0-1); Eosinophil# 0.13 X10^3/uL; Eosinophils% 3.1 % (0-5); Hematocrit 39.4 % (37-47); Hemoglobin 12.5 g/dL (12.0-15.0); Lymphocyte # 1.02 X10^3/ul (0.83-4.51); Lymphocyte % 24.5 % (19-41); Mean Corp Hgb Conc 31.7 g/dL (32-36); Mean Corpuscular Hgb 30.3 pg (27.0-32.0); Mean Corpuscular Volume 95.4 fL (81-99); Mean Platelet Vol. 12.1 fl (6.2-12.0); Monocyte# 0.74 X10^3/uL; Monocyte% 17.8 % (0-10); NRBC Flagged by Analyzer 0 % (0-5); Neutrophil # 2.22 X10^3/uL (2.7-7.7); Neutrophil % 53.4 % (47-70); Platelet Count 115 K/mm3 (150-450); RBC Distribution Width CV 13.2 % (11.6-14.6); Red Blood Count 4.13 M/mm3 (4.2-5.4); White Blood Count 4.2 K/mm3 (4.4-11.0)
[2025-02-01] MEDS: Multivitamins,Therapeutic Tablet 1 TABLET PO (09:27)
[2025-02-01 09:47] VITALS: BP 129/77; PULSE 69; RESP 17; TEMP 36.2; O2SAT 99
[2025-02-01 09:52] LABS: Anion Gap 11 (5-15); BUN 11 mg/dL (4-19); BUN/Creat Ratio 23.5 RATIO (10-20); Chloride 104 mmol/L (98-108); Creatinine, Serum 0.48 mg/dL (0.70-1.20); EST Glomerular Filtration Rate 92 (>60); Estimated Creatinine Clearance 47.81 ml/min (50-250); Glucose 147 mg/dL (70-99); Potassium 3.5 mmol/L (3.3-5.1); Sodium Level 140 mmol/L (133-145)
[2025-02-01] MEDS: Tuberculin,Purif.prot.deriv. 50 TU/ML Vial 0.1 ML ID (10:14)
[2025-02-01] MEDS: traMADol 50 MG Tablet PO ×2 (13:08→20:42)
[2025-02-01] MEDS: Acetaminophen 500 MG Tablet 1000 MG PO (20:43)
[2025-02-01 21:00] VITALS: RESP 18
[2025-02-02 05:35] VITALS: RESP 17
[2025-02-02] MEDS: Levothyroxine 100 MCG Tablet PO (05:48)
[2025-02-02] MEDS: Enoxaparin 40 MG/0.4 ML Syringe SC (05:48)
[2025-02-02] MEDS: Senna/Docusate Sodium 1 Tablet PO (07:30)
[2025-02-02] MEDS: Polyethylene Glycol 3350 17 GM PACKET PO (07:30)
[2025-02-02] MEDS: Juven (unflavored) Packet 1 PACKET PO (07:30)
[2025-02-02] MEDS: Nitrofurantoin Macrocrystals 100 MG Capsule PO ×2 (07:30→20:30)
[2025-02-02] MEDS: Multivitamins,Therapeutic Tablet 1 TABLET PO (07:30)
[2025-02-02] MEDS: Sertraline 100 MG Tablet PO (07:31)
[2025-02-02] MEDS: Nystatin Powder 15gm Bottle 1 APPLIC TOPICAL ×2 (07:31→20:42)
[2025-02-02] MEDS: Menthol/Lanolin/Calamine/Znox 113 GM Tube 1 APPLIC TOPICAL ×2 (07:31→20:36)
[2025-02-02 10:01] VITALS: BP 143/74; PULSE 75; RESP 17; TEMP 36.2; O2SAT 97
[2025-02-02] MEDS: Magnesium Citrate 300 ML PO (12:43)
[2025-02-03] MEDS: Levothyroxine 100 MCG Tablet PO (05:22)
[2025-02-03] MEDS: Enoxaparin 40 MG/0.4 ML Syringe SC (05:22)
[2025-02-03 09:08] VITALS: BP 121/61; PULSE 108; RESP 16; TEMP 36.4; O2SAT 94
[2025-02-03] MEDS: Juven (unflavored) Packet 1 PACKET PO ×2 (09:08→16:22)
[2025-02-03] MEDS: Senna/Docusate Sodium 1 Tablet PO (09:08)
[2025-02-03] MEDS: Multivitamins,Therapeutic Tablet 1 TABLET PO (09:08)
[2025-02-03] MEDS: Polyethylene Glycol 3350 17 GM PACKET PO (09:08)
[2025-02-03] MEDS: Sertraline 100 MG Tablet PO (09:08)
[2025-02-03] MEDS: Nitrofurantoin Macrocrystals 100 MG Capsule PO ×2 (09:09→20:49)
[2025-02-03] MEDS: Nystatin Powder 15gm Bottle 1 APPLIC TOPICAL ×2 (09:09→20:50)
[2025-02-03] MEDS: Menthol/Lanolin/Calamine/Znox 113 GM Tube 1 APPLIC TOPICAL ×2 (09:09→20:48)
--- NOTE | 2025-02-03 11:02 | PHA.CONS_ITS ---
Documented by User: Momo Gonzalez 02/03/25 14:42 TCU RX Drug Regimen Review Subjective/Objective Subjective/Objective Subjective: TCU admission, 84 year old female with below past medical history hospitalized for fall, right wrist fracture, urinary tract infection, admitted to TCU with debility, here for rehabilitation, strengthening, prior to discharge home alone. Objective: Allergies Sulfa (Sulfonamide Antibiotics) Adverse Reaction (Intermediate, Verified 01/28/25 18:38) Rash Current Medications Generic Name Dose Route Start Last Admin Trade Name Freq PRN Reason Stop Dose Admin Acetaminophen 1,000 mg 01/31/25 14:52 02/01/25 20:43 Acetaminophen 500 Mg Tablet PO 1,000 mg Q6H PRN PRN Administration Pain Score 1-10 COVID-19 Vaccine mRNA LNP-S (MOD) (PF) 50 mcg 02/03/25 17:00 Covid Vac 24-25 (12up)(Moderna)/Pf 50 Mcg/0.5 Ml Syringe IM 02/03/25 17:01 .ONCE ONE Calamine/Phenol 1 applic 01/31/25 22:00 02/03/25 09:09 Menthol/Lanolin/Calamine/Znox 113 Gm Tube TOPICAL 1 applic BID BRANDON Administration Protocol Enoxaparin Sodium 40 mg 02/01/25 06:00 02/03/25 05:22 Enoxaparin 40 Mg/0.4 Ml Syringe SC 40 mg DAILY@0600 BRANDON Administration Ergocalciferol 1.25 mg 02/06/25 08:00 Ergocalciferol 1.25 Mg (50, 000 Unit) Capsule PO Q7D BRANDON Glycerin/Hypromellose/Polyethylene 2 drp 01/31/25 10:57 Glycerin/Hypromellose/Urx518 15 Ml Bottle EACH EYE Q1H PRN DRY EYES Sodium Chloride 100 mls @ 15 mls/hr 01/31/25 11:17 IV .Q6H40M PRN Saline Flush Sodium Chloride 100 mls @ 15 mls/hr 01/31/25 11:17 IV .Q6H40M PRN Additional IVPB Infusion L-Arginine/L-Glutamine/Calcium HMB 1 packet 01/31/25 17:00 02/03/25 09:08 Ishan (Unflavored) Packet PO 1 packet BIDCM BRANDON Administration Levothyroxine Sodium 100 mcg 02/01/25 06:00 02/03/25 05:22 Levothyroxine 100 Mcg Tablet PO 100 mcg DAILY@0600 BRANDON Administration Magnesium Citrate 300 ml 02/02/25 12:34 02/02/25 12:43 Magnesium Citrate 300 Ml PO 300 ml X1 PRN Administration CONSTIPATION Multivitamins 1 tablet 02/01/25 08:00 02/03/25 09:08 Multivitamins,Therapeutic Tablet PO 1 tablet DAILYCM BRANDON Administration Nitrofurantoin Macrocrystals 100 mg 01/31/25 22:00 02/03/25 09:09 Nitrofurantoin Macrocrystals 100 Mg Capsule PO 02/05/25 10:01 100 mg BID BRANDON Administration Nystatin 1 applic 01/31/25 22:00 02/03/25 09:09 Nystatin Powder 15gm Bottle TOPICAL 1 applic BID BRANDON Administration Protocol Polyethylene Glycol 17 gm 02/01/25 10:00 02/03/25 09:08 Polyethylene Glycol 3350 17 Gm Packet PO 17 gm DAILY BRANDON Administration Senna/Docusate Sodium 1 tablet 01/31/25 22:00 02/03/25 09:08 Senna/Docusate Sodium 1 Tablet PO 1 tablet BID BRANDON Administration Sertraline HCl 100 mg 02/01/25 10:00 02/03/25 09:08 Sertraline 100 Mg Tablet PO 100 mg DAILY BRANDON Administration Sodium Chloride 10 - 40 ml 01/31/25 11:17 01/31/25 21:26 0.9% Saline Lock 10 Ml Syringe IV 10 ml UD PRN Administration SALINE FLUSH Tramadol HCl 50 mg 01/31/25 21:41 02/01/25 20:42 Tramadol 50 Mg Tablet PO 50 mg Q6H PRN PRN Administration Pain Score 4-10 Tuberculin PPD 0.1 ml 02/08/25 10:00 Tuberculin,Purif.Prot.Deriv. 50 Tu/Ml Vial ID 02/08/25 10:01 X1 ONE Problem List Wrist fracture, right (Acute) UTI (urinary tract infection) (Acute) Fall at home (Acute) Depression (Acute) Hypothyroidism (Acute) Hyperlipidemia, unspecified (Acute) Essential (primary) hypertension (Acute) Debility (Acute) Vital Signs Temp Pulse Resp BP Pulse Ox O2 Del Method 97.1 F L 75 17 143/74 H 97 Room Air 02/02/25 10:01 02/02/25 10:01 02/02/25 10:01 02/02/25 10:01 02/02/25 10:01 02/02/25 10:01 Oxygen Delivery Method Room Air Weight: 67.948 kg Body Mass Index (BMI) 25.7 Sodium 140 mmol/L (133-145) 02/01/25 08:39 Potassium 3.5 mmol/L (3.3-5.1) 02/01/25 08:39 Chloride 104 mmol/L (98-108) 02/01/25 08:39 Carbon Dioxide 25.0 mmol/L (21.0-32.0) 02/01/25 08:39 Anion Gap 11 (5-15) 02/01/25 08:39 BUN 11 mg/dL (4-19) 02/01/25 08:39 Creatinine 0.48 mg/dL (0.70-1.20) L 02/01/25 08:39 Est GFR (MDRD) Non-Af 92 (>60) 02/01/25 08:39 BUN/Creatinine Ratio 23.5 RATIO (10-20) H 02/01/25 08:39 Glucose 147 mg/dL (70-99) H 02/01/25 08:39 Assessment/Plan: 1) Pain: acetaminophen 1000mg po 6hr prn pain 1-10, Tramadol 50mg po q6hr prn pain 4-10. Last admin. acetaminophen 02.01.25 1308 (pain 10-10 R arm), 02.01.252042 (pain 9-10 R arm), last admin. Tramadol 02.01.25 1308 (pain 10-10 R arm, assessment post dose pain 8-10), 02.14.252041 (pain 9-10 R arm, assessment post dose resting, eyes closed). Continue to monitor for need, increased usage, sedation (Tramadol) and falls (Tramadol). 2) Bowel: Miralax 17gm po daily, senna/docusate 1 tab po twice daily. Continue to monitor for increased constipation/diarrhea. Last BM 02.03.25. 3) DVT prophylaxis: Lovenox 40mg SC daily. Continue to monitor Hg (02.01.25 12.5), platelets (02.01.25 115), renal function (4.12.25 Cr 0.48, Cl 92). 4) Vit D deficiency: Vit D 1.25mg (50,000 units) po every 7 days. Level (4.9.25 27.8). Continue to monitor Vit D levels periodically as clinically indicated. 5) Hypothyroidism: Levothyroxine 100mcg po daily, T4 (4.9.25 1.1). Please continue to monitor for S/S of hypothyroidism, T4 level as clinically indicated. 6) Nutrition: Multivitamin 1 tab po daily, Ishan 1 packet po twice daily. Continue to monitor nutritional intake, albumin if clinically indicated. 7) UTI: Nitrofurantoin 100mg po twice daily x 5 days (stop 4.25). Continue to monitor for S/S of infection, renal function (4..25 Cr 0.48, Cl 92). 8) Skin Integrity: Calmoseptine 1 otby topical to buttocks BID, Nystatin Powder 1 toby topical under L breast BID. Continue to monitor for skin integrity, S/S of infection. 9) Dry eyes: Artificial tears 2 drops each eye every 1 hr as needed. Continue to monitor for S/S of dry eyes. Assessment/Plan for indications treated with psychotropic medications: 1) Depression: Sertraline 100mg po daily. Use is chronic, please see provider note, GDR not indicated. Continue to monitor mood/affect, Na (02.01.25 140). This medication can increase the risk of falls/fractures and is on the Beer's Criteria Medication List. Please evaluate use as clinically indicated. Medical chart and medication regimen reviewed. The following medication irregularities or issues were identified: None * Date Date of Note: 02/03/25 Documented by User: Dr. Good Olmstead MD 02/03/25 14:01 TCU RX Drug Regimen Review Date Date of Note: 02/03/25 Provider Comments Provider responsibility Provider Comments to Recommendations by Pharmacy Agree
[2025-02-03] MEDS: Acetaminophen 500 MG Tablet 1000 MG PO ×2 (14:05→20:49)
[2025-02-03] MEDS: COVID VAC 24-25 (12UP)(MODERNA)/PF 50 MCG/0.5 ML SYRINGE IM (16:22)
[2025-02-04] MEDS: Levothyroxine 100 MCG Tablet PO (05:04)
[2025-02-04] MEDS: Enoxaparin 40 MG/0.4 ML Syringe SC (05:04)
[2025-02-04 07:28] VITALS: BMI 26.1
[2025-02-04] MEDS: Juven (unflavored) Packet 1 PACKET PO ×2 (07:57→17:27)
[2025-02-04] MEDS: Multivitamins,Therapeutic Tablet 1 TABLET PO (07:57)
[2025-02-04] MEDS: Menthol/Lanolin/Calamine/Znox 113 GM Tube 1 APPLIC TOPICAL ×2 (07:58→20:09)
[2025-02-04] MEDS: Nitrofurantoin Macrocrystals 100 MG Capsule PO ×2 (07:58→20:08)
[2025-02-04] MEDS: Nystatin Powder 15gm Bottle 1 APPLIC TOPICAL ×2 (07:58→20:09)
[2025-02-04] MEDS: Sertraline 100 MG Tablet PO (07:59)
[2025-02-04 08:04] VITALS: BP 122/65; PULSE 79; RESP 18; TEMP 36.3; O2SAT 97
[2025-02-04 10:36] VITALS: BMI 26.1
--- NOTE | 2025-02-04 14:24 | CHAPLAIN ---
Type of Pastoral Visit _x__ Initial Visit ___ Follow-up Visit ___ On-call Visit ___ General Patient Visit ___ Spiritual Assessment ___ Family Conference ___ Bereavement ___ Rapid Response ___ Code Blue ___ Other (describe below) Pastoral Care Referral From _x__ Patient ___ Family ___ Nurse ___ Physician ___ Electrical Tester ___ Airplane Electrician ___ Other (describe below) Sacrament/Intervention _x__ Active listening ___ Anointing ___ Jewish ___ Bereavement ___ Communion _x__ [place] exploration ___ _x__ Life review _x__ Prayer ___ Reconciliation ___ Sacrament of Sick _x__ Supportive presence ___ Wedding ___ Other (describe below) Pastoral Comments patient talks about the mystery around her fall, the annoyance of having to be in the hospital, and praying to God for help; pt also gives some life review which includes the of her adult daughter from cancer; processing, listening, and directing patient to look for things that will support her and encourage her; prayer given
--- NOTE | 2025-02-04 15:24 | CASEMGMT ---
Social Work SW met with patient to complete initial assessment. Dtr present. Pt granted permission for dtr to remain. Pt known to this worker from previous stay. Verified contacts. Patient confirmed DNR-CC code status. Educated to Medicare benefit and copay coverage. Pt's goal is to return home alone. See SW assessment for barriers. SW will continue to follow for DC planning. Aleyda Morse [employer]
[2025-02-04] MEDS: traMADol 50 MG Tablet PO (20:07)
[2025-02-04 20:10] VITALS: PULSE 112; O2SAT 92
[2025-02-05] MEDS: Enoxaparin 40 MG/0.4 ML Syringe SC (05:05)
[2025-02-05] MEDS: Levothyroxine 100 MCG Tablet PO (05:05)
[2025-02-05 06:26] VITALS: PULSE 104; O2SAT 94
[2025-02-05] MEDS: Juven (unflavored) Packet 1 PACKET PO ×2 (07:53→17:38)
[2025-02-05] MEDS: Multivitamins,Therapeutic Tablet 1 TABLET PO (07:53)
[2025-02-05] MEDS: Menthol/Lanolin/Calamine/Znox 113 GM Tube 1 APPLIC TOPICAL ×2 (07:54→20:29)
[2025-02-05] MEDS: Nitrofurantoin Macrocrystals 100 MG Capsule PO (07:54)
[2025-02-05] MEDS: Nystatin Powder 15gm Bottle 1 APPLIC TOPICAL ×2 (07:55→20:30)
[2025-02-05] MEDS: Sertraline 100 MG Tablet PO (07:55)
[2025-02-05] MEDS: Senna/Docusate Sodium 1 Tablet PO ×2 (07:55→20:30)
[2025-02-05 08:03] VITALS: BP 105/68; PULSE 96; RESP 16; TEMP 36.5; O2SAT 93
[2025-02-06] MEDS: Levothyroxine 100 MCG Tablet PO (05:01)
[2025-02-06] MEDS: Enoxaparin 40 MG/0.4 ML Syringe SC (05:01)
[2025-02-06 08:15] VITALS: BP 107/72; PULSE 120; RESP 16; TEMP 36.6; O2SAT 93
[2025-02-06] MEDS: Senna/Docusate Sodium 1 Tablet PO ×2 (08:17→21:58)
[2025-02-06] MEDS: Juven (unflavored) Packet 1 PACKET PO ×2 (08:17→17:23)
[2025-02-06] MEDS: Multivitamins,Therapeutic Tablet 1 TABLET PO (08:17)
[2025-02-06] MEDS: Ergocalciferol 1.25 MG (50, 000 UNIT) Capsule PO (08:17)
[2025-02-06] MEDS: Sertraline 100 MG Tablet PO (08:17)
[2025-02-06] MEDS: Nystatin Powder 15gm Bottle 1 APPLIC TOPICAL ×2 (08:18→21:57)
[2025-02-06] MEDS: Menthol/Lanolin/Calamine/Znox 113 GM Tube 1 APPLIC TOPICAL ×2 (08:18→21:57)
[2025-02-06] MEDS: Acetaminophen 500 MG Tablet 1000 MG PO (08:22)
--- NOTE | 2025-02-06 10:00 | CASEMGMT ---
Social Work IDT met with patient, dtr and son for care plan meeting. Discussed patient's progress in PT/OT/ST/SN. Educated to Medicare benefit. Provided pt/family with written communication of insurance process and copay coverage during stay. Discussed pt's NWB RUE and the impact on lack of independence. Pt lives home alone and dtr assists prior to her max potential as she cares for her , and son works full-time. SULKY DRIVER recommended family oversee finances and medications as pt scored 32/50 on BCAT. SW offered resources for home delivered meals, [place], nonskilled PICKER TENDER HELPER and transportation assistance. Family accepted. SW educated to OOP cost and family coordination of those services. pt has Dr. Devries f/u appt 02/13. Pt will not be able to remain under insurance for the duration of NWB. Son understood and plans to begin coordinating services. SW educated to skilled HHC at DC through insurance. SW to assist with coordination. Pt/family expressed understanding. Pt inquired about medication for her increased anxiety. SW explored further. Pt is prescribed Zoloft at 100mg daily. Pt described having additional anxiety here and there and doesn't want another permanent medication, but something as needed. Nurse to leave communication with Dr. Olmstead for possible PRN order for Ativan. Pt and family appreciative. SW will continue to follow for DC planning assistance. Aleyda Morse AUTO APPRENTICE MECHANIC TRANSPORT DRIVER
[2025-02-06 11:11] VITALS: BP 132/66; PULSE 94
[2025-02-06] MEDS: Metoprolol Tartrate 25 MG Tablet 12.5 MG PO ×2 (11:11→21:58)
--- NOTE | 2025-02-06 11:14 | NURSING ---
pt HR elevated 120 but pt had been up in BR with assist for morning care, pt anxious about her plan of care meeting. dr vega notified of anxiousness after plan of care meeting and ordered PRN ativan and lopressor. pt updated.
--- NOTE | 2025-02-06 13:29 | MDS.RN ---
Pain assessment for MDS complete.
--- NOTE | 2025-02-06 13:38 | NURSING ---
pt off unit to ENT appt w/daughter
--- NOTE | 2025-02-06 15:19 | NURSING ---
daughter returned mother to unit via WC from ENT appt, daughter stated while throwing her arms in the air, she needs an ativan, I can't take her to another appt, so she will need it set up for one & she can't hear, just like me, she needs hearing aids but is not getting them until after discharged from TCU daughter also reported that she can't stand it anymore with her mother yelling at her. pt calm with staff, no agitation noted. pt not anxious. 1:1 with pt after daughter left, pt doesn't understand why daughter is so upset. pt denies anxiety. no hearing issues noted with pt either. pt able to hear this nurse in normal tone. pt did stated that doctor did remove a large amount of was from LT ear. pt assisted to recliner chair, call light in reach.
[2025-02-06 21:56] VITALS: BP 109/62; PULSE 101
[2025-02-06 21:58] VITALS: PULSE 101
[2025-02-07] MEDS: Enoxaparin 40 MG/0.4 ML Syringe SC (04:53)
[2025-02-07] MEDS: Levothyroxine 100 MCG Tablet PO (04:53)
[2025-02-07 05:57] LABS: Absolute Lymphocyte Count 1.75 X10^3/uL (0.83-4.51); Absolute Neutrophil Count 1.9 X10^3/uL (2.0-7.7); Basophil# 0.05 X10^3/uL; Basophil% 0.9 % (0-1); Eosinophil# 0.17 X10^3/uL; Eosinophils% 3.1 % (0-5); Hematocrit 39.1 % (37-47); Hemoglobin 12.4 g/dL (12.0-15.0); Lymphocyte # 1.75 X10^3/ul (0.83-4.51); Lymphocyte % 31.7 % (19-41); Mean Corp Hgb Conc 31.7 g/dL (32-36); Mean Corpuscular Volume 94.4 fL (81-99); Mean Platelet Vol. 11.6 fl (6.2-12.0); Monocyte# 1.65 X10^3/uL; Monocyte% 29.9 % (0-10); NRBC Flagged by Analyzer 0 % (0-5); Neutrophil # 1.87 X10^3/uL (2.7-7.7); Neutrophil % 33.9 % (47-70); POSITIVE DIFFERENTIAL YES; Platelet Count 148 K/mm3 (150-450); RBC Distribution Width CV 13.4 % (11.6-14.6); RBC Distribution Width SD 46.6 fl (35.1-43.9); Red Blood Count 4.14 M/mm3 (4.2-5.4); White Blood Count 5.5 K/mm3 (4.4-11.0)
[2025-02-07 06:01] LABS: Differential Indicated SCAN CRITERIA MET
[2025-02-07 07:12] LABS: Anion Gap 11 (5-15); BUN 24 mg/dL (4-19); BUN/Creat Ratio 41.4 RATIO (10-20); Calcium,Total 9.3 mg/dL (7.6-11.0); Carbon Dioxide 23.7 mmol/L (21.0-32.0); Chloride 104 mmol/L (98-108); Creatinine, Serum 0.59 mg/dL (0.70-1.20); EST Glomerular Filtration Rate 88 (>60); Estimated Creatinine Clearance 48.16 ml/min (50-250); Glucose 98 mg/dL (70-99); Sodium Level 139 mmol/L (133-145)
[2025-02-07 07:16] LABS: Differential Comment SCANNED
[2025-02-07] MEDS: Juven (unflavored) Packet 1 PACKET PO ×2 (08:00→16:35)
[2025-02-07 08:03] VITALS: BP 131/82; PULSE 98
[2025-02-07] MEDS: Metoprolol Tartrate 25 MG Tablet 12.5 MG PO ×2 (08:03→20:32)
[2025-02-07] MEDS: Multivitamins,Therapeutic Tablet 1 TABLET PO (08:03)
[2025-02-07] MEDS: Senna/Docusate Sodium 1 Tablet PO ×2 (08:04→20:32)
[2025-02-07] MEDS: Sertraline 100 MG Tablet PO (08:04)
[2025-02-07] MEDS: Nystatin Powder 15gm Bottle 1 APPLIC TOPICAL ×2 (08:05→20:33)
[2025-02-07] MEDS: Menthol/Lanolin/Calamine/Znox 113 GM Tube 1 APPLIC TOPICAL ×2 (08:05→20:33)
[2025-02-07 08:14] VITALS: BP 131/82; PULSE 98; RESP 16; TEMP 36.8; O2SAT 95
--- NOTE | 2025-02-07 08:33 | NURSING ---
Document Management Consultant Note; MDS for 02/07/2025 Complete
--- NOTE | 2025-02-07 13:14 | CASEMGMT ---
Social Work SW completed BIMS (10/06) and PHQ-2 () for MDS assessment. SW provided supportive listening while pt shared the family dynamics between her children and her. Aleyda Morse SALES RESEARCH ANALYST SAUSAGE MEAT TRIMMER
[2025-02-07 20:32] VITALS: BP 106/87; PULSE 94
[2025-02-07] MEDS: traMADol 50 MG Tablet PO (20:32)
[2025-02-08] MEDS: Levothyroxine 100 MCG Tablet PO (05:30)
[2025-02-08] MEDS: Enoxaparin 40 MG/0.4 ML Syringe SC (05:30)
[2025-02-08 07:40] VITALS: PULSE 70
[2025-02-08] MEDS: Senna/Docusate Sodium 1 Tablet PO ×2 (07:40→21:15)
[2025-02-08] MEDS: Polyethylene Glycol 3350 17 GM PACKET PO (07:40)
[2025-02-08] MEDS: Juven (unflavored) Packet 1 PACKET PO ×2 (07:40→17:01)
[2025-02-08] MEDS: Metoprolol Tartrate 25 MG Tablet 12.5 MG PO ×2 (07:40→21:16)
[2025-02-08] MEDS: Sertraline 100 MG Tablet PO (07:40)
[2025-02-08] MEDS: Multivitamins,Therapeutic Tablet 1 TABLET PO (07:40)
[2025-02-08] MEDS: Nystatin Powder 15gm Bottle 1 APPLIC TOPICAL ×2 (07:41→21:13)
[2025-02-08] MEDS: Menthol/Lanolin/Calamine/Znox 113 GM Tube 1 APPLIC TOPICAL ×2 (07:41→21:12)
[2025-02-08] MEDS: Tuberculin,Purif.prot.deriv. 50 TU/ML Vial 0.1 ML ID (09:34)
[2025-02-08 09:43] VITALS: BP 111/51; PULSE 70; RESP 17; TEMP 36.6; O2SAT 97
[2025-02-08 20:00] VITALS: PULSE 90; O2SAT 95
[2025-02-08 21:10] VITALS: BP 112/59; PULSE 90; O2SAT 95
[2025-02-08 21:16] VITALS: BP 112/59; PULSE 90
[2025-02-08] MEDS: traMADol 50 MG Tablet PO (21:21)
[2025-02-09] MEDS: Enoxaparin 40 MG/0.4 ML Syringe SC (05:19)
[2025-02-09] MEDS: Levothyroxine 100 MCG Tablet PO (05:19)
[2025-02-09 06:41] VITALS: PULSE 88; O2SAT 98
[2025-02-09] MEDS: Juven (unflavored) Packet 1 PACKET PO ×2 (08:01→17:13)
[2025-02-09 08:02] VITALS: PULSE 66
[2025-02-09] MEDS: Senna/Docusate Sodium 1 Tablet PO ×2 (08:02→20:46)
[2025-02-09] MEDS: Sertraline 100 MG Tablet PO (08:02)
[2025-02-09] MEDS: Nystatin Powder 15gm Bottle 1 APPLIC TOPICAL ×2 (08:02→20:48)
[2025-02-09] MEDS: Menthol/Lanolin/Calamine/Znox 113 GM Tube 1 APPLIC TOPICAL ×2 (08:02→20:47)
[2025-02-09] MEDS: Polyethylene Glycol 3350 17 GM PACKET PO (08:02)
[2025-02-09] MEDS: Metoprolol Tartrate 25 MG Tablet 12.5 MG PO ×2 (08:02→20:45)
[2025-02-09] MEDS: Multivitamins,Therapeutic Tablet 1 TABLET PO (08:02)
[2025-02-09 10:10] VITALS: BP 107/56; PULSE 66; RESP 18; TEMP 36.4; O2SAT 95
[2025-02-09 20:45] VITALS: BP 113/68; PULSE 89
[2025-02-10] MEDS: Levothyroxine 100 MCG Tablet PO (05:49)
[2025-02-10] MEDS: Enoxaparin 40 MG/0.4 ML Syringe SC (05:49)
[2025-02-10 07:47] VITALS: BP 100/56; PULSE 66; RESP 16; TEMP 36.5; O2SAT 96
[2025-02-10] MEDS: Senna/Docusate Sodium 1 Tablet PO ×2 (07:50→22:53)
[2025-02-10] MEDS: Multivitamins,Therapeutic Tablet 1 TABLET PO (07:50)
[2025-02-10] MEDS: Sertraline 100 MG Tablet PO (07:50)
[2025-02-10] MEDS: Polyethylene Glycol 3350 17 GM PACKET PO (07:51)
[2025-02-10] MEDS: Juven (unflavored) Packet 1 PACKET PO ×2 (07:51→17:21)
[2025-02-10] MEDS: Menthol/Lanolin/Calamine/Znox 113 GM Tube 1 APPLIC TOPICAL ×2 (07:51→22:54)
[2025-02-10] MEDS: Nystatin Powder 15gm Bottle 1 APPLIC TOPICAL ×2 (07:53→22:53)
[2025-02-10 07:55] VITALS: PULSE 66
[2025-02-10] MEDS: Metoprolol Tartrate 25 MG Tablet 12.5 MG PO ×2 (07:55→22:54)
[2025-02-10 08:00] VITALS: PULSE 66; RESP 16; O2SAT 96
[2025-02-10] MEDS: Acetaminophen 500 MG Tablet 1000 MG PO (10:07)
--- NOTE | 2025-02-10 13:29 | NURSING ---
Dr. 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
[2025-02-10] MEDS: Triamcinolone Acetonide 0.1% Cream 15 gm 1 APPLIC TOPICAL ×2 (14:27→22:55)
[2025-02-10 22:54] VITALS: BP 100/55; PULSE 97
[2025-02-11] MEDS: Enoxaparin 40 MG/0.4 ML Syringe SC (05:36)
[2025-02-11] MEDS: Levothyroxine 100 MCG Tablet PO (05:36)
[2025-02-11] MEDS: Juven (unflavored) Packet 1 PACKET PO ×2 (08:24→17:27)
[2025-02-11] MEDS: Multivitamins,Therapeutic Tablet 1 TABLET PO (08:25)
[2025-02-11] MEDS: Menthol/Lanolin/Calamine/Znox 113 GM Tube 1 APPLIC TOPICAL ×2 (08:26→20:58)
[2025-02-11 08:27] VITALS: BP 104/62; PULSE 95
[2025-02-11] MEDS: Metoprolol Tartrate 25 MG Tablet 12.5 MG PO ×2 (08:27→21:00)
[2025-02-11] MEDS: Nystatin Powder 15gm Bottle 1 APPLIC TOPICAL ×2 (08:30→20:58)
[2025-02-11] MEDS: Triamcinolone Acetonide 0.1% Cream 15 gm 1 APPLIC TOPICAL ×2 (08:31→21:02)
[2025-02-11] MEDS: Senna/Docusate Sodium 1 Tablet PO ×2 (08:31→20:59)
[2025-02-11] MEDS: Sertraline 100 MG Tablet PO (08:32)
[2025-02-11 08:44] VITALS: BP 104/62; PULSE 95; RESP 20; TEMP 36.7; O2SAT 94
[2025-02-11 09:53] VITALS: BMI 25.4
[2025-02-11 17:30] VITALS: PULSE 104; RESP 18; O2SAT 94
[2025-02-11] MEDS: Acetaminophen 500 MG Tablet 1000 MG PO (17:32)
[2025-02-11 20:57] VITALS: BP 106/61; PULSE 91
[2025-02-11 21:00] VITALS: BP 106/61; PULSE 91
[2025-02-12] MEDS: Levothyroxine 100 MCG Tablet PO (05:54)
[2025-02-12] MEDS: Enoxaparin 40 MG/0.4 ML Syringe SC (05:54)
--- NOTE | 2025-02-12 08:51 | MDS.RN ---
Information for the MDS was obtained from review of the clinical record, interview of resident, staff, and direct observation of resident?s care.
[2025-02-12] MEDS: Juven (unflavored) Packet 1 PACKET PO ×2 (09:38→16:40)
[2025-02-12] MEDS: Menthol/Lanolin/Calamine/Znox 113 GM Tube 1 APPLIC TOPICAL ×2 (09:39→20:16)
[2025-02-12] MEDS: Multivitamins,Therapeutic Tablet 1 TABLET PO (09:39)
[2025-02-12 09:40] VITALS: BP 107/53; PULSE 67
[2025-02-12] MEDS: Metoprolol Tartrate 25 MG Tablet 12.5 MG PO ×2 (09:40→20:11)
[2025-02-12] MEDS: Nystatin Powder 15gm Bottle 1 APPLIC TOPICAL ×2 (09:41→20:15)
[2025-02-12] MEDS: Triamcinolone Acetonide 0.1% Cream 15 gm 1 APPLIC TOPICAL ×2 (09:42→20:11)
[2025-02-12] MEDS: Senna/Docusate Sodium 1 Tablet PO (09:42)
[2025-02-12] MEDS: Sertraline 100 MG Tablet PO (09:42)
[2025-02-12 09:59] VITALS: BP 107/53; PULSE 69; RESP 18; TEMP 36.7; O2SAT 96
[2025-02-12] MEDS: Ensure Plus High Protein 120 ML LIQUID PO (16:43)
[2025-02-12 20:01] VITALS: BP 114/58; PULSE 67; RESP 16; O2SAT 95
[2025-02-12] MEDS: Acetaminophen 500 MG Tablet 1000 MG PO (20:10)
[2025-02-12 20:11] VITALS: BP 114/58; PULSE 67
[2025-02-13] MEDS: Enoxaparin 40 MG/0.4 ML Syringe SC (05:43)
[2025-02-13] MEDS: Levothyroxine 100 MCG Tablet PO (05:43)
[2025-02-13] MEDS: Ensure Plus High Protein 120 ML LIQUID PO (07:38)
[2025-02-13 07:39] VITALS: PULSE 62
[2025-02-13] MEDS: Menthol/Lanolin/Calamine/Znox 113 GM Tube 1 APPLIC TOPICAL ×2 (07:39→20:15)
[2025-02-13] MEDS: Nystatin Powder 15gm Bottle 1 APPLIC TOPICAL ×2 (07:39→20:16)
[2025-02-13] MEDS: Triamcinolone Acetonide 0.1% Cream 15 gm 1 APPLIC TOPICAL ×2 (07:39→20:17)
[2025-02-13] MEDS: Metoprolol Tartrate 25 MG Tablet 12.5 MG PO ×2 (07:39→20:19)
[2025-02-13] MEDS: Multivitamins,Therapeutic Tablet 1 TABLET PO (07:39)
[2025-02-13] MEDS: Sertraline 100 MG Tablet PO (07:39)
[2025-02-13] MEDS: Ergocalciferol 1.25 MG (50, 000 UNIT) Capsule PO (07:39)
[2025-02-13 09:48] VITALS: BP 109/62; PULSE 62; RESP 18; TEMP 36.6; O2SAT 98
--- NOTE | 2025-02-13 10:33 | NURSING ---
Addendum entered by Jean Taylor 02/13/25 12:58: Pt. returned to the floor via WC, accompanied by daughter @1250 Original Note: Pt. left floor with daughter via WC, to go to follow up appointment with Dr. Devries.
--- NOTE | 2025-02-13 15:11 | CASEMGMT ---
Social Work Son requested to speak with this worker. SW spoke with son after pt returned from Dr menjivar. Pt received hard cast and will f/u in 4 weeks. Unsure if pt will get cast off or get WBS at that f/u appt. Son inquired about the DC plan and timeframe, along with recommendations. SW explained IDT was also waiting on outcome from this appt, but planned for this outcome. IDT is recommending DC end of next week with 24/7 care, preferably in an AL or SNF. Explained cognition is very poor and is not safe to be alone, in addition to her inability to physically care for self with arm. Son inquired about cognition, as SECONDARY SOCIAL STUDIES TEACHER reported pt scored the same from last admission. SW confirmed, but the recommendations were the same at last admission; 24/7 care, someone to take over meds and finances, even though pt DC'd home. Explained currently, despite physical assistance, pt's cognition is not going to alter, which will not change IDTs recommendations. Son expressed understanding. Son stated his sister Maria Guadalupe, from [place], was going to stay with pt initially after DC, but is now thinking maybe she does need a facility. SW agreed, that especially while pt needs assistance physically and cognitively, to save the family resources for after WBS is lifted, if they wanted to take pt home and hire caregivers. Explained pt can DC home now with calender machine operator helper also. Whichever plan family chooses, to notify this worker, and SW will assist with planning. Son agreed that likely a facility would be better for pt and will speak with siblings. Son inquired if this worker could have that conversation with pt. SW agreed. SW offered to send son the list of AL/SNFs, as he already has list of [facility]. Son agreed and requested email - provided email address. Son appreciative. - SW spoke with pt at bedside. SW spoke about new cast and orders for 4 weeks until next f/u. Explained it will be difficult returning home without 24/7 care as pt cannot provide own personal care. Pt agreed and acknowledged her children have a lot on their plate, and her dtr from [place] was going to stay with her, but can only do that once. SW offered for pt to DC to an AL or SNF for the care that she needs until she can become more independent and save her family resources. Pt and SW discussed it further and pt agreed that plan makes sense. Pt inquired about places to go. SW explained this worker will speak with son and explain the plan and provide a list of options. Pt agreed and appreciative of assistance. - SW emailed son with update on above conversation with pt and pt's agreement to DC to a facility. SW explained the options for DC: home with hired caregivers/family 15/05, AL or SNF - all at an OOP cost, and part B therapies or HHC covered by insurance. Goal DC 02/19-02/21. Provided list of ALs. Offered ongoing assistance with navigating DC plans. SW emailed list of SNFs in preferred geographical area, INN with pt?s insurance, including quality and resource data via [facility] link. SW will continue to follow. Aleyda Morse MSW FIELD STAFF
[2025-02-13] MEDS: Juven (unflavored) Packet 1 PACKET PO (16:54)
[2025-02-13 20:00] VITALS: PULSE 72; O2SAT 94
[2025-02-13 20:12] VITALS: BP 108/57; PULSE 72; O2SAT 94
[2025-02-13 20:19] VITALS: BP 108/57; PULSE 72
[2025-02-13] MEDS: Senna/Docusate Sodium 1 Tablet PO (20:19)
[2025-02-13] MEDS: Acetaminophen 500 MG Tablet 1000 MG PO (20:23)
[2025-02-14] MEDS: Levothyroxine 100 MCG Tablet PO (05:24)
[2025-02-14] MEDS: Enoxaparin 40 MG/0.4 ML Syringe SC (05:25)
[2025-02-14 05:57] LABS: Absolute Lymphocyte Count 1.78 X10^3/uL (0.83-4.51); Absolute Neutrophil Count 1.7 X10^3/uL (2.0-7.7); Basophil# 0.07 X10^3/uL; Basophil% 1.3 % (0-1); Eosinophil# 0.16 X10^3/uL; Eosinophils% 3.1 % (0-5); Hematocrit 37.7 % (37-47); Lymphocyte # 1.78 X10^3/ul (0.83-4.51); Mean Corp Hgb Conc 31.8 g/dL (32-36); Mean Corpuscular Hgb 30.5 pg (27.0-32.0); Mean Corpuscular Volume 95.7 fL (81-99); Mean Platelet Vol. 12.9 fl (6.2-12.0); Monocyte# 1.51 X10^3/uL; Monocyte% 28.9 % (0-10); NRBC Flagged by Analyzer 0 % (0-5); Neutrophil # 1.67 X10^3/uL (2.7-7.7); Neutrophil % 31.9 % (47-70); POSITIVE DIFFERENTIAL YES; Platelet Count 110 K/mm3 (150-450); RBC Distribution Width CV 13.5 % (11.6-14.6); RBC Distribution Width SD 47.6 fl (35.1-43.9); Red Blood Count 3.94 M/mm3 (4.2-5.4); White Blood Count 5.2 K/mm3 (4.4-11.0)
[2025-02-14 06:09] LABS: Differential Indicated SCAN CRITERIA MET
[2025-02-14 06:53] LABS: Anion Gap 9 (5-15); BUN 25 mg/dL (4-19); BUN/Creat Ratio 39.3 RATIO (10-20); Calcium,Total 9.1 mg/dL (7.6-11.0); Carbon Dioxide 27.2 mmol/L (21.0-32.0); Chloride 108 mmol/L (98-108); Creatinine, Serum 0.64 mg/dL (0.70-1.20); EST Glomerular Filtration Rate 86 (>60); Glucose 92 mg/dL (70-99); Potassium 4.2 mmol/L (3.3-5.1); Sodium Level 144 mmol/L (133-145)
[2025-02-14] MEDS: Multivitamins,Therapeutic Tablet 1 TABLET PO (07:59)
[2025-02-14] MEDS: Menthol/Lanolin/Calamine/Znox 113 GM Tube 1 APPLIC TOPICAL ×2 (07:59→20:43)
[2025-02-14] MEDS: Juven (unflavored) Packet 1 PACKET PO ×2 (07:59→18:20)
[2025-02-14 08:01] VITALS: BP 122/54; PULSE 65
[2025-02-14] MEDS: Metoprolol Tartrate 25 MG Tablet 12.5 MG PO ×2 (08:01→20:48)
[2025-02-14] MEDS: Nystatin Powder 15gm Bottle 1 APPLIC TOPICAL ×2 (08:02→20:44)
[2025-02-14] MEDS: Triamcinolone Acetonide 0.1% Cream 15 gm 1 APPLIC TOPICAL ×2 (08:02→20:44)
[2025-02-14] MEDS: Senna/Docusate Sodium 1 Tablet PO ×2 (08:02→20:46)
[2025-02-14] MEDS: Sertraline 100 MG Tablet PO (08:03)
[2025-02-14] MEDS: Ensure Plus High Protein 120 ML LIQUID PO ×3 (08:04→18:21)
[2025-02-14 08:10] VITALS: BP 122/54; PULSE 65; RESP 16; TEMP 36.7; O2SAT 97
[2025-02-14 10:00] VITALS: PULSE 66; RESP 16; O2SAT 95
[2025-02-14 20:39] VITALS: BP 109/50; PULSE 64
[2025-02-14 20:48] VITALS: BP 109/50; PULSE 64
[2025-02-14] MEDS: Acetaminophen 500 MG Tablet 1000 MG PO (20:51)
[2025-02-15] MEDS: Levothyroxine 100 MCG Tablet PO (05:47)
[2025-02-15] MEDS: Enoxaparin 40 MG/0.4 ML Syringe SC (05:47)
[2025-02-15 05:53] VITALS: PULSE 86; O2SAT 94
[2025-02-15] MEDS: Polyethylene Glycol 3350 17 GM PACKET PO (07:34)
[2025-02-15] MEDS: Ensure Plus High Protein 120 ML LIQUID PO ×2 (07:34→12:00)
[2025-02-15] MEDS: Triamcinolone Acetonide 0.1% Cream 15 gm 1 APPLIC TOPICAL ×2 (07:34→20:33)
[2025-02-15] MEDS: Juven (unflavored) Packet 1 PACKET PO ×2 (07:34→17:02)
[2025-02-15 07:38] VITALS: PULSE 64
[2025-02-15] MEDS: Senna/Docusate Sodium 1 Tablet PO ×2 (07:38→20:31)
[2025-02-15] MEDS: Multivitamins,Therapeutic Tablet 1 TABLET PO (07:38)
[2025-02-15] MEDS: Menthol/Lanolin/Calamine/Znox 113 GM Tube 1 APPLIC TOPICAL ×2 (07:38→20:33)
[2025-02-15] MEDS: Nystatin Powder 15gm Bottle 1 APPLIC TOPICAL ×2 (07:38→20:31)
[2025-02-15] MEDS: Sertraline 100 MG Tablet PO (07:38)
[2025-02-15] MEDS: Metoprolol Tartrate 25 MG Tablet 12.5 MG PO ×2 (07:38→20:32)
[2025-02-15 09:08] VITALS: BP 108/40; PULSE 64; RESP 17; TEMP 36.4; O2SAT 95
[2025-02-15] MEDS: Acetaminophen 500 MG Tablet 1000 MG PO (20:30)
[2025-02-15 20:32] VITALS: BP 104/45; PULSE 63
[2025-02-16] MEDS: Levothyroxine 100 MCG Tablet PO (05:17)
[2025-02-16] MEDS: Enoxaparin 40 MG/0.4 ML Syringe SC (05:17)
[2025-02-16 08:02] VITALS: BP 108/56; PULSE 63
[2025-02-16] MEDS: Multivitamins,Therapeutic Tablet 1 TABLET PO (08:02)
[2025-02-16] MEDS: Metoprolol Tartrate 25 MG Tablet 12.5 MG PO (08:02)
[2025-02-16] MEDS: Juven (unflavored) Packet 1 PACKET PO ×2 (08:02→16:43)
[2025-02-16] MEDS: Nystatin Powder 15gm Bottle 1 APPLIC TOPICAL ×2 (08:03→21:04)
[2025-02-16] MEDS: Sertraline 100 MG Tablet PO (08:04)
[2025-02-16] MEDS: Senna/Docusate Sodium 1 Tablet PO (08:04)
[2025-02-16] MEDS: Triamcinolone Acetonide 0.1% Cream 15 gm 1 APPLIC TOPICAL ×2 (08:04→21:04)
[2025-02-16 08:13] VITALS: BP 108/56; PULSE 63; RESP 16; TEMP 36.6; O2SAT 96
[2025-02-16 14:15] VITALS: PULSE 90; RESP 18; O2SAT 96
[2025-02-16 21:05] VITALS: BP 96/33
[2025-02-16] MEDS: Acetaminophen 500 MG Tablet 1000 MG PO (21:06)
[2025-02-17] MEDS: Enoxaparin 40 MG/0.4 ML Syringe SC (05:09)
[2025-02-17] MEDS: Levothyroxine 100 MCG Tablet PO (05:09)
[2025-02-17] MEDS: Juven (unflavored) Packet 1 PACKET PO ×2 (08:17→16:19)
[2025-02-17] MEDS: Polyethylene Glycol 3350 17 GM PACKET PO (08:17)
[2025-02-17] MEDS: Multivitamins,Therapeutic Tablet 1 TABLET PO (08:18)
[2025-02-17] MEDS: Nystatin Powder 15gm Bottle 1 APPLIC TOPICAL ×2 (08:20→20:23)
[2025-02-17] MEDS: Senna/Docusate Sodium 1 Tablet PO ×2 (08:21→20:25)
[2025-02-17] MEDS: Sertraline 100 MG Tablet PO (08:22)
[2025-02-17 08:25] VITALS: BP 111/49; PULSE 62
[2025-02-17] MEDS: Metoprolol Tartrate 25 MG Tablet 12.5 MG PO ×2 (08:25→20:26)
[2025-02-17 08:28] VITALS: BP 111/49; PULSE 62; RESP 16; TEMP 36.6; O2SAT 95
[2025-02-17 10:00] VITALS: PULSE 62; RESP 18; O2SAT 94
[2025-02-17] MEDS: Triamcinolone Acetonide 0.1% Cream 15 gm 1 APPLIC TOPICAL ×2 (10:04→20:24)
--- NOTE | 2025-02-17 10:10 | CASEMGMT ---
Addendum entered by Aleyda Morse 02/17/25 16:26: Rafael denied d/t needing SNF, not AL. - SW spoke with Cassandra at [facility] to provide more background information. Cassandra stated they can accept on 02/26, but when she spoke with the son, the son stated he was going out of town and was looking at other facilities. SW to speak with son to clarify plans and follow up with Cassandra. Original Note: Social Work SW phoned son to follow up on DC plans. Son stated he toured several facilities in [place] over the weekend and requested referrals to [facility] and [facility] for AL. SW confirmed the son wanted AL not SNF. Son confirmed. - [facility]. Will continue to follow. Aleyda Morse FRESH FOODS TECHNICIAN AUDIT CLERKS SUPERVISOR
[2025-02-17 20:22] VITALS: BP 112/61; PULSE 85
[2025-02-17 20:26] VITALS: BP 112/61; PULSE 85
[2025-02-17] MEDS: Acetaminophen 500 MG Tablet 1000 MG PO (20:33)
--- NOTE | 2025-02-17 20:35 | NURSING ---
Patient accepted prune juice with butter for bowel protocol.
[2025-02-18] MEDS: Enoxaparin 40 MG/0.4 ML Syringe SC (05:28)
[2025-02-18] MEDS: Levothyroxine 100 MCG Tablet PO (05:28)
[2025-02-18] MEDS: Magnesium Citrate 300 ML PO (05:29)
--- NOTE | 2025-02-18 05:37 | NURSING ---
Patient accepted mag citrate for bowel protocol.
--- NOTE | 2025-02-18 08:11 | CASEMGMT ---
Social Work SW phoned son to update on [facility] and [facility]. Son stated he spoke with both and is aware. [facility] can accept with DC 5 and provide furnished apt. SW inquired about DC 5, son agreeable and will transport. son appreciative. - MARIFER phoned Cassandra at [facility] to update and confirm son is agreeable to admission. MARIFER inquired about assessment. Cassandra denied as LOC pricing is included and can assess by notes. Cassandra requested updated notes closer to DC and will coordinate payment with son. Cassandra confirmed pt does not need memory care and their AL is secured and can meet her needs for cuing in AL, but will assess after admission if pt needs moved. MARIFER agreed. Will continue to follow. Plan: DC 5 to [facility] in [place] [employer] CONTINUITY [employer]AN[employer]
[2025-02-18 08:31] VITALS: BP 118/62; PULSE 65; RESP 16; TEMP 36.2; O2SAT 94
[2025-02-18 08:34] VITALS: PULSE 65
[2025-02-18] MEDS: Metoprolol Tartrate 25 MG Tablet 12.5 MG PO ×2 (08:34→20:04)
[2025-02-18] MEDS: Multivitamins,Therapeutic Tablet 1 TABLET PO (08:34)
[2025-02-18] MEDS: Triamcinolone Acetonide 0.1% Cream 15 gm 1 APPLIC TOPICAL ×2 (08:35→20:05)
[2025-02-18] MEDS: Sertraline 100 MG Tablet PO (08:35)
[2025-02-18] MEDS: Nystatin Powder 15gm Bottle 1 APPLIC TOPICAL ×2 (08:35→20:04)
[2025-02-18 10:00] VITALS: BMI 25.4
[2025-02-18 19:58] VITALS: BP 121/50; PULSE 61; O2SAT 94
[2025-02-18 20:04] VITALS: BP 121/50; PULSE 61
[2025-02-18] MEDS: Senna/Docusate Sodium 1 Tablet PO (20:05)
[2025-02-18] MEDS: Acetaminophen 500 MG Tablet 1000 MG PO (20:08)
--- NOTE | 2025-02-18 21:01 | PCM.DC.SUM ---
Providers Date of Admission: 01/31/25 Primary Care Physician: Dr. Nara Orta MD Reason For Visit: UTI, RIGHT WRIST FRACTURE Diagnosis Discharge Diagnosis (1) Debility: Status: Resolved Code(s): R53.81 - Other malaise (2) Wrist fracture, right: Status: Acute Code(s): S62.101A - Fracture of unspecified carpal bone, right wrist, initial encounter for closed fracture Qualifiers: Encounter type: initial encounter Fracture type: closed Qualified Code(s): S62.101A - Fracture of unspecified carpal bone, right wrist, initial encounter for closed fracture (3) UTI (urinary tract infection): Status: Resolved Code(s): N39.0 - Urinary tract infection, site not specified (4) Fall at home: Status: Resolved Code(s): W19.XXXA - Unspecified fall, initial encounter; Y92.009 - Unspecified place in unspecified non-institutional (private) residence as the place of occurrence of the external cause Qualifiers: Encounter type: initial encounter Qualified Code(s): W19.XXXA - Unspecified fall, initial encounter; Y92.009 - Unspecified place in unspecified non-institutional (private) residence as the place of occurrence of the external cause (5) Depression: Status: Inactive Code(s): F32.A - Depression, unspecified (6) Hypothyroidism: Status: Inactive Code(s): E03.9 - Hypothyroidism, unspecified (7) Essential (primary) hypertension: Status: Inactive Code(s): I10 - Essential (primary) hypertension (8) Hyperlipidemia, unspecified: Status: Inactive Code(s): E78.5 - Hyperlipidemia, unspecified Plan 84 year old female with below past medical history hospitalized for fall, right wrist fracture, urinary tract infection, admitted to TCU with debility, here for rehabilitation, strengthening, prior to discharge home alone. Debility - PT/OT. Pain - Tylenol 1000mg q6 prn pain (1-10). Bowel - Miralax 17gm daily, senna/colace 1 tablet bid. Adult immunization - Administer pneumonia vaccine, covid vaccine, flu vaccine as appropriate. DVT prophylaxis - Lovenox 40mg sc daily. Vitamin D deficiency - D 1.25mg per week. Hypothyroidism - Levothyroxine 100mcg daily. Skin irritation - Calmoseptine topical bid. Nutrition - MVI 1 tablet daily. UTI - Nitrofurantoin 100mg bid thru 02/05/2025, urine culture pending. Tinea Corporis - Nystatin powder topical bid. Dry eyes - Artificial tears 2gtt ou q1h prn. Depression - Sertraline 100mg daily, stable chronic alf use, GDR not recommended. Medications at Discharge Home Medications multivitamin 1 tab PO DAILY supplement 12/17/18 sertraline 100 mg tablet 100 mg PO QDAY mood #90 tabs 11/28/24 levothyroxine 100 mcg tablet 100 mcg PO QDAY thyroid #90 tabs 01/10/25 ergocalciferol (vitamin D2) 1,250 mcg (50,000 unit) capsule (Vitamin D2) 1,250 mcg PO Q7D supplement 7 weeks #7 caps 01/31/25 acetaminophen 500 mg tablet 1,000 mg (2 x 500 mg) PO Q6H PRN PRN Pain Score 1-10 #0 tabs 02/18/25 arginine 7 gram-glutam 7 gram-CaHMB 1.5 rzma-pxzaj-di-min oral pwd pkt (Ishan (with collagen)) 1 packet PO BIDCM #0 ea 02/18/25 magnesium citrate 300 ml PO X1 PRN Constipation #0 mL 02/18/25 metoprolol tartrate 25 mg tablet 12.5 mg (1/2 x 25 mg) PO BID #0 tabs 02/18/25 nystatin 100,000 unit/gram topical powder (Nyamyc) 1 applic topical BID #0 grams 02/18/25 sennosides 8.6 mg-docusate sodium 50 mg tablet (Stimulant Laxative Plus) 1 tab PO BID #0 tabs 02/18/25 triamcinolone acetonide 0.1 % topical cream 1 applic topical BID #0 grams 02/18/25 Hospital Course Operations None Procedures None Summary of Care Provided Minutes Spent on Discharge: 35 Hospital Course: 84 year old female with below past medical history hospitalized for fall, right wrist fracture, urinary tract infection, admitted to TCU with debility, here for rehabilitation, strengthening, prior to discharge home alone. 02/13/2025 Carolyn Manuel (Orthopedics): Obtained and reviewed xrays today in the clinic. Independent interpretation of the xrays was performed. Imaging shows a well an unchanged minimally displaced fracture of the distal right radial and probable small distal ulnar styloid fracture also unchanged. Reviewed Imaging with Dr. Devries. Explained imaging findings in detail. A short arm cast was applied by me in the clinic. She should keep the cast on for 4 weeks and then return to the clinic for follow up xrays and cast removal. Discussed that she should avoid any weight bearing in the right hand while wearing the cast and to continue to do finger range of motion over the next 4 weeks. She should continue PT/OT while at the TCU. Follow up in 4 weeks. Patient is in agreement. Discharge 02/26/2025 to [facility]. Physical Exam Const alert General Appearance: cooperative HEENT normocephalic Eyes PERRL and EOMs intact bilaterally Neck supple, no JVD and no carotid bruits Resp normal respiratory effort, normal air movement and clear to auscultation bilaterally Cardio regular rate and regular rhythm GI normal to inspection, nondistended, normoactive bowel sounds, non-tender and non-distended Extremity normal capillary refill Extremity Narrative: Right short arm cast. General Extremity: Negative for edema Skin no rashes or lesions noted General Skin Exam: no breakdown Psych affect normal Appearance: appropriate Weight / BMI Weight Weight: 67.676 kg Body Mass Index (BMI) 25.4 ABG / Lab / Microbiology Data 02/14/25 05:03 02/14/25 05:03 D/C Instructions Discharge Diet: No restrictions Discharge Activity: Return to Normal Activity, May Shower and Use Walker Weight Bearing Status: No weight bearing (Right upper extremity.) Call your doctor if you observe: Fever of 101 or Higher, Inability to urinate, Inability to have a bowel movement, Shortness of breath, Dizziness, Fainting spells, Swelling in the ankles, Chest pain and Uncontrolled pain DC O2, CPAP, BIPAP Needs Home O2 Discharge instructions: No Additional Instructions: Discharge 02/26/2025 to [facility]. Please Follow Up With: Dr. Devries (Will see LUCHO Maynard) When: 03/15/2025. Meaningful Use Info Meaningful Use Meaningful Use Diagnoses (Choose all that apply): None applicable Ischemic Stroke Statin Dosing Therapy Reference: STATIN DOSE THERAPY REFERENCE: * Patients > 75 years receive moderate or high dose statin therapy. * Patients 75 years or YOUNGER should receive HIGH intensity statin dose unless contraindicated. You will be required to document reason for non-treatment if statin daily dose does not meet guidelines. HIGH DOSE STATIN THERAPY DAILY Atorvastatin > than or = to 40 mg Rosuvastatin > than or = to 20 mg Amlodipine + Atorvastatin > than or = to 2.5/40 mg Ezetimibe + Simvastatin 10/80 mg Simvastatin 80mg Discharge Plan Admission Admit Date/Time: 01/31/25 10:45 Primary Reason for Your Visit: Debility. Attending Provider: Good Olmstead Chi Primary Care Provider: Nara Orta Instructions Additional Instructions / Restrictions: Discharge 02/26/2025 to [facility] in [place]. Discharge Orders/Prescriptions Prescriptions: New sennosides-docusate sodium [Stimulant Laxative Plus] 8.6-50 mg Tablet 1 tab PO BID Qty: 0 0RF acetaminophen 500 mg Tablet 1,000 mg PO Q6H PRN PRN (Reason: Pain Score 1-10) Qty: 0 0RF triamcinolone acetonide 0.1 % Cream 1 applic topical BID Qty: 0 0RF Protocol: *Topical Application Instructions APPLICATION INSTRUCTIONS: BLE- reddened areas magnesium citrate Solution 300 ml PO X1 PRN (Reason: Constipation) Qty: 0 0RF nystatin [Nyamyc] 100,000 unit/gram Powder 1 applic topical BID Qty: 0 0RF Protocol: *Topical Application Instructions APPLICATION INSTRUCTIONS: Under left breast metoprolol tartrate 25 mg Tablet 12.5 mg PO BID Qty: 0 0RF Ishan (with collagen) 7-7-1.5 gram Powder In Packet 1 packet PO BIDCM Qty: 0 0RF Continued multivitamin tablet 1 tab PO DAILY sertraline 100 mg tablet 100 mg PO QDAY Qty: 90 0RF ergocalciferol (vitamin D2) [Vitamin D2] 1,250 mcg (50,000 unit) Capsule 1,250 mcg PO Q7D 49 Days Qty: 7 0RF levothyroxine 100 mcg tablet 100 mcg PO QDAY Qty: 90 0RF Discontinued calcium carbonate-vitamin D3 500 mg-10 mcg (400 unit) tablet 1 tab PO DAILY acetaminophen 325 mg Tablet 650 mg PO Q8H PRN PRN (Reason: Pain 1-5/10 Or Fever) Qty: 0 0RF heparin (porcine) 5,000 unit/mL Solution 5,000 unit subcut Q12 Qty: 0 0RF nitrofurantoin macrocrystal 100 mg capsule 100 mg PO BID 5 Days Qty: 10 0RF Rx Instructions: must administer with a meal/food Referrals / Follow Up: Nara Orta MD [Primary Care Provider] - Jatin Devries MD [Med Staff - Active Staff] - (4 week f/u after appt on 02/13/25) Disposition Disposition (needs filled in before D/C Order can be placed): Assisted Living
[2025-02-19] MEDS: Levothyroxine 100 MCG Tablet PO (05:44)
[2025-02-19] MEDS: Enoxaparin 40 MG/0.4 ML Syringe SC (05:44)
[2025-02-19 06:02] VITALS: PULSE 66; O2SAT 94
[2025-02-19] MEDS: Triamcinolone Acetonide 0.1% Cream 15 gm 1 APPLIC TOPICAL ×2 (07:49→20:38)
[2025-02-19 07:53] VITALS: PULSE 64
[2025-02-19] MEDS: Nystatin Powder 15gm Bottle 1 APPLIC TOPICAL ×2 (07:53→20:39)
[2025-02-19] MEDS: Multivitamins,Therapeutic Tablet 1 TABLET PO (07:53)
[2025-02-19] MEDS: Metoprolol Tartrate 25 MG Tablet 12.5 MG PO ×2 (07:53→20:37)
[2025-02-19] MEDS: Sertraline 100 MG Tablet PO (07:54)
[2025-02-19 09:32] VITALS: BP 114/48; PULSE 64; RESP 18; TEMP 36.6; O2SAT 95
[2025-02-19 20:35] VITALS: BP 114/50; PULSE 63
[2025-02-19 20:37] VITALS: BP 114/50; PULSE 63
[2025-02-19] MEDS: Acetaminophen 500 MG Tablet 1000 MG PO (20:38)
[2025-02-20] MEDS: Levothyroxine 100 MCG Tablet PO (05:44)
[2025-02-20] MEDS: Enoxaparin 40 MG/0.4 ML Syringe SC (05:44)
[2025-02-20] MEDS: Juven (unflavored) Packet 1 PACKET PO ×2 (07:36→17:26)
[2025-02-20] MEDS: Ergocalciferol 1.25 MG (50, 000 UNIT) Capsule PO (07:36)
[2025-02-20] MEDS: Multivitamins,Therapeutic Tablet 1 TABLET PO (07:36)
[2025-02-20 07:38] VITALS: BP 100/47; PULSE 55
[2025-02-20] MEDS: Nystatin Powder 15gm Bottle 1 APPLIC TOPICAL ×2 (07:39→21:22)
[2025-02-20] MEDS: Triamcinolone Acetonide 0.1% Cream 15 gm 1 APPLIC TOPICAL ×2 (07:40→21:23)
[2025-02-20] MEDS: Sertraline 100 MG Tablet PO (07:41)
[2025-02-20 09:48] VITALS: BP 100/47; PULSE 55; RESP 18; TEMP 37.1; O2SAT 96
[2025-02-20 10:00] VITALS: PULSE 85; RESP 16; O2SAT 97
--- NOTE | 2025-02-20 10:42 | NURSING ---
Addendum entered by Jean Taylor 02/20/25 11:59: Pt. returned to floor via WC, accompanied by daughter. Original Note: Pt. left floor via WC, accompanied by daughter. Pt. to go to dentist appt.
[2025-02-20 21:30] VITALS: BP 107/44; PULSE 69
[2025-02-20] MEDS: Acetaminophen 500 MG Tablet 1000 MG PO (21:30)
[2025-02-20] MEDS: Metoprolol Tartrate 25 MG Tablet 12.5 MG PO (21:30)
[2025-02-21 06:13] LABS: Absolute Lymphocyte Count 1.59 X10^3/uL (0.83-4.51); Absolute Neutrophil Count 1.1 X10^3/uL (2.0-7.7); Basophil# 0.03 X10^3/uL; Basophil% 0.8 % (0-1); Eosinophil# 0.15 X10^3/uL; Eosinophils% 3.9 % (0-5); Hematocrit 35.6 % (37-47); Hemoglobin 11.6 g/dL (12.0-15.0); Lymphocyte # 1.59 X10^3/ul (0.83-4.51); Lymphocyte % 41.6 % (19-41); Mean Corp Hgb Conc 32.6 g/dL (32-36); Mean Corpuscular Hgb 31.1 pg (27.0-32.0); Mean Corpuscular Volume 95.4 fL (81-99); Mean Platelet Vol. 12.5 fl (6.2-12.0); Monocyte# 0.96 X10^3/uL; Monocyte% 25.1 % (0-10); NRBC Flagged by Analyzer 0 % (0-5); Neutrophil # 1.07 X10^3/uL (2.7-7.7); Neutrophil % 28.1 % (47-70); POSITIVE COUNT YES; Platelet Count 94 K/mm3 (150-450); RBC Distribution Width CV 13.6 % (11.6-14.6); RBC Distribution Width SD 47.8 fl (35.1-43.9); Red Blood Count 3.73 M/mm3 (4.2-5.4); White Blood Count 3.8 K/mm3 (4.4-11.0)
[2025-02-21 06:20] LABS: Differential Indicated SCAN CRITERIA MET
[2025-02-21] MEDS: Levothyroxine 100 MCG Tablet PO (06:25)
[2025-02-21 06:31] LABS: Anion Gap 9 (5-15); BUN 24 mg/dL (4-19); BUN/Creat Ratio 38.6 RATIO (10-20); Calcium,Total 9.2 mg/dL (7.6-11.0); Carbon Dioxide 26.2 mmol/L (21.0-32.0); Chloride 105 mmol/L (98-108); Creatinine, Serum 0.61 mg/dL (0.70-1.20); EST Glomerular Filtration Rate 87 (>60); Estimated Creatinine Clearance 47.73 ml/min (50-250); Glucose 83 mg/dL (70-99); Potassium 4.2 mmol/L (3.3-5.1); Sodium Level 140 mmol/L (133-145)
[2025-02-21 06:59] LABS: Platelet Estimate SLT DEC (ADEQ)
[2025-02-21] MEDS: Juven (unflavored) Packet 1 PACKET PO ×2 (08:00→16:38)
[2025-02-21 08:01] VITALS: BP 122/55; PULSE 60
[2025-02-21] MEDS: Metoprolol Tartrate 25 MG Tablet 12.5 MG PO ×2 (08:01→21:51)
[2025-02-21] MEDS: Multivitamins,Therapeutic Tablet 1 TABLET PO (08:01)
[2025-02-21] MEDS: Senna/Docusate Sodium 1 Tablet PO ×2 (08:02→21:51)
[2025-02-21] MEDS: Nystatin Powder 15gm Bottle 1 APPLIC TOPICAL ×2 (08:02→19:26)
[2025-02-21] MEDS: Sertraline 100 MG Tablet PO (08:02)
[2025-02-21] MEDS: Triamcinolone Acetonide 0.1% Cream 15 gm 1 APPLIC TOPICAL ×2 (08:08→19:26)
[2025-02-21 08:13] VITALS: BP 122/55; PULSE 60; RESP 16; TEMP 36.8; O2SAT 96
--- NOTE | 2025-02-21 15:50 | NURSING ---
PT SON ZOHREH AND CAME TO THIS NURSE AND STATED THAT HIS SISTER LELAND STATED THAT STAFF WAS HAVING PROBLEMS WITH PT THROWING STUFF AT US,YELLING AND MAKING COMMENTS TO STAFF DUE TO THERE SKIN COLOR. THIS NURSE STATED THAT THERE WAS NOTHING IN ANY NOTES AND NOTHING REPORTED STAFF WAS HAVING ANY PROBLEMS WITH PT. SON ALSO STATED THAT HIS SISTER SAID THE PT DENTIST CALLED THE HOSPITAL AND YELLED AT STAFF AND WONDERING WHY THERE WAS NO AID WITH PT AT DENTIST APPOINTMENT. THIS NURSE STATED THAT HIS SISTER ACCORDING TO NOTES STATED THAT THE SISTER WENT TO THE APPOINTMENT WITH PT. ZOHREH STATED THAT HIS SISTER IS ALWAYS TRYING TO CAUSE TROUBLE AND SAYING THINGS THAT IS NOT TRUE AND WANTED TO SEE IF STAFF WAS HAVING ANY PROBLEMS AND IF ANY THING WAS TRUE. THIS NURSE STATED TO SON THAT THE PT HAS BEEN FINE WITH STAFF AND NOTHING LIKE THAT HAS HAPPENED. SON STATED THANK YOU AND IF THERE WAS ANY PROBLEMS TO PLEASE CALL HIM. RN AWARE
[2025-02-21] MEDS: Menthol/Lanolin/Calamine/Znox 113 GM Tube 1 APPLIC TOPICAL (19:27)
[2025-02-21 21:51] VITALS: BP 112/56; PULSE 63
[2025-02-22] MEDS: Levothyroxine 100 MCG Tablet PO (05:41)
[2025-02-22 06:36] VITALS: PULSE 72; RESP 16; O2SAT 97
[2025-02-22] MEDS: Juven (unflavored) Packet 1 PACKET PO ×2 (07:52→17:57)
[2025-02-22] MEDS: Sertraline 100 MG Tablet PO (07:52)
[2025-02-22] MEDS: Senna/Docusate Sodium 1 Tablet PO ×2 (07:52→20:04)
[2025-02-22] MEDS: Multivitamins,Therapeutic Tablet 1 TABLET PO (07:52)
[2025-02-22 07:53] VITALS: PULSE 67
[2025-02-22] MEDS: Metoprolol Tartrate 25 MG Tablet 12.5 MG PO ×2 (07:53→20:05)
[2025-02-22] MEDS: Nystatin Powder 15gm Bottle 1 APPLIC TOPICAL ×2 (07:53→20:02)
[2025-02-22] MEDS: Triamcinolone Acetonide 0.1% Cream 15 gm 1 APPLIC TOPICAL ×2 (07:53→20:02)
[2025-02-22 09:33] VITALS: BP 120/54; PULSE 67; RESP 18; TEMP 37; O2SAT 95
[2025-02-22 19:57] VITALS: BP 113/62; PULSE 64
[2025-02-22 20:05] VITALS: BP 113/62; PULSE 64
[2025-02-22] MEDS: Acetaminophen 500 MG Tablet 1000 MG PO (20:07)
[2025-02-23] MEDS: Levothyroxine 100 MCG Tablet PO (05:33)
[2025-02-23] MEDS: Nystatin Powder 15gm Bottle 1 APPLIC TOPICAL ×2 (07:40→20:10)
[2025-02-23] MEDS: Sertraline 100 MG Tablet PO (07:40)
[2025-02-23] MEDS: Multivitamins,Therapeutic Tablet 1 TABLET PO (07:40)
[2025-02-23] MEDS: Juven (unflavored) Packet 1 PACKET PO ×2 (07:40→16:47)
[2025-02-23] MEDS: Senna/Docusate Sodium 1 Tablet PO ×2 (07:40→20:10)
[2025-02-23 07:41] VITALS: PULSE 60
[2025-02-23] MEDS: Triamcinolone Acetonide 0.1% Cream 15 gm 1 APPLIC TOPICAL ×2 (07:41→20:10)
[2025-02-23] MEDS: Metoprolol Tartrate 25 MG Tablet 12.5 MG PO ×2 (07:41→20:11)
[2025-02-23 09:24] VITALS: BP 118/64; PULSE 60; RESP 17; TEMP 36.9; O2SAT 97
[2025-02-23 20:06] VITALS: BP 110/56; PULSE 66
[2025-02-23 20:11] VITALS: BP 110/56; PULSE 66
[2025-02-23] MEDS: Acetaminophen 500 MG Tablet 1000 MG PO (20:14)
[2025-02-24] MEDS: Levothyroxine 100 MCG Tablet PO (05:23)
[2025-02-24 05:42] VITALS: PULSE 68; RESP 16; O2SAT 96
[2025-02-24] MEDS: Multivitamins,Therapeutic Tablet 1 TABLET PO (09:56)
[2025-02-24] MEDS: Juven (unflavored) Packet 1 PACKET PO (09:56)
[2025-02-24] MEDS: Senna/Docusate Sodium 1 Tablet PO ×2 (09:56→21:06)
[2025-02-24 09:57] VITALS: PULSE 66
[2025-02-24] MEDS: Sertraline 100 MG Tablet PO (09:57)
[2025-02-24] MEDS: Metoprolol Tartrate 25 MG Tablet 12.5 MG PO ×2 (09:57→21:05)
[2025-02-24] MEDS: Nystatin Powder 15gm Bottle 1 APPLIC TOPICAL ×2 (09:58→21:10)
[2025-02-24] MEDS: Triamcinolone Acetonide 0.1% Cream 15 gm 1 APPLIC TOPICAL ×2 (09:58→21:08)
--- NOTE | 2025-02-24 13:24 | CASEMGMT ---
Social Work SW faxed updated clinicals and DC orders to [facility]. Inquired about [facility] agency - they use [facility]. SW sent referral to [facility] for PT/OT via [facility]. Aleyda Morse MSW FIELD CASHIER
[2025-02-24 14:46] VITALS: BP 108/66; PULSE 72; RESP 17; TEMP 36.8; O2SAT 96
[2025-02-24 21:05] VITALS: BP 107/54; PULSE 60
[2025-02-25] MEDS: Levothyroxine 100 MCG Tablet PO (05:38)
[2025-02-25] MEDS: Juven (unflavored) Packet 1 PACKET PO ×2 (08:12→16:49)
[2025-02-25] MEDS: Polyethylene Glycol 3350 17 GM PACKET PO (08:12)
[2025-02-25] MEDS: Multivitamins,Therapeutic Tablet 1 TABLET PO (08:12)
[2025-02-25] MEDS: Triamcinolone Acetonide 0.1% Cream 15 gm 1 APPLIC TOPICAL ×2 (08:15→20:16)
[2025-02-25] MEDS: Senna/Docusate Sodium 1 Tablet PO ×2 (08:15→20:17)
[2025-02-25] MEDS: Sertraline 100 MG Tablet PO (08:16)
[2025-02-25] MEDS: Nystatin Powder 15gm Bottle 1 APPLIC TOPICAL ×2 (08:16→20:18)
[2025-02-25 09:52] VITALS: BMI 25.7
[2025-02-25 10:00] VITALS: PULSE 55; RESP 14; O2SAT 90
[2025-02-25 10:30] VITALS: BP 112/48; PULSE 64
[2025-02-25 10:42] VITALS: BP 112/48; PULSE 64
[2025-02-25] MEDS: Metoprolol Tartrate 25 MG Tablet 12.5 MG PO (10:42)
[2025-02-25 12:57] VITALS: BP 98/43; PULSE 65; RESP 20; TEMP 36.7; O2SAT 95
[2025-02-25 20:12] VITALS: BP 114/58; PULSE 50; RESP 16; O2SAT 98
[2025-02-25 20:17] VITALS: BP 114/58; PULSE 50
[2025-02-26] MEDS: Levothyroxine 100 MCG Tablet PO (06:20)
[2025-02-26] MEDS: Juven (unflavored) Packet 1 PACKET PO (07:33)
[2025-02-26] MEDS: Multivitamins,Therapeutic Tablet 1 TABLET PO (07:34)
[2025-02-26] MEDS: Polyethylene Glycol 3350 17 GM PACKET PO (07:34)
[2025-02-26] MEDS: Nystatin Powder 15gm Bottle 1 APPLIC TOPICAL (07:36)
[2025-02-26] MEDS: Senna/Docusate Sodium 1 Tablet PO (07:37)
[2025-02-26] MEDS: Triamcinolone Acetonide 0.1% Cream 15 gm 1 APPLIC TOPICAL (07:38)
[2025-02-26] MEDS: Sertraline 100 MG Tablet PO (07:42)
--- NOTE | 2025-02-26 09:17 | CASEMGMT ---
Social Work SW completed BIMS () and PHQ-2 () for MDS assessment. Aleyda Morse SECURITY SALES MANAGER PAVING FOREMAN
[2025-02-26 10:20] VITALS: BP 97/55; PULSE 67
[2025-02-26 11:00] VITALS: BP 97/55; PULSE 62; RESP 16; TEMP 36.6; O2SAT 98
== END 2025-02-26 11:35 | disposition home or self-care (01) | DRG 690 ==
PROVIDERS: Admitting Provider Family Medicine Geriatric Medicine; PCP Internal Medicine; Referring Provider Family Medicine Geriatric Medicine; Visit Provider Family Medicine Geriatric Medicine
DX: N39.0 Urinary tract infection, site not specified (principal); B35.4 Tinea corporis; E03.9 Hypothyroidism, unspecified; F32.A Depression, unspecified; I10 Essential (primary) hypertension; E55.9 Vitamin D deficiency, unspecified; E78.2 Mixed hyperlipidemia; W19.XXXD Unspecified fall, subsequent encounter; F41.9 Anxiety disorder, unspecified; S52.601D Unspecified fracture of lower end of right ulna, subsequent encounter for closed fracture with routine healing; S52.501D Unspecified fracture of the lower end of right radius, subsequent encounter for closed fracture with routine healing; S62.101D Fracture of unspecified carpal bone, right wrist, subsequent encounter for fracture with routine healing; Z79.899 Other long term (current) drug therapy; Z79.01 Long term (current) use of anticoagulants; Z79.890 Hormone replacement therapy; Z23 Encounter for immunization
CPT/HCPCS: 36415; 80048; 85025; 90480; 91322; 92507; 92508; 92523; 97110; 97116; 97129; 97130; 97162; 97166; 97530; 97533; 97535; 97802; A4216